=== PATIENT | male | born 1955 | race Caucasian/White ===

== ENCOUNTER 2020-09-08 09:17 | Emergency (ER) | payer OTHER, MEDICARE, SELFPAY ==
[2020-09-08] VITALS (7 sets, daily range): BP systolic 130–139; BP diastolic 79–97; PULSE 80–102; RESP 17–25; TEMP 36.7–37.1; O2SAT 84–100; BMI 18.3
--- NOTE | 2020-09-08 09:21 | XR_ITS ---
WS: [id number] Portable AP upright chest, 09/08/2020 Clinical Data: dyspnea/cough Comparison: PA and lateral chest, 08/04/2013. Findings: There is scarring and retraction along with volume loss in the right upper lobe unchanged. There is bullous emphysema in the left upper lobe. The pulmonary vascularity is not increased. No pne umonia or pneumothorax is seen. The heart is normal. The diaphragms are flattened. No nodules, masses or effusions are seen. There is no pneumonia or pneumothorax. XR/XR chest 1V portable [id number] Impression: 1. Upper lobe scarring and bullous emphysema unchanged. 2. Hyperinflation.
[2020-09-08 09:34] LABS: ABG PCO2 39.7 mmHg (35-45); ABG PH Result 7.42 (7.35-7.45); Alveolar-Arterial Oxygen Gradi 4.1 mmHg (5-10); Arterial Blood Gas Hematocrit 50.3 % (42-52); Base Excess ABG 1.4 mmol/L (-2.0-2.0); Blood Gas Allen Test Pos; Blood Gas Sample Site Radial, right; Blood Gas Sample Type Arterial; Carboxyhemoglobin 1.7 %THgb (0.4-20.1); HCO3 ABG 25.9 mmol/L (22-26); HGB O2 Sat 92.8 % (95-100); Ionized Calcium Level - ABG 1.1 mmol/L (1.1-1.4); Methemoglobin 0.6 % (0.4-1.5); Oxygen Device NC; PO2 ABG 69.9 mmHg (80.0-100.0); Total Hemoglobin 16.4 g/dL (14-18)
[2020-09-08 09:34] LABS: Basophils % 0.4 %; Eosinophils % 0.4 %; Hematocrit 50.5 % (42.0-52.0); Hemoglobin 16.9 g/dL (11.7-16.6); Lymphocytes # 1.1 10^3/uL (0.8-4.8); Lymphocytes % 11.6 %; Mean Corpuscular HGB Conc 33.5 g/dL (30.0-36.0); Mean Corpuscular Hemoglobin 31.5 pg (28.0-34.0); Mean Corpuscular Volume 94.2 fL (80-94); Mean Platelet Volume 9.2 fL (7.4-10.4); Monocytes # 1.2 10^3/uL (0.2-0.9); Monocytes % 12.5 %; Neutrophils # 6.96 10^3/uL (1.8-7.7); Neutrophils % 74.5 %; Nucleated Red Blood Cells % 0 %; Platelet Count 193 10^3/cmm (130-400); Red Blood Count 5.36 10^6/uL (4.1-5.3); Red Cell Distribution Width 13.2 % (12.1-15.1); White Blood Count 9.4 10^3/uL (4.0-10.0)
--- NOTE | 2020-09-08 09:35 | W.ED.SOB ---
HPI - SOB/Dyspnea General: Chief Complaint: Shortness of Breath/Dyspnea Stated Complaint: low O2 SATS Time Seen by Provider: 09/08/20 09:17 History of Present Illness: HPI Narrative: 65-year-old male presents to the emergency room with complaints of shortness of breath and productive cough for the last few days. He states it began about 3 days ago after he had been mowing his lawn. He states he has a lot of nasal drainage. He has a productive cough with purulent sputum. He has not had any vomiting or diarrhea no anosmia. He is not previously had Covid or been vaccinated. He denies any chest pain. He is not usually on oxygen EMS did not report specific saturation number other than he required oxygen once they arrived there. He is on 2 L nasal cannula when I seen the patient he satting 97 to 98%. Patient was given subcu terbutaline and Solu-Medrol IV in route. MD elicited complaint: shortness of breath and cough Pertinent past history: COPD Onset (ago): day(s) Context: occurred during exertion and allergen exposure Timing: constant Severity: moderate Exacerbating factors: exertion and coughing Relieving factors: oxygen and rest Known history of: COPD Associated symptoms: Reports chest congestion and cough; Deny abdominal pain, chest pain, diaphoresis, dizziness, extremity pain, fever(s), hemoptysis, lightheadedness, myalgias, nausea, orthopnea, palpitations, paresthesias, polydipsia, polyuria, rash, sense of impending doom, syncope or vomiting Treatment prior to arrival: oxygen, bronchodilator and other (EMS Solu-Medrol 125 mg) Review of Systems Const: Denies: fever(s) or diaphoresis Card: Denies: chest pain, palpitations, lightheadedness, syncope or orthopnea Resp: Reports: chest congestion; Denies: hemoptysis GI: Denies: abdominal pain, nausea or vomiting Musc: Denies: extremity pain Neuro: Denies: dizziness Endo: Denies: polyuria or polydipsia PFS ED PFSH: Medical History (Updated 09/08/20 @ 11:44 by Jonas Michaels DO) COPD (chronic obstructive pulmonary disease) Physical Exam Const: COMMON NORMALS: no acute distress GENERAL APPEARANCE: cooperative and comfortable ORIENTATION/CONSCIOUSNESS: Yes awake, Yes oriented to person, Yes oriented to place and Yes oriented to time HENMT: COMMON NORMALS: normocephalic, atraumatic and hearing grossly normal bilaterally HEAD & SCALP: normocephalic and atraumatic Neck/C-Spine: COMMON NORMALS: no JVD Resp: EFFORT & INSPECTION: Yes prolonged expiratory phase AUSCULTATION: rhonchi, wheezes and diminished lung sounds Cardio: COMMON NORMALS: no JVD, regular rate, regular rhythm and No murmurs present (Cardio) RATE: regular rate RHYTHM: regular rhythm GI: COMMON NORMALS: Soft to palpation and No hepatosplenomegaly present AUSCULTATION: Yes normoactive bowel sounds PALPATION: Yes Soft to palpation, No Tenderness to palpation present (GI), No Guarding due to palpation present (GI) and Yes No hepatosplenomegaly present Extremity: COMMON NORMALS: normal to inspection, capillary refill normal, no clubbing, cyanosis or edema, no calf tenderness and no pedal edema Neuro: SENSORIUM/ORIENTATION: Yes oriented to person, Yes oriented to place and Yes oriented to time Skin: COMMON NORMALS: no rashes or lesions noted GENERAL SKIN EXAM: no rashes or lesions noted Course Vital Signs: Vital signs: Vital Signs Temperature 98.7 F 09/08/20 09:50 Pulse Rate 81 09/08/20 13:00 Respiratory Rate 21 H 09/08/20 13:00 Blood Pressure 135/97 09/08/20 13:00 Pulse Oximetry 98 09/08/20 13:00 MDM - SOB/Dyspnea MDM Narrative: Medical decision making narrative: Patient tested for Covid rapid is negative PCR sent out. He was also tested for ambulatory O2 for which she does qualify for 3 L. Patient is feeling better need like to go home. He has mild bladder infection as well as given Rocephin here we will start him on Augmentin 875 twice daily for 10 days additionally given albuterol inhalers thyroid medicine taper and home oxygen follow-up with his primary care doctor within the next 4 to 5 days return if has further problems Lab Data: Labs: Lab Results 09/08/20 09/08/20 09/08/20 Range/Units 09:01 09:01 09:01 WBC 9.4 (4.0-10.0) 10^3/ uL RBC 5.36 H (4.1-5.3) 10^6/u L Hgb 16.9 H (11.7-16.6) g/dL Hct 50.5 (42.0-52.0) % MCV 94.2 H (80-94) fL MCH 31.5 (28.0-34.0) pg MCHC 33.5 (30.0-36.0) g/dL RDW 13.2 (12.1-15.1) % Plt Count 193 (130-400) 10^3/c mm MPV 9.2 (7.4-10.4) fL Neut % (Auto) 74.5 % Lymph % (Auto) 11.6 % [place] % (Auto) 12.5 % Eos % (Auto) 0.4 % Baso % (Auto) 0.4 % Neut # (Auto) 6.96 (1.8-7.7) 10^3/u L Lymph # (Auto) 1.1 (0.8-4.8) 10^3/u L [place] # (Auto) 1.2 H (0.2-0.9) 10^3/u L Eos # (Auto) 0.0 (0.0-0.8) 10^3/u L Baso # (Auto) 0.0 (0.0-0.1) 10^3/u L Nucleated RBC % (a uto) 0 % Nucleated RBCs # 0.0 /100WBC Specimen Type Sample Site ABG pH (7.35-7.45) ABG pCO2 (35-45) mmHg ABG pO2 (80.0-100.0) mmH g ABG HCO3 (22-26) mmol/L ABG O2 Saturation ABG Base Excess (-2.0-2.0) mmol/ L Tono Test A-a O2 Gradient (5-10) mmHg Hematocrit (42-52) % Hgb O2 Saturation (95-100) % Carboxyhemoglobin (0.4-20.1) %THgb Methemoglobin (0.4-1.5) % Total Hemoglobin (14-18) g/dL Ionized Calcium (1.1-1.4) mmol/L O2 Delivery Device O2 Liters/Min % Custom Car [employer] ID Sodium 125 L (136-145) mmol/L Potassium 4.8 (3.5-5.1) mmol/L Chloride 85 L (98-107) mmol/L Carbon Dioxide 29 (22-29) mmol/L Anion Gap 15.8 (5-19) BUN 17 (8-23) mg/dL Creatinine 0.7 (0.7-1.2) mg/dL GFR Calculation 112.5 (90-130) mL/min Glucose 106 (65-115) mg/dL Calculated Osmolal ity 262 L (285-295) mOsm/k g Calcium 8.5 (8.5-10.5) mg/dL Total Bilirubin 1.8 H (0.15-1.2) mg/dL AST 34 (0-40) U/L ALT 19 (0-41) U/L Alkaline Phosphata se 94 (40-130) IU/L Troponin T Baselin e 17 H (0-15) ng/L Troponin T 120 Min [place] (0-15) ng/L Delta Troponin T (0-10) ABS# Total Protein 7.2 (6.6-8.7) g/dL Albumin 3.8 (3.5-5.2) g/dL Globulin 3.4 (1.3-4.6) g/dL Urine Color (Yellow) Urine Appearance (CLEAR) Urine pH (5-7) Ur Specific Gravit y (1.005-1.030) Urine Protein (Negative) Urine Glucose (UA) (Normal) Urine Ketones (Negative) Urine Blood (Negative) Urine Nitrate (Negative) Urine Bilirubin (Negative) Urine Urobilinogen (Negative) mg/dL Ur Leukocyte Cecilia ase (Negative) Urine RBC (0-2) /hpf Urine WBC (0-5) /hpf Ur Squamous Epith Cells (0-5) /hpf Amorphous Sediment Urine Bacteria (NONE) /hpf SARS-CoV-2 Ag (Rap id) (Negative) 09/08/20 09/08/20 09/08/20 Range/Units 09:22 10:03 10:45 WBC (4.0-10.0) 10^3/ uL RBC (4.1-5.3) 10^6/u L Hgb (11.7-16.6) g/dL Hct (42.0-52.0) % MCV (80-94) fL MCH (28.0-34.0) pg MCHC (30.0-36.0) g/dL RDW (12.1-15.1) % Plt Count (130-400) 10^3/c mm MPV (7.4-10.4) fL Neut % (Auto) % Lymph % (Auto) % [place] % (Auto) % Eos % (Auto) % Baso % (Auto) % Neut # (Auto) (1.8-7.7) 10^3/u L Lymph # (Auto) (0.8-4.8) 10^3/u L [place] # (Auto) (0.2-0.9) 10^3/u L Eos # (Auto) (0.0-0.8) 10^3/u L Baso # (Auto) (0.0-0.1) 10^3/u L Nucleated RBC % (a uto) % Nucleated RBCs # /100WBC Specimen Type Arterial Sample Site Radial, right ABG pH 7.42 (7.35-7.45) ABG pCO2 39.7 (35-45) mmHg ABG pO2 69.9 L (80.0-100.0) mmH g ABG HCO3 25.9 (22-26) mmol/L ABG O2 Saturation 95.0 ABG Base Excess 1.4 (-2.0-2.0) mmol/ L Tono Test Pos A-a O2 Gradient 4.1 L (5-10) mmHg Hematocrit 50.3 (42-52) % Hgb O2 Saturation 92.8 L (95-100) % Carboxyhemoglobin 1.7 (0.4-20.1) %THgb Methemoglobin 0.6 (0.4-1.5) % Total Hemoglobin 16.4 (14-18) g/dL Ionized Calcium 1.1 (1.1-1.4) mmol/L O2 Delivery Device Nc O2 Liters/Min 2.0 % Custom Car Builder ID [email or web address] Sodium 123.0 L (136-145) mmol/L Potassium 4.0 (3.5-5.1) mmol/L Chloride (98-107) mmol/L Carbon Dioxide (22-29) mmol/L Anion Gap (5-19) BUN (8-23) mg/dL Creatinine (0.7-1.2) mg/dL GFR Calculation (90-130) mL/min Glucose 112.0 (65-115) mg/dL Calculated Osmolal ity (285-295) mOsm/k g Calcium (8.5-10.5) mg/dL Total Bilirubin (0.15-1.2) mg/dL AST (0-40) U/L ALT (0-41) U/L Alkaline Phosphata se (40-130) IU/L Troponin T Baselin e (0-15) ng/L Troponin T 120 Min [place] (0-15) ng/L Delta Troponin T (0-10) ABS# Total Protein (6.6-8.7) g/dL Albumin (3.5-5.2) g/dL Globulin (1.3-4.6) g/dL Urine Color Yellow (Yellow) Urine Appearance Cloudy (CLEAR) Urine pH 5 (5-7) Ur Specific Gravit y 1.015 (1.005-1.030) Urine Protein Trace (Negative) Urine Glucose (UA) Norm (Normal) Urine Ketones 1+ H (Negative) Urine Blood 2+ H (Negative) Urine Nitrate Positive H (Negative) Urine Bilirubin 1+ H (Negative) Urine Urobilinogen 4 H (Negative) mg/dL Ur Leukocyte Cecilia ase 2+ H (Negative) Urine RBC 15-25 H (0-2) /hpf Urine WBC >100 H (0-5) /hpf Ur Squamous Epith Cells 0-4 H (0-5) /hpf Amorphous Sediment Not Reportable Urine Bacteria 3+ H (NONE) /hpf SARS-CoV-2 Ag (Rap id) Negative (Negative) 09/08/20 Range/Units 11:50 WBC (4.0-10.0) 10^3/ uL RBC (4.1-5.3) 10^6/u L Hgb (11.7-16.6) g/dL Hct (42.0-52.0) % MCV (80-94) fL MCH (28.0-34.0) pg MCHC (30.0-36.0) g/dL RDW (12.1-15.1) % Plt Count (130-400) 10^3/c mm MPV (7.4-10.4) fL Neut % (Auto) % Lymph % (Auto) % [place] % (Auto) % Eos % (Auto) % Baso % (Auto) % Neut # (Auto) (1.8-7.7) 10^3/u L Lymph # (Auto) (0.8-4.8) 10^3/u L [place] # (Auto) (0.2-0.9) 10^3/u L Eos # (Auto) (0.0-0.8) 10^3/u L Baso # (Auto) (0.0-0.1) 10^3/u L Nucleated RBC % (a uto) % Nucleated RBCs # /100WBC Specimen Type Sample Site ABG pH (7.35-7.45) ABG pCO2 (35-45) mmHg ABG pO2 (80.0-100.0) mmH g ABG HCO3 (22-26) mmol/L ABG O2 Saturation ABG Base Excess (-2.0-2.0) mmol/ L Tono Test A-a O2 Gradient (5-10) mmHg Hematocrit (42-52) % Hgb O2 Saturation (95-100) % Carboxyhemoglobin (0.4-20.1) %THgb Methemoglobin (0.4-1.5) % Total Hemoglobin (14-18) g/dL Ionized Calcium (1.1-1.4) mmol/L O2 Delivery Device O2 Liters/Min % Custom Car Builder ID Sodium (136-145) mmol/L Potassium (3.5-5.1) mmol/L Chloride (98-107) mmol/L Carbon Dioxide (22-29) mmol/L Anion Gap (5-19) BUN (8-23) mg/dL Creatinine (0.7-1.2) mg/dL GFR Calculation (90-130) mL/min Glucose (65-115) mg/dL Calculated Osmolal ity (285-295) mOsm/k g Calcium (8.5-10.5) mg/dL Total Bilirubin (0.15-1.2) mg/dL AST (0-40) U/L ALT (0-41) U/L Alkaline Phosphata se (40-130) IU/L Troponin T Baselin e (0-15) ng/L Troponin T 120 Min [place] 12.98 (0-15) ng/L Delta Troponin T -4.02 L (0-10) ABS# Total Protein (6.6-8.7) g/dL Albumin (3.5-5.2) g/dL Globulin (1.3-4.6) g/dL Urine Color (Yellow) Urine Appearance (CLEAR) Urine pH (5-7) Ur Specific Gravit y (1.005-1.030) Urine Protein (Negative) Urine Glucose (UA) (Normal) Urine Ketones (Negative) Urine Blood (Negative) Urine Nitrate (Negative) Urine Bilirubin (Negative) Urine Urobilinogen (Negative) mg/dL Ur Leukocyte Cecilia ase (Negative) Urine RBC (0-2) /hpf Urine WBC (0-5) /hpf Ur Squamous Epith Cells (0-5) /hpf Amorphous Sediment Urine Bacteria (NONE) /hpf SARS-CoV-2 Ag (Rap id) (Negative) Discharge Plan Discharge Patient Disposition: Home Clinical Impression: Acute exacerbation of chronic obstructive airways disease Condition: Stable Prescriptions: New Medrol (Ruben) 4 mg tablets,dose pack See Rx Instructions .ROUTE .COMPLEX Qty: 21 RF: 0 Augmentin 875-125 mg tablet 1 tab PO BID Qty: 20 RF: 0 No Action ipratropium-albuterol 20-100 mcg/actuation mist 1 puff inhalation QID RF: 0 budesonide-formoterol 160-4.5 mcg/actuation HFA aerosol inhaler 2 puff inhalation BID RF: 0 cholecalciferol (vitamin D3) 50 mcg (2,000 unit) capsule 50 mcg PO DAILY RF: 0 cyclobenzaprine 10 mg tablet 10 mg PO TID RF: 0 ibuprofen 800 mg tablet 800 mg PO Q6H RF: 0 lisinopril 20 mg tablet 10 mg PO DAILY RF: 0 Discharge Orders: Discharge ED (Routine); Ordered 09/08/20 Ordered By: Jonas Michaels Other Ambulatory Orders: DME: Oxygen (Order) Location: None Selected Ordered By: Jonas Michaels Referrals: Les St, FRUIT HARVEST WORKER-C [Primary Care Provider] - Discharge Diet: Usual diet Discharge Activity: Limit activity as instructed Patient Instructions: Opioid Safety Coding Level of Care Code ED Senior Engineering Tech for James Fwd Exam Comprehensive
[2020-09-08 09:45] LABS: Alanine Aminotransferase 19 U/L (0-41); Albumin Level 3.8 g/dL (3.5-5.2); Alkaline Phosphatase 94 IU/L (40-130); Anion Gap 15.8 (5-19); Aspartate Amino Transferase 34 U/L (0-40); Blood Urea Nitrogen 17 mg/dL (8-23); Calcium 8.5 mg/dL (8.5-10.5); Carbon Dioxide 29 mmol/L (22-29); Chloride 85 mmol/L (98-107); Globulin 3.4 g/dL (1.3-4.6); Glomerular Filtration Rate 112.5 mL/min (90-130); Glucose 106 mg/dL (65-115); Osmolality Calculated 262 mOsm/kg (285-295); Potassium 4.8 mmol/L (3.5-5.1); Sodium 125 mmol/L (136-145); Total Bilirubin 1.8 mg/dL (0.15-1.2); Total Protein 7.2 g/dL (6.6-8.7)
[2020-09-08 09:46] LABS: Troponin(5th) Baseline 17 ng/L (0-15)
[2020-09-08 10:31] LABS: SARS Covid-2 Antigen Negative (Negative)
[2020-09-08] MEDS: sodium chloride 0.9% 1,000 ML 999 ML IV (10:40)
[2020-09-08 11:01] LABS: Add Urine Culture? Yes; Add Urine Microscopic? YES; Bacteria Urine 3+ /hpf; Bilirubin Urine 1+ (Negative); Blood Urine 2+ (Negative); Glucose Urine UA Norm (Normal); Ketones Urine 1+ (Negative); Leukocyte Esterase Urine 2+ (Negative); Nitrate Urine Positive (Negative); Protein Urine Trace (Negative); RBC Urine 15-25 /hpf (0-2); Specific Gravity, Urine 1.015 (1.005-1.030); Squamous Epithelial Cell Urine 0-4 /hpf (0-5); Urine Appearance Cloudy (CLEAR); Urine Color Yellow (Yellow); Urobilinogen Urine 4 mg/dL (Negative); WBC Urine >100 /hpf (0-5); pH Urine 5 (5-7)
--- NOTE | 2020-09-08 11:22 | ECG_ITS ---
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 Measurements Intervals [place] Rate: 80 P: 77 NE: 161 QRS: 79 QRSD: 74 T: 68 QT: 409 QTc: 474 Interpretive Statements SINUS RHYTHM WITH OCCASIONAL SUPRAVENTRICULAR PREMATURE COMPLEXES LOW QRS VOLTAGE IN PRECORDIAL LEADS [QRS DEFLECTION < 1.0 mV IN CHEST LEADS] SEPTAL MYOCARDIAL INFARCTION , OF INDETERMINATE AGE [40+ ms Q WAVE IN V1/V2] Compared to ECG 09/08/2020 09:40:57 Low QRS voltage now present Myocardial infarct finding now present Atrial abnormality no longer present Electronically Signed On 09-08-2020 21:54:05 CDT by Mayte Hanks M.D. [id number]
[2020-09-08] MEDS: cefTRIAXone 1,000 MG in lidocaine 1% 2.1 ML 2.1 MG IM (11:29)
[2020-09-08 12:50] LABS: Troponin 5 2HR 12.98 ng/L (0-15)
[2020-09-08 12:51] LABS: Troponin 5 2HR Delta -4.02 ABS# (0-10)
--- NOTE | 2020-09-08 14:14 | PC.NURSE ---
Offered sandwich and fresh coffee
--- NOTE | 2020-09-08 15:03 | DCPLANNER ---
manufacturing area manager was asked to arrange for home oxygen for patient. Patient has [facility] insurance, shoe parts caser faxed patients information to [facility] with [facility].
--- NOTE | 2020-09-08 15:22 | ECG_ITS ---
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 Measurements Intervals [place] Rate: 95 P: 75 CT: 153 QRS: 81 QRSD: 85 T: 70 QT: 359 QTc: 453 Interpretive Statements SINUS RHYTHM POSSIBLE RIGHT ATRIAL ENLARGEMENT [0.25mV P WAVE] LEFT ATRIAL ENLARGEMENT [-0.15mV P WAVE IN V1/V2] Possible old septal WI WARNING: DATA QUALITY MAY AFFECT INTERPRETATION No previous ECG available for comparison Electronically Signed On 09-08-2020 21:53:53 CDT by Mayte Hanks M.D. [id number]
--- NOTE | 2020-09-08 16:17 | PC.NURSE ---
D'cd IV , waiting for Home O2.
[2020-09-09 14:42] LABS: Coronavirus Test Green County Not Detected
--- NOTE | 2020-09-09 17:23 | PC.NURSE ---
Pt called and notified of negative COVID result.
== END 2020-09-08 16:56 | disposition home or self-care (01) ==
PROVIDERS: Emergency Provider Family Medicine; PCP Nurse Practitioner
DX: J44.1 Chronic obstructive pulmonary disease with (acute) exacerbation (principal); Z79.899 Other long term (current) drug therapy
CPT/HCPCS: 36415; 36600; 71045; 80051; 80053; 81001; 82330; 82805; 84484; 85025; 87040; 87070; 87077; 87086; 87186; 87205; 87426; 87635; 93005; 96360; 96372; 99284; J0696; J7030

== ENCOUNTER 2022-03-17 08:56 | Emergency (ER) | payer OTHER, SELFPAY ==
[2022-03-17] VITALS (8 sets, daily range): BP systolic 133–152; BP diastolic 76–93; PULSE 83–120; RESP 16–24; TEMP 37.2; O2SAT 97–100; BMI 18.8
--- NOTE | 2022-03-17 09:04 | XRR_ITS ---
PROCEDURE INFORMATION: Exam: XR Chest Exam date and time: 03/17/2022 9:17 AM Age: 66 years old Clinical indication: Shortness of breath; Additional info: Hemoptysis TECHNIQUE: Imaging protocol: Radiologic exam of the chest. Views: 2 views. PA and Lateral COMPARISON: CR XR chest 1V portable [id number] 09/08/2020 9:26 AM FINDINGS: Lungs: Decreased right lung volumes with increased right apical airspace opacities and increased right apical pleural thickening. Increased right superior hilar retraction is seen. Unchanged hyperinflation of the left lung. Age-related interstitial prominence is seen in the lungs. No left lung interstitial or airspace opacities. Pleural spaces: No pleural effusions or pneumothorax. Heart/Mediastinum: Normal heart size. Unchanged mild rightward deviation of the mid trachea and mediastinum. Bones/joints: No acute osseous abnormalities seen. XR/XR chest 2V* [id number] IMPRESSION: Decreased right lung volumes with increased right apical airspace opacities and increased right apical pleural thickening. Increased right superior hilar retraction.
--- NOTE | 2022-03-17 09:17 | ED_ITS ---
HPI - SOB/Dyspnea General: Chief Complaint: Shortness of Breath/Dyspnea Stated Complaint: SOB; BLOODY SPUTUM Time Seen by Provider: 03/17/22 08:57 History of Present Illness: HPI Narrative: 66-year-old male presents with chronic shortness of breath but reports that today he has been coughing up blood. That about every 15 minutes he coughs up bloody sputum. Reports that started this morning. He reports that he has some feeling of increased shortness of breath. That normally when he gets up he is short of breath about 15 minutes and then resolves. But the days shortness of breath is not resolved and he has been coughing up blood. Patient denies any recent fevers, chills, nausea or vomiting. Does report that he is on blood thinner however is not on his medication list. Patient has a history of COPD. He denies any abdominal pain, nausea or vomiting. He denies any chest pain. Patient is normally on 3 L oxygen at home. Associated symptoms: Reports hemoptysis; Deny abdominal pain, chest pain, dizziness, extremity pain, fever(s), nausea, palpitations or vomiting Review of Systems Const: Denies: fever(s) or chills Eyes: Reports: change in vision and blurry vision Card: Denies: chest pain or palpitations Resp: Reports: dyspnea and hemoptysis GI: Denies: abdominal pain, nausea or vomiting : Denies: difficulty urinating Musc: Reports: neck pain; Denies: extremity pain or extremity swelling Skin/Breast: Denies: rash or erythema Neuro: Denies: headache(s) or dizziness Psych: Denies: anxiety or depression [facility] ED PFSH: Medical History (Updated 03/17/22 @ 11:54 by Conrad Puga DO) COPD (chronic obstructive pulmonary disease) Physical Exam Const: COMMON NORMALS: no acute distress and patient oriented x3 GENERAL APPEARANCE: cooperative and frail appearing NUTRITIONAL APPEARANCE: thin HENMT: COMMON NORMALS: hearing grossly normal bilaterally and Normal external nose present NOSE: Normal external nose present Chest: COMMONS NORMALS: normal inspection of the chest and normal palpation of entire chest wall Resp: EFFORT & INSPECTION: Yes able to speak in complete sentences and Yes symmetric chest movement AUSCULTATION: diminished lung sounds Cardio: COMMON NORMALS: regular rhythm RATE: tachycardic RHYTHM: regular rhythm GI: COMMON NORMALS: Soft to palpation PALPATION: Yes Soft to palpation and No Tenderness to palpation present (GI) Extremity: COMMON NORMALS: normal to inspection, full ROM, capillary refill normal and no clubbing, cyanosis or edema Neuro: COMMON NORMALS: patient oriented x3, CN's II-XII intact bilaterally and moves all extremities Psych: COMMON NORMALS: mental status grossly normal, Normal thought process present, cooperative and normal affect THOUGHT PROCESS: Normal thought process present Skin: COMMON NORMALS: no rashes or lesions noted GENERAL SKIN EXAM: no rashes or lesions noted Course Vital Signs: Vital signs: Vital Signs Temperature 98.9 F 03/17/22 08:56 Pulse Rate 120 H 03/17/22 08:56 Respiratory Rate 22 H 03/17/22 08:56 Blood Pressure 138/93 03/17/22 08:56 Pulse Oximetry 97 03/17/22 08:56 Oxygen Delivery Me thod 03/17/22 08:56 Oxygen Flow Rate 3 03/17/22 08:56 MDM - SOB/Dyspnea Medical Decision Making Patient with active gross hemoptysis. We will transfer him to [facility] ER to ER for further evaluation. We do not have data entry processor or other capabilities to care for him at this time. Patient was stable and transferred via EMS. Lab Data : 03/17/22 09:41 03/17/22 09:20 Labs/Radiology: Radiology Impressions Chest X-Ray 03/17/22 09:04 IMPRESSION: Decreased right lung volumes with increased right apical airspace opacities and increased right apical pleural thickening. Increased right superior hilar retraction. Chest CTA 03/17/22 10:10 IMPRESSION: 1. No CTA evidence of pulmonary embolism, thoracic aortic aneurysm or thoracic aortic dissection. 2. Volume loss in the right hemithorax. Right upper lobe apical and anterior segment wedge-shaped region of consolidation. Cavitary 2.7 x 3.7 x 3 cm region. Anterior subpleural cavitary 3.1 x 1 x 2.7 cm region. Associated right superior hilar retraction. This may represent sequela of prior mycobacterial infection with or without superimposed pneumonia. Underlying malignancy also cannot be excluded. Recommend follow-up with CT in 3 months to assess change. 3. Severe bullous emphysematous changes in the lungs, left greater than right. Hyperinflation of the left lung. Laboratory Results WBC 6.3 10^3/uL (4.0-10.0) 03/17/22 09:41 Corrected WBC Cancelled 03/17/22 09:20 RBC 4.54 10^6/uL (4.1-5.3) 03/17/22 09:41 Hgb 13.6 g/dL (11.7-16.6) 03/17/22 09:41 Hct 40.7 % (42.0-52.0) L 03/17/22 09:41 MCV 89.6 fl (80-94) 03/17/22 09:41 MCH 30.0 pg (28.0-34.0) 03/17/22 09:41 MCHC 33.4 g/dL (30.0-36.0) 03/17/22 09:41 RDW 13.1 % (12.1-15.1) 03/17/22 09:41 Plt Count 150 10^3/cmm (130-400) 03/17/22 09:41 MPV 9.5 fL (7.4-10.4) 03/17/22 09:41 Gran % Cancelled 03/17/22 09:20 Neut % (Auto) 83.5 % 03/17/22 09:41 Lymph % (Auto) 8.9 % 03/17/22 09:41 [place] % (Auto) 5.4 % 03/17/22 09:41 Eos % (Auto) 1.0 % 03/17/22 09:41 Baso % (Auto) 0.6 % 03/17/22 09:41 Neut # (Auto) 5.26 10^3/uL (1.8-7.7) 03/17/22 09:41 Lymph # (Auto) 0.6 10^3/uL (0.8-4.8) L 03/17/22 09:41 [place] # (Auto) 0.3 10^3/uL (0.2-0.9) 03/17/22 09:41 Eos # (Auto) 0.1 10^3/uL (0.0-0.8) 03/17/22 09:41 Baso # (Auto) 0.0 10^3/uL (0.0-0.1) 03/17/22 09:41 Absolute Gran (auto) Cancelled 03/17/22 09:20 Nucleated RBC % (auto) 0 % 03/17/22 09:41 Nucleated RBCs # 0.0 /100WBC 03/17/22 09:41 PT 13.40 SECONDS (12.1-14.9) 03/17/22 09:20 INR 0.99 (0.8-1.2) 03/17/22 09:20 APTT 27.1 SECONDS (23.9-36.7) 03/17/22 09:20 Sodium 133 mmol/L (136-145) L 03/17/22 09:20 Potassium 4.2 mmol/L (3.5-5.1) 03/17/22 09:20 Chloride 94 mmol/L (98-107) L 03/17/22 09:20 Carbon Dioxide 29 mmol/L (22-29) 03/17/22 09:20 Anion Gap 14.2 (5-19) 03/17/22 09:20 BUN 7 mg/dL (8-23) L 03/17/22 09:20 Creatinine 0.5 mg/dL (0.7-1.2) L 03/17/22 09:20 GFR Calculation 165.4 mL/min (90-130) H 03/17/22 09:20 Glucose 89 mg/dL (65-115) 03/17/22 09:20 Calculated Osmolality 273 mOsm/kg (285-295) L 03/17/22 09:20 Lactate 1.5 mmol/L (0.5-2.2) 03/17/22 09:20 Calcium 8.8 mg/dL (8.5-10.5) 03/17/22 09:20 Magnesium 2.0 mg/dL (1.7-2.3) 03/17/22 09:20 Total Bilirubin 0.6 mg/dL (0.15-1.2) 03/17/22 09:20 AST 22 U/L (0-40) 03/17/22 09:20 ALT 11 U/L (0-41) 03/17/22 09:20 Alkaline Phosphatase 131 U/L (40-130) H 03/17/22 09:20 Total Protein 8.0 g/dL (6.6-8.7) 03/17/22 09:20 Albumin 3.1 g/dL (3.5-5.2) L 03/17/22 09:20 Globulin 4.9 g/dL (1.3-4.6) H 03/17/22 09:20 Lipase 47 U/L (13-60) 03/17/22 09:20 Urine Color Straw (Yellow) 03/17/22 09:50 Urine Appearance Sl hazy (CLEAR) A 03/17/22 09:50 Urine pH 6 (5-7) 03/17/22 09:50 Ur Specific [place] 1.015 (1.005-1.030) 03/17/22 09:50 Urine Protein Trace (Negative) 03/17/22 09:50 Urine Glucose (UA) Norm (Normal) 03/17/22 09:50 Urine Ketones Negative (Negative) 03/17/22 09:50 Urine Blood 2+ (Negative) H 03/17/22 09:50 Urine Nitrate Positive (Negative) H 03/17/22 09:50 Urine Bilirubin Neg (Negative) 03/17/22 09:50 Urine Urobilinogen Norm mg/dL (Negative) 03/17/22 09:50 Ur Leukocyte Esterase 2+ (Negative) H 03/17/22 09:50 Urine RBC 15-25 /hpf (0-2) H 03/17/22 09:50 Urine WBC 40-55 /hpf (0-5) H 03/17/22 09:50 Ur Squamous Epith Cells 0-4 /hpf (0-5) H 03/17/22 09:50 Amorphous Sediment Not Reportable 03/17/22 09:50 Urine Bacteria 2+ /hpf (NONE) H 03/17/22 09:50 Urine Mucus Trace /hpf 03/17/22 09:50 Discharge Plan Discharge Patient Disposition: Xfer Short-Term Hosp Clinical Impression: Hemoptysis Condition: Stable Referrals: Les [facility], LOGISTIC MANAGER-[facility] [Primary Care Provider] - Coding Level of Care Code ED Cardiothoracic Icu Rn for Chg Fwd Exam Comprehensive
[2022-03-17] MEDS: pantoprazole 40 mg SDV IVP (09:26)
--- NOTE | 2022-03-17 09:29 | ECG_ITS ---
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 Measurements Intervals [place] Rate: 114 P: 75 MO: 148 QRS: 89 QRSD: 67 T: 69 QT: 310 QTc: 427 Interpretive Statements SINUS TACHYCARDIA SEPTAL MYOCARDIAL INFARCTION , PROBABLY OLD [40+ ms Q WAVE IN V1/V2] INTERPRETATION BASED ON A DEFAULT AGE OF 40 YEARS Compared to ECG 09/08/2020 11:56:04 Sinus rhythm no longer present Myocardial infarct finding still present Electronically Signed On 03-18-2022 10:13:02 CDT by Edgardo Hernandez M.D. [email or web address].Instabank/store/[id number] f
[2022-03-17 09:49] LABS: Alanine Aminotransferase 11 U/L (0-41); Albumin Level 3.1 g/dL (3.5-5.2); Alkaline Phosphatase 131 U/L (40-130); Anion Gap 14.2 (5-19); Aspartate Amino Transferase 22 U/L (0-40); Blood Urea Nitrogen 7 mg/dL (8-23); Calcium 8.8 mg/dL (8.5-10.5); Carbon Dioxide 29 mmol/L (22-29); Chloride 94 mmol/L (98-107); Globulin 4.9 g/dL (1.3-4.6); Glomerular Filtration Rate 165.4 mL/min (90-130); Glucose 89 mg/dL (65-115); Lipase 47 U/L (13-60); Osmolality Calculated 273 mOsm/kg (285-295); Potassium 4.2 mmol/L (3.5-5.1); Sodium 133 mmol/L (136-145); Total Bilirubin 0.6 mg/dL (0.15-1.2)
[2022-03-17 09:50] LABS: Lactate (Lactic Acid level) 1.5 mmol/L (0.5-2.2)
[2022-03-17 09:54] LABS: INR 0.99 (0.8-1.2); Partial Thromboplastin Time 27.1 SECONDS (23.9-36.7)
[2022-03-17 09:58] LABS: Basophils % 0.6 %; Eosinophils # 0.1 10^3/uL (0.0-0.8); Hematocrit 40.7 % (42.0-52.0); Hemoglobin 13.6 g/dL (11.7-16.6); Lymphocytes # 0.6 10^3/uL (0.8-4.8); Lymphocytes % 8.9 %; Mean Corpuscular HGB Conc 33.4 g/dL (30.0-36.0); Mean Corpuscular Volume 89.6 fl (80-94); Mean Platelet Volume 9.5 fL (7.4-10.4); Monocytes # 0.3 10^3/uL (0.2-0.9); Monocytes % 5.4 %; Neutrophils # 5.26 10^3/uL (1.8-7.7); Neutrophils % 83.5 %; Nucleated Red Blood Cells % 0 %; Platelet Count 150 10^3/cmm (130-400); Red Blood Count 4.54 10^6/uL (4.1-5.3); Red Cell Distribution Width 13.1 % (12.1-15.1); White Blood Count 6.3 10^3/uL (4.0-10.0)
--- NOTE | 2022-03-17 10:10 | CTR_ITS ---
PROCEDURE INFORMATION: Exam: CTA Chest With Contrast Exam date and time: 03/17/2022 10:34 AM Age: 66 years old Clinical indication: Other: Coughing up blood; Additional info: Hemoptysis TECHNIQUE: Imaging protocol: Computed tomographic angiography of the chest with contrast. 3D rendering (Not supervised by radiologist): MIP and/or 3D reconstructed images were created by the technologist. Radiation optimization: All CT scans at this facility use at least one of these dose optimization techniques: automated exposure control; mA and/or kV adjustment per patient size (includes targeted exams where dose is matched to clinical indication); or iterative reconstruction. Contrast material: OMNI 350; Contrast volume: 75 ml; Contrast route: INTRAVENOUS (IV); COMPARISON: CR (CHEST, ) 03/17/2022 9:17 AM RADIATION DOSE METRICS: Total DLP (mGy-cm): 216.18 FINDINGS: Pulmonary arteries: No CT evidence for segmental pulmonary emboli. The main pulmonary arteries and outflow trunk are unremarkable. Aorta: No thoracic aortic aneurysm. No thoracic aortic dissection. Mild atherosclerotic vascular calcifications. Trachea: The central airway is normal. Lungs: There is volume loss in the right hemithorax. Right upper lobe apical and anterior segment wedge-shaped region of consolidation is seen. Cavitary 2.7 x 3.7 x 3 cm region is seen (series 6 images 91-130). Anterior subpleural cavitary 3.1 x 1 x 2.7 cm region is seen (series 6 images 189-223). There is associated right superior hilar retraction. This may represent sequela of prior mycobacterial infection with or without superimposed pneumonia. Underlying malignancy also cannot be excluded. Recommend follow-up with CT in 3 months to assess change. Severe centrilobular bullous emphysematous changes are seen in both lungs, left more than right. There is hyperinflation of the left lung. There are no left lung regions of consolidation. There is no honeycombing. Pleural spaces: No pneumothorax. No pleural effusion. Heart: The heart size is within normal limits. The RV/LV ratio is normal (no CT evidence of RV strain). There is no pericardial effusion. No coronary arterial atherosclerotic vascular calcifications. Lymph nodes: No enlarged lymph nodes. Calcified right hilar and subcarinal lymph nodes are seen, representing old granulomatous disease. Bones/joints: No acute osseous abnormalities. There is generalized osteopenia. Mild kyphotic curvature of the upper thoracic spine is seen. Severe degenerative disc disease changes with disc space narrowing are seen in the visualized lower cervical region. Soft tissues: Unremarkable. Other findings: Some motion artifact is seen, which limits assessment. CT/CT angio chest PE protcl [id number] IMPRESSION: 1. No CTA evidence of pulmonary embolism, thoracic aortic aneurysm or thoracic aortic dissection. 2. Volume loss in the right hemithorax. Right upper lobe apical and anterior segment wedge-shaped region of consolidation. Cavitary 2.7 x 3.7 x 3 cm region. Anterior subpleural cavitary 3.1 x 1 x 2.7 cm region. Associated right superior hilar retraction. This may represent sequela of prior mycobacterial infection with or without superimposed pneumonia. Underlying malignancy also cannot be excluded. Recommend follow-up with CT in 3 months to assess change. 3. Severe bullous emphysematous changes in the lungs, left greater than right. Hyperinflation of the left lung.
[2022-03-17 10:14] LABS: Add Urine Microscopic? YES; Bilirubin Urine Neg (Negative); Blood Urine 2+ (Negative); Glucose Urine UA Norm (Normal); Ketones Urine Negative (Negative); Leukocyte Esterase Urine 2+ (Negative); Nitrate Urine Positive (Negative); Protein Urine Trace (Negative); Specific Gravity, Urine 1.015 (1.005-1.030); Urine Appearance SL Hazy (CLEAR); Urine Color Straw (Yellow); Urobilinogen Urine Norm (Negative); pH Urine 6 (5-7)
[2022-03-17 10:16] LABS: Add Urine Culture? Yes; Bacteria Urine 2+ /hpf; Mucus Urine TRACE /hpf; RBC Urine 15-25 /hpf (0-2); Squamous Epithelial Cell Urine 0-4 /hpf (0-5); WBC Urine 40-55 /hpf (0-5)
[2022-03-17] MEDS: iohexol 350 mg/mL 100 mL Btl IV (10:39)
--- NOTE | 2022-03-17 13:42 | PC.NURSE ---
report given to [facility] specialists assumed care.
== END 2022-03-17 13:56 | disposition short-term general hospital (02) ==
PROVIDERS: Emergency Provider Student in an Organized Health Care Education/Training Program; PCP Nurse Practitioner
DX: R04.2 Hemoptysis (principal); J44.9 Chronic obstructive pulmonary disease, unspecified; Z99.81 Dependence on supplemental oxygen
CPT/HCPCS: 71046; 71275; 80053; 81001; 83605; 83690; 83735; 85025; 85610; 85730; 87077; 87086; 87186; 93005; 96374; 99285; C9113; Q9967

== ENCOUNTER 2022-05-14 08:49 | Inpatient (IN) | payer OTHER, SELFPAY ==
[2022-05-14] VITALS (56 sets, daily range): BP systolic 108–147; BP diastolic 69–110; PULSE 89–122; RESP 16–26; TEMP 31.6; O2SAT 80–100
--- NOTE | 2022-05-14 09:03 | XR_ITS ---
WS: [id number] PORTABLE CHEST HISTORY: dyspnea/cough COMPARISON: 03/17/2022 Moderate size LEFT pneumothorax is new. Pneumothorax extends subpulmonic. Hyperexpansion of the LEFT lung with subsegmental atelectasis at the LEFT lung base. Volume loss with scarring towards the RIGHT apex. There is hilar retraction to the RIGHT. Very simila r to the prior study. No pleural effusion or pneumothorax. Cardiac size: Normal. Mediastinum/Aorta: Mediastinal shift to the RIGHT is similar to prior studies. Increased area of cons olidation along the RIGHT hilum. No osseous abnormality seen. XR/XR chest 1V portable [id number] IMPRESSION: 1. Moderate-sized LEFT pneumothorax with subpulmonic extension. 2. There is mediastinal shift to the RIGHT similar to prior studies and relate d to chronic traction and scarring. Notified Jonas Michaels DO at 05/14/2022 9:[address] Michaels not availabl e for report but is aware of the pneumothorax.
--- NOTE | 2022-05-14 09:05 | W.ED.SOB ---
HPI - SOB/Dyspnea General: Chief Complaint: Shortness of Breath/Dyspnea Stated Complaint: Resp Distress Time Seen by Provider: 05/14/22 08:52 Source: patient Mode of arrival: EMS History of Present Illness: HPI Narrative: 66-year-old male with severe COPD brought in from home via EMS. He normally is on 4 L at home and 6 L on arrival he was at 86% on 15 L by nonrebreather he still satting in the mid 60s he has significant work of breathing with tripoding and use of accessory respiratory muscles he has mild chest pain that started yesterday all of his symptoms began yesterday. MD elicited complaint: shortness of breath and cough Pertinent past history: COPD Onset (ago): day(s) (1) Timing: constant Severity: severe Exacerbating factors: exertion, coughing and stress Relieving factors: nothing Known history of: COPD Associated symptoms: Reports chest congestion, chest pain, cough and orthopnea; Deny abdominal pain, diaphoresis, dizziness, extremity pain, fever(s), hemoptysis, lightheadedness, myalgias, nausea, palpitations, paresthesias, polydipsia, polyuria, rash, sense of impending doom, syncope or vomiting Treatment prior to arrival: oxygen and bronchodilator Related Data: Home oxygen amount: 4 liters Review of Systems Const: Reports: fatigue; Denies: fever(s), chills or diaphoresis ENMT: Denies: throat pain, ear or mastoid pain, nasal discharge or nasal congestion Card: Reports: chest pain and orthopnea; Denies: palpitations, irregular heart rhythm, edema, lightheadedness or syncope Resp: Reports: dyspnea, productive cough, wheezing and chest congestion; Denies: hemoptysis GI: Denies: abdominal pain, nausea or vomiting : Denies: flank pain, dysuria, urinary frequency or urinary urgency Musc: Denies: extremity pain Skin/Breast: Denies: rash or pruritus Neuro: Denies: dizziness Endo: Denies: polyuria or polydipsia PFSH ED PFSH: Medical History COPD (chronic obstructive pulmonary disease) Social History (Updated 05/14/22 @ 09:08 by Jonas Michaels DO) Smoking and tobacco status: former smoker Physical Exam Const: GENERAL APPEARANCE: in distress ORIENTATION/CONSCIOUSNESS: Yes awake, Yes oriented to person, Yes oriented to place and Yes oriented to time HENMT: COMMON NORMALS: normocephalic, atraumatic and hearing grossly normal bilaterally HEAD & SCALP: normocephalic and atraumatic Resp: EFFORT & INSPECTION: No able to speak in complete sentences, Yes tachypneic, Yes respiratory distress, Yes retractions and Yes uses accessory muscles AUSCULTATION: rhonchi, wheezes and diminished lung sounds Cardio: RATE: tachycardic GI: COMMON NORMALS: Soft to palpation and No hepatosplenomegaly present AUSCULTATION: Yes normoactive bowel sounds PALPATION: Yes Soft to palpation, No Tenderness to palpation present (GI), No Guarding due to palpation present (GI) and Yes No hepatosplenomegaly present Extremity: COMMON NORMALS: normal to inspection, capillary refill normal, no clubbing, cyanosis or edema, no calf tenderness and no pedal edema Neuro: SENSORIUM/ORIENTATION: Yes oriented to person, Yes oriented to place and Yes oriented to time Skin: COMMON NORMALS: no rashes or lesions noted GENERAL SKIN EXAM: no rashes or lesions noted Procedures Chest Tube Chest Tube 1: Chest Tube Location: left, mid axillary line and fourth interspace Chest Tube Prep: Yes betadine prep and sterile drapes applied Local Anesthetic: lidocaine 1% Amount of anesthesia used (mL): 10 Incision Made With: #10 blade Post Procedure: sutured to skin Tube Drainage: none Post Procedure CXR?: Yes Patient Tolerated Procedure: Yes Progress: 36 [place] chest tube placed on first attempt with good release of air and good reexpansion of lung on chest x-ray oxygen sats improving O2 deficit significantly rapidly decreased. Procedural Sedation Indication: other (Chest tube placement) Preparation: monitoring engineer applied, pulse oximeter, supplemental O2 applied, suction/airway equipment at bedside and IV secured Fentanyl: IV Fentanyl dose (mcg): 25 Midazolam dose (mg): 3 Patient Tolerated Procedure: well Complications: none Additional Comments: Patient on nonrebreather mask prior to procedural sedation. He has a large tension pneumothorax and has respiratory compromise was given 3 of Versed 25 of fentanyl adequate sedation was achieved local anesthesia was used as well patient tolerated placement of chest tube without significant discomfort. Course Vital Signs: Vital signs: Vital Signs Temperature 89 F L 05/14/22 14:44 Pulse Rate 90 05/14/22 14:44 Respiratory Rate 16 05/14/22 14:44 Blood Pressure 138/91 05/14/22 14:15 Pulse Oximetry 92 05/14/22 14:44 Oxygen Delivery Me thod 05/14/22 10:12 Oxygen Flow Rate 2 05/14/22 10:25 MDM - SOB/Dyspnea Medical Decision Making Chest x-ray showed a large pneumothorax on the right. Patient emergently brought to the trauma room and a chest tube placed under procedural sedation augmented by local anesthesia had good relief relief and reexpansion of the lung on chest x-ray chest tube is in good position sutured into place and placed on pleura seal. Patient is much improved oxygen deficit significantly decreased still has hypercapnia. Dr. Oneal was consulted he concurs to be best not to start any positive pressure for now and agrees with deferring BiPAP. Oxygen decreased to 2 L by nasal cannula patient is doing well awake and alert mentation is good. Will admit to ICU. Dr. Hamilton to admit Dr. Oneal to consult. Medical Records I reviewed the patient's medical records. Lab Data I reviewed the patient's lab results. 05/14/22 09:54 05/14/22 09:54 Labs/Radiology: Radiology Impressions Chest X-Ray 05/14/22 09:48 IMPRESSION: Interval placement of LEFT chest tube with tip in the LEFT lung apex. Persistent small lateral and apical pneumothorax which has improved after chest tube placement. Laboratory Results WBC 6.2 10^3/uL (4.0-10.0) 05/14/22 09:54 RBC 4.91 10^6/uL (4.1-5.3) 05/14/22 09:54 Hgb 14.5 g/dL (11.7-16.6) 05/14/22 09:54 Hct 50.2 % (42.0-52.0) 05/14/22 09:54 MCV 102.2 fl (80-94) H 05/14/22 09:54 MCH 29.5 pg (28.0-34.0) 05/14/22 09:54 MCHC 28.9 g/dL (30.0-36.0) L 05/14/22 09:54 RDW 14.6 % (12.1-15.1) 05/14/22 09:54 Plt Count 85 10^3/cmm (130-400) L 05/14/22 09:54 MPV 9.6 fL (7.4-10.4) 05/14/22 09:54 Neut % (Auto) 84.4 % 05/14/22 09:54 Lymph % (Auto) 7.4 % 05/14/22 09:54 [place] % (Auto) 7.7 % 05/14/22 09:54 Eos % (Auto) 0.0 % 05/14/22 09:54 Baso % (Auto) 0.2 % 05/14/22 09:54 Neut # (Auto) 5.24 10^3/uL (1.8-7.7) 05/14/22 09:54 Lymph # (Auto) 0.5 10^3/uL (0.8-4.8) L 05/14/22 09:54 [place] # (Auto) 0.5 10^3/uL (0.2-0.9) 05/14/22 09:54 Eos # (Auto) 0.0 10^3/uL (0.0-0.8) 05/14/22 09:54 Baso # (Auto) 0.0 10^3/uL (0.0-0.1) 05/14/22 09:54 Nucleated RBC % (auto) 0 % 05/14/22 09:54 Nucleated RBCs # 0.0 /100WBC 05/14/22 09:54 Specimen Type Arterial 05/14/22 11:01 Sample Site Brachial, right 05/14/22 11:01 ABG pH 7.29 (7.35-7.45) L 05/14/22 11:01 ABG pCO2 65.0 mmHg (35-45) H* 05/14/22 11:01 ABG pO2 50.7 mmHg (80.0-100.0) L 05/14/22 11:01 ABG HCO3 31.5 mmol/L (22-26) H 05/14/22 11:01 ABG O2 Saturation 83.6 05/14/22 11:01 ABG Base Excess 2.9 mmol/L (-2.0-2.0) H 05/14/22 11:01 Tono Test N/a 05/14/22 11:01 A-a O2 Gradient 5.5 mmHg (5-10) 05/14/22 11:01 Hematocrit 44.9 % (42-52) 05/14/22 11:01 Hgb O2 Saturation 80.9 % (95-100) L 05/14/22 11:01 Carboxyhemoglobin 2.5 %THgb (0.4-20.1) 05/14/22 11:01 Methemoglobin 0.7 % (0.4-1.5) 05/14/22 11:01 Total Hemoglobin 14.6 g/dL (14-18) 05/14/22 11:01 Sodium 142.0 mmol/L (131-143) 05/14/22 11:01 Potassium 4.3 mmol/L (3.5-5.0) 05/14/22 11:01 Glucose 150.0 mg/dL (70-115) H 05/14/22 11:01 Ionized Calcium 1.2 mmol/L (1.1-1.4) 05/14/22 11:01 O2 Delivery Device Nc 05/14/22 11:01 O2 Liters/Min 1.0 % 05/14/22 11:01 FiO2 24.0 % 05/14/22 11:01 Loss Prevention And Safety Manager ID Amh 05/14/22 11:01 Sodium 135 mmol/L (136-145) L 05/14/22 09:54 Potassium 4.5 mmol/L (3.5-5.1) 05/14/22 09:54 Chloride 98 mmol/L (98-107) 05/14/22 09:54 Carbon Dioxide 22 mmol/L (22-29) 05/14/22 09:54 Anion Gap 19.5 (5-19) H 05/14/22 09:54 BUN 19 mg/dL (8-23) 05/14/22 09:54 Creatinine 0.7 mg/dL (0.7-1.2) 05/14/22 09:54 GFR Calculation 112.1 mL/min (90-130) 05/14/22 09:54 Glucose 141 mg/dL (65-115) H 05/14/22 09:54 Calculated Osmolality 285 mOsm/kg (285-295) 05/14/22 09:54 Lactic Acid 5.2 mmol/L (0.5-2.2) H* 05/14/22 09:54 Calcium 9.1 mg/dL (8.5-10.5) 05/14/22 09:54 Magnesium 2.2 mg/dL (1.7-2.3) 05/14/22 09:54 Total Bilirubin 1.2 mg/dL (0.15-1.2) 05/14/22 09:54 AST 41 U/L (0-40) H 05/14/22 09:54 ALT 17 U/L (0-41) 05/14/22 09:54 Alkaline Phosphatase 97 U/L (40-130) 05/14/22 09:54 Troponin T Baseline 49 ng/L (0-15) H 05/14/22 09:54 Troponin T 120 Minute 49.88 ng/L (0-15) H 05/14/22 11:41 Delta Troponin T 0.88 ABS# (0-10) 05/14/22 11:41 Total Protein 7.9 g/dL (6.6-8.7) 05/14/22 09:54 Albumin 3.4 g/dL (3.5-5.2) L 05/14/22 09:54 Globulin 4.5 g/dL (1.3-4.6) 05/14/22 09:54 Nasal Influ A H1 2009 PCR Not detected (NOT DETECT) 05/14/22 10:00 Coronavirus 229E (PCR) Not detected (NOT DETECT) 05/14/22 10:00 Influenza A (H1) PCR Not detected (NOT DETECT) 05/14/22 10:00 Influenza A (H3) PCR Not detected (NOT DETECT) 05/14/22 10:00 Influenza Type A (PCR) Not detected (NOT DETECT) 05/14/22 10:00 Influenza Type B (PCR) Not detected (NOT DETECT) 05/14/22 10:00 SARS-CoV-2 (PCR) Not detected (NOT DETECT) 05/14/22 10:00 Discharge Plan Discharge Patient Disposition: Admitted As Inpatient Admit Provider: Crys Hamilton Clinical Impression: Tension pneumothorax, spontaneous, Acute exacerbation of chronic obstructive airways disease Condition: Stable Coding Level of Care Code ED Tire Mold Tester for Chg Fwd Exam Detailed
--- NOTE | 2022-05-14 09:48 | XR_ITS ---
WS: [id number] CHEST XRAY TECHNIQUE: Portable chest. CLINICAL INFORMATION: Pneumothorax, chest tube placement COMPARISON: May 14, 2022 FINDINGS: Chronic LEFT RIGHT mediastinal shift is similar in appearance. Heart: Chronic LEFT RIGHT mediastinal shift is similar in appearance. Otherwise normal cardiac silhou ette. Lungs: Interval placement of LEFT chest tube with tip in the LEFT lung apex. Persistent small lateral and apical pneumothorax which has improved after chest tube placement. Pleural thickening with fibro sis and scarring RIGHT upper lobe is unchanged. Bones: Osteopenia. XR/XR chest 1V portable [id number] IMPRESSION: Interval placement of LEFT chest tube with tip in the LEFT lung apex. Persisten t small lateral and apical pneumothorax which has improved after chest tube maliha cement.
[2022-05-14 10:05] LABS: Basophils % 0.2 %; Hematocrit 50.2 % (42.0-52.0); Hemoglobin 14.5 g/dL (11.7-16.6); Lymphocytes # 0.5 10^3/uL (0.8-4.8); Lymphocytes % 7.4 %; Mean Corpuscular HGB Conc 28.9 g/dL (30.0-36.0); Mean Corpuscular Hemoglobin 29.5 pg (28.0-34.0); Mean Corpuscular Volume 102.2 fl (80-94); Mean Platelet Volume 9.6 fL (7.4-10.4); Monocytes # 0.5 10^3/uL (0.2-0.9); Monocytes % 7.7 %; Neutrophils # 5.24 10^3/uL (1.8-7.7); Neutrophils % 84.4 %; Nucleated Red Blood Cells % 0 %; Platelet Count 85 10^3/cmm (130-400); Red Blood Count 4.91 10^6/uL (4.1-5.3); Red Cell Distribution Width 14.6 % (12.1-15.1); White Blood Count 6.2 10^3/uL (4.0-10.0)
[2022-05-14 10:11] LABS: ABG PH Result 7.26 (7.35-7.45); Alveolar-Arterial Oxygen Gradi 1.9 mmHg (5-10); Base Excess ABG 2.2 mmol/L (-2.0-2.0); Blood Gas Operator Identificat AMH; Blood Gas Sample Site Brachial, left; Blood Gas Sample Type Arterial; Carboxyhemoglobin 2.4 %THgb (0.4-20.1); HCO3 ABG 31.7 mmol/L (22-26); HGB O2 Sat 97.6 % (95-100); Ionized Calcium Level - ABG 1.2 mmol/L (1.1-1.4); Methemoglobin < 0.0 % (0.4-1.5); Oxygen Device NC; Oxygen Saturation ABG 99.8; Potassium Level - ABG 4.2 mmol/L (3.5-5.0); Total Hemoglobin 14.4 g/dL (14-18)
--- NOTE | 2022-05-14 10:11 | PC.PHAR ---
pt unable to verify medications - [phone]
[2022-05-14 10:12] LABS: ABG PCO2 71.6 mmHg (35-45)
[2022-05-14] MEDS: dexamethasone 10 mg/mL INJ IVP (10:24)
[2022-05-14 10:29] LABS: Troponin(5th) Baseline 49 ng/L (0-15)
[2022-05-14 10:32] LABS: Alanine Aminotransferase 17 U/L (0-41); Albumin Level 3.4 g/dL (3.5-5.2); Alkaline Phosphatase 97 U/L (40-130); Aspartate Amino Transferase 41 U/L (0-40); Blood Urea Nitrogen 19 mg/dL (8-23); Calcium 9.1 mg/dL (8.5-10.5); Carbon Dioxide 22 mmol/L (22-29); Chloride 98 mmol/L (98-107); Globulin 4.5 g/dL (1.3-4.6); Glomerular Filtration Rate 112.1 mL/min (90-130); Glucose 141 mg/dL (65-115); Magnesium 2.2 mg/dL (1.7-2.3); Osmolality Calculated 285 mOsm/kg (285-295); Sodium 135 mmol/L (136-145); Total Bilirubin 1.2 mg/dL (0.15-1.2); Total Protein 7.9 g/dL (6.6-8.7)
[2022-05-14 10:33] LABS: Anion Gap 19.5 (5-19); Lactic Sepsis W/Reflex 5.2 mmol/L (0.5-2.2); Potassium 4.5 mmol/L (3.5-5.1)
[2022-05-14] MEDS: fentaNYL 50 mcg/mL INJ 2mL IVP (10:39)
[2022-05-14] MEDS: midazolam 1 mg/mL INJ 2 mL 3 MG IVP (10:39)
[2022-05-14 11:12] LABS: ABG PH Result 7.29 (7.35-7.45); Alveolar-Arterial Oxygen Gradi 5.5 mmHg (5-10); Arterial Blood Gas Hematocrit 44.9 % (42-52); Base Excess ABG 2.9 mmol/L (-2.0-2.0); Blood Gas Operator Identificat AMH; Blood Gas Sample Site Brachial, right; Blood Gas Sample Type Arterial; Carboxyhemoglobin 2.5 %THgb (0.4-20.1); HCO3 ABG 31.5 mmol/L (22-26); HGB O2 Sat 80.9 % (95-100); Ionized Calcium Level - ABG 1.2 mmol/L (1.1-1.4); Methemoglobin 0.7 % (0.4-1.5); Oxygen Device NC; Oxygen Saturation ABG 83.6; PO2 ABG 50.7 mmHg (80.0-100.0); Potassium Level - ABG 4.3 mmol/L (3.5-5.0); Total Hemoglobin 14.6 g/dL (14-18)
[2022-05-14 11:50] LABS: Reflex Lactate Order REFLEX LACTIC ORDERD
--- NOTE | 2022-05-14 11:53 | ECG_ITS ---
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 Measurements Intervals [place] Rate: 94 P: 77 [place]: 146 QRS: 87 QRSD: 94 T: 72 QT: 370 QTc: 463 Interpretive Statements SINUS RHYTHM WITH FREQUENT SUPRAVENTRICULAR PREMATURE COMPLEXES ANTERIOR MYOCARDIAL INFARCTION , OF INDETERMINATE AGE [40+ ms Q WAVE AND/OR ST/T ABNORMALITY IN V3/V4] Compared to ECG 03/17/2022 09:29:39 Sinus tachycardia no longer present Myocardial infarct finding still present Electronically Signed On 05-14-2022 15:33:07 PRESIDENT & FOUNDER by Marisel Whyte M.D. [id number]
[2022-05-14 12:03] LABS: Adenovirus Not Detected (NOT DETECT); Chlamydia Pneumoniae Not Detected (NOT DETECT); Coronavirus 229E,HKU1,NL63,OC4 Not Detected (NOT DETECT); Human Metapneumovirus Not Detected (NOT DETECT); Human Rhinovirus/Enterovirus Not Detected (NOT DETECT); Influenza A Not Detected (NOT DETECT); Influenza A H1 Not Detected (NOT DETECT); Influenza A H1-2009 Not Detected (NOT DETECT); Influenza A H3 Not Detected (NOT DETECT); Influenza B Not Detected (NOT DETECT); Mycoplasma Pneumoniae Not Detected (NOT DETECT); Parainfluenza Virus Type 1 Not Detected (NOT DETECT); Parainfluenza Virus Type 2 Not Detected (NOT DETECT); Parainfluenza Virus Type 3 Not Detected (NOT DETECT); Parainfluenza Virus Type 4 Not Detected (NOT DETECT); Respiratory Syncytial Virus A Not Detected (NOT DETECT); Respiratory Syncytial Virus B Not Detected (NOT DETECT); SARS-COV-2 Not Detected (NOT DETECT)
[2022-05-14 12:15] LABS: Troponin 5 2HR 49.88 ng/L (0-15)
[2022-05-14 12:17] LABS: Troponin 5 2HR Delta 0.88 ABS# (0-10)
[2022-05-14 12:18] LABS: Influenza A Not Detected (NOT DETECT); Influenza A H1 Not Detected (NOT DETECT); Influenza A H1-2009 Not Detected (NOT DETECT); Influenza A H3 Not Detected (NOT DETECT); Influenza B Not Detected (NOT DETECT); Results from GEN
[2022-05-14 13:21] LABS: Lactic Acid level (Lactate) 5.9 mmol/L (0.5-2.2)
--- NOTE | 2022-05-14 14:58 | ECG_ITS ---
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 Measurements Intervals [place] Rate: 97 P: 76 MD: 164 QRS: 82 QRSD: 77 T: 70 QT: 356 QTc: 453 Interpretive Statements SINUS RHYTHM WITH OCCASIONAL SUPRAVENTRICULAR PREMATURE COMPLEXES ANTEROSEPTAL MYOCARDIAL INFARCTION , OF INDETERMINATE AGE [40+ ms Q WAVE IN V1-V4] Compared to ECG 05/14/2022 11:53:32 No significant changes Electronically Signed On 05-14-2022 15:31:41 CREATIVE COORDINATOR by Marisel Whyte M.D. [email or web address]/store/[id number]
--- NOTE | 2022-05-14 15:21 | PC.NURSE ---
Arrived from ED, AO x4, Left chest tube fluctuating with inspiration, site intact. Dr. Oneal gave t.o. to leave chest tube off suction, HCP to reevaluate next CXR
[2022-05-14] MEDS: piperacillin-tazobactam 3.375 GM in sodium chloride 0.9% (plus) 50 ML IV (16:11)
[2022-05-14 16:19] LABS: Troponin 5 6HR 39.62 ng/L (0-15)
--- NOTE | 2022-05-14 18:00 | XRR_ITS ---
PROCEDURE INFORMATION: Exam: XR Chest Exam date and time: 05/14/2022 6:06 PM Age: 66 years old Clinical indication: Dyspnea and fever and shortness of breath; Additional info: Pneumonia TECHNIQUE: Imaging protocol: Radiologic exam of the chest. Views: 1 view. COMPARISON: CR XR chest 1V portable [id number] 05/14/2022 9:36 AM FINDINGS: Tubes, catheters and devices: Left chest tube stable in positioning at the left lung apex. Lungs: Redemonstrated right apical scarring. No new or worsening consolidation. Pleural spaces: No pleural effusion. No perceptible residual left pneumothorax. Heart/Mediastinum: No cardiomegaly. Bones/joints: Visualized osseous structures are intact. Soft tissues: Trace subcutaneous emphysema along the left chest wall. XR/XR chest 1V portable [id number] IMPRESSION: 1. Left chest tube in place with no perceptible residual left pneumothorax. 2. No new or worsening consolidations.
--- NOTE | 2022-05-14 18:15 | P.HP_ITS ---
Providers/Chief Complaint Admitting Physician: Crys Hamilton MD Primary Care Provider: Les [facility], [facility] [place] [facility] Chief Complaint: Resp Distress History of Present Illness Narciso Olsen is a 66 year old male who presented to the emergency room via EMS with chief complaint of acute respiratory distress. This was somewhat sudden in onset during an episode of coughing. He was unable to catch his breath. Described pain throughout his chest, difficulty taking a breath and having to sit forward to breathe. He was notably hypoxic in the 60s-70s in the field. He was put on nonrebreather and on arrival here oxygen saturation was initially 81%. He was in significant distress tripoding noted. Chest x-ray revealed left-sided pneumothorax. Chest tube was placed with significant relief in distress and oxygenation. Case was discussed with Dr. Oneal. Patient has an ap pointment scheduled with him on May 25 as a new patient due to history of intermittent hemoptysis, abnormalities on CT of the chest in February along with weight loss. Patient has been transferred to [place] in February after that CT was done but left after a couple of days. I do not have results from AFB or other cultures but he was being worked up for hemoptysis along with cavitary lesion in the right upper lobe. He was treated empirically with antibiotics which he says he completed after discharge. Hemoptysis has lessened but still occurs from time to time. He describes approximately 20 pound weight loss over the last year. He has been requiring increasing oxygen anywhere from 4 to 6 L at home. No recent change in sputum otherwise. He quit smoking within the last year not has a long history. ABG after arrival showed 7.2 /156/31 on 36% FiO2. Subsequent ABG showed 7.2 /50/31. Consideration had been given to BiPAP but given pneumothorax this was not initiated. Patient is being admitted to the hospitalist service. Review of Systems Const: Reports: change in weight (Weight loss) and fatigue; Denies: fever(s) Eyes: Denies: change in vision ENMT: Denies: throat pain or nasal discharge Card: Reports: chest pain (Especially where her chest tube is and from coughing), dyspnea on exertion and orthopnea; Denies: edema Resp: Reports: dyspnea, productive cough, non-productive cough, wheezing, pain on inspiration and hemoptysis GI: Denies: abdominal pain, nausea, vomiting or diarrhea : Denies: difficulty urinating Musc: Reports: muscle weakness and other (Variable joint pain at times) Skin/Breast: Reports: dry skin and other (Chronic scaly skin to feet with nails that need to be cut) Neuro: Reports: weakness in extremities (General rather than focal); Denies: frequent falls Romaine/Lymph: Reports: easy bleeding (Hemoptysis but not other places) Medications/Allergies Home Medications Medication Instructions Recorded Confirmed Last Taken Type budesonide-formoterol HFA 160 2 puff inhalation BID 04/19/20 05/14/22 Unknown History mcg-4.5 mcg/actuation aerosol inhaler cholecalciferol (vitamin D3) 50 50 mcg PO DAILY 04/19/20 05/14/22 Unknown History mcg (2,000 unit) capsule cyclobenzaprine 10 mg tablet 10 mg PO TID 04/19/20 05/14/22 Unknown History ibuprofen 800 mg tablet 800 mg PO Q6H 04/19/20 05/14/22 Unknown History ipratropium 20 mcg-albuterol 100 1 puff inhalation QID 04/19/20 05/14/22 Unknown History mcg/actuation mist for inhalation lisinopril 20 mg tablet 10 mg PO DAILY 04/19/20 05/14/22 Unknown History Allergies Allergy/AdvReac Type Severity Reaction Status Date / Time No Known Allergies Allergy Verified 04/19/20 10:54 PFSH Acute PFSH: Medical History (Updated 05/14/22 @ 20:13 by Crys Hamilton MD) 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 Essential (primary) hypertension Hepatitis C Has not completed treatment Surgical History (Updated 05/14/22 @ 19:06 by Crys Hamilton MD) No pertinent past surgical history no surgical history Family History (Updated 05/14/22 @ 19:06 by Crys Hamilton MD) Other Adopted Social History (Updated 05/14/22 @ 19:07 by Crys Hamilton MD) Smoking and tobacco status: former smoker Quit status (tobacco): has quit using tobacco Year quit tobacco: 2021 Alcohol intake: current Alcohol intake frequency: 3 or more drinks per day Alcohol type: beer Vitals/I&O/Wt Last Vital Signs Temp 89 F L 05/14/22 14:44 Pulse 97 05/14/22 14:52 Resp 16 05/14/22 14:44 BP 138/91 05/14/22 14:15 Pulse Ox 92 05/14/22 14:44 O2 Del Method 05/14/22 14:54 O2 Flow Rate 2 05/14/22 10:25 05/14/22 05/14/22 05/14/22 06:59 14:59 22:59 Intake Total 300 / 300 Balance 300 / 300 Physical Exam Narrative: Constitutional: Awake and alert, able to provide history, thin build, looks uncomfortable HEENT: Normocephalic, extraocular movements are intact, pupils reactive, conjunctive are mildly injected, oropharynx is clear, edentulous, no petechiae noted Neck: Supple Respiratory: Wheezes and rhonchi more prominent on the right upper than anywhere else but noted throughout. Chest tube intact in the left chest with breath sounds noted on the left throughout, trachea deviated to the right, mild intercostal retractions with inspiration Cardiovascular: Regular rate and rhythm, no murmur Abdomen: Soft, nontender, positive bowel sounds Extremities: No pitting edema Skin: Skin of the distal lower extremities is very dry and scaly. Distal extremities with purplish discoloration. Nails of toes are very hyperkeratotic. A couple of nails on each foot are nearing point of growing into the skin under the toe but not there yet. Capillary refill at the toes is around 3 seconds. Neuro: Speech clear, face symmetric though cheeks are sunken, muscle wasting noted throughout, handgrip equal, strength equal both feet, no abnormal movements Psych: Normal affect during conversation Data 05/14/22 09:54 05/14/22 09:54 Other Labs: Laboratory Results WBC 6.2 10^3/uL (4.0-10.0) 05/14/22 09:54 RBC 4.91 10^6/uL (4.1-5.3) 05/14/22 09:54 Hgb 14.5 g/dL (11.7-16.6) 05/14/22 09:54 Hct 50.2 % (42.0-52.0) 05/14/22 09:54 MCV 102.2 fl (80-94) H 05/14/22 09:54 MCH 29.5 pg (28.0-34.0) 05/14/22 09:54 MCHC 28.9 g/dL (30.0-36.0) L 05/14/22 09:54 RDW 14.6 % (12.1-15.1) 05/14/22 09:54 Plt Count 85 10^3/cmm (130-400) L 05/14/22 09:54 MPV 9.6 fL (7.4-10.4) 05/14/22 09:54 Neut % (Auto) 84.4 % 05/14/22 09:54 Lymph % (Auto) 7.4 % 05/14/22 09:54 [place] % (Auto) 7.7 % 05/14/22 09:54 Eos % (Auto) 0.0 % 05/14/22 09:54 Baso % (Auto) 0.2 % 05/14/22 09:54 Neut # (Auto) 5.24 10^3/uL (1.8-7.7) 05/14/22 09:54 Lymph # (Auto) 0.5 10^3/uL (0.8-4.8) L 05/14/22 09:54 [place] # (Auto) 0.5 10^3/uL (0.2-0.9) 05/14/22 09:54 Eos # (Auto) 0.0 10^3/uL (0.0-0.8) 05/14/22 09:54 Baso # (Auto) 0.0 10^3/uL (0.0-0.1) 05/14/22 09:54 Nucleated RBC % (auto) 0 % 05/14/22 09:54 Nucleated RBCs # 0.0 /100WBC 05/14/22 09:54 Specimen Type Arterial 05/14/22 11:01 Sample Site Brachial, right 05/14/22 11:01 ABG pH 7.29 (7.35-7.45) L 05/14/22 11:01 ABG pCO2 65.0 mmHg (35-45) H* 05/14/22 11:01 ABG pO2 50.7 mmHg (80.0-100.0) L 05/14/22 11:01 ABG HCO3 31.5 mmol/L (22-26) H 05/14/22 11:01 ABG O2 Saturation 83.6 05/14/22 11:01 ABG Base Excess 2.9 mmol/L (-2.0-2.0) H 05/14/22 11:01 Tono Test N/a 05/14/22 11:01 A-a O2 Gradient 5.5 mmHg (5-10) 05/14/22 11:01 Hematocrit 44.9 % (42-52) 05/14/22 11:01 Hgb O2 Saturation 80.9 % (95-100) L 05/14/22 11:01 Carboxyhemoglobin 2.5 %THgb (0.4-20.1) 05/14/22 11:01 Methemoglobin 0.7 % (0.4-1.5) 05/14/22 11:01 Total Hemoglobin 14.6 g/dL (14-18) 05/14/22 11:01 Sodium 142.0 mmol/L (131-143) 05/14/22 11:01 Potassium 4.3 mmol/L (3.5-5.0) 05/14/22 11:01 Glucose 150.0 mg/dL (70-115) H 05/14/22 11:01 Ionized Calcium 1.2 mmol/L (1.1-1.4) 05/14/22 11:01 O2 Delivery Device Nc 05/14/22 11:01 O2 Liters/Min 1.0 % 05/14/22 11:01 FiO2 24.0 % 05/14/22 11:01 Station Engineer ID Amh 05/14/22 11:01 Sodium 135 mmol/L (136-145) L 05/14/22 09:54 Potassium 4.5 mmol/L (3.5-5.1) 05/14/22 09:54 Chloride 98 mmol/L (98-107) 05/14/22 09:54 Carbon Dioxide 22 mmol/L (22-29) 05/14/22 09:54 Anion Gap 19.5 (5-19) H 05/14/22 09:54 BUN 19 mg/dL (8-23) 05/14/22 09:54 Creatinine 0.7 mg/dL (0.7-1.2) 05/14/22 09:54 GFR Calculation 112.1 mL/min (90-130) 05/14/22 09:54 Glucose 141 mg/dL (65-115) H 05/14/22 09:54 Calculated Osmolality 285 mOsm/kg (285-295) 05/14/22 09:54 Lactic Acid 5.2 mmol/L (0.5-2.2) H* 05/14/22 09:54 Lactic Acid (Sepsis) 5.9 mmol/L (0.5-2.2) H* 05/14/22 12:50 Calcium 9.1 mg/dL (8.5-10.5) 05/14/22 09:54 Magnesium 2.2 mg/dL (1.7-2.3) 05/14/22 09:54 Total Bilirubin 1.2 mg/dL (0.15-1.2) 05/14/22 09:54 AST 41 U/L (0-40) H 05/14/22 09:54 ALT 17 U/L (0-41) 05/14/22 09:54 Alkaline Phosphatase 97 U/L (40-130) 05/14/22 09:54 Troponin T Baseline 49 ng/L (0-15) H 05/14/22 09:54 Troponin T 120 Minute 49.88 ng/L (0-15) H 05/14/22 11:41 Delta Troponin T 0.88 ABS# (0-10) 05/14/22 11:41 Troponin T Hi Sens 6Hr 39.62 ng/L (0-15) H 05/14/22 15:53 Troponin T Hi Sens 6Hr Delta -9.38 ng/L (0-12) L 05/14/22 15:53 Total Protein 7.9 g/dL (6.6-8.7) 05/14/22 09:54 Albumin 3.4 g/dL (3.5-5.2) L 05/14/22 09:54 Globulin 4.5 g/dL (1.3-4.6) 05/14/22 09:54 Nasal Influ A H1 2009 PCR Not detected (NOT DETECT) 05/14/22 10:00 Coronavirus 229E (PCR) Not detected (NOT DETECT) 05/14/22 10:00 Influenza A (H1) PCR Not detected (NOT DETECT) 05/14/22 10:00 Influenza A (H3) PCR Not detected (NOT DETECT) 05/14/22 10:00 Influenza Type A (PCR) Not detected (NOT DETECT) 05/14/22 10:00 Influenza Type B (PCR) Not detected (NOT DETECT) 05/14/22 10:00 SARS-CoV-2 (PCR) Not detected (NOT DETECT) 05/14/22 10:00 Radiologist Impressions: Last 24 hours Chest X-Ray 05/14/22 09:03 IMPRESSION: 1. Moderate-sized LEFT pneumothorax with subpulmonic extension. 2. There is mediastinal shift to the RIGHT similar to prior studies and related to chronic traction and scarring. Notified Jonas Michaels DO at 05/14/2022 9:[address] Michaels not available for report but is aware of the pneumothorax. Chest X-Ray 05/14/22 09:48 IMPRESSION: Interval placement of LEFT chest tube with tip in the LEFT lung apex. Persistent small lateral and apical pneumothorax which has improved after chest tube placement. Micro: Microbiology 05/14/22 09:54 Blood Culture - Preliminary Blood SPECIMEN COLLECTED 05/14/22 09:50 Blood Culture - Preliminary Blood SPECIMEN COLLECTED A&P Assessment and plan (1) Tension pneumothorax, spontaneous: In a patient with known bullous COPD. First episode of pneumothorax. Onset with coughing. Associated with significant hypoxemia, subsequent hypercapnia and respiratory distress. Improved status post chest tube placement. (2) Acute exacerbation of chronic obstructive airways disease: As evidenced by increase cough and difficulty breathing prior to today. Former smoker but quit within the past year. Chronically on budesonide/formoterol and ipratropium. (3) Cavitary lesion of lung: Right upper lobe, initially identified in February of this year. Had AFB and other studies done though results are unknown at this time. In addition to this has volume loss in the right hemithorax. Was treated empirically with antibiotics to cover for bacterial pneumonia and completed the course in March. Recommendations from imaging at the time were for 3-month follow-up. Patient has had associated hemoptysis, weight loss and slowly declining condition over the past year. (4) Thrombocytopenia: Not previously noted. Significance unclear at this point in time. Could be related to cause of hemoptysis or potentially related to alcohol use. Is on chronic NSAID therapy as well. (5) Hemoptysis: Began a few months ago, has decreased in severity but still present in varying degree of severity (6) Lactic acidosis: [place] secondary to degree of hypoxemia and respiratory distress earlier. Could also be secondary to pulmonary disease and general. Blood pressures are stable. Renal function is normal. Mentation is normal. Denies drinking any alcohol other than beer. (7) Essential (primary) hypertension: Chronically on lisinopril (8) Alcohol abuse, daily use: Drinks 2-3 beers a day by his report. No reported history of alcohol withdrawal. Plan Macrocytosis in a patient with regular alcohol use Lymphopenia with negative viral screening as noted above Elevated blood sugar without a history of diabetes; has had steroids has possible contributor Elevated troponin without a significant delta and nonspecific EKG changes Inpatient admission ICU care initially Chest tube management Pulmonology consultation, I have spoken with Dr. Oneal Will ask general surgery to assist with chest tube management when Dr. Oneal is not available Augmentin as per discussion with pulmonology Oral prednisone Received 1 dose of dexamethasone in the emergency room Pulmonary toilet/breathing treatments Blood and sputum cultures Check procalcitonin Subcu heparin has been initiated at every 12 hours dosing for DVT prophylaxis Will need to monitor both platelet count and for hemoptysis, drop in hemoglobin Hold ibuprofen for now With normal LFTs we will treat with Tylenol for pain with a max of 2 g a day Repeat lactic acid and ABG in the morning Continue home lisinopril Monitor for signs of alcohol withdrawal Careful use of benzodiazepines given degree of hypercapnia at presentation Thiamine, folate and multivitamin Continue home vitamin D Check a1c and tsh Supportive care otherwise SCDs GI prophylaxis Anticipate discharge home with follow-up as planned with Dr. Oneal on May 25 as scheduled along with follow-up with PCP. He has home oxygen. Depending on clinical course and care needed may benefit from home health. Cannot rule out the possibility of transfer for invasive management for pneumothorax if becomes necessary. We do not have cardiothoracic surgery available until the first week of May. Full code as per discussion with patient Attestations Medical Necessity Statement*: Anticipated stay greater than 2 midnights in this gentleman presenting with significant respiratory distress found to have left-sided pneumothorax necessitating chest tube placement. In addition he has thrombocytopenia, history of hemoptysis and cavitary lesion. Care and plans are as noted above. High risk of rapid clinical decline without inpatient management at this time. 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
--- NOTE | 2022-05-14 18:46 | PM.CONSULT ---
Providers/Reason For Consult Consulting Physician/Specialty*: Armando Oneal MD/pulmonary critical care Reason for Consult*: Left-sided pneumothorax s/p chest tube insertion-to manage chest tube Requesting Physician: Dr. Michaels Attending Physician: Crys Hamilton MD Primary Care Provider: HAZEL Abdalla-C History of Present Illness History of Present Illness Narciso Olsen is a 66 year old male with past medical history of severe COPD with bullous emphysema brought from home by EMS, at baseline uses 4 L nasal cannula, Upon arrival in the ED was requiring 15 L nonrebreather with saturations in mid 60s, significant increase in work of breathing, tripoding and using accessory muscles with mild chest pain which started 1 day ago. Reported that the yesterday after having his drinks and eating-he started coughing. 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 In the ED chest x-ray showed moderate left pneumothorax with subpulmonic extension, mediastinal shift to the right (mediastinal shift was present in previous chest x-rays possibly secondary to chronic traction and scarring in the right upper lobe). A 36 Venezuelan chest tube was placed by ER physician and there was good release of air, reexpansion of lung on follow-up chest [id number] saturations improved. Pulmonary consult requested to follow-up for chest tube management Patient seen at bedside, patient's friend as well as nephew are present. Patient's nephew reported that he drinks at least 4 beers a day and has been a chronic alcoholic and smoker. He has been trying to cut down smoking but continues to drink. Records from [place] as well as [facility] hospitalization in 03/17/2022 to 03/20/2022 [place]CP [place] and records from [place] suggest that he has history of COPD on 4 L home oxygen, chronic respiratory failure with hypoxia, essential hypertension, tobacco use disorder. He uses Wixela and Spiriva. He was transferred to [facility] on 03/17/2022 for 4-day length of stay for hemoptysis and cavitary lesion of the right upper lung. He left AMA and was to follow-up with me in pulmonary office in 10 days on 05/25/2022 for hemoptysis and cavitary right upper lobe lesion. Records from [facility] show that he was admitted on 03/17/2022-for hemoptysis. He has been coughing up bright red blood and progressively worsened with no previous episodes. He had been treated with 20 pound weight loss in 6 months. Endorses [id number] smoking history quit February 2021. Reports previous incarceration about a year ago. No travel outside [place]. CTA 03/17/2022 showed no evidence of PE, right upper lobe apical and anterior segment wedge-shaped region of consolidation, cavitary 2.7 x 3.7 x 3 cm region with suspicion for prior mycobacterial infection with or without superimposed pneumonia. Cannot rule out underlying malignancy. Shanika Mckeon-kept him in airborne isolation and sent to sputum samples for AFB culture with stain, QuantiFERON testing, but patient signed out AMA on 03/20/2022 without following up with the results. Bronchoscopy was not performed due to small-volume hemoptysis. He had thrombocytopenia secondary to cirrhosis which might be a cause of hemoptysis. Based on his blood work from [place]-he is a chronic retainer with baseline bicarb 31 on CMP. Review of Systems General: Reports: 10 or more systems reviewed and unremarkable except in HPI and below Medications/Allergies Home Medications Medication Instructions Recorded Confirmed Last Taken Type budesonide-formoterol HFA 160 2 puff inhalation BID 04/19/20 05/14/22 Unknown History mcg-4.5 mcg/actuation aerosol inhaler cholecalciferol (vitamin D3) 50 50 mcg PO DAILY 04/19/20 05/14/22 Unknown History mcg (2,000 unit) capsule cyclobenzaprine 10 mg tablet 10 mg PO TID 04/19/20 05/14/22 Unknown History ibuprofen 800 mg tablet 800 mg PO Q6H 04/19/20 05/14/22 Unknown History ipratropium 20 mcg-albuterol 100 1 puff inhalation QID 04/19/20 05/14/22 Unknown History mcg/actuation mist for inhalation lisinopril 20 mg tablet 10 mg PO DAILY 04/19/20 05/14/22 Unknown History Allergies Allergy/AdvReac Type Severity Reaction Status Date / Time No Known Allergies Allergy Verified 04/19/20 10:54 Current Medications Generic Name Dose Route Start Last Admin Trade Name Freq PRN Reason Stop Dose Admin Piperacillin Sod/Tazobactam 50 mls @ 12.5 mls/hr 05/14/22 15:30 05/14/22 16:11 Sod 3.375 gm/ Sodium Chloride IV 12.5 mls/hr Q8H SHELLY Administration Protocol As Directed PFSH Acute PFSH: Medical History COPD (chronic obstructive pulmonary disease) Essential (primary) hypertension Hepatitis C Surgical History No pertinent past surgical history no surgical history Family History Other Adopted Social History Smoking and tobacco status: former smoker Quit status (tobacco): has quit using tobacco Year quit tobacco: 2021 Alcohol intake: current Alcohol intake frequency: 3 or more drinks per day Alcohol type: beer Vitals/I&O/Wt Last Vital Signs Temp 89 F L 05/14/22 14:44 Pulse 97 05/14/22 14:52 Resp 16 05/14/22 14:44 BP 138/91 05/14/22 14:15 Pulse Ox 92 05/14/22 14:44 O2 Del Method 05/14/22 14:54 O2 Flow Rate 2 05/14/22 10:25 05/14/22 05/14/22 05/14/22 06:59 14:59 22:59 Intake Total 300 / 300 Balance 300 / 300 Physical Exam Narrative: General: alert, NAD, thin cachectic gentleman HEENT: conj clear, EOMI, PERRL, mmm, Neck: supple, no meningismus Heme: no cervical LAP Respiratory: Inspection: No visible deformity of the chest wall Palpation: Trachea is mildly deviated to the right, bilateral symmetric expansion Percussion: Bilateral tympanic percussion note both anterior and posteriorly Auscultation: Expiratory wheeze predominantly in right lung upper and lower lung zone Cardiovascular: rrr, nl s1s2, no mrg Abdomen: soft, nt, nd, no r/g, bs+ Extremities: pulses +, no edema, no c/c : no CVA tenderness Skin: intact, no rash MSK: no back or neck pain Neurologic: grossly intact Data 05/14/22 09:54 05/14/22 09:54 Other Labs: Radiology Impressions Chest X-Ray 05/14/22 18:00 IMPRESSION: 1. Left chest tube in place with no perceptible residual left pneumothorax. 2. No new or worsening consolidations. Laboratory Results WBC 6.2 10^3/uL (4.0-10.0) 05/14/22 09:54 RBC 4.91 10^6/uL (4.1-5.3) 05/14/22 09:54 Hgb 14.5 g/dL (11.7-16.6) 05/14/22 09:54 Hct 50.2 % (42.0-52.0) 05/14/22 09:54 MCV 102.2 fl (80-94) H 05/14/22 09:54 MCH 29.5 pg (28.0-34.0) 05/14/22 09:54 MCHC 28.9 g/dL (30.0-36.0) L 05/14/22 09:54 RDW 14.6 % (12.1-15.1) 05/14/22 09:54 Plt Count 85 10^3/cmm (130-400) L 05/14/22 09:54 MPV 9.6 fL (7.4-10.4) 05/14/22 09:54 Neut % (Auto) 84.4 % 05/14/22 09:54 Lymph % (Auto) 7.4 % 05/14/22 09:54 [place] % (Auto) 7.7 % 05/14/22 09:54 Eos % (Auto) 0.0 % 05/14/22 09:54 Baso % (Auto) 0.2 % 05/14/22 09:54 Neut # (Auto) 5.24 10^3/uL (1.8-7.7) 05/14/22 09:54 Lymph # (Auto) 0.5 10^3/uL (0.8-4.8) L 05/14/22 09:54 [place] # (Auto) 0.5 10^3/uL (0.2-0.9) 05/14/22 09:54 Eos # (Auto) 0.0 10^3/uL (0.0-0.8) 05/14/22 09:54 Baso # (Auto) 0.0 10^3/uL (0.0-0.1) 05/14/22 09:54 Nucleated RBC % (auto) 0 % 05/14/22 09:54 Nucleated RBCs # 0.0 /100WBC 05/14/22 09:54 Specimen Type Arterial 05/14/22 11:01 Sample Site Brachial, right 05/14/22 11:01 ABG pH 7.29 (7.35-7.45) L 05/14/22 11:01 ABG pCO2 65.0 mmHg (35-45) H* 05/14/22 11:01 ABG pO2 50.7 mmHg (80.0-100.0) L 05/14/22 11:01 ABG HCO3 31.5 mmol/L (22-26) H 05/14/22 11:01 ABG O2 Saturation 83.6 05/14/22 11:01 ABG Base Excess 2.9 mmol/L (-2.0-2.0) H 05/14/22 11:01 Tono Test N/a 05/14/22 11:01 A-a O2 Gradient 5.5 mmHg (5-10) 05/14/22 11:01 Hematocrit 44.9 % (42-52) 05/14/22 11:01 Hgb O2 Saturation 80.9 % (95-100) L 05/14/22 11:01 Carboxyhemoglobin 2.5 %THgb (0.4-20.1) 05/14/22 11:01 Methemoglobin 0.7 % (0.4-1.5) 05/14/22 11:01 Total Hemoglobin 14.6 g/dL (14-18) 05/14/22 11:01 Sodium 142.0 mmol/L (131-143) 05/14/22 11:01 Potassium 4.3 mmol/L (3.5-5.0) 05/14/22 11:01 Glucose 150.0 mg/dL (70-115) H 05/14/22 11:01 Ionized Calcium 1.2 mmol/L (1.1-1.4) 05/14/22 11:01 O2 Delivery Device Nc 05/14/22 11:01 O2 Liters/Min 1.0 % 05/14/22 11:01 FiO2 24.0 % 05/14/22 11:01 Pecan Grower ID Amh 05/14/22 11:01 Sodium 135 mmol/L (136-145) L 05/14/22 09:54 Potassium 4.5 mmol/L (3.5-5.1) 05/14/22 09:54 Chloride 98 mmol/L (98-107) 05/14/22 09:54 Carbon Dioxide 22 mmol/L (22-29) 05/14/22 09:54 Anion Gap 19.5 (5-19) H 05/14/22 09:54 BUN 19 mg/dL (8-23) 05/14/22 09:54 Creatinine 0.7 mg/dL (0.7-1.2) 05/14/22 09:54 GFR Calculation 112.1 mL/min (90-130) 05/14/22 09:54 Glucose 141 mg/dL (65-115) H 05/14/22 09:54 Calculated Osmolality 285 mOsm/kg (285-295) 05/14/22 09:54 Lactic Acid 5.2 mmol/L (0.5-2.2) H* 05/14/22 09:54 Lactic Acid (Sepsis) 5.9 mmol/L (0.5-2.2) H* 05/14/22 12:50 Calcium 9.1 mg/dL (8.5-10.5) 05/14/22 09:54 Magnesium 2.2 mg/dL (1.7-2.3) 05/14/22 09:54 Total Bilirubin 1.2 mg/dL (0.15-1.2) 05/14/22 09:54 AST 41 U/L (0-40) H 05/14/22 09:54 ALT 17 U/L (0-41) 05/14/22 09:54 Alkaline Phosphatase 97 U/L (40-130) 05/14/22 09:54 Troponin T Baseline 49 ng/L (0-15) H 05/14/22 09:54 Troponin T 120 Minute 49.88 ng/L (0-15) H 05/14/22 11:41 Delta Troponin T 0.88 ABS# (0-10) 05/14/22 11:41 Troponin T Hi Sens 6Hr 39.62 ng/L (0-15) H 05/14/22 15:53 Troponin T Hi Sens 6Hr Delta -9.38 ng/L (0-12) L 05/14/22 15:53 Total Protein 7.9 g/dL (6.6-8.7) 05/14/22 09:54 Albumin 3.4 g/dL (3.5-5.2) L 05/14/22 09:54 Globulin 4.5 g/dL (1.3-4.6) 05/14/22 09:54 Nasal Influ A H1 2009 PCR Not detected (NOT DETECT) 05/14/22 10:00 Coronavirus 229E (PCR) Not detected (NOT DETECT) 05/14/22 10:00 Influenza A (H1) PCR Not detected (NOT DETECT) 05/14/22 10:00 Influenza A (H3) PCR Not detected (NOT DETECT) 05/14/22 10:00 Influenza Type A (PCR) Not detected (NOT DETECT) 05/14/22 10:00 Influenza Type B (PCR) Not detected (NOT DETECT) 05/14/22 10:00 SARS-CoV-2 (PCR) Not detected (NOT DETECT) 05/14/22 10:00 Micro: Microbiology 05/14/22 09:54 Blood Culture - Preliminary Blood SPECIMEN COLLECTED 05/14/22 09:50 Blood Culture - Preliminary Blood SPECIMEN COLLECTED A&P Assessment and plan (1) Tension pneumothorax, spontaneous: (2) COPD (chronic obstructive pulmonary disease): (3) Hemoptysis: (4) Acute exacerbation of chronic obstructive airways disease: (5) Alcohol dependence: (6) On home oxygen therapy: (7) Cavitary lesion of lung: Plan #Left tension pneumothorax-secondary to ruptured bulla triggered by coughing possibly secondary to aspiration in patient with underlying COPD #Severe bullous emphysema in lungs left greater than right on CT chest 03/17/2022 -As per nephew, patient was eating and had a cough and over next few hours he developed respiratory distress -Suspect aspiration leading to cough-causing ruptured bullae and pneumothorax -Currently 36 Venezuelan chest tube-postprocedure chest x-ray and evening chest x-ray-good reexpansion of lung -I will leave it under waterseal for tonight and will clamp chest tube tomorrow morning to see if there is any recurrence --Continue to titrate nasal cannula to target saturations 90 to 92% (baseline he requires 4 L nasal cannula at home) -Augmentin for suspected aspiration -Morphine 4 Mg IV push every 4 as needed-we will switch to 2 Mg IVP every 6 hours as needed #Volume loss with right upper lobe cavitary lesion seen on CT chest 03/17/2022 #Hemoptysis during that CT on 03/17/2022 -He had incarceration 1 year ago-otherwise no other risk factors for TB -With a 32-[id number]-[id number] smoking history-cannot rule out underlying malignancy -He was seen at [facility]-bacterial cultures, 2 AFB smears and QuantiFERON were negative -However today denied hemoptysis and his H&H is stable -I will repeat CT chest tomorrow and if the cavitary lesion persists on CT chest-I will schedule for bronchoscopic biopsies to rule out malignancy #COPD exacerbation #Acute on chronic hypoxic respiratory failure -Patient is on Wixela and Spiriva as outpatient -I will obtain PFTs as outpatient -Currently will continue DuoNeb nebulizations every 6 ever scheduled and Pulmicort twice daily -We will give p.o. prednisone 20 Mg for 5 days #Alcohol dependence -Patient drinks 4 beers a day -I will put him on CIWA protocol -Ativan as every 6 hours needed, multivitamin/thiamine/folic acid -Monitor for seizures and withdrawal symptoms ICU CHECKLIST: Problem list updated Verbal orders reviewed and signed Analgesia: Morphine Glycemic Control: N/A Nutrition: Low-salt diet Restraint Renewal (within 24 hrs): Yes Ulcer Prophylaxis: N/A Chemical Thromboprophylaxis: Prophylaxis: Heparin subcu Mechanical Thromboprophylaxis: SCD Need for Central line: N/A Need for Helm catheter: N/A Critical Care Time (No Overlap): 65 min Consult Attestations Medical Necessity Statement: Tension pneumothorax s/p left chest tube in place-closely monitor in ICU overnight Time Spent in Patient Care: Greater than 35 minutes (>than 50% of time spent in counselling and/or direct pt care on unit). Critical Care Time: This patient has a high probability of sudden, clinically significant deterioration, which requires the highest level of physician preparedness to intervene urgently. I managed/supervised life or organ supporting interventions that required frequent physician assessment. I devoted my full attention in the ICU to the direct care of this patient for the period of time indicated above. Time I spent with family or surrogate(s) is included only if the patient was incapable of providing necessary information or participating in decision making. Time devoted to teaching and to any procedures I billed separately is not included. Services Provided: Telemetry review Mechanical Ventilation Hemodynamic interpretation, assessment and management Review and interpretation of CXR Review and interpretation of lab values Review and interpretation of microbiologic data and culture results Review of medications and administration Review and interpretation of Nutrition requirements and management Discussion of management with other consultants and services Clinical update to family members [x] Patient assessment, examination and intervention [x] Documentation [x] Medication orders and management Critical Care Time (min): 65 Coding Level of Care Code New Pt Acute 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
[2022-05-14] MEDS: morphine 4 mg/mL SDV 1 mL IVP (19:31)
[2022-05-14] MEDS: budesonide 0.5 mg/2 mL Neb INHALATION (19:41)
[2022-05-14] MEDS: ipratropium-albuterol 3 mL Neb INHALATION (19:42)
[2022-05-14 19:50] LABS: Lipase 13 U/L (13-60)
[2022-05-14 19:51] LABS: Alcohol Level < 10 mg/dL (0-10)
[2022-05-14] MEDS: amoxicillin-clav 500-125 mg Tablet 1 TAB PO (21:15)
[2022-05-14] MEDS: heparin 5,000 unit/mL INJ 1 mL 5000 UNIT SUBCUT (21:16)
[2022-05-14 22:18] LABS: Glucose Point of Care 134 mg/dL (70-110)
[2022-05-15] VITALS (43 sets, daily range): BP systolic 102–164; BP diastolic 61–109; PULSE 83–132; RESP 13–45; TEMP 37.1; O2SAT 68–100
[2022-05-15 02:13] LABS: Basophils % 0.1 %; Hematocrit 44.9 % (42.0-52.0); Hemoglobin 14.1 g/dL (11.7-16.6); Lymphocytes # 0.6 10^3/uL (0.8-4.8); Lymphocytes % 8.2 %; Mean Corpuscular HGB Conc 31.4 g/dL (30.0-36.0); Mean Corpuscular Volume 95.5 fl (80-94); Mean Platelet Volume 10.2 fL (7.4-10.4); Monocytes # 0.8 10^3/uL (0.2-0.9); Monocytes % 10.3 %; Neutrophils # 6.28 10^3/uL (1.8-7.7); Nucleated Red Blood Cells % 0 %; Platelet Count 85 10^3/cmm (130-400); Red Cell Distribution Width 14.7 % (12.1-15.1); White Blood Count 7.8 10^3/uL (4.0-10.0)
[2022-05-15 02:30] LABS: Lactate (Lactic Acid level) 2.5 mmol/L (0.5-2.2)
[2022-05-15 02:32] LABS: Estmated Average Glucose 80; Hemoglobin A1C 4.4 % (4.0-6.0)
[2022-05-15 02:45] LABS: Thyroid Stimulating Hormone 1.05 uIU/mL (0.27-4.20)
[2022-05-15 02:56] LABS: Alanine Aminotransferase 16 U/L (0-41); Albumin Level 3.1 g/dL (3.5-5.2); Alkaline Phosphatase 73 U/L (40-130); Anion Gap 14.5 (5-19); Aspartate Amino Transferase 44 U/L (0-40); Blood Urea Nitrogen 21 mg/dL (8-23); Calcium 8.9 mg/dL (8.5-10.5); Carbon Dioxide 26 mmol/L (22-29); Chloride 98 mmol/L (98-107); Globulin 3.8 g/dL (1.3-4.6); Glomerular Filtration Rate 112.1 mL/min (90-130); Glucose 122 mg/dL (65-115); Osmolality Calculated 282 mOsm/kg (285-295); Potassium 4.5 mmol/L (3.5-5.1); Sodium 134 mmol/L (136-145); Total Bilirubin 0.8 mg/dL (0.15-1.2); Total Protein 6.9 g/dL (6.6-8.7)
[2022-05-15 03:00] LABS: Add Urine Microscopic? YES; Bilirubin Urine Neg (Negative); Blood Urine Neg (Negative); Glucose Urine UA Norm (Normal); Ketones Urine 1+ (Negative); Leukocyte Esterase Urine Negative (Negative); Nitrate Urine Negative (Negative); Protein Urine Trace (Negative); RBC Urine 0-4 /hpf (0-2); Specific Gravity, Urine 1.025 (1.005-1.030); Squamous Epithelial Cell Urine 0-4 /hpf (0-5); Urine Appearance Clear (CLEAR); Urine Color Yellow (Yellow); Urobilinogen Urine Norm (Negative); WBC Urine 0-4 /hpf (0-5); pH Urine 5 (5-7)
[2022-05-15 03:01] LABS: Add Urine Culture? No; Amorphous Sediment Urine 1+ /hpf; Bacteria Urine TRACE /hpf; Renal Epithelial Cells Urine 0-2 /hpf
[2022-05-15] MEDS: ipratropium-albuterol 3 mL Neb INHALATION ×4 (03:04→20:30)
[2022-05-15 03:19] LABS: ABG PCO2 55.3 mmHg (35-45); ABG PH Result 7.38 (7.35-7.45); Arterial Blood Gas Hematocrit 39.7 % (42-52); Base Excess ABG 6.2 mmol/L (-2.0-2.0); Blood Gas Allen Test Pos; Blood Gas Sample Site Radial, right; Blood Gas Sample Type Arterial; HCO3 ABG 32.8 mmol/L (22-26); Oxygen Device NC
[2022-05-15] MEDS: HYDROcodone-acetaminophen 5-325 mg Tablet 1 TAB PO (03:21)
--- NOTE | 2022-05-15 04:00 | XR_ITS ---
WS: [id number] Portable AP upright chest, 05/15/2022 Clinical Data: PNEUMOTHORAX Comparison: Portable chest, 05/14/2022 Findings: The left chest tube still ends in the apex of the left thorax. The left pneumothorax has re expanded. The right apical scarring with shift of the heart and mediastinum from left to right remain s the same. The diaphragms are flattened. Monitor leads are on the chest wall. XR/XR chest 1V portable [id number] Impression: No change in placement of left chest tube with no evidence of left pneumothorax .
[2022-05-15] MEDS: cyclobenzaprine 10 mg Tablet 5 MG PO (04:57)
[2022-05-15] MEDS: budesonide 0.5 mg/2 mL Neb INHALATION ×2 (08:25→20:29)
[2022-05-15] MEDS: heparin 5,000 unit/mL INJ 1 mL 5000 UNIT SUBCUT (08:45)
[2022-05-15] MEDS: multivitamin therapeutic Tablet 1 TAB PO (09:06)
[2022-05-15] MEDS: lisinopril 10 mg Tablet PO (09:06)
[2022-05-15] MEDS: amoxicillin-clav 500-125 mg Tablet 1 TAB PO ×3 (09:06→21:00)
[2022-05-15] MEDS: folic acid 1 mg Tablet PO (09:06)
[2022-05-15] MEDS: cholecalciferol (vitamin D3) 1,000 unit Tablet 1000 UNIT PO (09:06)
[2022-05-15] MEDS: pantoprazole DR 40 mg Tablet PO (09:06)
[2022-05-15] MEDS: predniSONE 20 mg Tablet PO (09:07)
[2022-05-15] MEDS: thiamine 100 mg Tablet PO (09:07)
--- NOTE | 2022-05-15 10:00 | XR_ITS ---
WS: [id number] Portable AP upright chest, 05/15/2022, 0927 hours Clinical Data: left pneumo Comparison: Portable chest, 05/15/2022, 0526 hours Findings: The position of the left chest tube has not changed. There is moderate left subcutaneous em physema. The diaphragms are flattened. The left pneumothorax has not recurred. There is a small left effusion. The right apical scarring remains the same. There is slhl-vy-rqomi shift of heart and media stinum unchanged. There are monitor leads on the chest wall. XR/XR chest 1V portable [id number] Impression: 1. Development of subcutaneous emphysema along left lateral chest wall. 2. No change in left chest tube and no recurrence of left pneumothorax.
--- NOTE | 2022-05-15 10:49 | PC.CHAP ---
Pastoral Care Encounter/Spiritual Assessment Type of Contact [] Declined ledger poster visit [] Patient/Family/Request visit [] Outpatient visit [] Follow-up visit [] Physician referral [] Code/Alert [x] Routine visit [] Staff referral [] Actively dying [] Patient sleeping [] Family support [] [] Out of room [] Palliative care [] [] Receiving care in room [] Pre-surgical visit [] Trauma [] Long length of stay [x] ICU visit [x] Other:delivered meal to patient Relational/Emotional Strength [] Patient feels connected with others/family/visitors/staff [] Distress [] Loneliness/isolation [] Abandonment Spirituality of Patient [] Person of Kalli [] Attends Alevism of their Kalli [] Believes in Prayer [] Reads Bible or Hoahaoism materials [] There are Spiritual issues to be addressed Enlisted Advisor Interventions [x] Prayer [] Active listening [] Non-anxious presence [] Spiritual/emotional support [] Crisis/trauma care [] Spiritual counseling [] Bereavement support [] Provided bereavement packet [] Provided Bible/devotional materials [] Provided toy/stuffed animal, coloring book to patient or family member [] Provided Communion [] Anointing/[place] [] Salvation [x] Completed spiritual assessment [] Other: Impact on Illness or Injury [] Angry [] Fearful [] Anxious [] Often cries [] Exhaustion [] Unable to work [] Unable to attend anglican [] Unable to walk/stand [] Unable to read [] Unable to drive [] Unable to eat/drink [] Unable to sleep [] Unable to be with family [] Patient intubated [] Other: Summary Time spent with patient
--- NOTE | 2022-05-15 12:15 | P.PN_ITS ---
Subjective Subjective: Chest has been clamped, no recurrence of pneumothorax, Patient up to 3 L of oxygen at baseline Hypercapnia improved Patient does not complain of any active distress Lactic acidemia improving Patient is stating that he drinks 2 to 3 cans of beer every night, no active severe withdrawal signs Tachycardia, tachypnea likely related to autonomic dysfunction Spoke with Dr. Oneal, plan is to take her chest tube provided chest x-ray shows improvement of pneumothorax and no recurrence He is planning to do biopsy of his right upper lobe cavitary lesion electively Vitals/I&O/Wt Last Vital Signs Temp 89 F L 05/14/22 14:44 Pulse 108 H 05/15/22 10:00 Resp 23 H 05/15/22 10:00 BP 136/95 05/15/22 10:00 Pulse Ox 97 05/15/22 10:00 O2 Del Method 05/15/22 08:00 O2 Flow Rate 3 05/15/22 08:00 05/14/22 05/15/22 05/15/22 22:59 06:59 14:59 Intake Total 540 / 540 120 / 660 300 / 300 Output Total 100 / 100 100 / 200 Balance 440 / 440 20 / 460 300 / 300 Weight last 48 hrs Weight 907.185 g Weight 45.926 kg Physical Exam Narrative: Patient sitting comfortably in his bed Currently saturating well 95% on 3 L nasal cannula Bilateral breath sounds Chest tube has been clamped S1, S2 sinus tachycardia Patient clinically looks dehydrated Malnourished, cachectic Unkept appearance Nonfocal neuro exam Abdomen soft Data 05/15/22 01:46 05/15/22 01:46 Micro: Microbiology 05/14/22 09:50 Blood Culture - Preliminary Blood NEGATIVE TO DATE 05/14/22 09:54 Blood Culture - Preliminary Blood NEGATIVE TO DATE A&P Assessment and plan (1) COPD (chronic obstructive pulmonary disease): (2) Hemoptysis: (3) Tension pneumothorax, spontaneous: (4) Acute exacerbation of chronic obstructive airways disease: (5) On home oxygen therapy: (6) Essential (primary) hypertension: (7) Cavitary lesion of lung: (8) Lactic acidosis: (9) Alcohol abuse, daily use: (10) Thrombocytopenia: (11) Weight loss: Plan Spontaneous pneumothorax status post chest tube has been Chest tube has been clamped no recurrence of pneumothorax noted Plan is to take a chest tube as per Dr. Oneal Patient is an alcoholic Bullous COPD Cavitary lesion right upper lobe, patient has history of weight loss, hemoptysis, AFB, fungal, viral cultures negative as per my discussion with Dr. Oneal he was at [facility] There is plan to biopsy his cavitary lesion electively Sore throat, laryngitis Patient has been started on prednisone and Augmentin COPD without acute exacerbation currently patient is doing well on 3 L of oxygen which is his baseline requirement Avoid BiPAP because of recent pneumothorax Hypercapnia has improved Lactic acidemia was most likely due to increased work of breathing which has improved to some extent No acute signs of sepsis or infection Active alcohol abuse Thrombocytopenia likely related to alcohol related bone marrow suppression DVT prophylaxis: SCDs Regular diet Continue thiamine and folic acid No acute signs of alcohol withdrawal if he starts showing any signs of withdrawal I would use phenobarbital 120 mg every hour as needed Attestations Medical Necessity Statement*: Continue ICU management Critical Care Time: 30mins Coding Level of Care Code Acute [employer] Food Services Manager for [facility] Fwd Diagnoses COPD (chronic obstructive pulmonary disease) J44.9 Hemoptysis R04.2 Tension pneumothorax, spontaneous J93.0 Acute exacerbation of chronic obstructive airways disease J44.1 On home oxygen therapy Z99.81 Essential (primary) hypertension I10 Cavitary lesion of lung J98.4 Lactic acidosis E87.20 Alcohol abuse, daily use F10.10 Thrombocytopenia D69.6 Weight loss R63.4
--- NOTE | 2022-05-15 17:45 | PM.PN ---
Subjective Subjective: -Seen multiple times at bedside today -After leaving chest tube under waterseal-today morning chest x-ray did not show any recurrence of pneumothorax -Chest x-ray 4 hours after clamping chest tube-showed no recurrence but showed small subcutaneous emphysema and left chest wall -Patient appeared comfortable and saturating 94% on 4 L nasal cannula; denied chest pain -No evidence of alcohol withdrawal -Other labs and imaging reviewed Medications: Reviewed: Yes Vitals/I&O/Wt Last Vital Signs Temp 98.7 F 05/15/22 17:00 Pulse 96 05/15/22 17:00 Resp 24 H 05/15/22 17:00 BP 106/74 05/15/22 17:00 Pulse Ox 96 05/15/22 17:00 O2 Del Method 05/15/22 17:00 O2 Flow Rate 3 05/15/22 17:00 05/15/22 05/15/22 05/15/22 06:59 14:59 22:59 Intake Total 120 / 660 600 / 600 Output Total 100 / 200 Balance 20 / 460 600 / 600 Weight last 48 hrs Weight 2 lb Weight 101 lb 4 oz Physical Exam Narrative: General: alert, NAD, thin cachectic gentleman HEENT: conj clear, EOMI, PERRL, mmm, Neck: supple, no meningismus Heme: no cervical LAP Respiratory: Inspection: No visible deformity of the chest wall Palpation: Trachea is mildly deviated to the right, bilateral symmetric expansion Percussion: Bilateral tympanic percussion note both anterior and posteriorly Auscultation: Expiratory wheeze predominantly in right lung upper and lower lung zone Cardiovascular: rrr, nl s1s2, no mrg Abdomen: soft, nt, nd, no r/g, bs+ Extremities: pulses +, no edema, no c/c : no CVA tenderness Skin: intact, no rash MSK: no back or neck pain Neurologic: grossly intact Data 05/15/22 01:46 05/15/22 01:46 Other Labs: Radiology Impressions Chest X-Ray 05/15/22 10:00 Impression: 1. Development of subcutaneous emphysema along left lateral chest wall. 2. No change in left chest tube and no recurrence of left pneumothorax. Laboratory Results WBC 7.8 10^3/uL (4.0-10.0) 05/15/22 01:46 RBC 4.70 10^6/uL (4.1-5.3) 05/15/22 01:46 Hgb 14.1 g/dL (11.7-16.6) 05/15/22 01:46 Hct 44.9 % (42.0-52.0) 05/15/22 01:46 MCV 95.5 fl (80-94) H D 05/15/22 01:46 MCH 30.0 pg (28.0-34.0) 05/15/22 01:46 MCHC 31.4 g/dL (30.0-36.0) D 05/15/22 01:46 RDW 14.7 % (12.1-15.1) 05/15/22 01:46 Plt Count 85 10^3/cmm (130-400) L 05/15/22 01:46 MPV 10.2 fL (7.4-10.4) 05/15/22 01:46 Neut % (Auto) 81.0 % 05/15/22 01:46 Lymph % (Auto) 8.2 % 05/15/22 01:46 [place] % (Auto) 10.3 % 05/15/22 01:46 Eos % (Auto) 0.0 % 05/15/22 01:46 Baso % (Auto) 0.1 % 05/15/22 01:46 Neut # (Auto) 6.28 10^3/uL (1.8-7.7) 05/15/22 01:46 Lymph # (Auto) 0.6 10^3/uL (0.8-4.8) L 05/15/22 01:46 [place] # (Auto) 0.8 10^3/uL (0.2-0.9) 05/15/22 01:46 Eos # (Auto) 0.0 10^3/uL (0.0-0.8) 05/15/22 01:46 Baso # (Auto) 0.0 10^3/uL (0.0-0.1) 05/15/22 01:46 Nucleated RBC % (auto) 0 % 05/15/22 01:46 Nucleated RBCs # 0.0 /100WBC 05/15/22 01:46 Specimen Type Arterial 05/15/22 04:00 Sample Site Radial, right 05/15/22 04:00 ABG pH 7.38 (7.35-7.45) 05/15/22 04:00 ABG pCO2 55.3 mmHg (35-45) H 05/15/22 04:00 ABG pO2 102.0 mmHg (80.0-100.0) H 05/15/22 04:00 ABG HCO3 32.8 mmol/L (22-26) H 05/15/22 04:00 ABG O2 Saturation 83.6 05/14/22 11:01 ABG Base Excess 6.2 mmol/L (-2.0-2.0) H 05/15/22 04:00 Tono Test Pos 05/15/22 04:00 A-a O2 Gradient 5.5 mmHg (5-10) 05/14/22 11:01 Hematocrit 39.7 % (42-52) L 05/15/22 04:00 Hgb O2 Saturation 80.9 % (95-100) L 05/14/22 11:01 Carboxyhemoglobin 2.5 %THgb (0.4-20.1) 05/14/22 11:01 Methemoglobin 0.7 % (0.4-1.5) 05/14/22 11:01 Total Hemoglobin 14.6 g/dL (14-18) 05/14/22 11:01 Sodium 142.0 mmol/L (131-143) 05/14/22 11:01 Potassium 4.3 mmol/L (3.5-5.0) 05/14/22 11:01 Glucose 150.0 mg/dL (70-115) H 05/14/22 11:01 Ionized Calcium 1.2 mmol/L (1.1-1.4) 05/14/22 11:01 O2 Delivery Device Nc 05/15/22 04:00 O2 Liters/Min 3.0 % 05/15/22 04:00 FiO2 24.0 % 05/14/22 11:01 Echo Vascular Tech ID garcia 05/15/22 04:00 Sodium 134 mmol/L (136-145) L 05/15/22 01:46 Potassium 4.5 mmol/L (3.5-5.1) 05/15/22 01:46 Chloride 98 mmol/L (98-107) 05/15/22 01:46 Carbon Dioxide 26 mmol/L (22-29) 05/15/22 01:46 Anion Gap 14.5 (5-19) 05/15/22 01:46 BUN 21 mg/dL (8-23) 05/15/22 01:46 Creatinine 0.7 mg/dL (0.7-1.2) 05/15/22 01:46 GFR Calculation 112.1 mL/min (90-130) 05/15/22 01:46 Glucose 122 mg/dL (65-115) H 05/15/22 01:46 POC Glucose 98 mg/dL (70-110) 05/15/22 17:40 Estimat Average Glucose 80 05/15/22 01:46 Hemoglobin A1c 4.4 % (4.0-6.0) 05/15/22 01:46 Calculated Osmolality 282 mOsm/kg (285-295) L 05/15/22 01:46 Lactic Acid 5.2 mmol/L (0.5-2.2) H* 05/14/22 09:54 Lactic Acid (Sepsis) 5.9 mmol/L (0.5-2.2) H* 05/14/22 12:50 Lactate 2.5 mmol/L (0.5-2.2) H 05/15/22 01:46 Calcium 8.9 mg/dL (8.5-10.5) 05/15/22 01:46 Magnesium 2.0 mg/dL (1.7-2.3) 05/15/22 01:46 Total Bilirubin 0.8 mg/dL (0.15-1.2) 05/15/22 01:46 AST 44 U/L (0-40) H 05/15/22 01:46 ALT 16 U/L (0-41) 05/15/22 01:46 Alkaline Phosphatase 73 U/L (40-130) 05/15/22 01:46 Troponin T Baseline 49 ng/L (0-15) H 05/14/22 09:54 Troponin T 120 Minute 49.88 ng/L (0-15) H 05/14/22 11:41 Delta Troponin T 0.88 ABS# (0-10) 05/14/22 11:41 Troponin T Hi Sens 6Hr 39.62 ng/L (0-15) H 05/14/22 15:53 Troponin T Hi Sens 6Hr Delta -9.38 ng/L (0-12) L 05/14/22 15:53 Total Protein 6.9 g/dL (6.6-8.7) 05/15/22 01:46 Albumin 3.1 g/dL (3.5-5.2) L 05/15/22 01:46 Globulin 3.8 g/dL (1.3-4.6) 05/15/22 01:46 Lipase 13 U/L (13-60) 05/14/22 15:53 Procalcitonin 0.20 ng/mL (0-0.5) 05/15/22 01:46 TSH 1.05 uIU/mL (0.27-4.20) 05/15/22 01:46 Urine Color Yellow (Yellow) 05/15/22 01:20 Urine Appearance Clear (CLEAR) 05/15/22 01:20 Urine pH 5 (5-7) 05/15/22 01:20 Ur Specific [place] 1.025 (1.005-1.030) 05/15/22 01:20 Urine Protein Trace (Negative) 05/15/22 01:20 Urine Glucose (UA) Norm (Normal) 05/15/22 01:20 Urine Ketones 1+ (Negative) H 05/15/22 01:20 Urine Blood Neg (Negative) 05/15/22 01:20 Urine Nitrate Negative (Negative) 05/15/22 01:20 Urine Bilirubin Neg (Negative) 05/15/22 01:20 Urine Urobilinogen Norm mg/dL (Negative) 05/15/22 01:20 Ur Leukocyte Esterase Negative (Negative) 05/15/22 01:20 Urine RBC 0-4 /hpf (0-2) H 05/15/22 01:20 Urine WBC 0-4 /hpf (0-5) H 05/15/22 01:20 Ur Squamous Epith Cells 0-4 /hpf (0-5) H 05/15/22 01:20 Ur Renal Epithelial Cell 0-2 /hpf 05/15/22 01:20 Amorphous Sediment 1+ /hpf 05/15/22 01:20 Urine Bacteria Trace /hpf (NONE) 05/15/22 01:20 Hyaline Casts 5-10 /lpf H 05/15/22 01:20 Nasal Influ A H1 2008 PCR Not detected (NOT DETECT) 05/14/22 10:00 Ethyl Alcohol < 10 mg/dL (0-10) 05/14/22 15:53 Coronavirus 229E (PCR) Not detected (NOT DETECT) 05/14/22 10:00 Influenza A (H1) PCR Not detected (NOT DETECT) 05/14/22 10:00 Influenza A (H3) PCR Not detected (NOT DETECT) 05/14/22 10:00 Influenza Type A (PCR) Not detected (NOT DETECT) 05/14/22 10:00 Influenza Type B (PCR) Not detected (NOT DETECT) 05/14/22 10:00 SARS-CoV-2 (PCR) Not detected (NOT DETECT) 05/14/22 10:00 Micro: Microbiology 05/14/22 09:50 Blood Culture - Preliminary Blood NEGATIVE TO DATE 05/14/22 09:54 Blood Culture - Preliminary Blood NEGATIVE TO DATE A&P Assessment and plan (1) Tension pneumothorax, spontaneous: (2) COPD (chronic obstructive pulmonary disease): (3) Hemoptysis: (4) Acute exacerbation of chronic obstructive airways disease: (5) Alcohol dependence: (6) On home oxygen therapy: (7) Cavitary lesion of lung: Plan #Left tension pneumothorax-secondary to ruptured bulla triggered by coughing possibly secondary to aspiration in patient with underlying COPD #Severe bullous emphysema in lungs left greater than right on CT chest 03/17/2022 -As per nephew, patient was eating and had a cough and over next few hours he developed respiratory distress -Suspect aspiration leading to cough-causing ruptured bullae and pneumothorax -Currently 36 [place] chest tube on admission 05/14/2022-postprocedure chest x-ray and evening chest x-ray-good reexpansion of lung -After leaving chest tube under waterseal-today morning chest x-ray did not show any recurrence of pneumothorax -Chest x-ray 4 hours after clamping chest tube-showed no recurrence but showed small subcutaneous emphysema and left chest wall -Will monitor with serial chest x-rays and if there is no recurrence in the next 24 hours-I will plan to take the chest tube out -Patient appeared comfortable and saturating 94% on 4 L nasal cannula; denied chest pain -Augmentin for suspected aspiration -Sparkman every 6 hours as needed for pain #Volume loss with right upper lobe cavitary lesion seen on CT chest 03/17/2022 #Hemoptysis during that CT on 03/17/2022 -He had incarceration 1 year ago-otherwise no other risk factors for TB -With a [id number] smoking history-cannot rule out underlying malignancy -He was seen at [facility]-bacterial cultures, 2 AFB smears and QuantiFERON were negative -However today denied hemoptysis and his H&H is stable -He will need repeat CT chest and if the cavitary lesion persists on CT chest-I will schedule for bronchoscopic biopsies to rule out malignancy-can be done as outpatient after taking care of current pneumothorax #COPD exacerbation #Acute on chronic hypoxic respiratory failure -Patient is on Wixela and Spiriva as outpatient -I will obtain PFTs as outpatient -Currently will continue DuoNeb nebulizations every 6 ever scheduled and Pulmicort twice daily -We will give p.o. prednisone 20 Mg for 5 days #Alcohol dependence -Patient drinks 4 beers a day - on CIWA protocol -Ativan as every 6 hours needed, multivitamin/thiamine/folic acid -Monitor for seizures and withdrawal symptoms ICU CHECKLIST: Problem list updated Verbal orders reviewed and signed Analgesia: Morphine Glycemic Control: N/A Nutrition: Low-salt diet Restraint Renewal (within 24 hrs): Yes Ulcer Prophylaxis: N/A Chemical Thromboprophylaxis: Prophylaxis: Heparin subcu Mechanical Thromboprophylaxis: SCD Need for Central line: N/A Need for Helm catheter: N/A Critical Care Time (No Overlap): 65 min Attestations Medical Necessity Statement*: Tension pneumothorax s/p left chest tube in place-closely monitor in ICU overnight Time Spent in Patient Care: Greater than 35 minutes (>than 50% of time spent in counselling and/or direct pt care on unit). Critical Care Time: This patient has a high probability of sudden, clinica lly significant de terioration, which requires the high est level of physi wander preparedness to intervene urgen tly.? I managed/ennis pervised life or o rgan supporting in terventions that r equired frequent p hysician assessmen t.? I devoted my f ull attention in t he ICU to the dire ct care of this pa tient for the peggy od of time indicat ed above.? Time I spent with family or surrogate(s) is included only if the patient was in capable of providi ng necessary infor mation or particip ating in decision making.? Time hamilton nikki to teaching an d to any procedure s I billed ulises galdamez is not include d. ? Services Prov ided: Telemetry re view Mechanical Ve ntilation Hemodyna neal interpretation , assessment and m anagement Review a nd interpretation of CXR Review and interpretation of lab values Review and interpretation of microbiologic data and culture r esults Review of m edications and adm inistration Review and interpretatio n of Nutrition req uirements and atif gement Discussion of management with other consultants and services Clin ical update to [facility] nur[facility] members [x] Rajesh victor assessment, examination and in tervention [x] Doc umentation [x] Med ication orders and management ? Crit ical Care Time (mi n): 65 Critical Care Time (min): 65 Coding Level of Care Code Established Pt Acute Ice Cream Scooper for Chg Fwd Patient Type Established History Comprehensive Exam Comprehensive Medical Decision Making Moderate Complexity Diagnoses Tension pneumothorax, spontaneous J93.0 COPD (chronic obstructive pulmonary disease) J44.9 Hemoptysis R04.2 Acute exacerbation of chronic obstructive airways disease J44.1 Alcohol dependence F10.20 On home oxygen therapy Z99.81 Cavitary lesion of lung J98.4 Time Spent (min) 65
[2022-05-15 17:46] LABS: Glucose Point of Care 98 mg/dL (70-110)
--- NOTE | 2022-05-15 18:00 | XRR_ITS ---
PROCEDURE INFORMATION: Exam: XR Chest Exam date and time: 05/15/2022 5:59 PM Age: 66 years old Clinical indication: Shortness of breath; Additional info: Pneumonia TECHNIQUE: Imaging protocol: Radiologic exam of the chest. Views: 1 view. COMPARISON: CR XR chest 1V portable [id number] 05/15/2022 9:25 AM FINDINGS: Tubes, catheters and devices: Left chest tube is stable in position with the tip at the level of the posterior left 3rd rib. Lungs: Extensive scarring in the right upper lobe with superior retraction of the right hilum/right deviation of the mediastinum and volume loss is stable. No focal consolidation. No pulmonary edema. Stable scattered granulomas in both lungs. Stable moderate hyperinflation of the left lung. Pleural spaces: No pleural effusion. No pneumothorax. Heart/Mediastinum: The heart is normal in size. Vasculature: Stable vascular calcifications in the aorta. Bones/joints: Unremarkable for age. Soft tissues: Extensive left-sided soft tissue emphysema is stable. XR/XR chest 1V portable [id number] IMPRESSION: 1. Left chest tube is stable in position with the tip at the level of the posterior left 3rd rib. No pneumothorax. 2. Extensive left-sided soft tissue emphysema is stable. 3. Incidental/nonacute findings are listed in the report.
[2022-05-16] VITALS (21 sets, daily range): BP systolic 98–152; BP diastolic 65–113; PULSE 83–119; RESP 18–27; TEMP 36.5–36.6; O2SAT 83–97; BMI 34.1
[2022-05-16 00:24] LABS: Glucose Point of Care 83 mg/dL (70-110)
[2022-05-16 03:25] LABS: Alanine Aminotransferase 15 U/L (0-41); Albumin Level 3.1 g/dL (3.5-5.2); Alkaline Phosphatase 69 U/L (40-130); Anion Gap 10.2 (5-19); Aspartate Amino Transferase 34 U/L (0-40); Blood Urea Nitrogen 22 mg/dL (8-23); Calcium 8.8 mg/dL (8.5-10.5); Carbon Dioxide 32 mmol/L (22-29); Chloride 95 mmol/L (98-107); Globulin 3.5 g/dL (1.3-4.6); Glucose 78 mg/dL (65-115); Osmolality Calculated 278 mOsm/kg (285-295); Potassium 4.2 mmol/L (3.5-5.1); Sodium 133 mmol/L (136-145); Total Bilirubin 0.6 mg/dL (0.15-1.2); Total Protein 6.6 g/dL (6.6-8.7)
--- NOTE | 2022-05-16 04:00 | XRR_ITS ---
PROCEDURE INFORMATION: Exam: XR Chest Exam date and time: 05/16/2022 5:07 AM Age: 66 years old Clinical indication: Pneumothorax. Chest tube. TECHNIQUE: Imaging protocol: Radiologic exam of the chest. Views: 1 view. COMPARISON: CR (CHEST, ) 05/15/2022 5:59 PM FINDINGS: Tubes, catheters and devices: A left-sided chest tube is seen. Lungs: There is volume loss in the right hemithorax with extensive scarring in the right upper lobe with pleural thickening. Patchy opacity at the left base may reflect pneumonia. Trace residual left pneumothorax (less than 1% of the total lung volume). There are calcified granulomata bilaterally. Severe emphysema. Pleural spaces: No pleural effusion. Heart/Mediastinum: Calcified mediastinal and bilateral hilar lymph nodes. No gross evidence of pneumomediastinum. Bones/joints: No gross fracture. Soft tissues: There is soft tissue gas in the left chest wall. XR/XR chest 1V portable [id number] IMPRESSION: 1. A left-sided chest tube is seen. Trace residual left pneumothorax (less than 1% of the total lung volume). 2. Patchy opacity at the left base may reflect pneumonia. 3. Volume loss in the right hemithorax with extensive scarring in the right upper lobe with pleural thickening. 4. Soft tissue gas in the left chest wall.
--- NOTE | 2022-05-16 06:43 | CT_ITS ---
WS: [id number] CT CHEST TECHNIQUE: Noncontrast CT of the chest with coronal and sagittal reformatted images. CLINICAL INFORMATION: chest tube COMPARISON: Radiograph May 16, 2022 DLP: 268.[address] scans at [facility] use at least one of these dose optimization techniques: automated e xposure control; mA and/or kV adjustment per patient size (includes targeted exams where dose is matc hed to clinical indication); or iterative reconstruction. FINDINGS: Advanced chronic emphysematous changes. LEFT chest tube with tip in the dorsal lung apex. Extensive s ubcutaneous emphysema involving the LEFT chest wall extending into the supraclavicular and axillary s oft tissues. Tiny residual LEFT apical pneumothorax. Extensive scarring RIGHT lung apex with cavitary changes. Pleural thickening RIGHT lung apex. Chronic volume loss RIGHT hemithorax unchanged. Normal caliber thoracic aorta. Aortic calcification. Normal caliber descending thoracic aorta. Calcif ied anterior mediastinal and subcarinal lymph nodes. Normal GE junction. Adrenal glands are normal. C holelithiasis. Tiny esophageal hiatal hernia. Low-attenuation lesion RIGHT hepatic lobe measuring 11 mm nonspecific. This can be followed up with ultrasound or contrast-enhanced CT abdomen pelvis. CT/CT chest wo con [id number] IMPRESSION: 1. LEFT chest tube with tip in the LEFT dorsal lung apex. Tiny residual LEFT a pical pneumothorax. 2. Extensive subcutaneous emphysema LEFT chest wall extending to the supraclav icular region and axillary soft tissues. 3. Chronic volume loss RIGHT lung with chronic LEFT RIGHT mediastinal shift. C hronic pleural thickening with fibrosis and cavitation the RIGHT lung apex. 4. Advanced chronic emphysematous changes. 5. Subsegmental atelectasis LEFT lower lobe posteriorly. 6. Cholelithiasis. 7. The Low-attenuation lesion in the RIGHT hepatic lobe measuring 11 mm is ind eterminant on this study. This can be followed up with ultrasound or contrast-e nhanced CT abdomen pelvis with liver protocol. Notified Dr Lucas SPAULDING at 05/16/2022 10:21 AM.
--- NOTE | 2022-05-16 07:05 | PC.NURSE ---
Bedside report completed with EFRAIN Epps.
--- NOTE | 2022-05-16 07:30 | PC.NURSE ---
Chest tube clamped this am.
[2022-05-16 07:59] LABS: Glucose Point of Care 74 mg/dL (70-110)
--- NOTE | 2022-05-16 08:00 | PC.NURSE ---
Asswssment: SubQ emphysema noted on left upper chest, marked around edges. Barrell chest noted.
[2022-05-16] MEDS: ipratropium-albuterol 3 mL Neb INHALATION (08:52)
[2022-05-16] MEDS: budesonide 0.5 mg/2 mL Neb INHALATION (08:56)
[2022-05-16] MEDS: amoxicillin-clav 500-125 mg Tablet 1 TAB PO ×2 (09:50→14:24)
[2022-05-16] MEDS: predniSONE 20 mg Tablet PO (09:51)
[2022-05-16] MEDS: lisinopril 10 mg Tablet PO (09:51)
[2022-05-16] MEDS: cholecalciferol (vitamin D3) 1,000 unit Tablet 1000 UNIT PO (09:51)
[2022-05-16] MEDS: folic acid 1 mg Tablet PO (09:51)
[2022-05-16] MEDS: multivitamin therapeutic Tablet 1 TAB PO (09:51)
[2022-05-16] MEDS: thiamine 100 mg Tablet PO (09:51)
--- NOTE | 2022-05-16 10:07 | PC.CHAP ---
Pastoral Care Encounter/Spiritual Assessment Type of Contact [] Declined guard lieutenant visit [] Patient/Family/Request visit [] Outpatient visit [] Follow-up visit [] Physician referral [] Code/Alert [x] Routine visit [] Staff referral [] Actively dying [] Patient sleeping [] Family support [] [] Out of room [] Palliative care [] [x] Receiving care in room [] Pre-surgical visit [] Trauma [] Long length of stay [x] ICU visit [] Other: Relational/Emotional Strength [] Patient feels connected with others/family/visitors/staff [] Distress [] Loneliness/isolation [] Abandonment Spirituality of Patient [] Person of [place]alli [] Attends Jewish of their [place] [] Believes in Prayer [] Reads Bible or Mu-Ism materials [] There are Spiritual issues to be addressed [employer] Interventions [x] Prayer [] Active listening [] Non-anxious presence [] Spiritual/emotional support [] Crisis/trauma care [] Spiritual counseling [] Bereavement support [] Provided bereavement packet [] Provided Bible/devotional materials [] Provided toy/stuffed animal, coloring book to patient or family member [] Provided Communion [] Anointing/[place] [] Salvation [x] Completed spiritual assessment [] Other: Impact on Illness or Injury [] Angry [] Fearful [] Anxious [] Often cries [] Exhaustion [] Unable to work [] Unable to attend pentecostal [] Unable to walk/stand [] Unable to read [] Unable to drive [] Unable to eat/drink [] Unable to sleep [] Unable to be with family [] Patient intubated [] Other: Summary Time spent with patient
--- NOTE | 2022-05-16 10:35 | PM.PN ---
Subjective Subjective: -Seen bedside today -Appeared comfortable and he reported feeling better but there is obvious subcutaneous emphysema on left side chest wall -Chest tube was clamped for last 24 hours-chest x-ray today morning revealed no left pneumothorax but worsening left-sided chest wall subcutaneous emphysema -CT chest-also revealed extensive subcutaneous emphysema extending to the subclavicular region and axillary soft tissues. There is extensive left lung bullous disease and left chest tube tip in the left dorsal lung apex. -I have connected chest tube back to suction for worsening subcutaneous emphysema -No evidence of alcohol withdrawal -Other labs and imaging reviewed Medications: Reviewed: Yes Vitals/I&O/Wt Last Vital Signs Temp 98.7 F 05/15/22 17:00 Pulse 97 05/16/22 09:00 Resp 22 H 05/16/22 08:55 BP 134/88 05/16/22 06:00 Pulse Ox 89 L 05/16/22 08:55 O2 Del Method 05/16/22 08:55 O2 Flow Rate 4 05/16/22 08:55 05/15/22 05/16/22 05/16/22 22:59 06:59 14:59 Output Total 310 / 310 Balance -310 / 290 Weight last 48 hrs Weight 198 lb 12.8 oz Weight 2 lb Weight 101 lb 4 oz Physical Exam Narrative: General: alert, NAD, thin cachectic gentleman HEENT: conj clear, EOMI, PERRL, mmm, Neck: supple, no meningismus Heme: no cervical LAP Respiratory: Inspection: Left chest wall appeared swollen-likely secondary to subcutaneous emphysema Palpation: Trachea is mildly deviated to the right, subcutaneous crepitus on left chest wall and axilla, tenderness to palpation Percussion: Bilateral tympanic percussion note both anterior and posteriorly Auscultation: Expiratory wheeze predominantly in right lung upper and lower lung zone Cardiovascular: rrr, nl s1s2, no mrg Abdomen: soft, nt, nd, no r/g, bs+ Extremities: pulses +, no edema, no c/c : no CVA tenderness Skin: intact, no rash MSK: no back or neck pain Neurologic: grossly intact Data 05/15/22 01:46 05/16/22 02:00 Other Labs: Radiology Impressions Chest X-Ray 05/16/22 04:00 IMPRESSION: 1. A left-sided chest tube is seen. Trace residual left pneumothorax (less than 1% of the total lung volume). 2. Patchy opacity at the left base may reflect pneumonia. 3. Volume loss in the right hemithorax with extensive scarring in the right upper lobe with pleural thickening. 4. Soft tissue gas in the left chest wall. Chest CT 05/16/22 06:43 IMPRESSION: 1. LEFT chest tube with tip in the LEFT dorsal lung apex. Tiny residual LEFT apical pneumothorax. 2. Extensive subcutaneous emphysema LEFT chest wall extending to the supraclavicular region and axillary soft tissues. 3. Chronic volume loss RIGHT lung with chronic LEFT RIGHT mediastinal shift. Chronic pleural thickening with fibrosis and cavitation the RIGHT lung apex. 4. Advanced chronic emphysematous changes. 5. Subsegmental atelectasis LEFT lower lobe posteriorly. 6. Cholelithiasis. 7. The Low-attenuation lesion in the RIGHT hepatic lobe measuring 11 mm is indeterminant on this study. This can be followed up with ultrasound or contrast-enhanced CT abdomen pelvis with liver protocol. Notified Dr Lucas SPAULDING at 05/16/2022 10:21 AM. Laboratory Results WBC 7.8 10^3/uL (4.0-10.0) 05/15/22 01:46 RBC 4.70 10^6/uL (4.1-5.3) 05/15/22 01:46 Hgb 14.1 g/dL (11.7-16.6) 05/15/22 01:46 Hct 44.9 % (42.0-52.0) 05/15/22 01:46 MCV 95.5 fl (80-94) H D 05/15/22 01:46 MCH 30.0 pg (28.0-34.0) 05/15/22 01:46 MCHC 31.4 g/dL (30.0-36.0) D 05/15/22 01:46 RDW 14.7 % (12.1-15.1) 05/15/22 01:46 Plt Count 85 10^3/cmm (130-400) L 05/15/22 01:46 MPV 10.2 fL (7.4-10.4) 05/15/22 01:46 Neut % (Auto) 81.0 % 05/15/22 01:46 Lymph % (Auto) 8.2 % 05/15/22 01:46 [place] % (Auto) 10.3 % 05/15/22 01:46 Eos % (Auto) 0.0 % 05/15/22 01:46 Baso % (Auto) 0.1 % 05/15/22 01:46 Neut # (Auto) 6.28 10^3/uL (1.8-7.7) 05/15/22 01:46 Lymph # (Auto) 0.6 10^3/uL (0.8-4.8) L 05/15/22 01:46 [place] # (Auto) 0.8 10^3/uL (0.2-0.9) 05/15/22 01:46 Eos # (Auto) 0.0 10^3/uL (0.0-0.8) 05/15/22 01:46 Baso # (Auto) 0.0 10^3/uL (0.0-0.1) 05/15/22 01:46 Nucleated RBC % (auto) 0 % 05/15/22 01:46 Nucleated RBCs # 0.0 /100WBC 05/15/22 01:46 Specimen Type Arterial 05/15/22 04:00 Sample Site Radial, right 05/15/22 04:00 ABG pH 7.38 (7.35-7.45) 05/15/22 04:00 ABG pCO2 55.3 mmHg (35-45) H 05/15/22 04:00 ABG pO2 102.0 mmHg (80.0-100.0) H 05/15/22 04:00 ABG HCO3 32.8 mmol/L (22-26) H 05/15/22 04:00 ABG O2 Saturation 83.6 05/14/22 11:01 ABG Base Excess 6.2 mmol/L (-2.0-2.0) H 05/15/22 04:00 Tono Test Pos 05/15/22 04:00 A-a O2 Gradient 5.5 mmHg (5-10) 05/14/22 11:01 Hematocrit 39.7 % (42-52) L 05/15/22 04:00 Hgb O2 Saturation 80.9 % (95-100) L 05/14/22 11:01 Carboxyhemoglobin 2.5 %THgb (0.4-20.1) 05/14/22 11:01 Methemoglobin 0.7 % (0.4-1.5) 05/14/22 11:01 Total Hemoglobin 14.6 g/dL (14-18) 05/14/22 11:01 Sodium 142.0 mmol/L (131-143) 05/14/22 11:01 Potassium 4.3 mmol/L (3.5-5.0) 05/14/22 11:01 Glucose 150.0 mg/dL (70-115) H 05/14/22 11:01 Ionized Calcium 1.2 mmol/L (1.1-1.4) 05/14/22 11:01 O2 Delivery Device Nc 05/15/22 04:00 O2 Liters/Min 3.0 % 05/15/22 04:00 FiO2 24.0 % 05/14/22 11:01 Internal Audit Director ID garcia 05/15/22 04:00 Sodium 133 mmol/L (136-145) L 05/16/22 02:00 Potassium 4.2 mmol/L (3.5-5.1) 05/16/22 02:00 Chloride 95 mmol/L (98-107) L 05/16/22 02:00 Carbon Dioxide 32 mmol/L (22-29) H 05/16/22 02:00 Anion Gap 10.2 (5-19) 05/16/22 02:00 BUN 22 mg/dL (8-23) 05/16/22 02:00 Creatinine 0.6 mg/dL (0.7-1.2) L 05/16/22 02:00 GFR Calculation 134.0 mL/min (90-130) H 05/16/22 02:00 Glucose 78 mg/dL (65-115) 05/16/22 02:00 POC Glucose 74 mg/dL (70-110) 05/16/22 07:53 Estimat Average Glucose 80 05/15/22 01:46 Hemoglobin A1c 4.4 % (4.0-6.0) 05/15/22 01:46 Calculated Osmolality 278 mOsm/kg (285-295) L 05/16/22 02:00 Lactic Acid 5.2 mmol/L (0.5-2.2) H* 05/14/22 09:54 Lactic Acid (Sepsis) 5.9 mmol/L (0.5-2.2) H* 05/14/22 12:50 Lactate 2.5 mmol/L (0.5-2.2) H 05/15/22 01:46 Calcium 8.8 mg/dL (8.5-10.5) 05/16/22 02:00 Magnesium 2.0 mg/dL (1.7-2.3) 05/16/22 02:00 Total Bilirubin 0.6 mg/dL (0.15-1.2) 05/16/22 02:00 AST 34 U/L (0-40) 05/16/22 02:00 ALT 15 U/L (0-41) 05/16/22 02:00 Alkaline Phosphatase 69 U/L (40-130) 05/16/22 02:00 Troponin T Baseline 49 ng/L (0-15) H 05/14/22 09:54 Troponin T 120 Minute 49.88 ng/L (0-15) H 05/14/22 11:41 Delta Troponin T 0.88 ABS# (0-10) 05/14/22 11:41 Troponin T Hi Sens 6Hr 39.62 ng/L (0-15) H 05/14/22 15:53 Troponin T Hi Sens 6Hr Delta -9.38 ng/L (0-12) L 05/14/22 15:53 Total Protein 6.6 g/dL (6.6-8.7) 05/16/22 02:00 Albumin 3.1 g/dL (3.5-5.2) L 05/16/22 02:00 Globulin 3.5 g/dL (1.3-4.6) 05/16/22 02:00 Lipase 13 U/L (13-60) 05/14/22 15:53 Procalcitonin 0.20 ng/mL (0-0.5) 05/15/22 01:46 TSH 1.05 uIU/mL (0.27-4.20) 05/15/22 01:46 Urine Color Yellow (Yellow) 05/15/22 01:20 Urine Appearance Clear (CLEAR) 05/15/22 01:20 Urine pH 5 (5-7) 05/15/22 01:20 Ur Specific [place] 1.025 (1.005-1.030) 05/15/22 01:20 Urine Protein Trace (Negative) 05/15/22 01:20 Urine Glucose (UA) Norm (Normal) 05/15/22 01:20 Urine Ketones 1+ (Negative) H 05/15/22 01:20 Urine Blood Neg (Negative) 05/15/22 01:20 Urine Nitrate Negative (Negative) 05/15/22 01:20 Urine Bilirubin Neg (Negative) 05/15/22 01:20 Urine Urobilinogen Norm mg/dL (Negative) 05/15/22 01:20 Ur Leukocyte Esterase Negative (Negative) 05/15/22 01:20 Urine RBC 0-4 /hpf (0-2) H 05/15/22 01:20 Urine WBC 0-4 /hpf (0-5) H 05/15/22 01:20 Ur Squamous Epith Cells 0-4 /hpf (0-5) H 05/15/22 01:20 Ur Renal Epithelial Cell 0-2 /hpf 05/15/22 01:20 Amorphous Sediment 1+ /hpf 05/15/22 01:20 Urine Bacteria Trace /hpf (NONE) 05/15/22 01:20 Hyaline Casts 5-10 /lpf H 05/15/22 01:20 Nasal Influ A H1 2009 PCR Not detected (NOT DETECT) 05/14/22 10:00 Ethyl Alcohol < 10 mg/dL (0-10) 05/14/22 15:53 Coronavirus 229E (PCR) Not detected (NOT DETECT) 05/14/22 10:00 Influenza A (H1) PCR Not detected (NOT DETECT) 05/14/22 10:00 Influenza A (H3) PCR Not detected (NOT DETECT) 05/14/22 10:00 Influenza Type A (PCR) Not detected (NOT DETECT) 05/14/22 10:00 Influenza Type B (PCR) Not detected (NOT DETECT) 05/14/22 10:00 SARS-CoV-2 (PCR) Not detected (NOT DETECT) 05/14/22 10:00 Micro: Microbiology 05/14/22 09:50 Blood Culture - Preliminary Blood NEGATIVE TO DATE 05/14/22 09:54 Blood Culture - Preliminary Blood NEGATIVE TO DATE A&P Assessment and plan (1) Tension pneumothorax, spontaneous: (2) COPD (chronic obstructive pulmonary disease): (3) Hemoptysis: (4) Acute exacerbation of chronic obstructive airways disease: (5) Alcohol dependence: (6) On home oxygen therapy: (7) Cavitary lesion of lung: (8) Subcutaneous emphysema: Plan #Left tension pneumothorax-secondary to ruptured bulla triggered by coughing possibly secondary to aspiration in patient with underlying COPD #After clamping chest tube for 24 hours now with worsening left subcutaneous emphysema #Severe bullous emphysema in lungs left greater than right on CT chest 03/17/2022 -As per nephew, patient was eating and had a cough and over next few hours he developed respiratory distress -Suspect aspiration leading to cough-causing ruptured bullae and pneumothorax -Currently 36 [place] chest tube on admission 05/14/2022-postprocedure chest x-ray and evening chest x-ray-good reexpansion of lung -Chest tube was clamped for last 24 hours; Appeared comfortable and he reported feeling better but there is obvious subcutaneous emphysema on left side chest wall -chest x-ray today morning revealed no left pneumothorax but worsening left-sided chest wall subcutaneous emphysema -CT chest-also revealed extensive subcutaneous emphysema extending to the subclavicular region and axillary soft tissues. There is extensive left lung bullous disease and left chest tube tip in the left dorsal lung apex. -I have connected chest tube back to suction for worsening subcutaneous emphysema -I recommended to CT surgery evaluation for VATS for secondary pneumothorax-secondary to extensive bullous disease; unfortunately we do not have CT surgery coverage for next 1 week and there will be no pulmonary coverage after today. Recommended to transfer patient to [facility] for pulmonary as well as CT surgery management -Augmentin for suspected aspiration -Chestnut every 6 hours as needed for pain #Volume loss with right upper lobe cavitary lesion seen on CT chest 03/17/2022 #Hemoptysis during that CT on 03/17/2022 -He had incarceration 1 year ago-otherwise no other risk factors for TB -With a [id number]-powj smoking history-cannot rule out underlying malignancy -He was seen at [facility]-bacterial cultures, 2 AFB smears and QuantiFERON were negative -However today denied hemoptysis and his H&H is stable -Once his current pneumothorax is addressed-we may have to plan for right upper lobe biopsies #COPD exacerbation #Acute on chronic hypoxic respiratory failure -Patient is on Wixela and Spiriva as outpatient -I will obtain PFTs as outpatient -Currently will continue DuoNeb nebulizations every 6 ever scheduled and Pulmicort twice daily -Currently on p.o. prednisone 20 Mg for 5 days #Alcohol dependence -No signs of withdrawal -Patient drinks 4 beers a day-last drink 05/13/2022 - on [facility] protocol -Ativan as every 6 hours needed, multivitamin/thiamine/folic acid -Monitor for seizures and withdrawal symptoms ICU CHECKLIST: Problem list updated Verbal orders reviewed and signed Analgesia: Chestnut Glycemic Control: N/A Nutrition: Low-salt diet Restraint Renewal (within 24 hrs): Yes Ulcer Prophylaxis: N/A Chemical Thromboprophylaxis: Prophylaxis: Heparin SC Mechanical Thromboprophylaxis: SCD Need for Central line: N/A Need for Hlem catheter: N/A Attestations Medical Necessity Statement*: Tension pneumothorax s/p left chest tube in place-closely monitor in ICU Time Spent in Patient Care: Greater than 35 minutes (>than 50% of time spent in counselling and/or direct pt care on unit). Critical Care Time: This patient has a high probability of sudden, clinica lly significant de terioration, which requires the high est level of physi wander preparedness to intervene urgen tly.? I managed/ennis pervised life or o rgan supporting in terventions that r equired frequent p hysician assessmen t.? I devoted my f ull attention in t he ICU to the dire ct care of this rajesh victor for the peggy od of time indicat ed above.? Time I spent with family or surrogate(s) is included only if the patient was in capable of providi ng necessary infor mation or particip ating in decision making.? Time hamilton nikki to teaching an d to any procedure s I billed separat rudolph is not include d. ? Services Prov ided: Telemetry re view Mechanical Ve ntilation Hemodyna neal interpretation , assessment and m anagement Review a nd interpretation of CXR Review and interpretation of lab values Review and interpretation of microbiologic data and culture r esults Review of m edications and adm inistration Review and interpretatio n of Nutrition req uirements and atif gement Discussion of management with other consultants and services Clin ical update to [facility] members [x] Rajesh victor assessment, examination and in tervention [x] Doc umentation [x] Med ication orders and management ? Crit ical Care Time (mi n): 50 Critical Care Time (min): 50 Coding Level of Care Code Established Pt Acute Internet Marketing Manager for Chg Fwd Patient Type Established History Comprehensive Exam Comprehensive Medical Decision Making High Complexity Diagnoses Tension pneumothorax, spontaneous J93.0 COPD (chronic obstructive pulmonary disease) J44.9 Hemoptysis R04.2 Acute exacerbation of chronic obstructive airways disease J44.1 Alcohol dependence F10.20 On home oxygen therapy Z99.81 Cavitary lesion of lung J98.4 Subcutaneous emphysema T79.7XXA Time Spent (min) 50
[2022-05-16 12:07] LABS: Glucose Point of Care 105 mg/dL (70-110)
--- NOTE | 2022-05-16 12:29 | P.TS_ITS ---
Transfer Summary Providers Date of Admission: 05/14/22 12:19 Date of Discharge/Transfer: 05/16/22 Attending Provider at Admission: Crys Hamilton MD Attending Provider at Transfer: Scooter Zavala MD Primary Care Provider: NAOMI Abdalla Transfer Plans: Anticipated date of transfer: 05/16/22 . Diagnoses at Discharge Discharge Diagnosis (1) Tension pneumothorax, spontaneous: Status: Acute (2) COPD (chronic obstructive pulmonary disease): Status: Chronic Permanent problem details: with bullous disease (3) Hemoptysis: Status: Acute (4) Acute exacerbation of chronic obstructive airways disease: Status: Acute (5) Alcohol dependence: Status: Deleted (6) On home oxygen therapy: Status: Chronic (7) Cavitary lesion of lung: Status: Acute Permanent problem details: 03/17/22: RUL cavitary lesion 2.7 x 3.7 x 3 cm. 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 As per the family patient was eating and had a cough and over the next few hours he developed respiratory distress there was concern for aspiration. In the ER he was diagnosed with pneumothorax, 36 Czech chest tube was inserted on admission 05/14/2022 postprocedure chest x-ray showed reexpansion of leg with resolution of pneumothorax, patient was comfortable for next 24 hours, repeat chest x-ray did not show worsening of pneumothorax hence chest tube was clamped on subsequent day, repeat CT chest revealed extensive subcutaneous emphysema extending to subclavicular region and axillary tissue extensive left lung bullous disease left chest tube tip is in left dorsal lung apex. His chest tube has been connected back to suction to prevent worsening of subcutaneous emphysema, development analyst Dr. Oneal recommended transfer for higher level of care for VATS versus posterior flap intervention. Patient has been evaluated [facility] before. [facility] ICU, development analyst Dr. Thomason has accepted the patient cardiothoracic surgery is on board Patient will go to ICU Currently patient is on 4 L of oxygen with normal hemodynamics No active signs of withdrawal he has not required Ativan on phenobarbital For his COPD patient is on Wixela and Spiriva outpatient, currently on prednisone and Augmentin for sore throat For his right upper lobe cavitary lesion he will need biopsy to rule out malignancy, [facility] bacterial cultures to AFB smears and QuantiFERON were negative Radiology Impressions Chest X-Ray? 05/16/22 04:00 IMPRESSION: 1. A left-sided chest tube is seen. Trace residual left pneumothorax (less than 1% of the total lung volume). 2. Patchy opacity at the left base may reflect pneumonia. 3. Volume loss in the right hemithorax with extensive scarring in the right upper lobe with pleural thickening. 4. Soft tissue gas in the left chest wall. ? Chest CT? 05/16/22 06:43 IMPRESSION: ? 1.? LEFT chest tube with tip in the LEFT dorsal lung apex. Tiny residual LEFT apical pneumothorax. 2.? Extensive subcutaneous emphysema LEFT chest wall extending to the supraclavicular region and axillary soft tissues. 3.? Chronic volume loss RIGHT lung with chronic LEFT RIGHT mediastinal shift. Chronic pleural thickening with fibrosis and cavitation the RIGHT lung apex. 4.? Advanced chronic emphysematous changes. 5.? Subsegmental atelectasis LEFT lower lobe posteriorly. 6.? Cholelithiasis. 7.? The Low-attenuation lesion in the RIGHT hepatic lobe measuring 11 mm is indeterminant on this study. This can be followed up with ultrasound or contrast-enhanced CT abdomen pelvis with liver protocol. ? Physical Exam Narrative: General: alert, NAD, thin cachectic gentleman HEENT: conj clear, EOMI, PERRL, mmm, Neck: supple, no meningismus Heme: no cervical LAP Respiratory: Inspection: Left chest wall appeared swollen-likely secondary to subcutaneous emphysema Palpation: Trachea is mildly deviated to the right, subcutaneous crepitus on left chest wall and axilla, tenderness to palpation Percussion: Bilateral tympanic percussion note both anterior and posteriorly Auscultation: Expiratory wheeze predominantly in right lung upper and lower lung zone Cardiovascular: rrr, nl s1s2, no mrg Abdomen: soft, nt, nd, no r/g, bs+ Extremities: pulses +, no edema, no c/c : no CVA tenderness Skin: intact, no rash MSK: no back or neck pain Neurologic: grossly intact TS Data Studies Completed and Pending Pending at discharge Category Date Time Status XR chest 1V portable [id number] AM LABS Exams 05/17/22 04:00 Ordered Blood Culture Stat Lab 05/14/22 09:54 Results Comprehensive Metabolic Panel AM LABS Lab 05/17/22 04:00 Ordered Magnesium AM LABS Lab 05/17/22 04:00 Ordered Sputum Culture Routine Lab 05/14/22 19:39 Uncollected Sputum Culture and Gram Stain Stat Lab 05/14/22 09:03 Uncollected Labs from last 24 hours 05/16/22 05/16/22 05/16/22 12:03 07:53 02:00 Sodium 133 L Potassium 4.2 Chloride 95 L Carbon Dioxide 32 H Anion Gap 10.2 BUN 22 Creatinine 0.6 L GFR Calculation 134.0 H Glucose 78 POC Glucose 105 74 Calculated Osmolality 278 L Calcium 8.8 Magnesium 2.0 Total Bilirubin 0.6 AST 34 ALT 15 Alkaline Phosphatase 69 Total Protein 6.6 Albumin 3.1 L Globulin 3.5 05/16/22 05/15/22 00:21 17:40 Sodium Potassium Chloride Carbon Dioxide Anion Gap BUN Creatinine GFR Calculation Glucose POC Glucose 83 98 Calculated Osmolality Calcium Magnesium Total Bilirubin AST ALT Alkaline Phosphatase Total Protein Albumin Globulin Completed Studies During Hospitalization Category Date Time Status CT chest wo con [id number] Routine Cat Scan 05/16/22 06:43 Completed CXRP [XR chest 1V portable [id number]] Routine Exams 05/15/22 10:00 Completed XR chest 1V portable [id number] AM LABS Exams 05/15/22 04:00 Completed XR chest 1V portable [id number] Routine Exams 05/14/22 18:00 Completed XR chest 1V portable [id number] Routine Exams 05/15/22 18:00 Completed XR chest 1V portable [id number] Routine Exams 05/16/22 04:00 Completed XR chest 1V portable [id number] Stat Exams 05/14/22 09:03 Completed XR chest 1V portable [id number] Stat Exams 05/14/22 09:48 Completed Laboratory Last Values WBC 7.8 10^3/uL (4.0-10.0) 05/15/22 01:46 RBC 4.70 10^6/uL (4.1-5.3) 05/15/22 01:46 Hgb 14.1 g/dL (11.7-16.6) 05/15/22 01:46 Hct 44.9 % (42.0-52.0) 05/15/22 01:46 MCV 95.5 fl (80-94) H D 05/15/22 01:46 MCH 30.0 pg (28.0-34.0) 05/15/22 01:46 MCHC 31.4 g/dL (30.0-36.0) D 05/15/22 01:46 RDW 14.7 % (12.1-15.1) 05/15/22 01:46 Plt Count 85 10^3/cmm (130-400) L 05/15/22 01:46 MPV 10.2 fL (7.4-10.4) 05/15/22 01:46 Neut % (Auto) 81.0 % 05/15/22 01:46 Lymph % (Auto) 8.2 % 05/15/22 01:46 Ellsworth % (Auto) 10.3 % 05/15/22 01:46 Eos % (Auto) 0.0 % 05/15/22 01:46 Baso % (Auto) 0.1 % 05/15/22 01:46 Neut # (Auto) 6.28 10^3/uL (1.8-7.7) 05/15/22 01:46 Lymph # (Auto) 0.6 10^3/uL (0.8-4.8) L 05/15/22 01:46 Ellsworth # (Auto) 0.8 10^3/uL (0.2-0.9) 05/15/22 01:46 Eos # (Auto) 0.0 10^3/uL (0.0-0.8) 05/15/22 01:46 Baso # (Auto) 0.0 10^3/uL (0.0-0.1) 05/15/22 01:46 Nucleated RBC % (auto) 0 % 05/15/22 01:46 Nucleated RBCs # 0.0 /100WBC 05/15/22 01:46 Specimen Type Arterial 05/15/22 04:00 Sample Site Radial, right 05/15/22 04:00 ABG pH 7.38 (7.35-7.45) 05/15/22 04:00 ABG pCO2 55.3 mmHg (35-45) H 05/15/22 04:00 ABG pO2 102.0 mmHg (80.0-100.0) H 05/15/22 04:00 ABG HCO3 32.8 mmol/L (22-26) H 05/15/22 04:00 ABG O2 Saturation 83.6 05/14/22 11:01 ABG Base Excess 6.2 mmol/L (-2.0-2.0) H 05/15/22 04:00 Tono Test Pos 05/15/22 04:00 A-a O2 Gradient 5.5 mmHg (5-10) 05/14/22 11:01 Hematocrit 39.7 % (42-52) L 05/15/22 04:00 Hgb O2 Saturation 80.9 % (95-100) L 05/14/22 11:01 Carboxyhemoglobin 2.5 %THgb (0.4-20.1) 05/14/22 11:01 Methemoglobin 0.7 % (0.4-1.5) 05/14/22 11:01 Total Hemoglobin 14.6 g/dL (14-18) 05/14/22 11:01 Sodium 142.0 mmol/L (131-143) 05/14/22 11:01 Potassium 4.3 mmol/L (3.5-5.0) 05/14/22 11:01 Glucose 150.0 mg/dL (70-115) H 05/14/22 11:01 Ionized Calcium 1.2 mmol/L (1.1-1.4) 05/14/22 11:01 O2 Delivery Device Nc 05/15/22 04:00 O2 Liters/Min 3.0 % 05/15/22 04:00 FiO2 24.0 % 05/14/22 11:01 Salesperson Shoes ID garcia 05/15/22 04:00 Sodium 133 mmol/L (136-145) L 05/16/22 02:00 Potassium 4.2 mmol/L (3.5-5.1) 05/16/22 02:00 Chloride 95 mmol/L (98-107) L 05/16/22 02:00 Carbon Dioxide 32 mmol/L (22-29) H 05/16/22 02:00 Anion Gap 10.2 (5-19) 05/16/22 02:00 BUN 22 mg/dL (8-23) 05/16/22 02:00 Creatinine 0.6 mg/dL (0.7-1.2) L 05/16/22 02:00 GFR Calculation 134.0 mL/min (90-130) H 05/16/22 02:00 Glucose 78 mg/dL (65-115) 05/16/22 02:00 POC Glucose 105 mg/dL (70-110) 05/16/22 12:03 Estimat Average Glucose 80 05/15/22 01:46 Hemoglobin A1c 4.4 % (4.0-6.0) 05/15/22 01:46 Calculated Osmolality 278 mOsm/kg (285-295) L 05/16/22 02:00 Lactic Acid 5.2 mmol/L (0.5-2.2) H* 05/14/22 09:54 Lactic Acid (Sepsis) 5.9 mmol/L (0.5-2.2) H* 05/14/22 12:50 Lactate 2.5 mmol/L (0.5-2.2) H 05/15/22 01:46 Calcium 8.8 mg/dL (8.5-10.5) 05/16/22 02:00 Magnesium 2.0 mg/dL (1.7-2.3) 05/16/22 02:00 Total Bilirubin 0.6 mg/dL (0.15-1.2) 05/16/22 02:00 AST 34 U/L (0-40) 05/16/22 02:00 ALT 15 U/L (0-41) 05/16/22 02:00 Alkaline Phosphatase 69 U/L (40-130) 05/16/22 02:00 Troponin T Baseline 49 ng/L (0-15) H 05/14/22 09:54 Troponin T 120 Minute 49.88 ng/L (0-15) H 05/14/22 11:41 Delta Troponin T 0.88 ABS# (0-10) 05/14/22 11:41 Troponin T Hi Sens 6Hr 39.62 ng/L (0-15) H 05/14/22 15:53 Troponin T Hi Sens 6Hr Delta -9.38 ng/L (0-12) L 05/14/22 15:53 Total Protein 6.6 g/dL (6.6-8.7) 05/16/22 02:00 Albumin 3.1 g/dL (3.5-5.2) L 05/16/22 02:00 Globulin 3.5 g/dL (1.3-4.6) 05/16/22 02:00 Lipase 13 U/L (13-60) 05/14/22 15:53 Procalcitonin 0.20 ng/mL (0-0.5) 05/15/22 01:46 TSH 1.05 uIU/mL (0.27-4.20) 05/15/22 01:46 Urine Color Yellow (Yellow) 05/15/22 01:20 Urine Appearance Clear (CLEAR) 05/15/22 01:20 Urine pH 5 (5-7) 05/15/22 01:20 Ur Specific Griffin 1.025 (1.005-1.030) 05/15/22 01:20 Urine Protein Trace (Negative) 05/15/22 01:20 Urine Glucose (UA) Norm (Normal) 05/15/22 01:20 Urine Ketones 1+ (Negative) H 05/15/22 01:20 Urine Blood Neg (Negative) 05/15/22 01:20 Urine Nitrate Negative (Negative) 05/15/22 01:20 Urine Bilirubin Neg (Negative) 05/15/22 01:20 Urine Urobilinogen Norm mg/dL (Negative) 05/15/22 01:20 Ur Leukocyte Esterase Negative (Negative) 05/15/22 01:20 Urine RBC 0-4 /hpf (0-2) H 05/15/22 01:20 Urine WBC 0-4 /hpf (0-5) H 05/15/22 01:20 Ur Squamous Epith Cells 0-4 /hpf (0-5) H 05/15/22 01:20 Ur Renal Epithelial Cell 0-2 /hpf 05/15/22 01:20 Amorphous Sediment 1+ /hpf 05/15/22 01:20 Urine Bacteria Trace /hpf (NONE) 05/15/22 01:20 Hyaline Casts 5-10 /lpf H 05/15/22 01:20 Nasal Influ A H1 2009 PCR Not detected (NOT DETECT) 05/14/22 10:00 Ethyl Alcohol < 10 mg/dL (0-10) 05/14/22 15:53 Coronavirus 229E (PCR) Not detected (NOT DETECT) 05/14/22 10:00 Influenza A (H1) PCR Not detected (NOT DETECT) 05/14/22 10:00 Influenza A (H3) PCR Not detected (NOT DETECT) 05/14/22 10:00 Influenza Type A (PCR) Not detected (NOT DETECT) 05/14/22 10:00 Influenza Type B (PCR) Not detected (NOT DETECT) 05/14/22 10:00 SARS-CoV-2 (PCR) Not detected (NOT DETECT) 05/14/22 10:00 Radiology Impressions Chest X-Ray 05/16/22 04:00 IMPRESSION: 1. A left-sided chest tube is seen. Trace residual left pneumothorax (less than 1% of the total lung volume). 2. Patchy opacity at the left base may reflect pneumonia. 3. Volume loss in the right hemithorax with extensive scarring in the right upper lobe with pleural thickening. 4. Soft tissue gas in the left chest wall. Chest CT 05/16/22 06:43 IMPRESSION: 1. LEFT chest tube with tip in the LEFT dorsal lung apex. Tiny residual LEFT apical pneumothorax. 2. Extensive subcutaneous emphysema LEFT chest wall extending to the supraclavicular region and axillary soft tissues. 3. Chronic volume loss RIGHT lung with chronic LEFT RIGHT mediastinal shift. Chronic pleural thickening with fibrosis and cavitation the RIGHT lung apex. 4. Advanced chronic emphysematous changes. 5. Subsegmental atelectasis LEFT lower lobe posteriorly. 6. Cholelithiasis. 7. The Low-attenuation lesion in the RIGHT hepatic lobe measuring 11 mm is indeterminant on this study. This can be followed up with ultrasound or contrast-enhanced CT abdomen pelvis with liver protocol. Notified Dr Lucas SPAULDING at 05/16/2022 10:21 AM. Recent Clincial Data Last Vital Signs Temp 98.7 F 05/15/22 17:00 Pulse 115 H 05/16/22 10:00 Resp 21 H 05/16/22 10:00 BP 124/93 05/16/22 10:00 Pulse Ox 89 L 05/16/22 10:00 O2 Del Method 05/16/22 10:00 O2 Flow Rate 4 05/16/22 10:00 Vital Signs Pulse Resp BP Pulse Ox O2 Del Method O2 Flow Rate 05/16/22 10:00 115 H 21 H 124/93 89 L Nasal Cannula 4 05/16/22 09:00 100 24 H 133/86 83 L Nasal Cannula 3 05/16/22 08:00 107 H 20 H 108/74 89 L Nasal Cannula 3 05/16/22 07:00 87 25 H 117/77 95 Nasal Cannula 3 05/16/22 09:00 97 05/16/22 08:55 103 H 22 H 89 L Nasal Cannula 4 05/16/22 06:00 83 05/16/22 06:00 87 21 H 134/88 97 05/16/22 05:00 95 25 H 98/65 91 05/16/22 04:00 86 20 H 113/73 97 05/16/22 03:00 89 23 H 105/73 97 05/16/22 02:00 95 22 H 119/70 95 05/16/22 01:00 100 21 H 103/69 95 Intake & Output/Weight 05/14/22 05/15/22 05/16/22 05/17/22 06:59 06:59 06:59 06:59 Intake Total 660 / 660 600 / 600 250 / 250 Output Total 200 / 200 310 / 310 200 / 200 Balance 460 / 460 290 / 290 50 / 50 Weight 907.185 g 90.174 kg Vitals Last Vital Signs Temp 98.7 F 05/15/22 17:00 Pulse 115 H 05/16/22 10:00 Resp 21 H 05/16/22 10:00 BP 124/93 05/16/22 10:00 Pulse Ox 89 L 05/16/22 10:00 O2 Del Method 05/16/22 10:00 O2 Flow Rate 4 05/16/22 10:00 TS Medications Medications Acetaminophen (Acetaminophen 325 Mg Tablet) 650 mg PO Q8H PRN PRN Reason: MILD PAIN Hydrocodone Bitart/Acetaminophen (Hydrocodone-Acetaminophen 5-325 Mg Tablet) 1 tab PO Q4H PRN PRN Reason: MODERATE PAIN Last Admin: 05/15/22 03:21 Dose: 1 tab Albuterol/Ipratropium (Ipratropium-Albuterol 3 Ml Neb) 3 ml INHALATION Q6H.RESP SHELLY Last Admin: 05/16/22 08:52 Dose: 3 ml Amoxicillin/Clavulanate Potassium (Amoxicillin-Clav 500-125 Mg Tablet) 1 tab PO TID SHELLY; Protocol Stop: 05/19/22 20:59 Last Admin: 05/16/22 09:50 Dose: 1 tab Budesonide (Budesonide 0.5 Mg/2 Ml Neb) 0.5 mg INHALATION BID.RESPIRATORY [facility] Last Admin: 05/16/22 08:56 Dose: 0.5 mg Cyclobenzaprine HCl (Cyclobenzaprine 10 Mg Tablet) 5 mg PO TID PRN PRN Reason: muscle pain Last Admin: 05/15/22 04:57 Dose: 5 mg Folic Acid (Folic Acid 1 Mg Tablet) 1 mg PO DAILY [facility] Last Admin: 05/16/22 09:51 Dose: 1 mg Lisinopril (Lisinopril 10 Mg Tablet) 10 mg PO DAILY [facility] Last Admin: 05/16/22 09:51 Dose: 10 mg Lorazepam (Lorazepam 2 Mg/Ml Inj 1 Ml) 1 mg IVP Q6H PRN PRN Reason: ALCOHOL WITHDRAWAL Multivitamins Therapeutic (Multivitamin Therapeutic Tablet) 1 tab PO DAILY [facility] Last Admin: 05/16/22 09:51 Dose: 1 tab Ondansetron HCl (Ondansetron 2 Mg/Ml Sdv 2 Ml) 4 mg IVP Q6H PRN PRN Reason: NAUSEA AND VOMITING Pantoprazole Sodium (Pantoprazole Dr 40 Mg Tablet) 40 mg PO DAILY [facility] Last Admin: 05/16/22 09:54 Dose: Not Given Phenobarbital (Phenobarbital 32.4 Mg Tablet) 97.2 mg PO BID PRN PRN Reason: ALCOHOL WITHDRAWAL Prednisone (Prednisone 20 Mg Tablet) 20 mg PO DAILY [facility] Stop: 05/19/22 09:01 Last Admin: 05/16/22 09:51 Dose: 20 mg Thiamine Mononitrate (Thiamine 100 Mg Tablet) 100 mg PO DAILY [facility] Last Admin: 05/16/22 09:51 Dose: 100 mg Vitamin D (Cholecalciferol (Vitamin D3) 1,000 Unit Tablet) 1,000 unit PO DAILY [facility] Last Admin: 05/16/22 09:51 Dose: 1,000 unit Discontinued Medications Acetaminophen (Acetaminophen 325 Mg Tablet) 650 mg PO Q6H PRN PRN Reason: MILD PAIN Albuterol/Ipratropium (Ipratropium-Albuterol 3 Ml Neb) 6 ml INHALATION ONCE ONE Stop: 05/14/22 09:04 Last Admin: 05/14/22 15:34 Dose: Not Given Dexamethasone (Dexamethasone 10 Mg/Ml Inj) 10 mg IVP ONCE ONE Stop: 05/14/22 09:03 Last Admin: 05/14/22 10:24 Dose: 10 mg Fentanyl (Fentanyl 50 Mcg/Ml Inj 2ml) 100 mcg IVP ONCE ONE Stop: 05/14/22 09:25 Last Admin: 05/14/22 10:38 Dose: Not Given Fentanyl (Fentanyl 50 Mcg/Ml Inj 2ml) 50 mcg IVP ONCE ONE Stop: 05/14/22 10:38 Last Admin: 05/14/22 10:39 Dose: 50 mcg Heparin Sodium (Porcine) (Heparin 5,000 Unit/Ml Inj 1 Ml) 5,000 unit SUBCUT Q12H SHELLY Last Admin: 05/15/22 08:45 Dose: 5,000 unit Piperacillin Sod/Tazobactam (Sod 3.375 gm/ Sodium Chloride) 50 mls @ 12.5 mls/hr IV Q8H SHELLY; Protocol Last Admin: 05/14/22 16:11 Dose: 12.5 mls/hr Lorazepam (Lorazepam 2 Mg/Ml Inj 1 Ml) 2 mg IVP Q6H PRN PRN Reason: ALCOHOL WITHDRAWAL Midazolam HCl (Midazolam 1 Mg/Ml Inj 2 Ml) Confirm Administered Dose 6 mg .ROUTE .STK-MED ONE Stop: 05/14/22 09:23 Last Admin: 05/14/22 10:31 Dose: Not Given Midazolam HCl (Midazolam 1 Mg/Ml Inj 2 Ml) 6 mg IVP ONCE ONE Stop: 05/14/22 10:02 Last Admin: 05/14/22 10:38 Dose: Not Given Midazolam HCl (Midazolam 1 Mg/Ml Inj 2 Ml) 3 mg IVP ONCE ONE Stop: 05/14/22 10:37 Last Admin: 05/14/22 10:39 Dose: 3 mg Morphine Sulfate (Morphine 4 Mg/Ml Sdv 1 Ml) 4 mg IVP Q4H PRN PRN Reason: SEVERE PAIN Last Admin: 05/14/22 19:31 Dose: 4 mg Allergies No Known Allergies Allergy (Verified 04/19/20 10:54) Home Medications budesonide-formoterol HFA 160 mcg-4.5 mcg/actuation aerosol inhaler 2 puff inhalation BID 04/19/20 [History Confirmed 05/14/22] cholecalciferol (vitamin D3) 50 mcg (2,000 unit) capsule 50 mcg PO DAILY 04/19/20 [History Confirmed 05/14/22] cyclobenzaprine 10 mg tablet 10 mg PO TID 04/19/20 [History Confirmed 05/14/22] ibuprofen 800 mg tablet 800 mg PO Q6H 04/19/20 [History Confirmed 05/14/22] ipratropium 20 mcg-albuterol 100 mcg/actuation mist for inhalation 1 puff inhalation QID 04/19/20 [History Confirmed 05/14/22] lisinopril 20 mg tablet 10 mg PO DAILY 04/19/20 [History Confirmed 05/14/22] Discharge Plan Discharge Patient Disposition: Home Condition: Stable Prescriptions: No Action ipratropium-albuterol 20-100 mcg/actuation mist 1 puff inhalation QID Rx Instructions: space evenly during waking hours budesonide-formoterol 160-4.5 mcg/actuation HFA aerosol inhaler 2 puff inhalation BID cholecalciferol (vitamin D3) 50 mcg (2,000 unit) capsule 50 mcg PO DAILY cyclobenzaprine 10 mg tablet 10 mg PO TID ibuprofen 800 mg tablet 800 mg PO Q6H lisinopril 20 mg tablet 10 mg PO DAILY Discharge Orders: Transfer Out of Facility (Order); Ordered 05/16/22 Ordered By: Scooter Zavala Referrals: Les St, NAOMI [Primary Care Provider] - Patient Instructions: Opioid Safety Transfer Attestations Time Spent in Transfer Care: critical care time (Evaluated the patient, spoke with development analyst, coordinated care for the transfer) Critical Care Time (min): 45 Quality Metrics Clinical Quality Measures [ No reported AMI, CVA or VTE this stay] Coding Level of Care Code Acute [employer] [facility] Fwd Diagnoses Tension pneumothorax, spontaneous J93.0 COPD (chronic obstructive pulmonary disease) J44.9 Hemoptysis R04.2 Acute exacerbation of chronic obstructive airways disease J44.1 Alcohol dependence F10.20 On home oxygen therapy Z99.81 Cavitary lesion of lung J98.4 Subcutaneous emphysema T79.7XXA
[2022-05-16] MEDS: HYDROcodone-acetaminophen 5-325 mg Tablet 1 TAB PO (14:24)
--- NOTE | 2022-05-16 15:15 | NUR.SHIFT ---
Report called Linda Voss [place]. Report given to Cora Dia RN. All questions answered. Slight air leak noted in chest tubed. Pt has refused bath at multiple offers today.
[2022-05-16 17:23] LABS: Glucose Point of Care 111 mg/dL (70-110)
--- NOTE | 2022-05-16 18:31 | PC.NURSE ---
Pt off unit with ambulance crew. Shanika Mckeon, N=EFRAIN Shepherd notified of EMS crew just leaving and subq emphysema
--- NOTE | 2022-05-16 18:34 | PC.NURSE ---
Shift noted: Pt Rested in bed throughout the shift except for trip to CT. Chest tube on suction after CT. AIr leak noted. Chest tube dressing hanged today. Pt stated he was breathing better after Chest tube to suction. He still gets short of breath o exertion. Pt has declined bating several times today, even though his underwear was the same dark yellow as his urine. He has had at least 850ml of urine output today NO BM noted. He only requested pain med one time this shift. . He was transferred o ut to [facility] at end of shift.
== END 2022-05-16 18:20 | disposition short-term general hospital (02) | DRG 199 ==
LOC: ER 09:42 → ICU 12:19
PROVIDERS: Internal Medicine Pulmonary Disease; Admitting Provider Hospitalist; Emergency Provider Family Medicine; PCP Nurse Practitioner; Visit Provider Internal Medicine
DX: J93.0 Spontaneous tension pneumothorax (principal); J96.21 Acute and chronic respiratory failure with hypoxia; E87.20 Acidosis, unspecified; F10.288 Alcohol dependence with other alcohol-induced disorder; R04.2 Hemoptysis; G62.1 Alcoholic polyneuropathy; D64.89 Other specified anemias; Z99.81 Dependence on supplemental oxygen; R91.8 Other nonspecific abnormal finding of lung field; T81.82XA Emphysema (subcutaneous) resulting from a procedure, initial encounter; Z87.891 Personal history of nicotine dependence; R29.6 Repeated falls; B19.20 Unspecified viral hepatitis C without hepatic coma; D69.6 Thrombocytopenia, unspecified; I10 Essential (primary) hypertension; J04.0 Acute laryngitis; Y83.9 Surgical procedure, unspecified as the cause of abnormal reaction of the patient, or of later complication, without mention of misadventure at the time of the procedure
CPT/HCPCS: 32551; 36415; 36416; 36600; 71045; 71250; 80051; 80053; 80307; 81001; 82330; 82803; 82805; 82962; 83036; 83605; 83690; 83735; 84145; 84443; 84484; 85025; 87040; 87631; 87635; 93005; 94640; 96372; 96374; 96375; 99285; J1100; J1644; J2250; J2270; J2543; J3010; J7512; J7626

== ENCOUNTER 2023-04-26 00:48 | Inpatient (IN) | payer OTHER, SELFPAY ==
[2023-04-26] VITALS (13 sets, daily range): BP systolic 91–156; BP diastolic 63–91; PULSE 80–118; RESP 15–22; TEMP 36.6–37; O2SAT 89–100; BMI 20.5; BMI 16.5
--- NOTE | 2023-04-26 00:55 | XRR_ITS ---
PROCEDURE INFORMATION: Exam: XR Chest Exam date and time: 04/26/2023 1:11 AM Age: 67 years old Clinical indication: Dyspnea; Additional info: Shortness of breath TECHNIQUE: Imaging protocol: Radiologic exam of the chest. Views: 1 view. COMPARISON: CT chest con [id number] 05/16/2022 8:29 AM FINDINGS: Lungs: Severe chronic emphysematous changes. Chronic right apical scarring, not appreciably changed in comparison to 05/16/2022. A few scattered calcified pulmonary granulomas. No acute infiltrate or pulmonary edema. Pleural spaces: No pneumothorax or pleural effusion. Heart/Mediastinum: Cardiomediastinal silhouette is stable. Multiple calcified hilar and mediastinal lymph nodes again seen. Bones/joints: No acute osseous abnormality. XR/XR chest 1V portable [id number] IMPRESSION: 1. No acute findings. 2. Severe chronic emphysematous changes. 3. Chronic right apical scarring, not appreciably changed in comparison to 05/16/2022. 4. Stable sequelae of old granulomatous disease.
--- NOTE | 2023-04-26 00:55 | ECG_ITS ---
[facility] Test Date: 2023-04-26 Pat Name: Narciso Olsen Department: Room: Gender: Male Garnett Feeder: : 1955 Requested By: Saw Lynch Order Number: [id number] Linda MD: Mayte Hanks M.D. Measurements Intervals [place] Rate: 95 P: 74 WY: 177 QRS: 97 QRSD: 76 T: 39 QT: 358 QTc: 451 Interpretive Statements Possible SINUS RHYTHM WITH OCCASIONAL VENTRICULAR PREMATURE COMPLEXES POSSIBLE LEFT ATRIAL ENLARGEMENT [-0.1mV P-WAVE IN V1/V2] BORDERLINE RIGHT AXIS DEVIATION [QRS AXIS > 90] ANTERIOR MYOCARDIAL INFARCTION , OF INDETERMINATE AGE [40+ ms Q WAVE AND/OR ST/T ABNORMALITY IN V3/V4] Compared to ECG 05/14/2022 14:58:31 Ventricular premature complex(es) now present Myocardial infarct finding still present . Heavy baseline artifact. Defective EKG. Need to repeat Electronically Signed On 04-26-2023 16:05:52 ROUGE [employer]IXER by Mayte Hanks M.D. [id number]
--- NOTE | 2023-04-26 01:04 | W.ED.SOB ---
HPI - SOB/Dyspnea General: Chief Complaint: Shortness of Breath/Dyspnea Stated Complaint: COPD Time Seen by Provider: 04/26/23 00:52 History of Present Illness: HPI Narrative: Patient presents to the ER with complaints of shortness of breath and coughing up blood today. Patient states he is normally on 3 L of oxygen at all times and upon arrival he was on 3 L satting 94%. EMS noted that his home O2 may not be functioning properly. Patient does have a history of COPD is on multiple breathing medicines. Patient is currently not on any type of anticoagulation. Patient does have a history of acute exacerbation of COPD with a left tension pneumothorax that required him to be transferred to [place]. MD elicited complaint: shortness of breath (Hemoptysis) Pertinent past history: COPD Onset (ago): day(s) (Started today) Timing: constant Severity: mild Exacerbating factors: nothing Relieving factors: nothing Known history of: COPD Associated symptoms: Reports cough and hemoptysis Treatment prior to arrival: oxygen Review of Systems General: Reports: 10 or more systems reviewed and unremarkable except in HPI and below Resp: Reports: hemoptysis [facility] ED PFSH: Medical History Lactic acidosis Alcohol abuse, daily use Thrombocytopenia Weight loss Cavitary lesion of lung 03/17/22: RUL cavitary lesion 2.7 x 3.7 x 3 cm. Anterior subpleural cavitation 3.1 x 1 x2.7 cm Essential (primary) hypertension On home oxygen therapy Hepatitis C Has not completed treatment Hemoptysis 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 Surgical History No pertinent past surgical history no surgical history Family History Other Adopted Social History Smoking and tobacco/nicotine status: former use of tobacco/nicotine Quit status (tobacco/nicotine): has quit using Year quit tobacco: 2021 Alcohol intake: current Alcohol intake frequency: 3 or more drinks per day Alcohol type: beer Physical Exam Const: COMMON NORMALS: no acute distress, average body habitus, patient oriented x3, no limitations, healthy appearing, alert and well nourished HENMT: COMMON NORMALS: normocephalic, atraumatic, hearing grossly normal bilaterally, external ears normal, Normal external nose present, moist oral mucous membranes and oropharynx normal HEAD & SCALP: normocephalic and atraumatic NOSE: Normal external nose present EXTERNAL EAR: Yes external ears normal Neck/C-Spine: COMMON NORMALS: no JVD Chest: COMMONS NORMALS: normal inspection of the chest and normal palpation of entire chest wall Resp: COMMON NORMALS: normal respiratory effort, No retractions, No use of accessory muscles and clear to auscultation bilaterally AUSCULTATION: clear to auscultation bilaterally Cardio: COMMON NORMALS: no JVD, regular rate, regular rhythm, S1 normal heart sound present, S2 normal heart sound present, No gallops present (Cardio), No clicks present (Cardio), No murmurs present (Cardio) and No rub (Cardio) RATE: regular rate RHYTHM: regular rhythm HEART SOUNDS: S1 normal heart sound present and S2 normal heart sound present GI: COMMON NORMALS: Normal to inspection, nondistended, normoactive bowel sounds present, Soft to palpation, non-tender, No hepatosplenomegaly present and no masses PALPATION: Yes Soft to palpation and Yes No hepatosplenomegaly present : COMMON NORMALS: Yes no CVA tenderness BLADDER/KIDNEY EXAM: Yes no CVA tenderness Back/Pelvis: COMMON NORMALS: no CVA tenderness Neuro: COMMON NORMALS: patient oriented x3 SENSORIUM/ORIENTATION: Yes alert Course Vital Signs: Vital signs: Vital Signs Temperature 98 F 04/26/23 00:49 Pulse Rate 95 04/26/23 01:21 Respiratory Rate 22 H 04/26/23 00:49 Blood Pressure 130/72 04/26/23 00:49 Pulse Oximetry 92 04/26/23 01:21 Oxygen Delivery Me thod Nasal Cannula 04/26/23 01:21 Oxygen Flow Rate 2 04/26/23 01:21 MDM - SOB/Dyspnea Medical Decision Making Presents to the ER with complaints of coughing up blood. Patient's lab work showed his sodium was low at 127 patient is a daily alcoholic. Chest x-ray showed no acute findings. Patient did have some pink-tinged sputum and coughing fits while he was in the ER we tried to get him down for a contrasted CT scan of his chest which he could not lay down for due to his shortness of breath. Patient has been admitted here before and seen Dr. Lowery in the past. Dr. Zavala was consulted who agreed to place him in [facility] for further evaluation and treatment. Differential Diagnosis Likely acute exacerbation of chronic obstructive airways disease; Unlikely congestive heart failure, community acquired pneumonia, asthma with exacerbation or pulmonary embolism Medical Records I reviewed the patient's medical records. Lab Data I reviewed the patient's lab results. 04/26/23 00:52 12 00:52 Labs/Radiology: Radiology Impressions Chest X-Ray 04/26/23 00:55 IMPRESSION: 1. No acute findings. 2. Severe chronic emphysematous changes. 3. Chronic right apical scarring, not appreciably changed in comparison to 05/16/2022. 4. Stable sequelae of old granulomatous disease. Laboratory Results WBC 8.54 10^3/uL (3.29-11.43) 04/26/23 00:52 RBC 4.13 10^6/uL (3.85-5.65) 04/26/23 00:52 Hgb 11.80 g/dL (11.27-16.99) 04/26/23 00:52 Hct 36.2 % (37-53) L 04/26/23 00:52 MCV 87.7 fl (82-101) 04/26/23 00:52 MCH 28.6 pg (27-33) 04/26/23 00:52 MCHC 32.6 g/dL (30-55) 04/26/23 00:52 RDW 13.5 % (12.1-15.1) 04/26/23 00:52 Plt Count 189 10^3/cmm (157-399) 04/26/23 00:52 MPV 9.5 fL (7.4-10.4) 04/26/23 00:52 Neut % (Auto) 56.2 % 04/26/23 00:52 Lymph % (Auto) 31.5 % 04/26/23 00:52 Pacific % (Auto) 9.5 % 04/26/23 00:52 Eos % (Auto) 1.8 % 04/26/23 00:52 Baso % (Auto) 0.6 % 04/26/23 00:52 Neut # (Auto) 4.81 10^3/uL (1.8-7.7) 04/26/23 00:52 Lymph # (Auto) 2.7 10^3/uL (0.8-4.8) 04/26/23 00:52 Pacific # (Auto) 0.8 10^3/uL (0.2-0.9) 04/26/23 00:52 Eos # (Auto) 0.2 10^3/uL (0.0-0.8) 04/26/23 00:52 Baso # (Auto) 0.1 10^3/uL (0.0-0.1) 04/26/23 00:52 Nucleated RBC % (auto) 0 % 04/26/23 00:52 Nucleated RBCs # 0.0 /100WBC 04/26/23 00:52 PT 13.10 SECONDS (12.1-14.9) 04/26/23 00:52 INR 0.96 (0.8-1.2) 04/26/23 00:52 Sodium 127 mmol/L (136-145) L 04/26/23 00:52 Potassium 4.3 mmol/L (3.5-5.1) 04/26/23 00:52 Chloride 86 mmol/L (98-107) L 04/26/23 00:52 Carbon Dioxide 34 mmol/L (22-29) H 04/26/23 00:52 Anion Gap 11.3 (5-19) 04/26/23 00:52 BUN 13 mg/dL (8-23) 04/26/23 00:52 Creatinine 0.8 mg/dL (0.7-1.2) 04/26/23 00:52 GFR Calculation 95.8 mL/min (90-130) 04/26/23 00:52 Glucose 103 mg/dL (65-115) 04/26/23 00:52 Calculated Osmolality 264 mOsm/kg (285-295) L 04/26/23 00:52 Calcium 9.4 mg/dL (8.5-10.5) 04/26/23 00:52 Total Bilirubin 0.6 mg/dL (0.15-1.2) 04/26/23 00:52 AST 19 U/L (0-40) 04/26/23 00:52 ALT 8 U/L (0-41) 04/26/23 00:52 Alkaline Phosphatase 128 U/L (40-130) 04/26/23 00:52 Total Protein 7.8 g/dL (6.6-8.7) 04/26/23 00:52 Albumin 3.3 g/dL (3.5-5.2) L 04/26/23 00:52 Globulin 4.5 g/dL (1.3-4.6) 04/26/23 00:52 XR interpretation done by ED provider, pending radiology final review EKG Data EKG 1: I personally reviewed and interpreted this EKG as follows: EKG Interpretation Date: 04/26/23 EKG interpretation time: 01:16 Prior EKG tracings: not available for review Interpretation: EKG showed ventricular rate 95 beats minute, MA interval 177, QRS duration 76, QTc 411, sinus rhythm with occasional PVC, borderline right axis deviation, possible left atrial enlargement, Discharge Plan Discharge Patient Disposition: Admitted As Inpatient Clinical Impression: Cough with hemoptysis COPD (chronic obstructive pulmonary disease) Qualifiers: COPD type: unspecified COPD Qualified Code(s): J44.9 - Chronic obstructive pulmonary disease, unspecified Condition: Stable Coding Level of Care 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
[2023-04-26 01:06] LABS: Basophils # 0.1 10^3/uL (0.0-0.1); Basophils % 0.6 %; Eosinophils # 0.2 10^3/uL (0.0-0.8); Eosinophils % 1.8 %; Hematocrit 36.2 % (37-53); Lymphocytes # 2.7 10^3/uL (0.8-4.8); Lymphocytes % 31.5 %; Mean Corpuscular HGB Conc 32.6 g/dL (30-55); Mean Corpuscular Hemoglobin 28.6 pg (27-33); Mean Corpuscular Volume 87.7 fl (82-101); Mean Platelet Volume 9.5 fL (7.4-10.4); Monocytes # 0.8 10^3/uL (0.2-0.9); Monocytes % 9.5 %; Neutrophils # 4.81 10^3/uL (1.8-7.7); Neutrophils % 56.2 %; Nucleated Red Blood Cells % 0 %; Platelet Count 189 10^3/cmm (157-399); Red Blood Count 4.13 10^6/uL (3.85-5.65); Red Cell Distribution Width 13.5 % (12.1-15.1); White Blood Count 8.54 10^3/uL (3.29-11.43)
[2023-04-26 01:15] LABS: INR 0.96 (0.8-1.2)
[2023-04-26 01:24] LABS: Alanine Aminotransferase 8 U/L (0-41); Albumin Level 3.3 g/dL (3.5-5.2); Alkaline Phosphatase 128 U/L (40-130); Anion Gap 11.3 (5-19); Aspartate Amino Transferase 19 U/L (0-40); Blood Urea Nitrogen 13 mg/dL (8-23); Calcium 9.4 mg/dL (8.5-10.5); Carbon Dioxide 34 mmol/L (22-29); Chloride 86 mmol/L (98-107); Globulin 4.5 g/dL (1.3-4.6); Glomerular Filtration Rate 95.8 mL/min (90-130); Glucose 103 mg/dL (65-115); Osmolality Calculated 264 mOsm/kg (285-295); Potassium 4.3 mmol/L (3.5-5.1); Sodium 127 mmol/L (136-145); Total Bilirubin 0.6 mg/dL (0.15-1.2); Total Protein 7.8 g/dL (6.6-8.7)
[2023-04-26] MEDS: sodium chloride 0.9% 1,000 ML 999 ML IV (03:24)
--- NOTE | 2023-04-26 05:55 | P.HP_ITS ---
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-C Chief Complaint: COPD History of Present Illness Narciso Olsen is a 67 year old male with history of right upper lobe cavitary lesion, no biopsy done in the past to rule out malignancy, AFB smears and QuantiFERON were negative, pneumothorax, patient was transferred to [place] 2021 for VATS however patient is stating that VATS and posterior flap reconstruction was not done patient was managed with chest tube which was removed before discharge, at home he has been using 2 to 3 L, not smoking anymore, presenting with chief complaint of hemoptysis Patient is stating that he started noticing 1 teaspoon blood in his sputum for the last 48 hours, patient has had no previous diagnosis of cancer, he is endorsing poor sleep breathing, no recent fever, worsening or productive cough, night sweats, diarrhea, chest pain. In the ER he was hemodynamically stable H&H 11.8 I have requested D-dimer and CTA chest Patient stating that he drinks 2 beers a day Sodium 127 I will request ABG, patient is showing signs of pursed lip breathing Patient is stating that he has no previous diagnosis of hemoptysis I do not see any pulmonary follow-up since last year Review of Systems 2 Const: Reports: chills, body aches, change in weight and fatigue ENMT: Denies: throat pain Card: Denies: chest pain Resp: Denies: dyspnea GI: Denies: abdominal pain : Denies: flank pain Musc: Denies: neck pain Skin/Breast: Denies: rash Neuro: Denies: headache(s) Psych: Reports: anxiety Endo: Denies: polyuria Romaine/Lymph: Denies: easy bruising Medications/Allergies Home Medications Medication Instructions Recorded Confirmed Last Taken Type budesonide-formoterol HFA 160 2 puff inhalation BID 04/19/20 05/14/22 Unknown History mcg-4.5 mcg/actuation aerosol inhaler cholecalciferol (vitamin D3) 50 50 mcg PO DAILY 04/19/20 05/14/22 Unknown History mcg (2,000 unit) capsule cyclobenzaprine 10 mg tablet 10 mg PO TID 04/19/20 05/14/22 Unknown History ibuprofen 800 mg tablet 800 mg PO Q6H 04/19/20 05/14/22 Unknown History ipratropium 20 mcg-albuterol 100 1 puff inhalation QID 04/19/20 05/14/22 Unknown History mcg/actuation mist for inhalation lisinopril 20 mg tablet 10 mg PO DAILY 04/19/20 05/14/22 Unknown History Allergies Allergy/AdvReac Type Severity Reaction Status Date / Time No Known Allergies Allergy Verified 04/19/20 10:54 PFSH Acute 2 PFSH: Medical History (Updated 04/26/23 @ 07:20 by Scooter Zavala MD) Cavitary lesion of lung 03/17/22: RUL cavitary lesion 2.7 x 3.7 x 3 cm. 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 Surgical History No pertinent past surgical history no surgical history Family History Other Adopted Social History Smoking and tobacco/nicotine status: former use of tobacco/nicotine Quit status (tobacco/nicotine): has quit using Year quit tobacco: 2021 Alcohol intake: current Alcohol intake frequency: 3 or more drinks per day Alcohol type: beer Vitals/I&O/Wt Last Vital Signs Temp 98 F 04/26/23 00:49 Pulse 95 04/26/23 05:33 Resp 21 H 04/26/23 04:06 BP 119/80 04/26/23 05:33 Pulse Ox 100 04/26/23 05:33 O2 Del Method Nasal Cannula 04/26/23 05:41 O2 Flow Rate 2 04/26/23 01:21 04/25/23 04/25/23 04/26/23 14:59 22:59 06:59 Intake Total 1000 / 1000 Balance 1000 / 1000 Weight last 48 hrs Weight 43.743 kg Weight 43.743 kg Weight 54.431 kg Physical Exam 2 Narrative: Cachectic, malnourished Pursed lip breathing Currently on 4 L Hemodynamically stable GC 50 Tachycardia Abdomen soft Pleasant cooperative GCS 15 Awake and alert Nonfocal neuroexam Data 04/26/23 00:52 04/26/23 00:52 A&P Assessment and plan (1) Cough with hemoptysis: (2) COPD (chronic obstructive pulmonary disease): Qualifiers: COPD type: unspecified COPD Qualified Code(s): J44.9 - Chronic obstructive pulmonary disease, unspecified (3) End stage COPD: (4) Cavitary lesion of lung: Plan Active hemoptysis H&H stable I will repeat another H&H within 4 hours Hemodynamically stable, I will add ceftriaxone Tachycardia noted Pursed lip breathing Will request ABG and CTA chest Patient has history of right upper lobe cavitary lesion never had any biopsy done to rule out malignancy AFB and QuantiFERON were negative in the past Patient has not followed up with pulmonology since last year Drinks 2 beers every day Hold DVT prophylaxis I will keep him on clear liquid diet for now I do not see any signs of massive hemoptysis Patient will need pulmonary consultation in the morning, I did convey my concerns to the patient that considering his end-stage COPD pursed lip breathing he will be considered high risk for any kind of surgeries or bronchoscopy, Patient is full code Protein calorie malnourishment, cachectic appearing Will need dietary consultation Attestations 2 Medical Necessity Statement*: More than 2 midnights anticipated Diagnoses Cough with hemoptysis R04.2 COPD (chronic obstructive pulmonary disease) J44.9 COPD type: unspecified COPD End stage COPD J44.9 Cavitary lesion of lung J98.4
[2023-04-26 07:18] LABS: Vitamin B12 579 pg/mL (232-1245)
[2023-04-26 07:27] LABS: D Dimer 1.64 ug/mLFEU (0-0.59)
[2023-04-26 07:33] LABS: ABG PH Result 7.37 (7.35-7.45); Arterial Blood Gas Hematocrit 36.2 % (42-52); Base Excess ABG 8.1 mmol/L (-2.0-2.0); Blood Gas Allen Test Pos; Blood Gas Operator Identificat WALCI; Blood Gas Sample Site Radial, right; Blood Gas Sample Type Arterial; HCO3 ABG 35.3 mmol/L (22-26); Oxygen Device NC
[2023-04-26 07:35] LABS: ABG PCO2 61.9 mmHg (35-45)
[2023-04-26] MEDS: sodium chloride 0.9% 1,000 ML 75 ML IV ×2 (07:44→20:13)
[2023-04-26] MEDS: pantoprazole 40 mg SDV IVP ×2 (07:45→17:18)
[2023-04-26] MEDS: cefTRIAXone 1,000 MG in sodium chloride 0.9% (plus) 50 ML 100 MG IV (07:45)
[2023-04-26] MEDS: lisinopril 10 mg Tablet PO (07:46)
[2023-04-26] MEDS: sennosides-docusate Tablet 1 TAB PO (07:46)
--- NOTE | 2023-04-26 08:39 | PC.PHAR ---
Addendum entered by Silvia Johnson 04/26/23 08:40: PT HAD RX BOTTLES IN ROOM TO VERIFY WITHOUT [facility] L[facility]. Original Note: PT IS [facility] 04/26/23
--- NOTE | 2023-04-26 09:31 | CT_ITS ---
WS: [id number] CT CHEST ANGIOGRAPHY WITH REFORMATS HISTORY: sob TECHNIQUE: Contiguous axial images are obtained through the chest during arterial injection of intrav enous contrast. Images are reconstructed to evaluate the pulmonary arteries. MIP imaging also reviewe d. All CT scans at [facility] use at least one of these dose optimization techniques: automat ed exposure control; mA and/or kV adjustment per patient size (includes targeted exams where dose is matched to clinical indication); or iterative reconstruction. CONTRAST: Omnipaque 350; 100 mL IV. DLP: 279.60 mGy.cm COMPARISON: 05/16/2022 Adequate opacification of the pulmonary arteries. No filling defects or pulmonary emboli identified. Pulmonary arterial system is smaller on the RIGHT. This is probably due to volume loss and the chroni c atelectasis. Shift of the mediastinal structures to the RIGHT due to a focal area of soft tissue at electasis in the RIGHT upper lobe. There is shift of the mediastinal and central structures to the RI GHT. Extensive bilateral bullous disease. There is cystic changes in the RIGHT upper lobe which I bel ieve are probably bulla outlined by chronic conglomerate atelectasis and not cavitation. No mass or pneumonia is identified. There could potentially be an mass or adjacent pneumonia in the R IGHT upper lobe by the conglomerate soft tissue which is chronic. Moderate atherosclerosis aorta. No mediastinal or hilar adenopathy. No pericardial or pleural effusions. Small hiatal hernia. Cholelithiasis. Previously described nodule in the liver is not identified. Cirr hotic appearance of the liver. Overall this study is compromised by breathing motion artifact. Increa se in thoracic kyphosis. IMPRESSION: 1. No pulmonary embolism. 2. Severe chronic emphysema. 3. Chronic volume loss with conglomerate atelectasis in the RIGHT upper lobe. Similar in appearance t o the prior study. Superimposed pneumonia or neoplasm would be difficult to exclude due to the chroni c soft tissue. Cavitation versus bulla in the RIGHT upper lobe. Similar to 05/16/2022. 4. Cholelithiasis without acute cholecystitis. 5. No liver lesion identified by CT as previously described on 05/16/2022. Liver does appear cirrhoti c.
--- NOTE | 2023-04-26 09:32 | USCV_ITS ---
Narciso Olsen Age: 67 Gender: M : 1955 Exam Date: 04/26/2023 10:27 Ordering Phys: Eriberto Ashton MD Technologist: Nelson Gamboa [place] [facility] [place]: sob BP: / HR: Rhythm: Sinus Technical Quality: Very technically difficult study MEASUREMENTS (Male / Female) Normal Values FINDINGS Left Ventricle Right Ventricle Right Atrium Left Atrium Mitral Valve Aortic Valve Tricuspid Valve Pulmonic Valve Pericardium Aorta IVC CONCLUSIONS The study is uninterpretable. Multiple attempts revealed no available windows for examination. Dr. Edgardo Hernandez MD (Electronically Signed) Final Date: 26 April 2023 18:40 S
--- NOTE | 2023-04-26 09:47 | US_ITS ---
WS: [id number] RIGHT UPPER QUADRANT ULTRASOUND HISTORY: liver mass COMPARISON: 06/24/2018, 05/16/2020 Liver: 12.6 cm in length. Normal size liver and echogenicity. No bile duct dilatation or mass. Portal Vein: Normal hepatopetal flow with monophasic waveform. Gallbladder: Patient has known cholelithiasis which is not identified by ultrasound. Technically very difficult RIGHT upper quadrant ultrasound. CBD: 0.4 cm Pancreas: Completely obscured. Right kidney: 9.7 cm in length. Normal size and echogenicity. No hydronephrosis or mass. Aorta and IVC: Not visualized. No ascites. IMPRESSION: 1. Technically very difficult RIGHT upper quadrant ultrasound. 2. No liver mass identified. 3. Patient has known cholelithiasis. The stones are not well visualized by ultrasound.
--- NOTE | 2023-04-26 09:52 | ECG_ITS ---
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 Measurements Intervals [place] Rate: 86 P: 74 MT: 194 QRS: 78 QRSD: 71 T: 66 QT: 359 QTc: 431 Interpretive Statements SINUS RHYTHM ANTEROSEPTAL MYOCARDIAL INFARCTION , OF INDETERMINATE AGE [40+ ms Q WAVE IN V1-V4] Compared to ECG 04/26/2023 01:16:15 Ventricular premature complex(es) no longer present Myocardial infarct finding still present Electronically Signed On 04-26-2023 16:06:44 FLOW TRADER by Mayte Hanks M.D. [id number]
[2023-04-26] MEDS: iohexol 350 mg/mL 500 mL Btl (per mL) IV (10:27)
[2023-04-26] MEDS: dexamethasone 10 mg/mL INJ 6 MG IVP (10:41)
[2023-04-26 10:54] LABS: Erythrocyte Sedimentation Rate 11 mm/hr (0-10); Hematocrit 39.9 % (37-53)
[2023-04-26 11:13] LABS: Troponin(5th) Baseline 14 ng/L (0-15)
[2023-04-26 11:15] LABS: C Reactive Protein 36.5 mg/L (0.0-4.9)
[2023-04-26 11:21] LABS: Procalcitonin 0.06 ng/mL (0-0.5)
[2023-04-26 11:27] LABS: Alcohol Level < 10 mg/dL (0-10)
--- NOTE | 2023-04-26 11:32 | ECG_ITS ---
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 Measurements Intervals [place] Rate: 91 P: 77 MD: 183 QRS: 76 QRSD: 74 T: 65 QT: 355 QTc: 437 Interpretive Statements SINUS RHYTHM INDETERMINATE AXIS SEPTAL MYOCARDIAL INFARCTION , PROBABLY OLD [40+ ms Q WAVE IN V1/V2] Compared to ECG 04/26/2023 09:52:24 Indeterminate axis now present Myocardial infarct finding still present Electronically Signed On 04-26-2023 16:19:27 REGIONAL DIRECTOR OF ADMISSIONS by Mayte Hanks M.D. [id number]
--- NOTE | 2023-04-26 11:57 | PC.PHAR ---
CONFIRMED [facility] BOTTLES IN THE ROOM FOR CHOLECALCIFEROL 2,000 MG DAILY, LISINOPRIL 40 MG 1 TABLET DAILY (PT STATES TAKING 0.25 (1/4) TABLET DAILY, AND MAGNESIUM OXIDE 400MG DAILY. [facility] LIST FAXED SHOWS ONLY SPIRIVA 160-4.5 2 PUFFS TWICE DAILY AND ADVAIR 250/50 1 PUFF TWICE DAILY AND CHOLECALCIFEROL 50MCG (2,OOO UNITS) DAILY. 04/26/23
[2023-04-26 12:11] LABS: ABG PH Result 7.35 (7.35-7.45); Arterial Blood Gas Hematocrit 37.2 % (42-52); Base Excess ABG 6.9 mmol/L (-2.0-2.0); Blood Gas Operator Identificat AMH; Blood Gas Sample Site Brachial, right; Blood Gas Sample Type Arterial; HCO3 ABG 34.2 mmol/L (22-26); Oxygen Device NC; PO2 ABG 90.6 mmHg (80.0-100.0); PO2 FiO2 Ratio Arterial Blood 0
[2023-04-26 12:12] LABS: ABG PCO2 61.5 mmHg (35-45)
--- NOTE | 2023-04-26 12:16 | PC.SOCIAL ---
IMM Update Pg. 2 of IMM updated and reviewed with patient who verbalized understanding. Copy provided.
--- NOTE | 2023-04-26 14:07 | PM.PN ---
Subjective Subjective: ? Patient was examined early this morning, he tells me that he has had episodes of hemoptysis throughout the morning, ? She shows me on the bedside table, in the baseline at, he has about 20 cc of bright red blood no clots, he tells me that he has had a cough throughout the morning, and he just spit up a bunch of blood send ?he has a history of hemoptysis, denies any lightheadedness, no dizziness, no nausea, no vomiting, currently not on any blood thinners, no NSAID use,, ? We discussed his prior hospitalization, has a history of hemoptysis, history of pneumothorax requiring chest tube placement, consideration of VATS, he was supposed to follow with pulmonary as outpatient but he tells me he never followed up, he also has a right upper lung cavitary mass, he has never had a biopsy he tells me, but they are worried about TB, but all the test came back negative he tells me, ? Denies any fevers, no chills, no night sweats, no known exposure to TB, ? I spoke with him in detail as we have no pulmonary here at [facility], I would recommend for him to be transferred to tertiary level center which has pulmonary, bronchoscopy capabilities, for possible evaluation for his recurrent hemoptysis, next ?have to monitor his coughing here in the hospital and aggressively treated with Tessalon Perles, Tylenol with codeine, is agreeable ? I did have a discussion about his hypercarbic respiratory failure, will have to monitor closely, he declines BiPAP therapy ? We discussed risks and benefits of transfer to tertiary level center, for evaluation, he wants to go to [facility] -Spoke to [facility], accepted transfer, awaiting bed, ? Ordered CT of the chest, ? Reviewed his prior medical records, reviewed his records at [facility], he was transferred to [facility] in [place] in February 2022, he was coughing bright red blood, no pulmonary embolism, cavitary right upper lung mass, concerns for prior mycobacterial infection with or without superimposed pneumonia, cannot rule out underlying malignancy, managed with empiric antibiotics, AFB cultures and stains were obtained, patient recommended by hospital to continue IV antibiotics as inpatient await sputum results however he was adamant about leaving the hospital, was supposed to follow-up with pulmonary as outpatient, March of last year for concerns for right upper lobe cavitary lung mass, he had TB evaluation, but left before the test results could be resulted, As she presented here to [facility] a few weeks after, came in with a pneumothorax, chest tube placed, in that documentation, it seems to see a or suggest that his TB test were negative, he was transferred to [facility] for VATS procedure but it was never done etiology is unclear, and patient failed to follow-up with pulmonary and [facility] as outpatient Vitals/I&O/Wt Last Vital Signs Temp 98.1 F 04/26/23 12:00 Pulse 80 04/26/23 12:00 Resp 16 04/26/23 12:00 BP 140/82 04/26/23 12:00 Pulse Ox 99 04/26/23 07:38 O2 Del Method Nasal Cannula 04/26/23 07:38 O2 Flow Rate 4 04/26/23 07:38 FiO2 35 04/26/23 07:58 04/25/23 04/26/23 04/26/23 22:59 06:59 14:59 Intake Total 1000 / 1000 290 / 290 Output Total 750 / 750 Balance 1000 / 1000 -460 / -460 Weight last 48 hrs Weight 43.743 kg Weight 43.743 kg Weight 54.431 kg Physical Exam Const: COMMON NORMALS: no acute distress and patient oriented x3 Resp: COMMON NORMALS: normal respiratory effort, No retractions, No use of accessory muscles and clear to auscultation bilaterally AUSCULTATION: clear to auscultation bilaterally Cardio: COMMON NORMALS: regular rate, regular rhythm, S1 normal heart sound present and S2 normal heart sound present RATE: regular rate RHYTHM: regular rhythm HEART SOUNDS: S1 normal heart sound present and S2 normal heart sound present GI: COMMON NORMALS: Normal to inspection, nondistended, normoactive bowel sounds present and non-tender Extremity: COMMON NORMALS: no pedal edema Neuro: COMMON NORMALS: patient oriented x3 Psych: COMMON NORMALS: mental status grossly normal Data 04/26/23 10:42 04/26/23 00:52 A&P Assessment and plan (1) Cavitary lesion of lung: (2) End stage COPD: (3) Cough with hemoptysis: (4) COPD (chronic obstructive pulmonary disease): Qualifiers: COPD type: unspecified COPD Qualified Code(s): J44.9 - Chronic obstructive pulmonary disease, unspecified (5) Acute exacerbation of chronic obstructive airways disease: (6) Hemoptysis: (7) Severe protein-calorie malnutrition: (8) Physical deconditioning: (9) Muscle wasting: Plan Hemoptysis, acute on chronic ? Will transfer to tertiary level center -Hold off on blood thinners, antiplatelet agents, ? No DVT prophylaxis given persistent hemoptysis, CT angiogram of the chest History of left tension pneumothorax, history of ruptured bullae ? Status post chest tube placement ? Status post removal, consideration of VATS transferred to [facility], Acute on chronic respiratory failure, history of severe bullous emphysema ? COPD 3 L at baseline, ? Hypercarbic respiratory failure, refuses BiPAP Right upper lobe cavitary lesion ? Concerns for malignancy, ? Had a TB evaluation at [facility] in [place], QuantiFERON, sputum cultures, noted on last hospitalization in 2021 notes that those test results were negative, next?have requested copies of those records, ? For now keep on TB precautions, sputum cultures, QuantiFERON gold history of hepatitis C -s/p treatment History of alcohol dependence Severe protein calorie malnutrition, BMI is 16, consult dietary Severe muscle wasting, next Physical deconditioning Attestations Medical Necessity Statement*: Patient requires hospitalization for severe muscle wasting, protein calorie malnutrition, physical deconditioning, hemoptysis, acute on chronic respiratory failure right upper lobe cavitary lesion Diagnoses Cavitary lesion of lung J98.4 End stage COPD J44.9 Cough with hemoptysis R04.2 COPD (chronic obstructive pulmonary disease) J44.9 COPD type: unspecified COPD Acute exacerbation of chronic obstructive airways disease J44.1 Hemoptysis R04.2 Severe protein-calorie malnutrition E43 Physical deconditioning R53.81 Muscle wasting M62.50
[2023-04-26 14:17] LABS: Troponin 5 2HR 14.27 ng/L (0-15); Troponin 5 2HR Delta 0.27 ABS# (0-10)
[2023-04-26 18:05] LABS: Hematocrit 40.3 % (37-53)
[2023-04-26 18:27] LABS: Troponin 5 6HR 11.27 ng/L (0-15)
[2023-04-26 18:29] LABS: Troponin 5 6HR Delta -2.73 ng/L (0-12)
[2023-04-26 23:15] LABS: Hematocrit 37.5 % (37-53)
[2023-04-27] VITALS (9 sets, daily range): BP systolic 118–155; BP diastolic 76–93; PULSE 75–96; RESP 17–19; TEMP 36.6–36.8; O2SAT 93–100; BMI 16.5
[2023-04-27 05:13] LABS: Basophils % 0.4 %; Hematocrit 38.4 % (37-53); Lymphocytes # 0.9 10^3/uL (0.8-4.8); Lymphocytes % 19.9 %; Mean Corpuscular HGB Conc 31.5 g/dL (30-55); Mean Corpuscular Hemoglobin 28.1 pg (27-33); Mean Corpuscular Volume 89.3 fl (82-101); Mean Platelet Volume 8.9 fL (7.4-10.4); Monocytes # 0.4 10^3/uL (0.2-0.9); Monocytes % 8.5 %; Neutrophils # 3.23 10^3/uL (1.8-7.7); Neutrophils % 70.5 %; Nucleated Red Blood Cells % 0 %; Platelet Count 176 10^3/cmm (157-399); Red Cell Distribution Width 13.6 % (12.1-15.1); White Blood Count 4.58 10^3/uL (3.29-11.43)
[2023-04-27 05:37] LABS: Anion Gap 11.8 (5-19); Blood Urea Nitrogen 9 mg/dL (8-23); C Reactive Protein 27.4 mg/L (0.0-4.9); Calcium 9.3 mg/dL (8.5-10.5); Carbon Dioxide 31 mmol/L (22-29); Chloride 94 mmol/L (98-107); Glomerular Filtration Rate 133.6 mL/min (90-130); Glucose 106 mg/dL (65-115); Magnesium 1.9 mg/dL (1.7-2.3); Osmolality Calculated 273 mOsm/kg (285-295); Potassium 4.8 mmol/L (3.5-5.1); Sodium 132 mmol/L (136-145)
[2023-04-27] MEDS: pantoprazole 40 mg SDV IVP ×2 (08:26→17:43)
[2023-04-27] MEDS: sennosides-docusate Tablet 1 TAB PO (08:26)
[2023-04-27] MEDS: lisinopril 10 mg Tablet PO (08:26)
[2023-04-27] MEDS: cefTRIAXone 1,000 MG in sodium chloride 0.9% (plus) 50 ML 100 MG IV (08:27)
[2023-04-27] MEDS: benzonatate 100 mg Capsule 200 MG PO (09:27)
[2023-04-27] MEDS: dexamethasone 10 mg/mL INJ 6 MG IVP (09:27)
[2023-04-27] MEDS: acetaminophen 500 mg Tablet PO (09:28)
[2023-04-27] MEDS: sodium chloride 0.9% 1,000 ML 75 ML IV (09:34)
[2023-04-27 09:51] LABS: Hematocrit 37.9 % (37-53)
[2023-04-27 11:03] LABS: NT Pro B Type Natriuretic Pept 791 pg/mL (0-125)
--- NOTE | 2023-04-27 13:28 | P.PN_ITS ---
Subjective 2 Subjective: Patient was seen this morning, he refused to use BiPAP throughout the night, discussed morbidity and mortality associate with acute hypercarbic respiratory failure, he voiced understanding, call all questions answered, wants to remain a full code, he tells me that his hemoptysis is improving, but he shows me that in the Persisting to some degree a small amount every few hours, denies any fevers, no chills, Vitals/I&O/Wt Last Vital Signs Temp 98.0 F 04/27/23 11:27 Pulse 91 04/27/23 11:27 Resp 19 H 04/27/23 11:27 BP 155/93 04/27/23 11:27 Pulse Ox 98 04/27/23 11:27 O2 Del Method Nasal Cannula 04/27/23 11:27 O2 Flow Rate 4 04/27/23 08:00 FiO2 35 04/26/23 07:58 04/26/23 04/27/23 04/27/23 22:59 06:59 14:59 Intake Total 1176.25 / 1706.25 1959 Output Total 600 / 1550 200 / 1750 Balance 576.25 / 156.25 -200 / -43.75 1959 Weight last 48 hrs Weight 43.743 kg Weight 43.743 kg Weight 43.743 kg Weight 54.431 kg Physical Exam 2 Const: COMMON NORMALS: no acute distress and patient oriented x3 Resp: COMMON NORMALS: normal respiratory effort, No retractions and No use of accessory muscles AUSCULTATION: crackles and wheezes Cardio: COMMON NORMALS: regular rate, regular rhythm, S1 normal heart sound present and S2 normal heart sound present RATE: regular rate RHYTHM: r egular rhythm HEART SOUNDS: S1 normal heart sound present and S2 normal heart sound present GI: COMMON NORMALS: Normal to inspection, nondistended, normoactive bowel sounds present and non-tender Extremity: COMMON NORMALS: no pedal edema Neuro: COMMON NORMALS: patient oriented x3 Psych: COMMON NORMALS: mental status grossly normal Data 04/27/23 09:45 04/27/23 04:43 Micro: Microbiology 04/26/23 11:10 Gram Stain - Final Sputum - Expectorated Sputum A&P Assessment and plan (1) Cavitary lesion of lung: (2) End stage COPD: (3) Cough with hemoptysis: (4) COPD (chronic obstructive pulmonary disease): Qualifiers: COPD type: unspecified COPD Qualified Code(s): J44.9 - Chronic obstructive pulmonary disease, unspecified (5) Acute exacerbation of chronic obstructive airways disease: (6) Hemoptysis: (7) Severe protein-calorie malnutrition: (8) Physical deconditioning: (9) Muscle wasting: (10) Pneumonia: Plan Hemoptysis, acute on chronic ? Accepted at [facility], awaiting bed -Hold off on blood thinners, antiplatelet agents, ? No DVT prophylaxis given persistent hemoptysis, CT angiogram of the chest negative for PE History of left tension pneumothorax, history of ruptured bullae ? Status post chest tube placement ? Status post removal, consideration of VATS transferred to [facility], IMPRESSION: 1. No pulmonary embolism. 2. Severe chronic emphysema. 3. Chronic volume loss with conglomerate atelectasis in the RIGHT upper lobe. Similar in appearance to the prior study. Superimposed pneumonia or neoplasm would be difficult to exclude due to the chronic soft tissue. Cavitation versus bulla in the RIGHT upper lobe. Similar to 05/16/2022. 4. Cholelithiasis without acute cholecystitis. 5. No liver lesion identified by CT as previously described on 05/16/2022. Liver does appear cirrhotic. Acute on chronic respiratory failure, history of severe bullous emphysema ? COPD 3 L at baseline, ? Hypercarbic respiratory failure, refuses BiPAP ? Continue Rocephin and azithromycin for possible pneumonia, ? Continue DuoNeb, budesonide, ? Continue Decadron Right upper lobe cavitary lesion ? Concerns for malignancy, ? Had a TB evaluation at [facility] in [place], QuantiFERON, sputum cultures, noted on last hospitalization in 2021 notes that those test results were negative, next?have requested copies of those records, ? For now keep on TB precautions, sputum cultures, QuantiFERON gold history of hepatitis C -s/p treatment History of alcohol dependence Severe protein calorie malnutrition, BMI is 16, consult dietary Severe muscle wasting, next Physical deconditioning Fluid overload, elevated BNP persistent shortness of breath, will give 1 dose of Lasix continue antibiotics add on azithromycin and on steroids, monitor respiratory status closely, cough suppressants, awaiting transfer to [facility] Attestations 2 Medical Necessity Statement*: Patient requires hospitalization for hemoptysis, acute on chronic, awaiting bed at [facility], treating for acute respiratory failure, getting steroids antibiotics Diagnoses Cavitary lesion of lung J98.4 End stage COPD J44.9 Cough with hemoptysis R04.2 COPD (chronic obstructive pulmonary disease) J44.9 COPD type: unspecified COPD Acute exacerbation of chronic obstructive airways disease J44.1 Hemoptysis R04.2 Severe protein-calorie malnutrition E43 Physical deconditioning R53.81 Muscle wasting M62.50 Pneumonia J18.9
[2023-04-27] MEDS: FUROsemide 10 mg/mL SDV 2mL 20 MG IVP (14:12)
[2023-04-27] MEDS: azithromycin 500 MG in sodium chloride 0.9% 250 ML 250 MG IV (14:45)
[2023-04-27] MEDS: budesonide 0.5 mg/2 mL Neb INHALATION (20:06)
[2023-04-27] MEDS: ipratropium-albuterol 3 mL Neb INHALATION (20:06)
[2023-04-28] VITALS (8 sets, daily range): BP systolic 103–144; BP diastolic 66–81; PULSE 81–100; RESP 16–20; TEMP 36.4–37.2; O2SAT 94–98
[2023-04-28 05:47] LABS: Basophils % 0.4 %; Eosinophils % 0.2 %; Hematocrit 37.4 % (37-53); Lymphocytes % 20.1 %; Mean Corpuscular HGB Conc 32.1 g/dL (30-55); Mean Corpuscular Hemoglobin 28.5 pg (27-33); Mean Corpuscular Volume 88.8 fl (82-101); Mean Platelet Volume 8.4 fL (7.4-10.4); Monocytes # 0.5 10^3/uL (0.2-0.9); Monocytes % 9.2 %; Neutrophils # 3.59 10^3/uL (1.8-7.7); Neutrophils % 69.9 %; Nucleated Red Blood Cells % 0 %; Platelet Count 172 10^3/cmm (157-399); Red Blood Count 4.21 10^6/uL (3.85-5.65); Red Cell Distribution Width 13.5 % (12.1-15.1); White Blood Count 5.13 10^3/uL (3.29-11.43)
[2023-04-28 06:12] LABS: Alanine Aminotransferase 7 U/L (0-41); Alkaline Phosphatase 92 U/L (40-130); Anion Gap 12.5 (5-19); Aspartate Amino Transferase 14 U/L (0-40); Blood Urea Nitrogen 12 mg/dL (8-23); Calcium 9.7 mg/dL (8.5-10.5); Carbon Dioxide 33 mmol/L (22-29); Chloride 89 mmol/L (98-107); Globulin 3.6 g/dL (1.3-4.6); Glomerular Filtration Rate 111.8 mL/min (90-130); Glucose 86 mg/dL (65-115); Magnesium 1.6 mg/dL (1.7-2.3); Osmolality Calculated 269 mOsm/kg (285-295); Phosphorus 3.2 mg/dL (2.5-4.5); Potassium 4.5 mmol/L (3.5-5.1); Sodium 130 mmol/L (136-145); Total Bilirubin 0.5 mg/dL (0.15-1.2); Total Protein 6.6 g/dL (6.6-8.7)
[2023-04-28] MEDS: ipratropium-albuterol 3 mL Neb INHALATION (07:53)
[2023-04-28] MEDS: budesonide 0.5 mg/2 mL Neb INHALATION ×2 (07:53→19:56)
[2023-04-28] MEDS: cefTRIAXone 1,000 MG in sodium chloride 0.9% (plus) 50 ML 100 MG IV (08:34)
[2023-04-28] MEDS: dexamethasone 10 mg/mL INJ 6 MG IVP (08:35)
[2023-04-28] MEDS: pantoprazole 40 mg SDV IVP ×2 (08:36→17:25)
[2023-04-28] MEDS: lisinopril 10 mg Tablet PO (08:36)
[2023-04-28] MEDS: sennosides-docusate Tablet 1 TAB PO (08:36)
--- NOTE | 2023-04-28 09:17 | PC.NURSE ---
Shanika Mckeon called and update given. Still no bed available at this time.
--- NOTE | 2023-04-28 10:18 | PC.NURSE ---
Notified Kennedy last night and this am to fix the barcode on Acetaminophen-Codein 120 - 12mg/5mL solutions. 5ML syringe. Kennedy stated the medication has to be overridden. Verified with Ana Rosa Méndez RN as second double needle stitcher.
--- NOTE | 2023-04-28 14:37 | PM.PN ---
Subjective Subjective: Patient was seen this morning, he continues to have episodes of shortness of breath throughout the night he tells me, refuses BiPAP, has scant hemoptysis which is persistent, but his cough is under control, awaiting a bed at [facility], initially he is reluctant about going to [facility] he tells me as he is worried about transportation back home from [facility] and he tells a cost him over $100, but I discussed with him that he continues to have scant hemoptysis I think he is going to need to have a bronchoscopic evaluation, number still evaluating him for tuberculosis he denies any recent exposure to TB no known TB risk factors and he tells me he is tested negative, I advised them still waiting on those records from [facility], I had personally called [facility] on Saturday to request the records, however have not received the records as of yet, once his TB status is confirmed to be negative I can take him off TB precautions, we will continue to monitor him closely here at [facility], and I advised him that if he is accepted to [facility] he should transfer, as we do not have the specialist over the weekend to take care of him, however if he is here till Saturday we can consider speaking to the education analyst to see if he is willing to do bronchoscopic evaluation on him versus conservative intervention with their consultation, he agreed Vitals/I&O/Wt Last Vital Signs Temp 97.6 F 04/28/23 12:00 Pulse 81 04/28/23 12:00 Resp 16 04/28/23 12:00 BP 117/76 04/28/23 12:00 Pulse Ox 97 04/28/23 12:00 O2 Del Method Nasal Cannula 04/28/23 12:00 O2 Flow Rate 3 04/28/23 07:55 FiO2 35 04/26/23 07:58 04/27/23 04/28/23 04/28/23 22:59 06:59 14:59 Intake Total 540 / 2500 240 / 2740 650 / 650 Output Total 400 / 1400 300 / 300 Balance 540 / 1500 -160 / 1340 350 / 350 Weight last 48 hrs Weight 43.743 kg Weight 43.743 kg Physical Exam Const: COMMON NORMALS: no acute distress and patient oriented x3 Resp: COMMON NORMALS: normal respiratory effort, No retractions, No use of accessory muscles and clear to auscultation bilaterally AUSCULTATION: clear to auscultation bilaterally Cardio: COMMON NORMALS: regular rate, regular rhythm, S1 normal heart sound present and S2 normal heart sound present RATE: regular rate RHYTHM: regular rhythm HEART SOUNDS: S1 normal heart sound present and S2 normal heart sound present GI: COMMON NORMALS: Normal to inspection, nondistended, normoactive bowel sounds present and non-tender Extremity: COMMON NORMALS: no pedal edema Neuro: COMMON NORMALS: patient oriented x3 Psych: COMMON NORMALS: mental status grossly normal Data 04/28/23 05:38 04/28/23 05:38 Micro: Microbiology 04/26/23 11:10 Gram Stain - Final Sputum - Expectorated Sputum Sputum Culture - Preliminary Gram Negative Rods A&P Assessment and plan (1) Cavitary lesion of lung: (2) End stage COPD: (3) Cough with hemoptysis: (4) COPD (chronic obstructive pulmonary disease): Qualifiers: COPD type: unspecified COPD Qualified Code(s): J44.9 - Chronic obstructive pulmonary disease, unspecified (5) Acute exacerbation of chronic obstructive airways disease: (6) Hemoptysis: (7) Severe protein-calorie malnutrition: (8) Physical deconditioning: (9) Muscle wasting: (10) Pneumonia: Plan Hemoptysis, acute on chronic ? Accepted at [facility], awaiting bed -Hold off on blood thinners, antiplatelet agents, ? No DVT prophylaxis given persistent hemoptysis, CT angiogram of the chest negative for PE History of left tension pneumothorax, history of ruptured bullae ? Status post chest tube placement ? Status post removal, consideration of VATS transferred to [facility], IMPRESSION: 1. No pulmonary embolism. 2. Severe chronic emphysema. 3. Chronic volume loss with conglomerate atelectasis in the RIGHT upper lobe. Similar in appearance to the prior study. Superimposed pneumonia or neoplasm would be difficult to exclude due to the chronic soft tissue. Cavitation versus bulla in the RIGHT upper lobe. Similar to 05/16/2022. 4. Cholelithiasis without acute cholecystitis. 5. No liver lesion identified by CT as previously described on 05/16/2022. Liver does appear cirrhotic. Pneumonia, as below Acute on chronic respiratory failure, history of severe bullous emphysema, pneumonia ? COPD 3 L at baseline, ? Hypercarbic respiratory failure, refuses BiPAP -Sputum cultures growing gram-negative rods ? Continue Rocephin and azithromycin ? Continue DuoNeb, budesonide, ? Continue Decadron Right upper lobe cavitary lesion ? Concerns for malignancy, ? Had a TB evaluation at [facility] in [place], QuantiFERON, sputum cultures, noted on last hospitalization in 2021 notes that those test results were negative, next?have requested copies of those records, ? For now keep on TB precautions, sputum cultures, QuantiFERON gold history of hepatitis C -s/p treatment History of alcohol dependence Severe protein calorie malnutrition, BMI is 16, consult dietary Severe muscle wasting, next Physical deconditioning Plan for today awaiting bed at [facility] continue IV antibiotics, continue clinical monitoring, cough suppression Attestations Medical Necessity Statement*: Patient requires hospitalization for right upper lobe cavitary lesion, respiratory failure pneumonia, scant hemoptysis Diagnoses Cavitary lesion of lung J98.4 End stage COPD J44.9 Cough with hemoptysis R04.2 COPD (chronic obstructive pulmonary disease) J44.9 COPD type: unspecified COPD Acute exacerbation of chronic obstructive airways disease J44.1 Hemoptysis R04.2 Severe protein-calorie malnutrition E43 Physical deconditioning R53.81 Muscle wasting M62.50 Pneumonia J18.9
[2023-04-28] MEDS: azithromycin 500 MG in sodium chloride 0.9% 250 ML 250 MG IV (15:35)
[2023-04-29] VITALS (10 sets, daily range): BP systolic 92–121; BP diastolic 61–76; PULSE 55–106; RESP 15–26; TEMP 36.3–36.9; O2SAT 81–100; BMI 16.2
[2023-04-29 06:18] LABS: Basophils % 0.2 %; Eosinophils % 0.5 %; Hematocrit 39.3 % (37-53); Lymphocytes # 1.4 10^3/uL (0.8-4.8); Lymphocytes % 25.5 %; Mean Corpuscular HGB Conc 31.6 g/dL (30-55); Mean Corpuscular Hemoglobin 28.4 pg (27-33); Mean Corpuscular Volume 89.9 fl (82-101); Mean Platelet Volume 8.9 fL (7.4-10.4); Monocytes # 0.6 10^3/uL (0.2-0.9); Monocytes % 9.9 %; Neutrophils # 3.53 10^3/uL (1.8-7.7); Neutrophils % 63.5 %; Nucleated Red Blood Cells % 0 %; Platelet Count 172 10^3/cmm (157-399); Red Blood Count 4.37 10^6/uL (3.85-5.65); Red Cell Distribution Width 13.3 % (12.1-15.1); White Blood Count 5.56 10^3/uL (3.29-11.43)
[2023-04-29 06:36] LABS: Alanine Aminotransferase 8 U/L (0-41); Albumin Level 3.1 g/dL (3.5-5.2); Alkaline Phosphatase 97 U/L (40-130); Anion Gap 8.4 (5-19); Aspartate Amino Transferase 17 U/L (0-40); Blood Urea Nitrogen 9 mg/dL (8-23); Carbon Dioxide 39 mmol/L (22-29); Chloride 90 mmol/L (98-107); Globulin 3.9 g/dL (1.3-4.6); Glomerular Filtration Rate 111.8 mL/min (90-130); Glucose 107 mg/dL (65-115); Magnesium 1.8 mg/dL (1.7-2.3); Osmolality Calculated 275 mOsm/kg (285-295); Phosphorus 2.6 mg/dL (2.5-4.5); Potassium 4.4 mmol/L (3.5-5.1); Sodium 133 mmol/L (136-145); Total Bilirubin 0.4 mg/dL (0.15-1.2)
[2023-04-29] MEDS: budesonide 0.5 mg/2 mL Neb INHALATION ×2 (09:36→20:01)
[2023-04-29] MEDS: pantoprazole 40 mg SDV IVP ×2 (10:12→18:22)
[2023-04-29] MEDS: sennosides-docusate Tablet 1 TAB PO (10:12)
[2023-04-29] MEDS: lisinopril 10 mg Tablet PO (10:12)
[2023-04-29] MEDS: dexamethasone 10 mg/mL INJ 6 MG IVP (10:12)
[2023-04-29] MEDS: cefTRIAXone 1,000 MG in sodium chloride 0.9% (plus) 50 ML 100 MG IV (10:12)
[2023-04-29] MEDS: benzonatate 100 mg Capsule 200 MG PO ×2 (10:12→15:27)
[2023-04-29] MEDS: guaiFENesin 600 mg Tablet PO (12:38)
[2023-04-29] MEDS: azithromycin 500 MG in sodium chloride 0.9% 250 ML 250 MG IV (15:27)
--- NOTE | 2023-04-29 15:56 | PC.SOCIAL ---
IMM updated, signed and copy given to patient and placed in chart.
--- NOTE | 2023-04-29 16:32 | P.PN_ITS ---
Subjective 2 Subjective: At the time that the patient was seen, he was on 5L oxymask. He stated that he no longer was having hemoptysis, but he had a 160z cup next to him feels a third of the way with brown and rust colored sputum. He denied any fever, chills, dizziness, lightheadedness, CP, palpitations, SOB. He told me that we, the hospital staff, need to go ahead and do what we need to do by , 05/01/2023, because on 05/01, he will go home, because he needs to go to the bank, and get money that he will need to not only pay bills but to feed his dogs. I consulted ID, who mentioned a possible bronchoscopy. Vitals/I&O/Wt Last Vital Signs Temp 97.4 F L 04/29/23 12:00 Pulse 100 04/29/23 12:00 Resp 18 04/29/23 12:00 BP 108/64 04/29/23 12:00 Pulse Ox 96 04/29/23 12:00 O2 Del Method Oxymask 04/29/23 12:00 O2 Flow Rate 1 04/29/23 09:36 FiO2 35 04/26/23 07:58 04/29/23 04/29/23 04/29/23 06:59 14:59 22:59 Intake Total 650 / 650 Output Total 450 / 1375 550 / 550 Balance -450 / -115 100 / 100 Weight last 48 hrs Weight 43.001 kg Weight 43.743 kg Physical Exam 2 Const: GENERAL APPEARANCE: cooperative and comfortable NUTRITIONAL APPEARANCE: thin ORIENTATION/CONSCIOUSNESS: Yes awake, Yes oriented to person, Yes oriented to place and Yes oriented to time HENMT: COMMON NORMALS: normocephalic, atraumatic, external ears normal and Normal external nose present HEAD & SCALP: normocephalic and atraumatic N OSE: Normal external nose present EXTERNAL EAR: Yes external ears normal M OUTH: Normal oral and palatal mucosa present THROAT: posterior oropharynx normal Eye: COMMON NORMALS: Equal, round and reactive pupils present and conjunctivae normal CONJUNCTIVA: Yes conjunctivae normal PUPIL: Yes Equal, round and reactive pupils present EOM: No EOM abnormal Neck/C-Spine: COMMON NORMALS: Thyroid normal GENERAL: Yes normal visual inspection and Yes trachea midline THYROID: Thyroid normal CAROTIDS: Yes other (difficult ) Lymph: LYMPHATIC: No lymphadenopathy Resp: OTHER: Severely diminished breath sounds bilaterally in all lung argueta, no expiratory wheezes. Cardio: COMMON NORMALS: regular rate, regular rhythm, S1 normal heart sound present and S2 normal heart sound present RATE: regular rate RHYTHM: r egular rhythm HEART SOUNDS: S1 normal heart sound present, S2 normal heart sound present, no click, no gallops, no murmurs and no rubs PERIPHERAL PULSES: radial pulses present and dorsalis pedis present GI: OTHER: Bowel sounds positive, nontender, nondistended, no rigidity, no guarding, no hepatosplenomegaly. Extremity: GENERAL: No clubbing, No cyanosis and No edema Neuro: SENSORIUM/ORIENTATION: Yes oriented to person, Yes oriented to place and Yes oriented to time CRANIAL NERVES: Yes CN normal except as noted S PEECH: speech normal SENSORY EXAM: No sensory level loss detected MOTOR EXAM: 5/5 motor strength present throughout and Normal motor muscle tone present throughout Psych: COMMON NORMALS: speech normal; negative for Normal thought process present APPEARANCE: Yes unkempt and Yes disheveled ATTITUDE: Yes Other attitude/behavior findings present (Psych) (Mildly hostile) ACTIVITY/MOTOR BEHAVIOR: Yes appropriate eye contact S PEECH: Yes normal speech MOOD & AFFECT: Yes irritable THOUGHT PROCESS: a bnormal THOUGHT CONTENT: No Normal thought content present A TTENTION/CONCENTRATION: Yes attention grossly intact Skin: COMMON NORMALS: no rashes or lesions noted GENERAL SKIN EXAM: no rashes or lesions noted Data 04/30/23 05:48 04/30/23 05:48 Micro: Microbiology 04/26/23 11:10 Gram Stain - Final Sputum - Expectorated Sputum Sputum Culture - Preliminary Gram Negative Rods A&P Assessment and plan (1) Acute exacerbation of chronic obstructive airways disease: (2) Cavitary lesion of lung: (3) End stage COPD: (4) Cough with hemoptysis: (5) Pneumonia: Qualifiers: Pneumonia type: due to other aerobic Gram-negative bacteria Laterality: right Lung location: upper lobe of lung Qualified Code(s): J15.69 - Pneumonia due to other Gram-negative bacteria (6) Severe protein-calorie malnutrition: (7) Muscle wasting: Qualifiers: Muscle atrophy area: multiple sites Qualified Code(s): M62.59 - Muscle wasting and atrophy, not elsewhere classified, multiple sites Plan Mr. Olsen is a 67yo man w/ severe COPD (bullous emphysema), chronic hypoxic respiratory failure on 3L NC, hx of L. tension Pneumothorax in 04/2022, HTN, tobacco use d/o a hx of a pneumothorax who presented to the ED on 04/26/2023 with complaints of gross hemoptysis. Per chart review, the patient was seen here in [facility]'s ED on 03/17/2022 for complaints of hemoptysis and increased dyspnea. He was transferred to [facility] for gross hemoptysis and was found to have a 2.7x3.7x3cm RUL cavitary lesion. AFB smears and Quantiferon gold were collected, but the patient left 4 days later, AMA before results were available. He presented on 05/14/2022 w/ a L. sided PTX and was transferred to [facility] for VATS surgery, but the surgery was not done, and the reasons are unclear. When he presented on 04/26/2023, per Radiologist's report, his CT chest showed that the patient's RUL was concerning for Cavitation vs Bullae. Furthermore, the RUL was similar in appearance to the previous CT done in 04/2022; however, a superimposed pneumonia or neoplasm would be difficult to exclude due to the chronic soft t.issue #Acute on chronic hypoxic hypercapneic respiratory failure: On 3L at baseline. #RUL Cavitary Lesion #Hemoptysis #RUL Gram negative pneumonia - I Consulted & spoke w/ ID. She will see him later, but first the health department was contacted and per them, the patient does not have MTB. - I spoke w/ Pulm/Crit care, Dr. Oneal who saw this patient when he had the left-sided PTX and 04/2022. Per the Pulm/Crit director of healthcare systems, the RUL cavitary lesion did not appear to have increased in size since it was noted a year ago. Given his bullous emphysema, a bronchoscopy may have more risks than benefit. - Sputum cx growing GNR. F/u Sensitivity and Speciation. On Ceftriaxone & Azithromycin. - Quantiferon gold is negative. MTB PCR ordered. #Acute exacerbation of Severe Bullous emphysema (COPD) - D/c'ed Decadron and started Solumedrol. Continue Duonebs, Rocephin and Azithromycin. #Hx of L. tension Pneumothorax in 04/2022 #Severe Protein-calorie malnutrition: Consult oncology transplant network manager for recommendations for a supplement. #Muscle wasting #Physical deconditioning DVT ppx: SCD Attestations 2 Medical Necessity Statement*: The patient needs to remain hospitalized due to the ongoing workup for his RUL cavitary lesion. Coding Level of Care Code 42883 Diagnoses Acute exacerbation of chronic obstructive airways disease J44.1 Cavitary lesion of lung J98.4 End stage COPD J44.9 Cough with hemoptysis R04.2 Pneumonia of right upper lobe due to other aerobic Gram-negative bacteria J15.69 Pneumonia type: due to other aerobic Gram-negative bacteria Laterality: right Lung location: upper lobe of lung Severe protein-calorie malnutrition E43 Atrophy of muscle of multiple sites M62.59 Muscle atrophy area: multiple sites Time Spent (min) 61 Comment time spent on chart review/patient interview/exam, lab review and plan formulation.
[2023-04-29] MEDS: cefepime 1,000 MG in sodium chloride 0.9% (plus) 50 ML 100 MG IV (18:22)
[2023-04-30] VITALS (8 sets, daily range): BP systolic 96–124; BP diastolic 55–79; PULSE 74–112; RESP 16–20; TEMP 36.3–36.7; O2SAT 96–100
[2023-04-30] MEDS: cefepime 1,000 MG in sodium chloride 0.9% (plus) 50 ML 100 MG IV ×3 (01:54→17:06)
[2023-04-30 06:18] LABS: Eosinophils % 0.3 %; Hematocrit 37.1 % (37-53); Lymphocytes # 0.8 10^3/uL (0.8-4.8); Lymphocytes % 20.5 %; Mean Corpuscular HGB Conc 31.3 g/dL (30-55); Mean Corpuscular Hemoglobin 28.7 pg (27-33); Mean Corpuscular Volume 91.8 fl (82-101); Mean Platelet Volume 8.9 fL (7.4-10.4); Monocytes # 0.3 10^3/uL (0.2-0.9); Monocytes % 7.8 %; Neutrophils # 2.64 10^3/uL (1.8-7.7); Neutrophils % 71.1 %; Nucleated Red Blood Cells % 0 %; Platelet Count 125 10^3/cmm (157-399); Red Blood Count 4.04 10^6/uL (3.85-5.65); Red Cell Distribution Width 13.2 % (12.1-15.1); White Blood Count 3.71 10^3/uL (3.29-11.43)
[2023-04-30 06:34] LABS: Alanine Aminotransferase 8 U/L (0-41); Albumin Level 3.1 g/dL (3.5-5.2); Alkaline Phosphatase 90 U/L (40-130); Anion Gap 7.4 (5-19); Aspartate Amino Transferase 19 U/L (0-40); Blood Urea Nitrogen 10 mg/dL (8-23); Calcium 9.4 mg/dL (8.5-10.5); Chloride 89 mmol/L (98-107); Globulin 3.6 g/dL (1.3-4.6); Glomerular Filtration Rate 133.6 mL/min (90-130); Glucose 106 mg/dL (65-115); Magnesium 1.8 mg/dL (1.7-2.3); Osmolality Calculated 277 mOsm/kg (285-295); Phosphorus 2.7 mg/dL (2.5-4.5); Potassium 4.4 mmol/L (3.5-5.1); Sodium 134 mmol/L (136-145); Total Bilirubin 0.3 mg/dL (0.15-1.2); Total Protein 6.7 g/dL (6.6-8.7)
[2023-04-30 06:52] LABS: Carbon Dioxide 42 mmol/L (22-29)
[2023-04-30] MEDS: sennosides-docusate Tablet 1 TAB PO (08:18)
[2023-04-30] MEDS: guaiFENesin 600 mg Tablet PO ×2 (08:18→21:09)
[2023-04-30] MEDS: benzonatate 100 mg Capsule 200 MG PO ×3 (08:18→21:09)
[2023-04-30] MEDS: methylPREDNISolone sod succ 40 mg/mL INJ IVP (08:18)
[2023-04-30] MEDS: pantoprazole 40 mg SDV IVP ×2 (08:18→17:06)
[2023-04-30] MEDS: budesonide 0.5 mg/2 mL Neb INHALATION ×2 (08:43→19:36)
[2023-04-30] MEDS: albuterol 2.5 mg/3 mL Neb INHALATION ×2 (08:43→19:36)
[2023-04-30] MEDS: azithromycin 500 MG in sodium chloride 0.9% 250 ML 250 MG IV (15:21)
[2023-04-30 16:25] LABS: Quantiferon Mitogen 8.79 IU/mL; Quantiferon Nil 0.02 IU/mL; Quantiferon TB Gold NEGATIVE (NEGATIVE)
--- NOTE | 2023-04-30 18:00 | P.CONIM_ITS ---
Providers/Reason For Consult 2 Consulting Physician/Specialty*: Catherine Fleming MD/ Infectious disease Reason for Consult*: Right upper lobe cavitary lesion Requesting Physician: Debbie Vargas MD Attending Physician: Debbie Vargas MD Primary Care Provider: HAZEL Abdalla-C History of Present Illness History of Present Illness Narciso Olsen is a 67 year old male with a past medical history of COPD on 4 L/min supplemental O2 Carlos, chronic respiratory failure with hypoxia, tobacco use disorder who has had hemoptysis on and off for the course of the past year. Infectious disease is consulted today for right upper lobe cavitary lesion. Per review of past records and patient history he has had an upper lobe cavitary lesion at least for the past 2 to 3 years. He was admitted here in April 2022 for pneumothorax and at that time was incidentally also noted to have a cavitary lesion 2.7 x 3.7 x 3 cm. It appears he was transferred to [facility] due to ongoing hemoptysis and subcutaneous emphysema and while there he was evaluated for pulmonary tuberculosis. Per review of records his past AFB smears and QuantiFERON testing were both negative. He has not had a bronchoscopic evaluation or biopsy from the site cavitary lesion. He is currently admitted to the hospital since April 26, 2023 after presenting with small-volume hemoptysis. CTA of the lung was performed which showed chronic volume loss with conglomerate atelectasis in the right upper lobe similar to previous study in April 2022. There was also noted to be a cavitation versus bulla in the right upper lobe which was overall unchanged in appearance. It appears he has been referred to see CT surgery in the past for diagnostic bronchoscopy biopsy and possible VATS however he has not been able to follow-up. He has left AMA from [facility] on previous occasions. Patient is chronically ill-appearing. He is cachectic and malnourished. His BMI is at 16. He is a mouth breather. Review of past sputum cultures, most recently obtained urine February 2022 had Pseudomonas and Klebsiella oxytoca. Sputum cultures from 04/26/2023 are showing gram-negative rods pending further identification. Review of Systems 2 General: Reports: 10 or more systems reviewed and unremarkable except in HPI and below Const: Denies: fever(s), chills or body aches Eyes: Denies: change in vision, blurry vision or photophobia ENMT: Reports: hoarseness; Denies: throat pain, enlarged tonsils, odynophagia or nasal congestion Card: Denies: chest pain, palpitations, irregular heart rhythm, edema, swelling of feet/ankles, lightheadedness, pre-syncope, dyspnea on exertion or orthopnea Resp: Denies: dyspnea, productive cough, non-productive cough, wheezing, stridor, pain on inspiration, change in phlegm color, hemoptysis or chest congestion GI: Denies: abdominal pain, nausea, vomiting, hematemesis, coffee ground emesis, dysphagia, heartburn, diarrhea, constipation, GI cramping, change in stool character, hematochezia or melena : Denies: flank pain, dysuria, urinary frequency, urinary urgency, urinary hesitancy or hematuria Musc: Denies: neck pain, back pain, extremity pain, joint swelling, joint warmth or deformity Neuro: Denies: headache(s), numbness in extremities, weakness in extremities, sensory changes, difficulty walking, frequent falls, dizziness, vertigo, behavioral changes, Slurred speech present or seizure-like activity Psych: Denies: anxiety, depression, suicidal ideation or homicidal ideation Endo: Denies: polyuria, polydipsia, tired all the time, cold intolerance or hot flashes Romaine/Lymph: Denies: easy bruising or easy bleeding Medications/Allergies Home Medications Medication Instructions Recorded Confirmed Last Taken Type cholecalciferol (vitamin D3) 50 50 mcg PO DAILY 04/19/20 04/26/23 04/24/23 History mcg (2,000 unit) capsule fluticasone 250 mcg-salmeterol 50 1 inh inhalation Q12H 04/26/23 04/26/23 04/24/23 History mcg/dose blistr powdr for inhalation (Advair Diskus) lisinopril 40 mg tablet 10 mg PO DAILY 04/26/23 04/26/23 04/24/23 History magnesium oxide 400 mg PO DAILY 04/26/23 04/26/23 04/24/23 History tiotropium bromide 2.5 2 puff inhalation QAM 04/26/23 04/26/23 04/24/23 History mcg/actuation mist for inhalation (Spiriva Respimat) Allergies Allergy/AdvReac Type Severity Reaction Status Date / Time No Known Allergies Allergy Verified 04/19/20 10:54 Current Medications Generic Name Dose Route Start Last Admin Trade Name Shelton PRN Reason Stop Dose Admin Acetaminophen 500 mg 04/26/23 06:35 04/27/23 09:28 Acetaminophen 500 Mg Tablet PO 500 mg Q4H PRN Administration fever Acetaminophen/Codeine Phosphate 5 ml 04/27/23 17:46 04/30/23 15:33 Acetamin-Codeine 120-12 Mg/5ml 473 Ml (5 Ml Syringe) PO 5 ml Q4H PRN Administration MODERATE PAIN Albuterol Sulfate 2.5 mg 04/28/23 07:50 04/30/23 08:43 Albuterol 2.5 Mg/3 Ml Neb INHALATION 2.5 mg Q4H.RESPIRATORY PRN Administration SHORTNESS OF BREATH Benzonatate 200 mg 04/26/23 09:39 04/30/23 15:33 Benzonatate 100 Mg Capsule PO 200 mg TID PRN Administration COUGH Budesonide 0.5 mg 04/27/23 20:00 04/30/23 08:43 Budesonide 0.5 Mg/2 Ml Neb INHALATION 0.5 mg BID.RESPIRATORY SHELLY Administration Guaifenesin 600 mg 04/29/23 12:23 04/30/23 08:18 Guaifenesin 600 Mg Tablet PO 600 mg BID PRN Administration CONGESTION Azithromycin 500 mg/ Sodium 250 mls @ 250 mls/hr 04/27/23 10:30 04/30/23 17:13 Chloride IV Infused Q24H SHELLY Infusion Protocol Cefepime HCl 1,000 mg/ Sodium 50 mls @ 100 mls/hr 04/29/23 18:00 04/30/23 17:06 Chloride IV 100 mls/hr Q8H SHELLY Administration Protocol Lisinopril 10 mg 04/26/23 09:00 04/29/23 10:12 Lisinopril 10 Mg Tablet PO 10 mg DAILY SHELLY Administration Methylprednisolone Sodium Succinate 40 mg 04/30/23 09:00 04/30/23 08:18 Methylprednisolone Sod Succ 40 Mg/Ml Inj IVP 40 mg DAILY SHELLY Administration Pantoprazole Sodium 40 mg 04/26/23 09:00 04/30/23 17:06 Pantoprazole 40 Mg Sdv IVP 40 mg BID SHELLY Administration Senna/Docusate Sodium 1 tab 04/26/23 09:00 04/30/23 08:18 Sennosides-Docusate Tablet PO 1 tab DAILY SHELLY Administration Additional Medication Information cefepime 1g iv q8h (04/27-current) Azithromycin 04/27-current PFSH Acute 2 PFSH: Medical History Hemoptysis Cavitary lesion of lung 03/17/22: RUL cavitary lesion 2.7 x 3.7 x 3 cm. 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 Surgical History No pertinent past surgical history no surgical history Family History Other Adopted Social History Smoking and tobacco/nicotine status: former use of tobacco/nicotine Quit status (tobacco/nicotine): has quit using Year quit tobacco: 2021 Alcohol intake: current Alcohol intake frequency: 3 or more drinks per day Alcohol type: beer Vitals/I&O/Wt Last Vital Signs Temp 98.0 F 04/30/23 12:00 Pulse 112 H 04/30/23 12:00 Resp 20 H 04/30/23 12:00 BP 114/72 04/30/23 12:00 Pulse Ox 100 04/30/23 12:00 O2 Del Method Oxymask 04/30/23 12:00 O2 Flow Rate 3 04/30/23 08:43 FiO2 35 04/26/23 07:58 04/30/23 04/30/23 04/30/23 06:59 14:59 22:59 Intake Total 50 / 1720 770 / 770 250 / 1020 Output Total 200 / 1600 400 / 400 Balance -150 / 120 370 / 370 250 / 620 Weight last 48 hrs Weight 43.63 kg Weight 43.001 kg Physical Exam 2 Narrative: General: No acute distress, AO x3, chronically ill appearing male HEENT: PERRLA, pupils bilaterally equal and reactive, pallors not present Chest: Normal vesicular breath sounds, no added sounds, equal good air entry bilaterally CVS: S1-S2 regular, no murmurs, no tachycardia, no gallops, no rubs Abdomen: Soft, nontender, no organomegaly, bowel sounds present Neuro: No focal deficits, no facial deformity, AO x3, power 5/5 in all limbs Data 04/30/23 05:48 04/30/23 05:48 Micro: Microbiology 04/26/23 11:10 Gram Stain - Final Sputum - Expectorated Sputum Sputum Culture - Preliminary Gram Negative Rods Other data: Launch?Image [facility] [address] [place] [address] CT Scan Report Signed Patient: Narciso Olsen Unit #: [id number] : 1955 Age/Sex: 67 / M ADM Date: 04/26/23 Loc: [facility] Room/[place]: [facility] [place] [facility] [place] Attending Dr: Eriberto Ashton MD Ordering Provider/Ordering MD: Eriberto Ashton MD Date of Service: 04/26/23 Procedure(s): CT angio chest PE protcl 00228 Accession Number(s): [id number] Report Number: [id number] WS: [id number] CT CHEST ANGIOGRAPHY WITH REFORMATS HISTORY: sob TECHNIQUE: Contiguous axial images are obtained through the chest during arterial injection of intravenous contrast. Images are reconstructed to evaluate the pulmonary arteries. MIP imaging also reviewed. All CT scans at [facility] use at least one of these dose optimization techniques: automated exposure control; mA and/or kV adjustment per patient size (includes targeted exams where dose is matched to clinical indication); or iterative reconstruction. CONTRAST: Omnipaque 350; 100 mL IV. DLP: 279.60 mGy.cm COMPARISON: 05/16/2022 Adequate opacification of the pulmonary arteries. No filling defects or pulmonary emboli identified. Pulmonary arterial system is smaller on the RIGHT. This is probably due to volume loss and the chronic atelectasis. Shift of the mediastinal structures to the RIGHT due to a focal area of soft tissue atelectasis in the RIGHT upper lobe. There is shift of the mediastinal and central structures to the RIGHT. Extensive bilateral bullous disease. There is cystic changes in the RIGHT upper lobe which I believe are probably bulla outlined by chronic conglomerate atelectasis and not cavitation. No mass or pneumonia is identified. There could potentially be an mass or adjacent pneumonia in the RIGHT upper lobe by the conglomerate soft tissue which is chronic. Moderate atherosclerosis aorta. No mediastinal or hilar adenopathy. No pericardial or pleural effusions. Small hiatal hernia. Cholelithiasis. Previously described nodule in the liver is not identified. Cirrhotic appearance of the liver. Overall this study is compromised by breathing motion artifact. Increase in thoracic kyphosis. IMPRESSION: 1. No pulmonary embolism. 2. Severe chronic emphysema. 3. Chronic volume loss with conglomerate atelectasis in the RIGHT upper lobe. Similar in appearance to the prior study. Superimposed pneumonia or neoplasm would be difficult to exclude due to the chronic soft tissue. Cavitation versus bulla in the RIGHT upper lobe. Similar to 05/16/2022. 4. Cholelithiasis without acute cholecystitis. 5. No liver lesion identified by CT as previously described on 05/16/2022. Liver does appear cirrhotic. A&P Assessment and plan (1) Cavitary lesion of [age]-year-old male with advanced COPD and chronic hypoxic respiratory failure presenting with hemoptysis which is low-volume currently. He has a longstanding right upper lobe cavitary lesion measuring approximately 2.7 x 3.7 x 3 cm. Per review of past records he has been evaluated for tuberculosis approximately 1 year ago and reportedly smears were negative at that time. He currently has MTB PCR ordered on this current admission x 3, however it appears only 1 specimen has been sent out from expectorated sputum. QuantiFERON is negative We contacted the health department to establish if patient had ever been treated for pulmonary tuberculosis in the past. [facility] does not have any record of patient having been treated for tuberculosis. Results of this are currently awaited. Differentials for this persistent right upper cavitary lesion are broad, possibilities include pulmonary tuberculosis versus pulmonary MAC versus chronic fungal infection such as histoplasmosis or sequelae of past granulomatous disease. Alternate possibility is that of a large bulla or malignancy. It is not possible to start him on any specific intervention at this time without having a diagnosis. Since his cavitary lesion is overall stable, recommend that patient obtain outpatient pulmonary/CT surgery consultations to obtain tissue diagnosis. He would likely need biopsy , fungal and mycobacterial cultures and PCR to establish a diagnosis. Patient states that he has [facility] and would follow-up with the same. continue cefepime while pending respiratory cx D/c azithromycin Coding Level of Care Code Acute Code for Chg Fwd Moderate MDM includes number and complexity of problems actively addressed during encounter, amount and/or complexity of data reviewed/ordered and described risk of complication, morbidity or mortality of management as documented Diagnoses Cavitary lesion of lung J98.4
--- NOTE | 2023-04-30 21:33 | PM.PN ---
Subjective Subjective: He is on 4L [place] when seen. He has no complaints, but he still has brown looking sputum in a cup. He denies dyspnea, CP, palpitations, fever, chills, dizziness, lightheadedness, abdominal pain, nausea, vomiting. Vitals/I&O/Wt Last Vital Signs Temp 97.7 F 04/30/23 20:00 Pulse 97 04/30/23 20:00 Resp 16 04/30/23 20:00 BP 124/74 04/30/23 20:00 Pulse Ox 100 04/30/23 20:00 O2 Del Method Oxymask 04/30/23 20:00 O2 Flow Rate 4 04/30/23 20:00 FiO2 35 04/26/23 07:58 04/30/23 04/30/23 04/30/23 06:59 14:59 22:59 Intake Total 50 / 1720 770 / 770 420 / 1190 Output Total 200 / 1600 400 / 400 400 / 800 Balance -150 / 120 370 / 370 20 / 390 Weight last 48 hrs Weight 43.63 kg Weight 43.001 kg Physical Exam Const: GENERAL APPEARANCE: cooperative (partially) and comfortable; not in distress NUTRITIONAL APPEARANCE: cachectic ORIENTATION/CONSCIOUSNESS: Yes awake, Yes oriented to person, Yes oriented to place and Yes oriented to time HENMT: COMMON NORMALS: normocephalic, atraumatic and external ears normal HEAD & SCALP: normocephalic and atraumatic EXTERNAL EAR: Yes external ears normal MOUTH: Normal oral and palatal mucosa present THROAT: posterior oropharynx normal Eye: COMMON NORMALS: Equal, round and reactive pupils present and conjunctivae normal CONJUNCTIVA: Yes conjunctivae normal PUPIL: Yes Equal, round and reactive pupils present EOM: No EOM abnormal Neck/C-Spine: COMMON NORMALS: Thyroid normal GENERAL: Yes normal visual inspection and Yes trachea midline THYROID: Thyroid normal Lymph: LYMPHATIC: No lymphadenopathy Resp: OTHER: Severely diminished to absent breath sounds bilaterally in all lung argueta and diffuse expiratory wheezes bilaterally Cardio: COMMON NORMALS: regular rate, regular rhythm, S1 normal heart sound present and S2 normal heart sound present RATE: regular rate RHYTHM: regular rhythm HEART SOUNDS: S1 normal heart sound present, S2 normal heart sound present, no click, no gallops, no murmurs and no rubs PERIPHERAL PULSES: radial pulses present and popliteal pulses present GI: OTHER: Bowel sounds positive, nontender, nondistended, no rigidity, no guarding, no hepatosplenomegaly. Extremity: NARRATIVE EXTREMITY EXAM: No clubbing, No cyanosis and No edema Neuro: SENSORIUM/ORIENTATION: Yes oriented to person, Yes oriented to place and Yes oriented to time CRANIAL NERVES: Yes CN normal except as noted SPEECH: speech normal SENSORY EXAM: No sensory level loss detected MOTOR EXAM: 5/5 motor strength present throughout and Normal motor muscle tone present throughout Psych: COMMON NORMALS: speech normal; negative for Normal thought process present (he plans to leave [place] on 05/02/2023) APPEARANCE: Yes unkempt and Yes disheveled ATTITUDE: Yes calm and Yes engaged ACTIVITY/MOTOR BEHAVIOR: Yes appropriate eye contact SPEECH: Yes normal speech MOOD & AFFECT: Yes euthymic mood THOUGHT PROCESS: abnormal (he plans to leave [place] on 05/02/2023) THOUGHT CONTENT: No Normal thought content present ATTENTION/CONCENTRATION: Yes attention grossly intact Skin: COMMON NORMALS: no rashes or lesions noted GENERAL SKIN EXAM: no rashes or lesions noted Data 04/30/23 05:48 04/30/23 05:48 Micro: Microbiology 04/26/23 11:10 Gram Stain - Final Sputum - Expectorated Sputum Sputum Culture - Preliminary Gram Negative Rods A&P Assessment and plan (1) Severe protein-calorie malnutrition: (2) Muscle wasting: Qualifiers: Muscle atrophy area: multiple sites Qualified Code(s): M62.59 - Muscle wasting and atrophy, not elsewhere classified, multiple sites (3) Hemoptysis: (4) Acute exacerbation of chronic obstructive airways disease: (5) Cavitary lesion of lung: (6) End stage COPD: (7) Pneumonia: Qualifiers: Pneumonia type: due to other aerobic Gram-negative bacteria Laterality: right Lung location: upper lobe of lung Qualified Code(s): J15.69 - Pneumonia due to other Gram-negative bacteria (8) Physical deconditioning: Plan Mr. Olsen is a 67yo man w/ severe COPD (bullous emphysema), chronic hypoxic respiratory failure on 3L NC, hx of L. tension Pneumothorax in 04/2022, HTN, tobacco use d/o a hx of a pneumothorax who presented to the ED on 04/26/2023 with complaints of gross hemoptysis. Per chart review, the patient was seen here in [facility]'s ED on 03/17/2022 for complaints of hemoptysis and increased dyspnea. He was transferred to [facility] for gross hemoptysis and was found to have a 2.7x3.7x3cm RUL cavitary lesion. AFB smears and Quantiferon gold were collected, but the patient left 4 days later, AMA before results were available. He presented on 05/14/2022 w/ a L. sided PTX and was transferred to [facility] for VATS surgery, but the surgery was not done, and the reasons are unclear. When he presented on 04/26/2023, per Radiologist's report, his CT chest showed that the patient's RUL was concerning for Cavitation vs Bullae. Furthermore, the RUL was similar in appearance to the previous CT done in 04/2022; however, a superimposed pneumonia or neoplasm would be difficult to exclude due to the chronic soft tissue. #Acute on chronic hypoxic /hypercapneic respiratory failure: Noted on ABG. On 3L at baseline. #RUL Cavitary Lesion #Hemoptysis #RUL Gram negative pneumonia - I Consulted & spoke w/ ID. She will see him later, but first the health department was contacted and per them, the patient does not have MTB. - I spoke w/ Pulm/Crit care, Dr. Oneal who saw this patient when he had the left-sided PTX and 04/2022. Per the Pulm/Crit animal caregiver, the RUL cavitary lesion did not appear to have increased in size since it was noted a year ago. Given his bullous emphysema, a bronchoscopy may have more risks than benefit. I spoke with ID again on 04/30, where she mentioned the broad differential for the patient's RUL lesion including MTB, pulmonary MAC, chronic fungal infection, or malignancy. She suggested that the patient would need a biopsy or a resection of the RUL; thus, the patient would require pulmonology versus CT surgery consultation, both of which could be done as outpatient given that the patient is stable at this time. - Sputum cx growing GNR. F/u Sensitivity and Speciation. Given concern for Pseudomonas, his ceftriaxone was discontinued, and he was started on cefepime on 04/30/2023. Azithromycin was also discontinued given that his sputum culture was growing GNR. - Quantiferon gold is negative. MTB PCR ordered - only one sample ordered. #Acute exacerbation of Severe Bullous emphysema (COPD) - D/c'ed Decadron and started Solumedrol. Continue Duonebs, Rocephin and Azithromycin. #Hx of L. tension Pneumothorax in 04/2022 #Severe Protein-calorie malnutrition: Consult business analytics analyst for recommendations for a supplement. #Muscle wastinge #Physical deconditioning DVT ppx: SCD Attestations Medical Necessity Statement*: The patient needs to remain hospitalized due to the ongoing workup for his RUL cavitary lesion. Coding Level of Care Code 36359 Diagnoses Severe protein-calorie malnutrition E43 Atrophy of muscle of multiple sites M62.59 Muscle atrophy area: multiple sites Hemoptysis R04.2 Acute exacerbation of chronic obstructive airways disease J44.1 Cavitary lesion of lung J98.4 End stage COPD J44.9 Pneumonia of right upper lobe due to other aerobic Gram-negative bacteria J15.69 Pneumonia type: due to other aerobic Gram-negative bacteria Laterality: right Lung location: upper lobe of lung Physical deconditioning R53.81
[2023-05-01] VITALS (8 sets, daily range): BP systolic 92–116; BP diastolic 60–76; PULSE 78–107; RESP 15–22; TEMP 36.4–37.1; O2SAT 94–100; BMI 16.2
[2023-05-01] MEDS: temazepam 15 mg Capsule PO ×2 (00:19→21:30)
[2023-05-01] MEDS: methylPREDNISolone sod succ 40 mg/mL INJ IVP ×2 (00:19→10:06)
[2023-05-01] MEDS: cefepime 1,000 MG in sodium chloride 0.9% (plus) 50 ML 100 MG IV ×3 (01:08→17:34)
[2023-05-01] MEDS: FUROsemide 10 mg/mL SDV 4mL 40 MG IVP (06:11)
[2023-05-01] MEDS: albuterol 2.5 mg/3 mL Neb INHALATION ×2 (08:55→21:54)
[2023-05-01] MEDS: budesonide 0.5 mg/2 mL Neb INHALATION ×2 (08:55→21:54)
[2023-05-01] MEDS: pantoprazole 40 mg SDV IVP ×2 (10:06→18:14)
[2023-05-01] MEDS: azithromycin 500 MG in sodium chloride 0.9% 250 ML 250 MG IV (14:45)
--- NOTE | 2023-05-01 16:01 | PC.SOCIAL ---
IMM updated, signed and dated and copy given to patient
--- NOTE | 2023-05-01 18:38 | P.PN_ITS ---
Subjective 2 Subjective: He has been weaned down to 3L. He complains of nasal congestion and his sinuses. He endorses dyspnea, but states that it is the typical for him. He denies headache. He had a BM today. He denies f/c, visual disturbances, abd pain, n/v, dysuria, hematuria. He states that he urinated quite a bit today, and that it was clear. Medications: Medication Review Details: cefepime 1g iv q8h (04/27-current) Azithromycin 04/27-current Vitals/I&O/Wt Last Vital Signs Temp 98.8 F 05/01/23 16:02 Pulse 100 05/01/23 16:02 Resp 18 05/01/23 16:02 BP 108/69 05/01/23 16:02 Pulse Ox 100 05/01/23 16:02 O2 Del Method Simple Mask 05/01/23 16:02 O2 Flow Rate 4 05/01/23 08:55 FiO2 35 04/26/23 07:58 05/01/23 05/01/23 05/01/23 06:59 14:59 22:59 Intake Total 50 / 1240 1010 / 1010 300 / 1310 Output Total 950 / 1750 900 / 900 Balance -900 / -510 110 / 110 300 / 410 Weight last 48 hrs Weight 43.001 kg Weight 43.63 kg Physical Exam 2 Const: GENERAL APPEARANCE: cooperative (partially) and comfortable; not in distress NUTRITIONAL APPEARANCE: cachectic and thin O RIENTATION/CONSCIOUSNESS: Yes awake, Yes oriented to person, Yes oriented to place and Yes oriented to time HENMT: COMMON NORMALS: normocephalic, atraumatic, external ears normal and Normal external nose present HEAD & SCALP: normocephalic and atraumatic N OSE: Normal external nose present EXTERNAL EAR: Yes external ears normal M OUTH: Normal oral and palatal mucosa present THROAT: posterior oropharynx normal Eye: COMMON NORMALS: Equal, round and reactive pupils present and conjunctivae normal CONJUNCTIVA: Yes conjunctivae normal PUPIL: Yes Equal, round and reactive pupils present EOM: No EOM abnormal Neck/C-Spine: COMMON NORMALS: Thyroid normal GENERAL: Yes normal visual inspection and Yes trachea midline THYROID: Thyroid normal CAROTIDS: Yes other (difficult ) Lymph: LYMPHATIC: No lymphadenopathy Resp: OTHER: Severely diminished to absent breath sounds bilaterally in all lung argueta and diffuse expiratory wheezes bilaterally Cardio: COMMON NORMALS: regular rate, regular rhythm, S1 normal heart sound present and S2 normal heart sound present RATE: regular rate RHYTHM: r egular rhythm HEART SOUNDS: S1 normal heart sound present, S2 normal heart sound present, no click, no gallops, no murmurs and no rubs PERIPHERAL PULSES: radial pulses present, popliteal pulses present and dorsalis pedis present GI: OTHER: Bowel sounds positive, nontender, nondistended, no rigidity, no guarding, no hepatosplenomegaly. Extremity: NARRATIVE EXTREMITY EXAM: No clubbing, No cyanosis and No edema GENERAL: No clubbing, No cyanosis and No edema Neuro: SENSORIUM/ORIENTATION: Yes oriented to person, Yes oriented to place and Yes oriented to time CRANIAL NERVES: Yes CN normal except as noted S PEECH: speech normal SENSORY EXAM: No sensory level loss detected MOTOR EXAM: 5/5 motor strength present throughout and Normal motor muscle tone present throughout Psych: COMMON NORMALS: speech normal; negative for Normal thought process present (he plans to leave [place] on 05/02/2023) APPEARANCE: Yes unkempt and Yes disheveled ATTITUDE: Yes calm, Yes engaged and Yes Other attitude/behavior findings present (Psych) (Mildly hostile) ACTIVITY/MOTOR BEHAVIOR: Yes appropriate eye contact SPEECH: Yes normal speech MOOD & AFFECT: Yes euthymic mood and Yes irritable THOUGHT PROCESS: abnormal (he plans to leave [place] on 05/02/2023) THOUGHT CONTENT: No Normal thought content present ATTENTION/CONCENTRATION: Yes attention grossly intact Skin: COMMON NORMALS: no rashes or lesions noted GENERAL SKIN EXAM: no rashes or lesions noted Data 04/30/23 05:48 04/30/23 05:48 Micro: Microbiology 04/26/23 11:10 Gram Stain - Final Sputum - Expectorated Sputum Sputum Culture - Preliminary Gram Negative Rods A&P Assessment and plan (1) Severe protein-calorie malnutrition: (2) Muscle wasting: Qualifiers: Muscle atrophy area: multiple sites Qualified Code(s): M62.59 - Muscle wasting and atrophy, not elsewhere classified, multiple sites (3) Hemoptysis: (4) Acute exacerbation of chronic obstructive airways disease: (5) Cavitary lesion of lung: (6) End stage COPD: (7) Pneumonia: Qualifiers: Laterality: right Lung location: upper lobe of lung Pneumonia type: d ue to other aerobic Gram-negative bacteria Qualified Code(s): J15.69 - Pneumonia due to other Gram-negative bacteria (8) Physical deconditioning: Plan Mr. Olsen is a 67yo man w/ severe COPD (bullous emphysema), chronic hypoxic respiratory failure on 3L NC, hx of L. tension Pneumothorax in 04/2022, HTN, tobacco use d/o a hx of a pneumothorax who presented to the ED on 04/26/2023 with complaints of gross hemoptysis. Per chart review, the patient was seen here in [facility]'s ED on 03/17/2022 for complaints of hemoptysis and increased dyspnea. He was transferred to [facility] for gross hemoptysis and was found to have a 2.7x3.7x3cm RUL cavitary lesion. AFB smears and Quantiferon gold were collected, but the patient left 4 days later, AMA before results were available. He presented on 05/14/2022 w/ a L. sided PTX and was transferred to [facility] for VATS surgery, but the surgery was not done, and the reasons are unclear. When he presented on 04/26/2023, per Radiologist's report, his CT chest showed that the patient's RUL was concerning for Cavitation vs Bullae. Furthermore, the RUL was similar in appearance to the previous CT done in 04/2022; however, a superimposed pneumonia or neoplasm would be difficult to exclude due to the chronic soft tissue. #Acute on chronic hypoxic /hypercapneic respiratory failure: Noted on ABG. On 3L at baseline. #RUL Cavitary Lesion #Hemoptysis #RUL Gram negative pneumonia - I Consulted & spoke w/ ID. She will see him later, but first the health department was contacted and per them, the patient does not have MTB. - I spoke w/ Pulm/Crit care, Dr. Oneal who saw this patient when he had the left-sided PTX and 04/2022. Per the Pulm/Crit resident care supervisor, the RUL cavitary lesion did not appear to have increased in size since it was noted a year ago. Given his bullous emphysema, a bronchoscopy may have more risks than benefit. I spoke with ID again on 04/30, where she mentioned the broad differential for the patient's RUL lesion including MTB, pulmonary MAC, chronic fungal infection, or malignancy. She suggested that the patient would need a biopsy or a resection of the RUL; thus, the patient would require pulmonology versus CT surgery consultation, both of which could be done as outpatient given that the patient is stable at this time. - Sputum cx growing GNR. F/u Sensitivity and Speciation. Given concern for Pseudomonas, his ceftriaxone was discontinued, and he was started on cefepime on 04/30/2023. Azithromycin was also discontinued given that his sputum culture was growing GNR. - Quantiferon gold is negative. MTB PCR ordered - only one sample ordered. #Acute exacerbation of Severe Bullous emphysema (COPD) - D/c'ed Decadron and started Solumedrol. Continue Duonebs, Rocephin and Azithromycin. #Hx of L. tension Pneumothorax in 04/2022 #Severe Protein-calorie malnutrition: Consult hearing aid repairer for recommendations for a supplement. #Muscle wastinge #Physical deconditioning DVT ppx: SCD Attestations 2 Medical Necessity Statement*: Pending sputum culture results. He is also being diuresed. Coding Level of Care Code Acute Code for Chg Fwd Diagnoses Severe protein-calorie malnutrition E43 Atrophy of muscle of multiple sites M62.59 Muscle atrophy area: multiple sites Hemoptysis R04.2 Acute exacerbation of chronic obstructive airways disease J44.1 Cavitary lesion of lung J98.4 End stage COPD J44.9 Pneumonia of right upper lobe due to other aerobic Gram-negative bacteria J15.69 Laterality: right Lung location: upper lobe of lung Pneumonia type: due to other aerobic Gram-negative bacteria Physical deconditioning R53.81
[2023-05-01] MEDS: guaiFENesin 600 mg Tablet PO (21:35)
[2023-05-01] MEDS: magnesium sulfate premix 2 GM/50 ML PIGGYBACK IV (23:45)
[2023-05-01] MEDS: loratadine 10 mg Tablet PO (23:45)
[2023-05-02] VITALS: BP 120/62; PULSE 84; RESP 17; TEMP 36.4; O2SAT 98
[2023-05-02] MEDS: cefepime 1,000 MG in sodium chloride 0.9% (plus) 50 ML 100 MG IV ×2 (01:54→09:24)
[2023-05-02 05:17] VITALS: BP 130/60; PULSE 88; RESP 18; TEMP 37.2; O2SAT 100
[2023-05-02] MEDS: FUROsemide 10 mg/mL SDV 2mL 20 MG IVP (05:42)
[2023-05-02 07:31] VITALS: BP 101/66; PULSE 82; RESP 17; O2SAT 95
[2023-05-02] MEDS: albuterol 2.5 mg/3 mL Neb INHALATION (07:53)
[2023-05-02] MEDS: budesonide 0.5 mg/2 mL Neb INHALATION (07:54)
[2023-05-02 07:56] VITALS: PULSE 85; RESP 18; O2SAT 94
[2023-05-02] MEDS: loratadine 10 mg Tablet PO (09:24)
[2023-05-02] MEDS: acetaZOLAMIDE 250 mg Tablet 500 MG PO (09:24)
[2023-05-02] MEDS: methylPREDNISolone sod succ 40 mg/mL INJ IVP (10:27)
[2023-05-02] MEDS: pantoprazole 40 mg SDV IVP (10:27)
[2023-05-02 12:30] VITALS: BP 116/76
--- NOTE | 2023-05-02 13:15 | PM.MISC ---
Miscellaneous Note Purpose of Documentation: Reviewed patient sputum cultures. Gram-negative rods which per preliminary micro scan identification appeared to be Yersinia Ruckeri. this organism is not commonly known to be a human pathogen. Suspect that this patient is an environmental contaminant. Recommend the patient complete his outpatient evaluations with pulmonology and cardiothoracic surgery for a longstanding cavity. May need resection. Certainly would be difficult to start him on any kind of empiric therapy without having diagnostics first. His clinical condition appears to be relatively unchanged over the past year.
--- NOTE | 2023-05-02 14:55 | PM.DCS ---
Discharge Providers Date of Admission: 04/26/23 04:43 Date of Discharge: May 02, 2023 Attending Provider at Admission: Scooter Zavala MD Attending Provider at Discharge: Debbie Vargas MD Primary Care Provider: NAOMI Abdalla Diagnoses at Discharge Discharge Diagnosis (1) Severe protein-calorie malnutrition: Status: Inactive (2) Muscle wasting: Status: Inactive Qualifiers: Muscle atrophy area: multiple sites Qualified Code(s): M62.59 - Muscle wasting and atrophy, not elsewhere classified, multiple sites (3) Hemoptysis: Status: Resolved (4) Acute exacerbation of chronic obstructive airways disease: Status: Resolved (5) Cavitary lesion of lung: Status: Inactive Permanent problem details: 03/17/22: RUL cavitary lesion 2.7 x 3.7 x 3 cm. Anterior subpleural cavitation 3.1 x 1 x2.7 cm (6) End stage COPD: Status: Inactive (7) Pneumonia: Status: Resolved Qualifiers: Laterality: right Lung location: upper lobe of lung Pneumonia type: due to other aerobic Gram-negative bacteria Qualified Code(s): J15.69 - Pneumonia due to other Gram-negative bacteria (8) Physical deconditioning: Status: Inactive Reason for Visit Reason for Visit: COPD Hospital Course Hospital Course Mr. Olsen is a 67yo man w/ severe COPD (bullous emphysema), chronic hypoxic respiratory failure on 3L NC, hx of L. tension Pneumothorax in 04/2022, HTN, tobacco use d/o a hx of a pneumothorax who presented to the ED on 04/26/2023 with complaints of gross hemoptysis. Per chart review, the patient was seen here in [facility]'s ED on 03/17/2022 for complaints of hemoptysis and increased dyspnea. He was transferred to [facility] for gross hemoptysis and was found to have a 2.7x3.7x3cm RUL cavitary lesion. AFB smears and Quantiferon gold were collected, but the patient left 4 days later, AMA before results were available. He presented on 05/14/2022 w/ a L. sided PTX and was transferred to [facility] for VATS surgery, but the surgery was not done, and the reasons are unclear. When he presented on 04/26/2023, per Radiologist's report, his CT chest showed that the patient's RUL was concerning for Cavitation vs Bullae. Furthermore, the RUL was similar in appearance to the previous CT done in 04/2022; however, a superimposed pneumonia or neoplasm would be difficult to exclude due to the chronic soft tissue. On admission, Pulm/Crit Care on-call and ID were consulted. Pulm/Crit care happened to have seen this patient when he had the left-sided PTX and 04/2022. Per the Pulm/Crit care management specialist, the RUL cavitary lesion did not appear to have increased in size since it was noted a year ago. Given his bullous emphysema, a bronchoscopy may have more risks than benefit. The health department contacted, and according to the health department, the patient did not have a diagnosis of MTB. Per ID, given the broad differential for the patient's RUL lesion including MTB, pulmonary MAC, chronic fungal infection, or malignancy, the patient would need a biopsy or a resection of the RUL; thus, requiring Pulmonology versus CT surgery consultation, both of which could be done as outpatient given that the patient was clinically stable and his imaging was stable at this time. The patient's sputum culture grew GNR. He was started on Ceftriaxone and Azithromycin x 3 days, but was then switched to Cefepime to broaden the antibiotic spectrum. Unfortunately due to technical issues at the lab, the speciation and sensitivity could not be completed, so it had to be sent out to [facility] for further analysis. The patient insisted on being discharged on , so that he could go to the bank and obtain money to feed his dogs. He completed another 3 days of Cefepime for a total of 6 days of antibiotics, so he was discharged home to follow up with Pulm Crit/Care and CT Surgery's Dr. Neff. While hospitalized, he was also treated for Acute COPD exacerbation. He was weaned to his home 3L O2 via face mask, prior to discharge. Of note, while hospitalized, 2 days of AFB sputum were collected prior to discharge. Diagnoses while hospitalized #Acute on chronic hypoxic /hypercapneic respiratory failure: On 3L at baseline. #RUL Cavitary Lesion #Hemoptysis #RUL Gram negative pneumonia. - His Quantiferon gold was negative. MTB PCR was ordered #Acute exacerbation of Severe Bullous emphysema (COPD) #Hx of L. tension Pneumothorax in 04/2022 #Severe Protein-calorie malnutrition: Consult general warehouse worker for recommendations for a supplement. #Muscle wastinge #Physical deconditioning Physical Exam Const: GENERAL APPEARANCE: cooperative (partially) and comfortable; not in distress NUTRITIONAL APPEARANCE: cachectic and thin ORIENTATION/CONSCIOUSNESS: Yes awake, Yes oriented to person, Yes oriented to place and Yes oriented to time HENMT: COMMON NORMALS: normocephalic, atraumatic, external ears normal and Normal external nose present HEAD & SCALP: normocephalic and atraumatic NOSE: Normal external nose present EXTERNAL EAR: Yes external ears normal MOUTH: Normal oral and palatal mucosa present THROAT: posterior oropharynx normal Eye: COMMON NORMALS: Equal, round and reactive pupils present and conjunctivae normal CONJUNCTIVA: Yes conjunctivae normal PUPIL: Yes Equal, round and reactive pupils present EOM: No EOM abnormal Neck/C-Spine: COMMON NORMALS: Thyroid normal GENERAL: Yes normal visual inspection and Yes trachea midline THYROID: Thyroid normal CAROTIDS: Yes other (difficult ) Lymph: LYMPHATIC: No lymphadenopathy Resp: OTHER: Severely diminished to absent breath sounds bilaterally in all lung argueta and diffuse expiratory wheezes bilaterally Cardio: COMMON NORMALS: regular rate, regular rhythm, S1 normal heart sound present and S2 normal heart sound present RATE: regular rate RHYTHM: regular rhythm HEART SOUNDS: S1 normal heart sound present, S2 normal heart sound present, no click, no gallops, no murmurs and no rubs PERIPHERAL PULSES: radial pulses present, popliteal pulses present and dorsalis pedis present GI: OTHER: Bowel sounds positive, nontender, nondistended, no rigidity, no guarding, no hepatosplenomegaly. Extremity: NARRATIVE EXTREMITY EXAM: No clubbing, No cyanosis and No edema GENERAL: No clubbing, No cyanosis and No edema Neuro: SENSORIUM/ORIENTATION: Yes oriented to person, Yes oriented to place and Yes oriented to time CRANIAL NERVES: Yes CN normal except as noted SPEECH: speech normal SENSORY EXAM: No sensory level loss detected MOTOR EXAM: 5/5 motor strength present throughout and Normal motor muscle tone present throughout Psych: COMMON NORMALS: speech normal; negative for Normal thought process present (he plans to leave AMA on 05/02/2023) APPEARANCE: Yes unkempt and Yes disheveled ATTITUDE: Yes calm, Yes engaged and Yes Other attitude/behavior findings present (Psych) (Mildly hostile) ACTIVITY/MOTOR BEHAVIOR: Yes appropriate eye contact SPEECH: Yes normal speech MOOD & AFFECT: Yes euthymic mood and Yes irritable THOUGHT PROCESS: abnormal (he plans to leave AMA on 05/02/2023) THOUGHT CONTENT: No Normal thought content present ATTENTION/CONCENTRATION: Yes attention grossly intact Skin: COMMON NORMALS: no rashes or lesions noted GENERAL SKIN EXAM: no rashes or lesions noted Discharge Data Studies Completed and Pending Completed Studies During Hospitalization Category Date Time Status CT angio chest PE protcl [id number] Stat Cat Scan 04/26/23 09:31 Completed XR chest 1V portable [id number] Stat Exams 04/26/23 00:55 Completed CV. echo complete* [id number] Routine Ultrasound 04/26/23 09:32 [place] liver [id number] Routine Ultrasound 04/26/23 09:47 Completed Pending at discharge Category Date Time Status Hepatitis C RNA Viral Load Qnt Routine Lab 05/01/23 18:16 Received Miscellaneous Test Routine Lab 04/26/23 10:30 Ordered Miscellaneous Test Routine Lab 04/26/23 10:30 Ordered Miscellaneous Test Routine Lab 04/26/23 11:10 Received Miscellaneous Test Stat Lab 05/02/23 11:45 Received Sputum Culture and Gram Stain Stat Lab 04/26/23 11:10 Results Radiology Impressions Chest X-Ray 04/26/23 00:55 IMPRESSION: 1. No acute findings. 2. Severe chronic emphysematous changes. 3. Chronic right apical scarring, not appreciably changed in comparison to 05/16/2022. 4. Stable sequelae of old granulomatous disease. Laboratory Results WBC 3.71 10^3/uL (3.29-11.43) 04/30/23 05:48 RBC 4.04 10^6/uL (3.85-5.65) 04/30/23 05:48 Hgb 11.60 g/dL (11.27-16.99) 04/30/23 05:48 Hct 37.1 % (37-53) 04/30/23 05:48 MCV 91.8 fl (82-101) 04/30/23 05:48 MCH 28.7 pg (27-33) 04/30/23 05:48 MCHC 31.3 g/dL (30-55) 04/30/23 05:48 RDW 13.2 % (12.1-15.1) 04/30/23 05:48 Plt Count 125 10^3/cmm (157-399) L 04/30/23 05:48 MPV 8.9 fL (7.4-10.4) 04/30/23 05:48 Neut % (Auto) 71.1 % 04/30/23 05:48 Lymph % (Auto) 20.5 % 04/30/23 05:48 [place] % (Auto) 7.8 % 04/30/23 05:48 Eos % (Auto) 0.3 % 04/30/23 05:48 Baso % (Auto) 0.0 % 04/30/23 05:48 Neut # (Auto) 2.64 10^3/uL (1.8-7.7) 04/30/23 05:48 Lymph # (Auto) 0.8 10^3/uL (0.8-4.8) 04/30/23 05:48 [place] # (Auto) 0.3 10^3/uL (0.2-0.9) 04/30/23 05:48 Eos # (Auto) 0.0 10^3/uL (0.0-0.8) 04/30/23 05:48 Baso # (Auto) 0.0 10^3/uL (0.0-0.1) 04/30/23 05:48 Nucleated RBC % (auto) 0 % 04/30/23 05:48 Nucleated RBCs # 0.0 /100WBC 04/30/23 05:48 ESR 11 mm/hr (0-10) H 04/26/23 10:42 PT 13.10 SECONDS (12.1-14.9) 04/26/23 00:52 INR 0.96 (0.8-1.2) 04/26/23 00:52 D-Dimer 1.64 ug/mLFEU (0-0.59) H 04/26/23 00:52 Specimen Type Arterial 04/26/23 12:00 Sample Site Brachial, right 04/26/23 12:00 ABG pH 7.35 (7.35-7.45) 04/26/23 12:00 ABG pCO2 61.5 mmHg (35-45) H* 04/26/23 12:00 ABG pO2 90.6 mmHg (80.0-100.0) 04/26/23 12:00 ABG PO2/FiO2 Ratio 0 04/26/23 12:00 ABG HCO3 34.2 mmol/L (22-26) H 04/26/23 12:00 ABG Base Excess 6.9 mmol/L (-2.0-2.0) H 04/26/23 12:00 Tono Test N/a 04/26/23 12:00 Hematocrit 37.2 % (42-52) L 04/26/23 12:00 O2 Delivery Device Nc 04/26/23 12:00 O2 Liters/Min 3.0 % 04/26/23 12:00 FiO2 32.0 % 04/26/23 12:00 Stone Breaker ID Amh 04/26/23 12:00 Sodium 134 mmol/L (136-145) L 04/30/23 05:48 Potassium 4.4 mmol/L (3.5-5.1) 04/30/23 05:48 Chloride 89 mmol/L (98-107) L 04/30/23 05:48 Carbon Dioxide 42 mmol/L (22-29) H* 04/30/23 05:48 Anion Gap 7.4 (5-19) 04/30/23 05:48 BUN 10 mg/dL (8-23) 04/30/23 05:48 Creatinine 0.6 mg/dL (0.7-1.2) L 04/30/23 05:48 GFR Calculation 133.6 mL/min (90-130) H 04/30/23 05:48 Glucose 106 mg/dL (65-115) 04/30/23 05:48 Calculated Osmolality 277 mOsm/kg (285-295) L 04/30/23 05:48 Calcium 9.4 mg/dL (8.5-10.5) 04/30/23 05:48 Phosphorus 2.7 mg/dL (2.5-4.5) 04/30/23 05:48 Magnesium 1.8 mg/dL (1.7-2.3) 04/30/23 05:48 Total Bilirubin 0.3 mg/dL (0.15-1.2) 04/30/23 05:48 AST 19 U/L (0-40) 04/30/23 05:48 ALT 8 U/L (0-41) 04/30/23 05:48 Alkaline Phosphatase 90 U/L (40-130) 04/30/23 05:48 Troponin T Baseline 14 ng/L (0-15) 04/26/23 10:42 Troponin T 120 Minute 14.27 ng/L (0-15) 04/26/23 13:07 Delta Troponin T 0.27 ABS# (0-10) 04/26/23 13:07 Troponin T Hi Sens 6Hr 11.27 ng/L (0-15) 04/26/23 17:20 Troponin T Hi Sens 6Hr Delta -2.73 ng/L (0-12) L 04/26/23 17:20 C-Reactive Protein 27.4 mg/L (0.0-4.9) H 04/27/23 04:43 NT-Pro-B Natriuret Pep 791 pg/mL (0-125) H 04/27/23 04:43 Total Protein 6.7 g/dL (6.6-8.7) 04/30/23 05:48 Albumin 3.1 g/dL (3.5-5.2) L 04/30/23 05:48 Globulin 3.6 g/dL (1.3-4.6) 04/30/23 05:48 Vitamin B12 579 pg/mL (232-1245) 04/26/23 00:52 Procalcitonin 0.06 ng/mL (0-0.5) 04/26/23 10:42 Ethyl Alcohol < 10 mg/dL (0-10) 04/26/23 10:42 TB (QFT) Gold In Tube Negative (NEGATIVE) 04/26/23 10:42 TB Test (QFT) Nil 0.02 IU/mL 04/26/23 10:42 TB Test (QFT) Mitogen 8.79 IU/mL 04/26/23 10:42 TB Test Mitogen - Nil 0.00 IU/mL 04/26/23 10:42 TB Test TB -Nil 0.00 IU/mL 04/26/23 10:42 Vitals Last Vital Signs Temp 98.9 F 05/02/23 05:17 Pulse 85 05/02/23 07:56 Resp 18 05/02/23 07:56 BP 101/66 05/02/23 07:31 Pulse Ox 94 05/02/23 07:56 O2 Del Method Oxymask 05/02/23 07:56 O2 Flow Rate 3 05/02/23 08:00 FiO2 35 04/26/23 07:58 Discharge Plan Discharge Patient Disposition: Home Condition: Stable Prescriptions: Continued cholecalciferol (vitamin D3) 50 mcg (2,000 unit) capsule 50 mcg PO DAILY lisinopril 40 mg Tablet 10 mg PO DAILY magnesium oxide 400 mg magnesium Tablet 400 mg PO DAILY Advair Diskus 250-50 mcg/dose Blister With Device 1 inh INHALATION Q12H Spiriva Respimat 2.5 mcg/actuation Mist 2 puff INHALATION QAM Discharge Orders: Discharge Order (Routine); Ordered 05/02/23 Ordered By: Debbie Vargas Referrals: DatarArmando MD [Physician] - (We have notified your physician's clinic of the need for a follow-up appointment to be scheduled. If you have not heard from them within the next 2 business days, please call them directly. ) Les St, RECTIFYING ATTENDANT-C [Primary Care Provider] - (We have notified your physician's clinic of the need for a follow-up appointment to be scheduled. If you have not heard from them within the next 2 business days, please call them directly. ) Chauncey Neff MD [Physician] - (Right upper lobe cavitary lesion. We have notified your physician's clinic of the need for a follow-up appointment to be scheduled. If you have not heard from them within the next 2 business days, please call them directly. ) Discharge Diet: Low Salt Discharge Activity: Resume usual activity Patient Instructions: COPD, Pneumonia (DC), COPD Stoplight, Opioid Safety Activity Restrictions/Additional Instructions: You have been referred to follow up with the Javascript Web Developer and the Cardiothoracic Surgeon associated with [facility]. However, you may also choose to follow up with he Pulmonology and Cardiothoracic teams at [place], [place], who are well acquainted with your case. Discharge Attestations Time Spent in Discharge Care*: greater than 30 min Quality Metrics Clinical Quality Measures [ No reported AMI, CVA or VTE this stay] Coding Level of Care Code 97431 Diagnoses Severe protein-calorie malnutrition E43 Atrophy of muscle of multiple sites M62.59 Muscle atrophy area: multiple sites Hemoptysis R04.2 Acute exacerbation of chronic obstructive airways disease J44.1 Cavitary lesion of lung J98.4 End stage COPD J44.9 Pneumonia of right upper lobe due to other aerobic Gram-negative bacteria J15.69 Laterality: right Lung location: upper lobe of lung Pneumonia type: due to other aerobic Gram-negative bacteria Physical deconditioning R53.81
[2023-05-04 13:55] LABS: HEP C RNA Viral Load Quant <1.18 NOT DETECTED Log IU/mL (NOT DETECTED); HEP C RNA Viral Load Quant <15 NOT DETECTED IU/mL (NOT DETECTED)
== END 2023-05-02 16:38 | disposition home or self-care (01) | DRG 177 ==
LOC: ER 04:11 → MEDSURG 04:43
PROVIDERS: Family Medicine; Admitting Provider Internal Medicine; Emergency Provider Emergency Medicine; PCP Nurse Practitioner; Visit Provider Internal Medicine
DX: J15.69 Pneumonia due to other Gram-negative bacteria (principal); E43 Unspecified severe protein-calorie malnutrition; J96.22 Acute and chronic respiratory failure with hypercapnia; J96.21 Acute and chronic respiratory failure with hypoxia; Z68.1 Body mass index [BMI] 19.9 or less, adult; R04.2 Hemoptysis; J43.9 Emphysema, unspecified; I10 Essential (primary) hypertension; R91.1 Solitary pulmonary nodule; F10.20 Alcohol dependence, uncomplicated; B19.20 Unspecified viral hepatitis C without hepatic coma; Z99.81 Dependence on supplemental oxygen; Z87.891 Personal history of nicotine dependence
CPT/HCPCS: 36415; 36600; 71045; 71275; 76705; 80048; 80053; 80307; 82607; 82803; 83735; 83880; 84100; 84145; 84484; 85014; 85018; 85025; 85378; 85610; 85651; 86140; 86480; 87070; 87077; 87205; 87522; 87556; 93005; 93306; 94640; 94660; 97110; 97161; 99285; C9113; J0456; J0692; J0696; J1100; J1940; J2920; J3475; J7030; J7050; J7613; J7626; Q9967

== ENCOUNTER 2023-07-23 14:46 | Emergency (ER) | payer OTHER, SELFPAY ==
[2023-07-23] VITALS (7 sets, daily range): BP systolic 136–172; BP diastolic 76–92; PULSE 88–99; RESP 16–20; TEMP 36.4; O2SAT 88–99; BMI 16.6
--- NOTE | 2023-07-23 14:51 | XRR_ITS ---
PROCEDURE INFORMATION: Exam: XR Chest Exam date and time: 07/23/2023 3:33 PM Age: 67 years old Clinical indication: Shortness of breath; Additional info: SOB TECHNIQUE: Imaging protocol: Radiologic exam of the chest. Views: 1 view. COMPARISON: CT angio chest PE protcl [id number] 04/26/2023 10:17 AM FINDINGS: Lungs: Right upper lobe consolidation as on prior CT. No new focal consolidation elsewhere in the lungs. Emphysematous changes. Pleural spaces: No large pleural effusion. No pneumothorax. Heart/Mediastinum: No cardiomegaly. Bones/joints: No acute findings. XR/XR chest 1V portable [id number] IMPRESSION: Right upper lobe consolidation for which underlying new infiltrate cannot be excluded. Remainder of lungs grossly clear.
--- NOTE | 2023-07-23 14:52 | ECG_ITS ---
[facility] Test Date: 2023-07-23 Pat Name: Narciso Olsen Department: Room: Gender: Male Drum Attendant: : 1955 Requested By: Shad Aguirre Order Number: [id number] Linda MD: Mayte Hanks M.D. Measurements Intervals [place] Rate: 94 P: 250 TX: 209 QRS: 81 QRSD: 68 T: 66 QT: 338 QTc: 423 Interpretive Statements Regular supraventricular rhythm, possibly sinus. Because of the heavy baseline artifact, need to repeat the study LOW QRS VOLTAGE IN PRECORDIAL LEADS [QRS DEFLECTION < 1.0 mV IN CHEST LEADS] SEPTAL MYOCARDIAL INFARCTION , OF INDETERMINATE AGE [40+ ms Q WAVE IN V1/V2] INTERPRETATION BASED ON A DEFAULT AGE OF 40 YEARS Compared to ECG 04/26/2023 11:58:03 Low QRS voltage now present Sinus rhythm no longer present Indeterminate axis no longer present Myocardial infarct finding still present Electronically Signed On 07-23-2023 18:30:30 MOBILE HOME TECHNICIAN by Mayte Hanks M.D. [email or web address]
--- NOTE | 2023-07-23 14:58 | W.ED.SOB ---
HPI - SOB/Dyspnea General: Chief Complaint: Shortness of Breath/Dyspnea Stated Complaint: sob Time Seen by Provider: 07/23/23 14:47 Source: patient and EMS Mode of arrival: EMS Limitations: no limitations History of Present Illness: HPI Narrative: 67-year-old male with a history of COPD has had increasing shortness of breath over the last 2 weeks he typically is on 3 L oxygen dependent increasing before he is 91% here on 4 L he is extremely disheveled 30 does have tachypnea states had a slight cough states that he has had some sharp pains felt like cannot get breaths then. Associated symptoms: Deny abdominal pain, chest pain, fever(s), nausea or vomiting Review of Systems Const: Denies: fever(s), chills, body aches or change in appetite ENMT: Denies: throat pain or dental pain Card: Denies: chest pain Resp: Reports: dyspnea GI: Denies: abdominal pain, nausea, vomiting or diarrhea Musc: Denies: neck pain or back pain Skin/Breast: Denies: rash Neuro: Denies: headache(s) PFSH ED PFSH: Medical History Muscle wasting Physical deconditioning Severe protein-calorie malnutrition End stage COPD Hemoptysis Cavitary lesion of lung 03/17/22: RUL cavitary lesion 2.7 x 3.7 x 3 cm. 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 Surgical History No pertinent past surgical history no surgical history Family History Other Adopted Social History Smoking and tobacco/nicotine status: former use of tobacco/nicotine Quit status (tobacco/nicotine): has quit using Year quit tobacco: 2021 Alcohol intake: current Alcohol intake frequency: 3 or more drinks per day Alcohol type: beer Physical Exam Const: COMMON NORMALS: patient oriented x3 GENERAL APPEARANCE: in distress, disheveled and ill appearing HENMT: COMMON NORMALS: normocephalic and atraumatic HEAD & SCALP: normocephalic and atraumatic Neck/C-Spine: COMMON NORMALS: full ROM and supple Chest: COMMONS NORMALS: normal inspection of the chest and normal palpation of entire chest wall Resp: EFFORT & INSPECTION: Yes tachypneic and Yes respiratory distress AUSCULTATION: diminished lung sounds Cardio: COMMON NORMALS: regular rate, regular rhythm and No murmurs present (Cardio) RATE: regular rate RHYTHM: regular rhythm GI: COMMON NORMALS: Normal to inspection, nondistended, normoactive bowel sounds present, Soft to palpation, non-tender and no masses PALPATION: Yes Soft to palpation Extremity: COMMON NORMALS: normal to inspection and full ROM Neuro: COMMON NORMALS: patient oriented x3, moves all extremities and no focal motor deficits Psych: COMMON NORMALS: mental status grossly normal, Normal thought process present and cooperative THOUGHT PROCESS: Normal thought process present Skin: COMMON NORMALS: no rashes or lesions noted and no wounds GENERAL SKIN EXAM: no rashes or lesions noted Course Vital Signs: Vital signs: Vital Signs Temperature 97.5 F L 07/23/23 14:49 Pulse Rate 88 07/23/23 16:00 Respiratory Rate 16 07/23/23 15:20 Blood Pressure 136/76 07/23/23 16:00 Pulse Oximetry 99 07/23/23 16:00 Oxygen Delivery Me thod Nasal Cannula 07/23/23 15:20 Oxygen Flow Rate 4 07/23/23 15:05 MDM - SOB/Dyspnea Medical Decision Making Patient presents here with likely COPD exacerbation with chronic COPD is much improved after breathing treatment steroids I turned his oxygen here down to his baseline 3 L and he has been satting 99%. White counts normal no fever x-ray shows chronic findings in right upper lobe he is to follow-up with his radiographer angiogram we will place him on steroids for 5 days along with a short course of antibiotics he is continue his breathing treatments at home return if worsening he understands agrees to plan. Medical Records I reviewed the patient's medical records. Lab Data I reviewed the patient's lab results. 07/23/23 15:21 07/23/23 15:21 Labs/Radiology: Radiology Impressions Chest X-Ray 07/23/23 14:51 IMPRESSION: Right upper lobe consolidation for which underlying new infiltrate cannot be excluded. Remainder of lungs grossly clear. Laboratory Results WBC 7.39 10^3/uL (3.29-11.43) 07/23/23 15: RBC 3.85 10^6/uL (3.85-5.65) 07/23/23 15:21 Hgb 11.00 g/dL (11.27-16.99) L 07/23/23 15:21 Hct 35.5 % (37-53) L 07/23/23 15:21 MCV 92.2 fl (82-101) 07/23/23 15:21 MCH 28.6 pg (27-33) 07/23/23 15: MCHC 31.0 g/dL (30-55) 07/23/23 15: RDW 13.4 % (12.1-15.1) 07/23/23 15:21 Plt Count 137 10^3/cmm (157-399) L 07/23/23 15: MPV 9.6 fL (7.4-10.4) 07/23/23 15:21 Neut % (Auto) 80.0 % 07/23/23 15:21 Lymph % (Auto) 11.9 % 07/23/23 15:21 [place] % (Auto) 6.9 % 07/23/23 15:21 Eos % (Auto) 0.5 % 07/23/23 15:21 Baso % (Auto) 0.3 % 07/23/23 15:21 Neut # (Auto) 5.91 10^3/uL (1.8-7.7) 07/23/23 15:21 Lymph # (Auto) 0.9 10^3/uL (0.8-4.8) 07/23/23 15:21 [place] # (Auto) 0.5 10^3/uL (0.2-0.9) 07/23/23 15:21 Eos # (Auto) 0.0 10^3/uL (0.0-0.8) 07/23/23 15:21 Baso # (Auto) 0.0 10^3/uL (0.0-0.1) 07/23/23 15:21 Nucleated RBC % (auto) 0 % 07/23/23 15:21 Nucleated RBCs # 0.0 /100WBC 07/23/23 15:21 Specimen Type Arterial 07/23/23 15:05 Sample Site Brachial, right 07/23/23 15:05 ABG pH 7.39 (7.35-7.45) 07/23/23 15:05 ABG pCO2 67.4 mmHg (35-45) H* 07/23/23 15:05 ABG pO2 70.5 mmHg (80.0-100.0) L 07/23/23 15:05 ABG PO2/FiO2 Ratio 0 07/23/23 15:05 ABG HCO3 41.1 mmol/L (22-26) H 07/23/23 15:05 ABG Base Excess 13.6 mmol/L (-2.0-2.0) H 07/23/23 15:05 Tono Test N/a 07/23/23 15:05 Hematocrit 34.2 % (42-52) L 07/23/23 15:05 Hgb O2 Saturation 92.9 % (95-100) L 07/23/23 15:05 Carboxyhemoglobin 1.6 %THgb (0.4-20.1) 07/23/23 15:05 Methemoglobin 0.7 % (0.4-1.5) 07/23/23 15:05 Total Hemoglobin 11.2 g/dL (14-18) L 07/23/23 15:05 O2 Delivery Device Nc 07/23/23 15:05 O2 Liters/Min 4.0 % 07/23/23 15:05 FiO2 36.0 % 07/23/23 15:05 Digital Forensics Examiner ID [email or web address] 07/23/23 15:05 Sodium 133 mmol/L (136-145) L 07/23/23 15:21 Potassium 4.1 mmol/L (3.5-5.1) 07/23/23 15:21 Chloride 88 mmol/L (98-107) L 07/23/23 15:21 Carbon Dioxide 37 mmol/L (22-29) H 07/23/23 15:21 Anion Gap 12.1 (5-19) 07/23/23 15:21 BUN 8 mg/dL (8-23) 07/23/23 15:21 Creatinine 0.6 mg/dL (0.7-1.2) L 07/23/23 15:21 GFR Calculation 133.6 mL/min (90-130) H 07/23/23 15:21 Glucose 113 mg/dL (65-115) 07/23/23 15:21 Calculated Osmolality 275 mOsm/kg (285-295) L 07/23/23 15:21 Calcium 9.7 mg/dL (8.5-10.5) 07/23/23 15:21 Total Bilirubin 0.7 mg/dL (0.15-1.2) 07/23/23 15:21 AST 14 U/L (0-40) 07/23/23 15:21 ALT 6 U/L (0-41) 07/23/23 15:21 Alkaline Phosphatase 111 U/L (40-130) 07/23/23 15:21 Troponin T Baseline 14 ng/L (0-15) 07/23/23 15:21 NT-Pro-B Natriuret Pep 247 pg/mL (0-125) H 07/23/23 15:21 Total Protein 7.2 g/dL (6.6-8.7) 07/23/23 15:21 Albumin 3.2 g/dL (3.5-5.2) L 07/23/23 15:21 Globulin 4.0 g/dL (1.3-4.6) 07/23/23 15:21 Influenza Type A Ag negative (Negative) 07/23/23 15:18 Influenza Type B Ag negative (Negative) 07/23/23 15:18 SARS-CoV-2 Ag (Rapid) negative (Negative) 07/23/23 15:18 All radiology interpretation(s) finalized by discharge EKG Data EKG 1: I personally reviewed and interpreted this EKG as follows: EKG Interpretation Date: 07/23/23 EKG interpretation time: 14:52 Interpretation: paced hr [address] or t wave abnormalities qrs 68 qtc 389 Discharge Plan Discharge Patient Disposition: Home Clinical Impression: Acute exacerbation of chronic obstructive airways disease Condition: Stable Prescriptions: New cephalexin 500 mg capsule 500 mg PO TID 7 Days Qty: 21 0RF prednisone 50 mg tablet 50 mg PO DAILY Qty: 5 0RF No Action cholecalciferol (vitamin D3) 50 mcg (2,000 unit) capsule 50 mcg PO DAILY magnesium oxide 400 mg magnesium Tablet 400 mg PO DAILY fluticasone propion-salmeterol [Advair Diskus] 250-50 mcg/dose Blister With Device 1 inh INHALATION Q12H Spiriva Respimat 2.5 mcg/actuation Mist 2 puff INHALATION QAM lisinopril 10 mg Tablet 10 mg PO DAILY Discharge Orders: Discharge ED (Routine); Ordered 07/23/23 Ordered By: Shad Aguirre Referrals: Datar,Armando Bright MD [Physician] - 1-[address], SHIRT FINISHER-C [Primary Care Provider] - Discharge Diet: Advance as tolerated Discharge Activity: Resume usual activity Patient Instructions: COPD (Chronic Obstructive Pulmonary Disease) (ED) Coding Level of Care Code ED Development Technician for James Dia
[2023-07-23] MEDS: ipratropium-albuterol 3 mL Neb INHALATION (15:11)
[2023-07-23] MEDS: methylPREDNISolone sod succ 125 mg/2 mL INJ IV (15:15)
[2023-07-23 15:23] LABS: ABG PCO2 67.4 mmHg (35-45); ABG PH Result 7.39 (7.35-7.45); Arterial Blood Gas Hematocrit 34.2 % (42-52); Base Excess ABG 13.6 mmol/L (-2.0-2.0); Blood Gas Operator Identificat GD; Blood Gas Sample Site Brachial, right; Blood Gas Sample Type Arterial; Carboxyhemoglobin 1.6 %THgb (0.4-20.1); HCO3 ABG 41.1 mmol/L (22-26); HGB O2 Sat 92.9 % (95-100); Methemoglobin 0.7 % (0.4-1.5); Oxygen Device NC; PO2 ABG 70.5 mmHg (80.0-100.0); PO2 FiO2 Ratio Arterial Blood 0; Total Hemoglobin 11.2 g/dL (14-18)
--- NOTE | 2023-07-23 15:31 | PC.PHAR ---
[facility] IS [facility] L[facility] 3:15PM 07/23/23
[2023-07-23 15:43] LABS: Basophils % 0.3 %; Eosinophils % 0.5 %; Hematocrit 35.5 % (37-53); Lymphocytes # 0.9 10^3/uL (0.8-4.8); Lymphocytes % 11.9 %; Mean Corpuscular Hemoglobin 28.6 pg (27-33); Mean Corpuscular Volume 92.2 fl (82-101); Mean Platelet Volume 9.6 fL (7.4-10.4); Monocytes # 0.5 10^3/uL (0.2-0.9); Monocytes % 6.9 %; Neutrophils # 5.91 10^3/uL (1.8-7.7); Nucleated Red Blood Cells % 0 %; Platelet Count 137 10^3/cmm (157-399); Red Blood Count 3.85 10^6/uL (3.85-5.65); Red Cell Distribution Width 13.4 % (12.1-15.1); White Blood Count 7.39 10^3/uL (3.29-11.43)
[2023-07-23 15:48] LABS: Influenza A by IFA negative (Negative); Influenza B by IFA negative (Negative)
[2023-07-23 15:49] LABS: SARS Covid-2 Antigen negative (Negative)
[2023-07-23 16:05] LABS: Troponin(5th) Baseline 14 ng/L (0-15)
[2023-07-23 16:12] LABS: Alanine Aminotransferase 6 U/L (0-41); Albumin Level 3.2 g/dL (3.5-5.2); Alkaline Phosphatase 111 U/L (40-130); Anion Gap 12.1 (5-19); Aspartate Amino Transferase 14 U/L (0-40); Blood Urea Nitrogen 8 mg/dL (8-23); Calcium 9.7 mg/dL (8.5-10.5); Carbon Dioxide 37 mmol/L (22-29); Chloride 88 mmol/L (98-107); Creatinine Clr Calc Pharmacy 55.9113; Glomerular Filtration Rate 133.6 mL/min (90-130); Glucose 113 mg/dL (65-115); NT Pro B Type Natriuretic Pept 247 pg/mL (0-125); Osmolality Calculated 275 mOsm/kg (285-295); Potassium 4.1 mmol/L (3.5-5.1); Sodium 133 mmol/L (136-145); Total Bilirubin 0.7 mg/dL (0.15-1.2); Total Protein 7.2 g/dL (6.6-8.7)
== END 2023-07-23 19:48 | disposition home or self-care (01) ==
PROVIDERS: Emergency Provider Emergency Medicine; PCP Nurse Practitioner
DX: J44.1 Chronic obstructive pulmonary disease with (acute) exacerbation (principal); Z11.52 Encounter for screening for COVID-19; Z87.891 Personal history of nicotine dependence; I10 Essential (primary) hypertension; Z99.81 Dependence on supplemental oxygen; Z86.19 Personal history of other infectious and parasitic diseases
CPT/HCPCS: 36415; 36600; 71045; 80053; 82805; 83880; 84484; 85025; 87040; 87426; 87804; 93005; 94640; 96374; 99285; J2930

== ENCOUNTER 2023-08-14 13:16 | Inpatient (IN) | payer OTHER, SELFPAY ==
[2023-08-14] VITALS (107 sets, daily range): BP systolic 85–124; BP diastolic 49–88; PULSE 82–189; RESP 4–45; TEMP 36.8–37.1; O2SAT 69–100; BMI 15.7
--- NOTE | 2023-08-14 13:53 | PC.PHAR ---
[place]ed [place]
--- NOTE | 2023-08-14 13:53 | W.ED.SOB ---
HPI - SOB/Dyspnea General: Chief Complaint: Shortness of Breath/Dyspnea Stated Complaint: SOB Time Seen by Provider: 08/14/23 13:20 Source: patient and EMS Mode of arrival: EMS Limitations: no limitations History of Present Illness: HPI Narrative: 67-year-old very frail cachectic appearing male with a history of COPD is on 3 L at baseline states he had increasing shortness of breath for the last week patient to be placed on a nonrebreather here due to hypoxia he is in distress able to speak in 2-3 word sentences. Per EMS his living conditions were very poor. He denies any fever denies any new cough. [facility] ED PFSH: Medical History Muscle wasting Physical deconditioning Severe protein-calorie malnutrition End stage COPD Hemoptysis Cavitary lesion of lung 03/17/22: RUL cavitary lesion 2.7 x 3.7 x 3 cm. 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 Surgical History No pertinent past surgical history no surgical history Family History Other Adopted Social History Smoking and tobacco/nicotine status: former use of tobacco/nicotine Quit status (tobacco/nicotine): has quit using Year quit tobacco: 2021 Alcohol intake: current Alcohol intake frequency: 3 or more drinks per day Alcohol type: beer Course Vital Signs: Vital signs: Vital Signs Temperature 98.2 F 08/14/23 13:21 Pulse Rate 106 H 08/14/23 16:15 Respiratory Rate 26 H 08/14/23 16:15 Blood Pressure 102/67 08/14/23 16:15 Pulse Oximetry 88 L 08/14/23 16:10 Oxygen Delivery Me thod BiPAP 08/14/23 16:05 Oxygen Flow Rate 6 08/14/23 14:50 Fraction of Inspir ed Oxygen 50 08/14/23 14:50 MDM - SOB/Dyspnea Medical Decision Making Patient presents here with shortness of breath he does have a history of COPD looks like he has right-sided pneumonia as well patient was placed on BiPAP. Given IV antibiotics along with fluids. His blood pressure here is improved spoke to the hospitalist will admit to the ICU at this time. Medical Records I reviewed the patient's medical records. Lab Data I reviewed the patient's lab results. 08/14/23 15:19 08/14/23 15:19 Labs/Radiology: Laboratory Results WBC 23.73 10^3/uL (3.29-11.43) H 08/14/23 15:19 RBC 3.93 10^6/uL (3.85-5.65) 08/14/23 15:19 Hgb 11.10 g/dL (11.27-16.99) L 08/14/23 15:19 Hct 36.5 % (37-53) L 08/14/23 15:19 MCV 92.9 fl (82-101) 08/14/23 15:19 MCH 28.2 pg (27-33) 08/14/23 15:19 MCHC 30.4 g/dL (30-55) 08/14/23 15:19 RDW 12.7 % (12.1-15.1) 08/14/23 15:19 Plt Count 173 10^3/cmm (157-399) 08/14/23 15:19 MPV 9.4 fL (7.4-10.4) 08/14/23 15:19 Neut % (Auto) 89.9 % 08/14/23 15:19 Lymph % (Auto) 1.8 % 08/14/23 15:19 [place] % (Auto) 7.5 % 08/14/23 15:19 Eos % (Auto) 0.0 % 08/14/23 15:19 Baso % (Auto) 0.4 % 08/14/23 15:19 Neut # (Auto) 21.33 10^3/uL (1.8-7.7) H 08/14/23 15:19 Lymph # (Auto) 0.4 10^3/uL (0.8-4.8) L 08/14/23 15:19 [place] # (Auto) 1.8 10^3/uL (0.2-0.9) H 08/14/23 15:19 Eos # (Auto) 0.0 10^3/uL (0.0-0.8) 08/14/23 15:19 Baso # (Auto) 0.1 10^3/uL (0.0-0.1) 08/14/23 15:19 Nucleated RBC % (auto) 0 % 08/14/23 15:19 Nucleated RBCs # 0.0 /100WBC 08/14/23 15:19 Specimen Type Arterial 08/14/23 13:48 Sample Site Brachial, left 08/14/23 13:48 ABG pH 7.30 (7.35-7.45) L 08/14/23 13:48 ABG pCO2 86.6 mmHg (35-45) H* 08/14/23 13:48 ABG pO2 165.0 mmHg (80.0-100.0) H 08/14/23 13:48 ABG PO2/FiO2 Ratio 0 08/14/23 13:48 ABG HCO3 42.6 mmol/L (22-26) H 08/14/23 13:48 ABG Base Excess 12.7 mmol/L (-2.0-2.0) H 08/14/23 13:48 Tono Test Pos 08/14/23 13:48 Hematocrit 37.7 % (42-52) L 08/14/23 13:48 O2 Delivery Device Nrb 08/14/23 13:48 O2 Liters/Min 15.0 % 08/14/23 13:48 FiO2 100.0 % 08/14/23 13:48 Non Garment Sewing Machine Operator ID Cak 08/14/23 13:48 Sodium 133 mmol/L (136-145) L 08/14/23 15:19 Potassium 4.4 mmol/L (3.5-5.1) 08/14/23 15:19 Chloride 88 mmol/L (98-107) L 08/14/23 15:19 Carbon Dioxide 36 mmol/L (22-29) H 08/14/23 15:19 Anion Gap 13.4 (5-19) 08/14/23 15:19 BUN 16 mg/dL (8-23) 08/14/23 15:19 Creatinine 0.6 mg/dL (0.7-1.2) L 08/14/23 15:19 GFR Calculation 133.6 mL/min (90-130) H 08/14/23 15:19 Glucose 70 mg/dL (65-115) 08/14/23 15:19 Calculated Osmolality 276 mOsm/kg (285-295) L 08/14/23 15:19 Calcium 10.5 mg/dL (8.5-10.5) 08/14/23 15:19 Total Bilirubin 1.2 mg/dL (0.15-1.2) 08/14/23 15:19 AST 12 U/L (0-40) 08/14/23 15:19 ALT < 5 U/L (0-41) 08/14/23 15:19 Alkaline Phosphatase 85 U/L (40-130) 08/14/23 15:19 NT-Pro-B Natriuret Pep 873 pg/mL (0-125) H 08/14/23 15:19 Total Protein 6.7 g/dL (6.6-8.7) 08/14/23 15:19 Albumin 2.8 g/dL (3.5-5.2) L 08/14/23 15:19 Globulin 3.9 g/dL (1.3-4.6) 08/14/23 15:19 Influenza Type A Ag negative (Negative) 08/14/23 14:20 Influenza Type B Ag negative (Negative) 08/14/23 14:20 SARS-CoV-2 Ag (Rapid) negative (Negative) 08/14/23 14:20 All radiology interpretation(s) finalized by discharge Critical Care Time Critical Care Time: Critical Care Time: Yes Total Critical Care Time: 40 Attestation: The high probability of a clinically significant, sudden or life threatening deterioration of the patient's resp system(s) required my full and direct attention, intervention and personal management. The critical care time is as shown. This time is in addition to time spent performing any reported procedures but includes the following: [x] Data and vital sign review and interpretation [x] Patient assessment, examination and intervention [x] Documentation [x] Medication orders and management Discharge Plan Discharge Patient Disposition: Admitted As Inpatient Admit Provider: David Rae Clinical Impression: Community acquired pneumonia, Acute exacerbation of chronic obstructive airways disease, Acute respiratory failure with hypoxia and hypercapnia Condition: Stable Coding Level of Care Code ED Ballistics Expert for James Dia
[2023-08-14 13:59] LABS: Arterial Blood Gas Hematocrit 37.7 % (42-52); Base Excess ABG 12.7 mmol/L (-2.0-2.0); Blood Gas Allen Test Pos; Blood Gas Operator Identificat CAK; Blood Gas Sample Site Brachial, left; Blood Gas Sample Type Arterial; HCO3 ABG 42.6 mmol/L (22-26); Oxygen Device NRB; PO2 FiO2 Ratio Arterial Blood 0
[2023-08-14 14:00] LABS: ABG PCO2 86.6 mmHg (35-45)
[2023-08-14] MEDS: sodium chloride 0.9% 1,000 ML 999 ML IV ×2 (14:11→16:06)
[2023-08-14] MEDS: methylPREDNISolone sod succ 125 mg/2 mL INJ IVP (14:42)
[2023-08-14 14:49] LABS: Influenza A by IFA negative (Negative); Influenza B by IFA negative (Negative)
[2023-08-14 14:50] LABS: SARS Covid-2 Antigen negative (Negative)
--- NOTE | 2023-08-14 14:51 | XR_ITS ---
WS: [id number] Exam: XR chest 1V portable [id number] Date/Time of Exam: 08/14/2023 2:51 PM Reason For Exam: sob Exam: XR chest 1V portable [id number] Date/Time of Exam: 08/14/2023 2:51 PM Reason For Exam: sob Comparison 07/23/2023. Extensive changes of fibrosis, pulmonary parenchymal and pleural scarring in the RIGHT lung. This is most prevalent in the upper lobe region. There appears to be some superimposed infiltrate in the lowe r RIGHT lung with RIGHT basal pleural effusion. The LEFT lung is clear and hyperinflated with chronic changes. Heart size is normal. There is rightward retraction of the mediastinum. Bony structures are intact. IMPRESSION: 1. Infiltrate in the lower RIGHT lung with RIGHT basal pleural effusion. This is suspicious for pneum onia. There are extensive superimposed changes of fibrosis and pulmonary and pleural scarring on the RIGHT. LEFT lung is hyperinflated and clear with some chronic change.
[2023-08-14] MEDS: ipratropium-albuterol 3 mL Neb INHALATION ×2 (15:03→19:39)
[2023-08-14 15:26] LABS: Basophils # 0.1 10^3/uL (0.0-0.1); Basophils % 0.4 %; Hematocrit 36.5 % (37-53); Lymphocytes # 0.4 10^3/uL (0.8-4.8); Lymphocytes % 1.8 %; Mean Corpuscular HGB Conc 30.4 g/dL (30-55); Mean Corpuscular Hemoglobin 28.2 pg (27-33); Mean Corpuscular Volume 92.9 fl (82-101); Mean Platelet Volume 9.4 fL (7.4-10.4); Monocytes # 1.8 10^3/uL (0.2-0.9); Monocytes % 7.5 %; Neutrophils # 21.33 10^3/uL (1.8-7.7); Neutrophils % 89.9 %; Nucleated Red Blood Cells % 0 %; Platelet Count 173 10^3/cmm (157-399); Red Blood Count 3.93 10^6/uL (3.85-5.65); Red Cell Distribution Width 12.7 % (12.1-15.1); White Blood Count 23.73 10^3/uL (3.29-11.43)
--- NOTE | 2023-08-14 15:39 | PC.PHAR ---
Addendum entered by Alisa Paulino 08/14/23 15:43: aspirin [place] [facility] Original Note: pt states he takes care of his own medications-pt states he takes vit d one tab daily-a bp med one tab daily states he is unsure of the name-mag one tab once a week-aspirin one tab daily and has 2 inhalers-[facility] med [facility] mag ox 400mg one tab daily-both inhalers entered are what shows on the pts [facility] med list-medications entered are what the pt states he takes and what was on the pts [facility] med list-
[2023-08-14 16:00] LABS: Alanine Aminotransferase < 5 U/L (0-41); Albumin Level 2.8 g/dL (3.5-5.2); Alkaline Phosphatase 85 U/L (40-130); Anion Gap 13.4 (5-19); Aspartate Amino Transferase 12 U/L (0-40); Blood Urea Nitrogen 16 mg/dL (8-23); Calcium 10.5 mg/dL (8.5-10.5); Carbon Dioxide 36 mmol/L (22-29); Chloride 88 mmol/L (98-107); Creatinine Clr Calc Pharmacy 53.1156; Globulin 3.9 g/dL (1.3-4.6); Glomerular Filtration Rate 133.6 mL/min (90-130); Glucose 70 mg/dL (65-115); NT Pro B Type Natriuretic Pept 873 pg/mL (0-125); Osmolality Calculated 276 mOsm/kg (285-295); Potassium 4.4 mmol/L (3.5-5.1); Sodium 133 mmol/L (136-145); Total Bilirubin 1.2 mg/dL (0.15-1.2); Total Protein 6.7 g/dL (6.6-8.7)
[2023-08-14] MEDS: cefTRIAXone 1,000 MG in sodium chloride 0.9% (plus) 50 ML 100 MG IV (16:08)
--- NOTE | 2023-08-14 16:42 | P.HP_ITS ---
Providers/Chief Complaint 2 Admitting Physician: David Rae Primary Care Provider: Les St, NAOMI Chief Complaint: SOB History of Present Illness Pleasant 67-year-old gentleman with a COPD, former smoker, normally on 3 L of oxygen, at home also has a BiPAP which he wears intermittently, denies sleep apnea, has a nebulizer as well. Has been getting progressively more short of breath over the last week, has been having productive cough with purulent appearing sputum also with mixed in blood/hemoptysis. On assessment in ER he was found to be hypoxic, initially on nonrebreather, and he started on BiPAP, ABG with respiratory acidosis, pH 7.3, pCO2 86.6, afebrile, with leukocytosis 23.73, chest x-ray with infiltrate in right lower lung, right basilar pleural effusion suspicious for pneumonia. Extensive superimposed changes of fibrosis and pulmonary and pleural scarring in the right. Left lung hyperinflated and clear with some chronic change. In ER he was also initially hypotensive, received IV fluid bolus. Review of Systems 2 Const: Denies: fever(s), chills, body aches or malaise ENMT: Denies: throat pain Card: Denies: chest pain, edema, pre-syncope or dyspnea on exertion Resp: Reports: dyspnea, productive cough, change in phlegm color and hemoptysis GI: Denies: abdominal pain, nausea, vomiting, diarrhea, constipation, hematochezia or melena : Denies: flank pain, difficulty urinating, urinary frequency or hematuria Musc: Denies: back pain, joint swelling or joint redness Skin/Breast: Denies: rash or new lesions Neuro: Denies: headache(s) or confusion Medications/Allergies Home Medications Medication Instructions Recorded Confirmed Last Taken Type cholecalciferol (vitamin D3) 50 50 mcg PO DAILY 04/19/20 08/14/23 04/24/23 History mcg (2,000 unit) capsule fluticasone 250 mcg-salmeterol 50 1 inh inhalation Q12H 04/26/23 08/14/23 04/24/23 History mcg/dose blistr powdr for inhalation (Advair Diskus) magnesium oxide 400 mg PO Q7D 04/26/23 08/14/23 04/24/23 History lisinopril 10 mg tablet 10 mg PO DAILY 07/23/23 08/14/23 Unknown History aspirin 81 mg tablet,delayed 81 mg PO DAILY 08/14/23 08/14/23 Unknown History release tiotropium bromide 2.5 2 puff inhalation DAILY 08/14/23 08/14/23 Unknown History mcg/actuation mist for inhalation Allergies Allergy/AdvReac Type Severity Reaction Status Date / Time No Known Allergies Allergy Verified 08/14/23 15:39 PFSH Acute 2 PFSH: Medical History (Updated 08/14/23 @ 17:54 by David Rae MD) Hemoptysis Muscle wasting Physical deconditioning Severe protein-calorie malnutrition End stage COPD Cavitary lesion of lung 03/17/22: RUL cavitary lesion 2.7 x 3.7 x 3 cm. 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 Surgical History No pertinent past surgical history no surgical history Family History Other Adopted Social History Smoking and tobacco/nicotine status: former use of tobacco/nicotine Quit status (tobacco/nicotine): has quit using Year quit tobacco: 2021 Alcohol intake: current Alcohol intake frequency: 3 or more drinks per day Alcohol type: beer Vitals/I&O/Wt Last Vital Signs Temp 98.2 F 08/14/23 13:21 Pulse 101 H 08/14/23 16:35 Resp 31 H 08/14/23 16:35 BP 124/72 08/14/23 16:35 Pulse Ox 95 08/14/23 16:35 O2 Del Method BiPAP 08/14/23 16:35 O2 Flow Rate 6 08/14/23 14:50 FiO2 50 08/14/23 14:50 08/14/23 08/14/23 08/14/23 06:59 14:59 22:59 Intake Total 1000 / 1000 Balance 1000 / 1000 Weight last 48 hrs Weight 43.091 kg Physical Exam 2 Const: COMMON NORMALS: patient oriented x3 and alert GENERAL APPEARANCE: c ooperative ORIENTATION/CONSCIOUSNESS: Yes awake HENMT: COMMON NORMALS: oropharynx normal Neck/C-Spine: COMMON NORMALS: no JVD Resp: AUSCULTATION: wheezes and diminished lung sounds Cardio: COMMON NORMALS: no JVD, regular rhythm, S1 normal heart sound present, S2 normal heart sound present and No murmurs present (Cardio) RHYTHM: regular rhythm HEART SOUNDS: S1 normal heart sound present and S2 normal heart sound present GI: COMMON NORMALS: Normal to inspection, nondistended, normoactive bowel sounds present, Soft to palpation and non-tender PALPATION: Yes Soft to palpation Extremity: COMMON NORMALS: no joint enlargement and no pedal edema Neuro: COMMON NORMALS: moves all extremities SENSORIUM/ORIENTATION: Yes alert Sepsis: Is patient septic: Yes Focused sepsis exam: Doing better after resuscitation, maintaining blood pressure, no mottling or cyanosis. Data 08/14/23 15:19 08/14/23 15:19 Micro: Microbiology 08/14/23 15:59 Blood Culture - Preliminary Blood SPECIMEN COLLECTED 08/14/23 15:59 Blood Culture - Preliminary Blood SPECIMEN COLLECTED A&P Assessment and plan (1) Acute respiratory failure with hypoxia and hypercapnia: Acute respiratory failure with hypoxia and hypercapnia, hypercapnic respiratory acidosis, severe exacerbation of COPD, community-acquired pneumonia, reviewed vitals, CBC, D-dimer, ABG, CMP, NT-proBNP, lactic acid, rapid influenza, rapid COVID-19, chest x-ray, ED provider note, discussed with ED provider. Requiring BiPAP support with respiratory failure, respiratory acidosis, continue IV steroid, antibiotic coverage with ceftriaxone, azithromycin, DuoNebs, RT assessment and management, MRSA PCR, sputum culture, urine bacterial antigens. Follow-up blood culture. Oxygenation support, target 88-90%. Monitor for risk of hyperglycemia, hypertension with IV steroids. Assess EKG with azithromycin at risk of QT prolongation. Additionally discussed with him training D-dimer, additional assessment consideration by CTA. D-dimer is elevated, as per discussion will assess with CTA for possible PE with respiratory failure, hemoptysis. (2) Acute exacerbation of chronic obstructive airways disease: Severe exacerbation of COPD with dyspnea, productive cough, purulent appearing sputum. Hypoxic, hypercapnic respiratory failure with respiratory acidosis. As above. Has a BiPAP at home which she uses intermittently. Normally on 3 L of oxygen. Has a nebulizer. (3) Community acquired pneumonia: As above. Possible sepsis, status 23.73, respiratory rate 24, lactic acid 5.4, organ hypoperfusion, otherwise without endorgan injury, initially hypotensive, responded to fluid resuscitation.Repeat lactate. Follow-up blood culture. Antibiotic coverage as above. Additionally has right lower lobe possible pleural effusion. Initially requested ultrasound assessment tomorrow, with abnormal D-dimer will assess by CTA. (4) Hemoptysis: Additionally discussed with him training D-dimer, additional assessment consideration by CTA. D-dimer is elevated, as per discussion will assess with CTA for possible PE with respiratory failure, hemoptysis. Plan HTN: Blood pressure soft, hypotensive initially on presentation, received bolus. Reassess blood pressure. Hold antihypertensives for now. Attestations 2 Medical Necessity Statement*: Admission of over 2 midnights anticipated for assessment and management of respiratory failure. Coding Level of Care Code Critical Care >/= 30 minutes Critical care time (in minutes): 35 The high probability of a clinically significant, sudden or life threatening deterioration, as referenced in this documentation, required my full and direct attention, intervention and personal management. The critical care time shown is in addition to time spent performing any reported separately billable procedures and includes the following: [x] Data and vital sign review and interpretation [x ] Patient assessment, examination and intervention [x] Medication orders and management [x] Patient/Family updates as able [x] Care Coordination and Documentation. Diagnoses Acute respiratory failure with hypoxia and hypercapnia J96.01; J96.02 Acute exacerbation of chronic obstructive airways disease J44.1 Community acquired pneumonia J18.9 Hemoptysis R04.2
[2023-08-14 16:44] LABS: D Dimer 1.66 ug/mLFEU (0-0.59)
[2023-08-14] MEDS: azithromycin 500 MG in sodium chloride 0.9% 250 ML 250 MG IV (17:02)
[2023-08-14 17:03] LABS: Lactic Sepsis W/Reflex 5.4 mmol/L (0.5-2.2)
--- NOTE | 2023-08-14 17:53 | CTR_ITS ---
PROCEDURE INFORMATION: Exam: CTA Chest With Contrast Exam date and time: 08/14/2023 8:05 PM Age: 67 years old Clinical indication: Dyspnea and shortness of breath; Additional info: Assess for pe TECHNIQUE: Imaging protocol: Computed tomographic angiography of the chest with contrast. Exam focused on the arteries. 3D rendering (Not supervised by radiologist): MIP and/or 3D reconstructed images were created by the technologist. Radiation optimization: All CT scans at this facility use at least one of these dose optimization techniques: automated exposure control; mA and/or kV adjustment per patient size (includes targeted exams where dose is matched to clinical indication); or iterative reconstruction. Contrast material: OMNI 350; Contrast volume: 49 ml; Contrast route: INTRAVENOUS (IV); COMPARISON: CT angio chest PE protcl [id number] 04/26/2023 10:17 AM RADIATION DOSE METRICS: Total DLP (mGy-cm): 275.91 FINDINGS: Pulmonary arteries: No pulmonary embolus. Aorta: Unremarkable. No aortic aneurysm. No aortic dissection. Lungs: Severe emphysematous changes throughout both lungs with an upper lobe predominance. Diffuse cavitary and cystic changes in the right upper lobe with extensive intervening consolidation in the right upper lobe and large consolidation in the posterior aspect of the right lower lobe. Pleural spaces: Unremarkable. No pneumothorax. No pleural effusion. Heart: Unremarkable. No cardiomegaly. No pericardial effusion. Lymph nodes: Unremarkable. No enlarged lymph nodes. Gallbladder and bile ducts: Multiple tiny stones in the gallbladder with no gallbladder wall thickening.Multiple punctate calcifications in the spleen consistent with prior granulomatous infection. Bones/joints: Unremarkable. No acute fracture. Soft tissues: Unremarkable. Other findings: Upward retraction of the right hilum. CT/CT angio chest PE protcl [id number] IMPRESSION: 1. No pulmonary embolus. 2. Severe emphysematous changes throughout both lungs with an upper lobe predominance, similar to the prior examination. 3. Diffuse cavitary and cystic changes in the right upper lobe with extensive intervening consolidation in the right upper lobe, similar to the prior examination, and large consolidation in the posterior aspect of the right lower lobe, new from the prior examination. COMMENTS: The presence of pulmonary emphysema on CT is an independent risk factor for lung cancer. In the absence of a history or active diagnosis of lung cancer, it is recommended that this patient with emphysema be evaluated for enrollment in a low dose CT lung cancer screening program.
--- NOTE | 2023-08-14 17:55 | PC.NURSE ---
Patient arrived to ICU room 3 via stretcher with 1RN and 1RT, patient on biap Fio2 40, with RR the 30's, Patient is compliant with bipap at this time. See charted vitals, Fluid bolus and azithromycin running from ER. Lungs sound diminished with expiratory wheezing, Patient reports chronic lower back pain, relieved with medication at home and repositioning. Patient states all belongings are with his nephew, spoke with nephew and he confirms all belongings are going home with him. Patient is AOX4.
[2023-08-14 18:11] LABS: Reflex Lactate Order REFLEX LACTIC ORDERD
--- NOTE | 2023-08-14 18:50 | ECG_ITS ---
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 Measurements Intervals [place] Rate: 88 P: 77 ID: [id number] QRS: 71 QRSD: 71 T: 59 QT: 360 QTc: 437 Interpretive Statements SINUS RHYTHM WITH OCCASIONAL ECTOPIC PREMATURE COMPLEXES Compared to ECG 07/23/2023 14:52:40 Supraventricular rhythm no longer present Myocardial infarct finding no longer present Electronically Signed On 08-15-2023 0:07:51 CDT by Mayte Hanks M.D. [id number]
[2023-08-14] MEDS: pantoprazole 40 mg SDV IVP (18:51)
[2023-08-14 19:59] LABS: Lactic Acid level (Lactate) 2.5 mmol/L (0.5-2.2)
[2023-08-14] MEDS: iohexol 350 mg/mL 500 mL Btl (per mL) IV (20:11)
[2023-08-14] MEDS: methylPREDNISolone sod succ 40 mg/mL INJ IVP (21:28)
[2023-08-14] MEDS: acetaminophen 325 mg Tablet 650 MG PO (23:29)
[2023-08-15] VITALS (78 sets, daily range): BP systolic 76–157; BP diastolic 49–80; PULSE 80–157; RESP 8–36; TEMP 36.1–36.9; O2SAT 74–100; BMI 16.6
[2023-08-15] MEDS: ipratropium-albuterol 3 mL Neb INHALATION ×4 (02:44→20:06)
[2023-08-15] MEDS: methylPREDNISolone sod succ 40 mg/mL INJ IVP ×4 (03:09→21:04)
[2023-08-15 03:29] LABS: Basophils % 0.3 %; Eosinophils # 0.1 10^3/uL (0.0-0.8); Hematocrit 31.4 % (37-53); Lymphocytes # 0.4 10^3/uL (0.8-4.8); Lymphocytes % 3.1 %; Mean Corpuscular HGB Conc 30.3 g/dL (30-55); Mean Corpuscular Hemoglobin 27.9 pg (27-33); Mean Corpuscular Volume 92.4 fl (82-101); Mean Platelet Volume 9.8 fL (7.4-10.4); Monocytes # 0.4 10^3/uL (0.2-0.9); Neutrophils # 12.33 10^3/uL (1.8-7.7); Neutrophils % 92.2 %; Nucleated Red Blood Cells % 0 %; Platelet Count 120 10^3/cmm (157-399); White Blood Count 13.37 10^3/uL (3.29-11.43)
[2023-08-15 03:48] LABS: Anion Gap 9.5 (5-19); Blood Urea Nitrogen 19 mg/dL (8-23); Calcium 10.6 mg/dL (8.5-10.5); Carbon Dioxide 36 mmol/L (22-29); Chloride 93 mmol/L (98-107); Creatinine Clr Calc Pharmacy 53.1156; Glomerular Filtration Rate 111.8 mL/min (90-130); Glucose 115 mg/dL (65-115); Magnesium 1.6 mg/dL (1.7-2.3); Osmolality Calculated 281 mOsm/kg (285-295); Potassium 4.5 mmol/L (3.5-5.1); Sodium 134 mmol/L (136-145)
[2023-08-15] MEDS: pantoprazole 40 mg SDV IVP ×2 (05:58→17:48)
[2023-08-15] MEDS: cefTRIAXone 1,000 MG in sodium chloride 0.9% (plus) 50 ML 100 MG IV (08:28)
[2023-08-15] MEDS: azithromycin 500 MG in sodium chloride 0.9% 250 ML 250 MG IV (14:56)
[2023-08-15] MEDS: acetaminophen 325 mg Tablet 650 MG PO (21:03)
--- NOTE | 2023-08-15 22:53 | PM.PN ---
Subjective Subjective: He feels he is improving. Was able to wean off BiPAP for time. Denies chest pain or pressure. No nausea vomiting or diarrhea. Vitals/I&O/Wt Last Vital Signs Temp 97.9 F 08/15/23 20:00 Pulse 98 08/15/23 21:00 Resp 14 08/15/23 21:00 BP 121/77 08/15/23 21:00 Pulse Ox 88 L 08/15/23 21:00 O2 Del Method BiPAP 08/15/23 20:07 O2 Flow Rate 6 08/14/23 14:50 FiO2 30 08/15/23 20:07 08/15/23 08/15/23 08/15/23 06:59 14:59 22:59 Intake Total 50 / 50 250 / 300 Output Total 125 / 275 Balance -2024 50 / 50 250 / 300 Weight last 48 hrs Weight 45.359 kg Weight 43.091 kg Weight 43.091 kg Physical Exam Const: COMMON NORMALS: patient oriented x3 and alert GENERAL APPEARANCE: cooperative ORIENTATION/CONSCIOUSNESS: Yes awake HENMT: COMMON NORMALS: oropharynx normal Neck/C-Spine: COMMON NORMALS: no JVD Resp: AUSCULTATION: no wheezes and diminished lung sounds Cardio: COMMON NORMALS: no JVD, regular rhythm, S1 normal heart sound present, S2 normal heart sound present and No murmurs present (Cardio) RHYTHM: regular rhythm HEART SOUNDS: S1 normal heart sound present and S2 normal heart sound present GI: COMMON NORMALS: Normal to inspection, nondistended, normoactive bowel sounds present, Soft to palpation and non-tender PALPATION: Yes Soft to palpation Extremity: COMMON NORMALS: no joint enlargement and no pedal edema Neuro: COMMON NORMALS: patient oriented x3 and moves all extremities SENSORIUM/ORIENTATION: Yes alert Data 08/15/23 03:08 08/15/23 03:08 Micro: Microbiology 08/14/23 15:59 Blood Culture - Preliminary Blood NEGATIVE TO DATE 08/14/23 15:59 Blood Culture - Preliminary Blood Streptococcus pneumoniae 08/14/23 23:13 Bacterial Antigens - Final Urine,Voided 08/14/23 23:30 Gram Stain - Final Sputum - Expectorated Sputum 08/14/23 23:13 Legionella Urinary Antigen - Final Urine,Voided A&P Assessment and plan (1) Acute respiratory failure with hypoxia and hypercapnia: Improving respiratory failure, weaned off BiPAP for a while, but had to go back on it again. Reviewed vitals, CBC, BMP, CTA, noted severe edematous changes, diffuse cavitary cystic changes in the right upper lobe with extensive intervening consolidation in the right upper lobe similar to prior examination. Large consolidation in the posterior aspect of right lower lobe new from prior. Concern for possible aspiration, will assess with MBS. Continue treatment of pneumonia, severe COPD exacerbation. continue IV steroid, antibiotic coverage with ceftriaxone, azithromycin, DuoNebs, RT assessment and management, MRSA PCR, sputum culture, urine bacterial antigens. Follow-up blood culture. Oxygenation support, target 88-90%. Monitor for risk of hyperglycemia, hypertension with IV steroids. Assess EKG with azithromycin at risk of QT prolongation. Discussed with correctional casework specialist. Reassess kidney function following CTA with risk of kidney injury. (2) Acute exacerbation of chronic obstructive airways disease: As above. Severe exacerbation of COPD with dyspnea, productive cough, purulent appearing sputum. Hypoxic, hypercapnic respiratory failure with respiratory acidosis. As above. Has a BiPAP at home which she uses intermittently. Normally on 3 L of oxygen. Has a nebulizer. (3) Community acquired pneumonia: As above. Possible sepsis, status 23.73, respiratory rate 24, lactic acid 5.4, organ hypoperfusion, otherwise without endorgan injury, initially hypotensive, responded to fluid resuscitation.Repeat lactate. Follow-up blood culture. Antibiotic coverage as above. Additionally has right lower lobe possible pleural effusion. Initially requested ultrasound assessment tomorrow, with abnormal D-dimer will assess by CTA. (4) Hemoptysis: So far without additional hemoptysis. Monitor for symptom change. Platelets reviewed note 120. Continue to hold aspirin. No anticoagulation for VTE prophylaxis, CDs only. Continue to have pneumonia, severe COPD exacerbation. Additionally discussed with him training D-dimer, additional assessment consideration by CTA. D-dimer is elevated, as per discussion will assess with CTA for possible PE with respiratory failure, hemoptysis. Plan HTN: Blood pressure soft, hypotensive initially on presentation, received bolus. Reassess blood pressure. Hold antihypertensives for now. Attestations Medical Necessity Statement*: Continue admission for assessment management of respiratory failure, pneumonia, severe exacerbation of COPD. Diagnoses Acute respiratory failure with hypoxia and hypercapnia J96.01; J96.02 Acute exacerbation of chronic obstructive airways disease J44.1 Community acquired pneumonia J18.9 Hemoptysis R04.2
[2023-08-16] VITALS (16 sets, daily range): BP systolic 92–153; BP diastolic 54–90; PULSE 85–134; RESP 16–34; TEMP 36.1–36.7; O2SAT 86–97
--- NOTE | 2023-08-16 00:51 | PC.NURSE ---
Report called to med surg nurse Abraham ZUNIGA. Transferred patient via bed to room 272. Nurse at bedside.
[2023-08-16] MEDS: magnesium sulfate premix 2 GM/50 ML PIGGYBACK IV (01:24)
[2023-08-16] MEDS: methylPREDNISolone sod succ 40 mg/mL INJ IVP ×4 (02:42→20:24)
[2023-08-16] MEDS: ipratropium-albuterol 3 mL Neb INHALATION ×3 (03:13→20:54)
[2023-08-16 05:10] LABS: Basophils % 0.1 %; Hematocrit 31.9 % (37-53); Lymphocytes # 0.4 10^3/uL (0.8-4.8); Lymphocytes % 2.1 %; Mean Corpuscular HGB Conc 30.7 g/dL (30-55); Mean Corpuscular Hemoglobin 28.1 pg (27-33); Mean Corpuscular Volume 91.4 fl (82-101); Mean Platelet Volume 9.6 fL (7.4-10.4); Monocytes # 0.5 10^3/uL (0.2-0.9); Neutrophils # 16.45 10^3/uL (1.8-7.7); Neutrophils % 94.3 %; Nucleated Red Blood Cells % 0 %; Platelet Count 151 10^3/cmm (157-399); Red Blood Count 3.49 10^6/uL (3.85-5.65); Red Cell Distribution Width 13.4 % (12.1-15.1); White Blood Count 17.45 10^3/uL (3.29-11.43)
[2023-08-16 05:33] LABS: Anion Gap 12.1 (5-19); Blood Urea Nitrogen 23 mg/dL (8-23); Calcium 11.5 mg/dL (8.5-10.5); Carbon Dioxide 37 mmol/L (22-29); Chloride 95 mmol/L (98-107); Creatinine Clr Calc Pharmacy 55.0731; Glomerular Filtration Rate 164.9 mL/min (90-130); Glucose 95 mg/dL (65-115); Osmolality Calculated 293 mOsm/kg (285-295); Potassium 4.1 mmol/L (3.5-5.1); Sodium 140 mmol/L (136-145)
[2023-08-16 05:34] LABS: Magnesium 2.5 mg/dL (1.7-2.3)
[2023-08-16] MEDS: pantoprazole 40 mg SDV IVP ×2 (05:41→17:44)
--- NOTE | 2023-08-16 09:00 | FL_ITS ---
WS: [id number] Exam: FL barium swallow modifd 12610 Date/Time of Exam: 08/16/2023 2:05 PM Reason For Exam: Oropharyngeal dysphagia Fluoroscopy time: minutes # of spot films: Modified barium swallow was performed in conjunction with the speech therapy service. The patient experienced penetration and aspiration when swallowing thin liquid and nectar consistency barium mixture foodstuffs. The patient tolerated the remaining barium mixture foodstuffs relatively well. Some generalized swallowing sluggishness and dysfunction noted. The patient the swallowed a bar ium tablet without incident. IMPRESSION: 1. The patient experienced penetration into the laryngeal inlet as well as mild aspiration when swall owing thin liquid and nectar consistency barium mixture foodstuffs. A separate report and recommendations will follow from the speech therapy service.
[2023-08-16] MEDS: cefTRIAXone 1,000 MG in sodium chloride 0.9% (plus) 50 ML 100 MG IV (09:35)
--- NOTE | 2023-08-16 12:16 | PC.SOCIAL ---
IMM Update pg 2 of IMM updated and reviewed w/ patient. Copy provided and copy dated, initialed and placed in chart.
[2023-08-16 12:53] LABS: Methicillin-Resist S.aureu PCR NOT DETECTED (NOT DETECTED)
[2023-08-16] MEDS: azithromycin 500 MG in sodium chloride 0.9% 250 ML 250 MG IV (15:19)
--- NOTE | 2023-08-16 15:56 | P.PN_ITS ---
Subjective 2 Subjective: Subjectively he states he is not doing too badly, however, per discussion with RT and nursing has had difficult time weaning off BiPAP with worsening respiratory function, desaturation when he comes off BiPAP. Not much cough, denies phlegm production. Vitals/I&O/Wt Last Vital Signs Temp 97 F L 08/16/23 12:00 Pulse 106 H 08/16/23 12:00 Resp 18 08/16/23 12:00 BP 144/78 08/16/23 12:00 Pulse Ox 97 08/16/23 12:00 O2 Del Method Oxymask 08/16/23 11:08 O2 Flow Rate 4 08/16/23 11:08 FiO2 30 08/16/23 08:25 08/16/23 08/16/23 08/16/23 06:59 14:59 22:59 Intake Total 50 / 350 50 / 50 Balance 50 / 250 50 / 50 Weight last 48 hrs Weight 44.679 kg Weight 45.359 kg Weight 43.091 kg Physical Exam 2 Const: COMMON NORMALS: patient oriented x3 and alert GENERAL APPEARANCE: c ooperative NUTRITIONAL APPEARANCE: cachectic ORIENTATION/CONSCIOUSNESS: Y es awake HENMT: COMMON NORMALS: oropharynx normal Neck/C-Spine: COMMON NORMALS: no JVD Resp: AUSCULTATION: wheezes (R>L) Cardio: COMMON NORMALS: no JVD, regular rhythm, S1 normal heart sound present, S2 normal heart sound present and No murmurs present (Cardio) RHYTHM: regular rhythm HEART SOUNDS: S1 normal heart sound present and S2 normal heart sound present GI: COMMON NORMALS: Normal to inspection, nondistended, normoactive bowel sounds present, Soft to palpation and non-tender PALPATION: Yes Soft to palpation Extremity: COMMON NORMALS: no joint enlargement and no pedal edema OTHER: Sarcopenia. Neuro: COMMON NORMALS: patient oriented x3 and moves all extremities S ENSORIUM/ORIENTATION: Yes alert Data 08/16/23 04:46 08/16/23 04:46 Micro: Microbiology 08/14/23 23:30 Gram Stain - Final Sputum - Expectorated Sputum Sputum Culture - Preliminary Gram Negative Rods 08/14/23 15:59 Blood Culture - Preliminary Blood NEGATIVE TO DATE 08/14/23 15:59 Blood Culture - Preliminary Blood Streptococcus pneumoniae A&P Assessment and plan (1) Acute respiratory failure with hypoxia and hypercapnia: And improving, has been BiPAP dependent, difficult to wean down to try to get down for assessment by MBS. Persistent wheezing on exam. Continues n.p.o. for now due to concern for aspiration. So far no additional hemoptysis. Reviewed vitals, CBC, BMP, magnesium, noted worsening leukocytosis up to 17.45. Discussed with RT, nursing. Discussed with case packer and sealer. Attempt to wean off BiPAP so that he may be assessed by MBS. Continue oxygen support, avoid hyperoxia, target oxygen 88-92%. Sputum culture reviewed noted growing gram-negative rods. Continue treatment of pneumonia, severe COPD exacerbation. Discussed with case packer and sealer, not ready for discharge. Continue assessment and treatment. Reviewed MRSA, negative. Continue IV Solu-Medrol, antibiotic coverage with ceftriaxone, azithromycin, DuoNebs, RT assessment and management, Follow-up blood and sputum culture. Monitor for risk of hyperglycemia, hypertension with IV steroids. Reviewed EKG, no QT prolongation. Reviewed Accu-Cheks. Reassess kidney function, noted without worsening. (2) Acute exacerbation of chronic obstructive airways disease: As above. Severe exacerbation of COPD with dyspnea, productive cough, purulent appearing sputum. Hypoxic, hypercapnic respiratory failure with respiratory acidosis. As above. Has a BiPAP at home which she uses intermittently. Normally on 3 L of oxygen. Has a nebulizer. (3) Community acquired pneumonia: As above. Possible sepsis, WBC, respiratory rate 24, lactic acid 5.4, organ hypoperfusion, otherwise without endorgan injury, initially hypotensive, responded to fluid resuscitation.Repeat lactate. Follow-up blood culture. Antibiotic coverage as above. Reviewed CTA, no pleural effusion. (4) Hemoptysis: So far without additional hemoptysis. Monitor for symptom change. Platelets reviewed slightly better at 151. Continue to hold aspirin. Exact indication of aspirin is not clear, does not appear to have history of CAD or CVA. Possibly primary prophylaxis. Hold at current time due to risk of bleeding. Continue to have pneumonia, severe COPD exacerbation. Additionally discussed with him training D-dimer, additional assessment consideration by CTA. D-dimer is elevated, as per discussion will assess with CTA for possible PE with respiratory failure, hemoptysis. Plan Severe protein calorie malnutrition: Cachectic appearance, BMI 16.4, sarcopenia on exam, once able to resume oral diet obtain dietitian consultation, nutritional supplementation. HTN: Blood pressure soft, hypotensive initially on presentation, received bolus. Reassess blood pressure. Hold antihypertensives for now. Attestations 2 Medical Necessity Statement*: Continue admission for assessment management of acute on chronic respiratory failure, pneumonia. and High MDM includes amount and/or complexity of data reviewed/ordered [ resulted lab(s)/test(s), ordered lab(s)/test(s) and other healthcare professional discussion] and described risk of complication, morbidity or mortality of management as documented Diagnoses Acute respiratory failure with hypoxia and hypercapnia J96.01; J96.02 Acute exacerbation of chronic obstructive airways disease J44.1 Community acquired pneumonia J18.9 Hemoptysis R04.2
--- NOTE | 2023-08-16 17:46 | ECG_ITS ---
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 Measurements Intervals [place] Rate: 143 P: 0 [place]: 0 QRS: 83 QRSD: 82 T: 53 QT: 275 QTc: 425 Interpretive Statements ATRIAL FIBRILLATION WITH RAPID VENTRICULAR RESPONSE ANTEROSEPTAL MYOCARDIAL INFARCTION , PROBABLY OLD [40+ ms Q WAVE IN V1-V4] Compared to ECG 08/14/2023 18:50:51 Myocardial infarct finding now present Sinus rhythm no longer present Electronically Signed On 08-16-2023 22:51:56 CDT by Robert Sandoval M.D. [id number]
[2023-08-16] MEDS: dilTIAZem 5 mg/mL SDV 5 mL IVP (18:04)
[2023-08-16] MEDS: dilTIAZem 5 mg/mL SDV 5 mL 10 MG IVP ×2 (18:57→21:02)
[2023-08-16] MEDS: acetaminophen 325 mg Tablet 650 MG PO (20:24)
--- NOTE | 2023-08-16 21:44 | PC.NURSE ---
Informed Dr Zavala of patients history of ETOH. Received telephone order to placed on CIWA protocol. Performed assessment. Observed patient trembling and dry heaving. Provided education regarding CIWA to patient and RN at bedside. Both verbalized understanding.
[2023-08-16] MEDS: LORazepam 2 mg/mL INJ 1 mL IVP (21:45)
[2023-08-17] VITALS (31 sets, daily range): BP systolic 93–130; BP diastolic 61–91; PULSE 70–138; RESP 0–35; TEMP 36.2–36.6; O2SAT 84–98
[2023-08-17] MEDS: ipratropium-albuterol 3 mL Neb INHALATION ×4 (01:50→20:44)
[2023-08-17] MEDS: methylPREDNISolone sod succ 40 mg/mL INJ IVP ×4 (01:59→19:55)
[2023-08-17] MEDS: pantoprazole 40 mg SDV IVP ×2 (05:25→17:28)
[2023-08-17 08:46] LABS: Basophils % 0.1 %; Hematocrit 31.4 % (37-53); Lymphocytes # 0.3 10^3/uL (0.8-4.8); Lymphocytes % 3.1 %; Mean Corpuscular HGB Conc 29.6 g/dL (30-55); Mean Corpuscular Hemoglobin 27.8 pg (27-33); Mean Corpuscular Volume 93.7 fl (82-101); Mean Platelet Volume 9.3 fL (7.4-10.4); Monocytes # 0.5 10^3/uL (0.2-0.9); Monocytes % 4.6 %; Neutrophils # 9.61 10^3/uL (1.8-7.7); Neutrophils % 91.6 %; Nucleated Red Blood Cells % 0 %; Platelet Count 133 10^3/cmm (157-399); Red Blood Count 3.35 10^6/uL (3.85-5.65); Red Cell Distribution Width 13.5 % (12.1-15.1); White Blood Count 10.49 10^3/uL (3.29-11.43)
[2023-08-17] MEDS: cefTRIAXone 1,000 MG in sodium chloride 0.9% (plus) 50 ML 100 MG IV (08:52)
[2023-08-17 09:04] LABS: Anion Gap 11.6 (5-19); Blood Urea Nitrogen 29 mg/dL (8-23); Calcium 11.4 mg/dL (8.5-10.5); Carbon Dioxide 38 mmol/L (22-29); Chloride 98 mmol/L (98-107); Glomerular Filtration Rate 164.9 mL/min (90-130); Glucose 107 mg/dL (65-115); Osmolality Calculated 302 mOsm/kg (285-295); Potassium 4.6 mmol/L (3.5-5.1); Sodium 143 mmol/L (136-145)
[2023-08-17 09:05] LABS: Magnesium 2.1 mg/dL (1.7-2.3)
[2023-08-17 09:27] LABS: Creatinine Clr Calc Pharmacy 52.2774
[2023-08-17] MEDS: azithromycin 500 MG in sodium chloride 0.9% 250 ML 250 MG IV (14:41)
--- NOTE | 2023-08-17 15:13 | PC.NURSE ---
Hand off to EFRAIN Domínguez
--- NOTE | 2023-08-17 21:06 | PM.PN ---
Subjective Subjective: Minimally conscious this morning, could not wake him up, although was protecting airway. Vitals/I&O/Wt Last Vital Signs Temp 97.3 F L 08/17/23 19:47 Pulse 72 08/17/23 20:15 Resp 15 08/17/23 20:15 BP 120/73 08/17/23 19:47 Pulse Ox 93 08/17/23 20:15 O2 Del Method BiPAP 08/17/23 20:15 O2 Flow Rate 4 08/17/23 13:40 FiO2 28 08/17/23 20:15 08/17/23 08/17/23 08/17/23 06:59 14:59 22:59 Intake Total 233.043 / 233.043 435.593 / 668.636 Balance 233.043 / 233.043 435.593 / 668.636 Weight last 48 hrs Weight 42.411 kg Weight 44.679 kg Physical Exam Const: NUTRITIONAL APPEARANCE: cachectic ORIENTATION/CONSCIOUSNESS: Yes patient obtunded HENMT: COMMON NORMALS: oropharynx normal Neck/C-Spine: COMMON NORMALS: no JVD Resp: AUSCULTATION: wheezes (R>L) and diminished lung sounds Cardio: COMMON NORMALS: no JVD, regular rhythm, S1 normal heart sound present, S2 normal heart sound present and No murmurs present (Cardio) RHYTHM: regular rhythm HEART SOUNDS: S1 normal heart sound present and S2 normal heart sound present GI: COMMON NORMALS: Normal to inspection, nondistended, normoactive bowel sounds present, Soft to palpation and non-tender PALPATION: Yes Soft to palpation Extremity: COMMON NORMALS: no joint enlargement and no pedal edema OTHER: Sarcopenia. Neuro: COMMON NORMALS: moves all extremities Data 08/17/23 08:22 08/17/23 08:22 Micro: Microbiology 08/14/23 23:30 Gram Stain - Final Sputum - Expectorated Sputum Sputum Culture - Preliminary Gram Negative Rods Gram Negative Rods#2 A&P Assessment and plan (1) Acute respiratory failure with hypoxia and hypercapnia: Minimally conscious/unresponsive this morning, with acute metabolic/hypercapnic encephalopathy. Could not wake him up. On BiPAP, but noted hyperoxia, sats 100%. Decreased FiO2 from 40 to 30%, still saturating about 97%, decreased further to 25%, saturation 87-88%. Increased to 28%. Continue. Target sats 88-92%. Discussed with RT. Reviewed vitals, CBC, BMP, sputum culture. Sputum culture with noted gram-negative rods. Continue empiric antibiotic coverage with ceftriaxone, azithromycin. Follow-up sputum culture. Blood culture reviewed, noted 1/4 bottles positive for strep pneumonia. Possible pneumococcal pneumonia complicated with pneumococcal bacteremia. Continue ceftriaxone. No evidence of empyema on CTA. Urine bacterial antigens negative including for strep pneumo. Legionella antigen negative. Reassess later in the afternoon noted awake and more alert, interacting, denies pain or discomfort. Continue treatment of pneumonia, severe COPD exacerbation. Discussed with child support case officer, not ready for discharge. Continue assessment and treatment. Reviewed MRSA, negative. Continue IV Solu-Medrol, antibiotic coverage with ceftriaxone, azithromycin, DuoNebs, RT assessment and management, Follow-up blood and sputum culture. Monitor for risk of hyperglycemia, hypertension with IV steroids. Reviewed EKG, no QT prolongation. Reviewed Accu-Cheks. Reassess kidney function, noted without worsening. (2) Acute exacerbation of chronic obstructive airways disease: As above. Severe exacerbation of COPD with dyspnea, productive cough, purulent appearing sputum. Hypoxic, hypercapnic respiratory failure with respiratory acidosis. As above. Has a BiPAP at home which she uses intermittently. Normally on 3 L of oxygen. Has a nebulizer. (3) Community acquired pneumonia: As above. Possible sepsis, WBC, respiratory rate 24, lactic acid 5.4, organ hypoperfusion, otherwise without endorgan injury, initially hypotensive, responded to fluid resuscitation.Repeat lactate. Follow-up blood culture. Antibiotic coverage as above. Reviewed CTA, no pleural effusion. (4) Hemoptysis: So far without additional hemoptysis. Monitor for symptom change. Platelets reviewed slightly better at 151. Continue to hold aspirin. Exact indication of aspirin is not clear, does not appear to have history of CAD or CVA. Possibly primary prophylaxis. Hold at current time due to risk of bleeding. Continue to have pneumonia, severe COPD exacerbation. Additionally discussed with him training D-dimer, additional assessment consideration by CTA. D-dimer is elevated, as per discussion will assess with CTA for possible PE with respiratory failure, hemoptysis. Plan Severe protein calorie malnutrition: Cachectic appearance, BMI 16.4, sarcopenia on exam, once able to resume oral diet obtain dietitian consultation, nutritional supplementation. HTN: Blood pressure soft, hypotensive initially on presentation, received bolus. Reassess blood pressure. Hold antihypertensives for now. Attestations Medical Necessity Statement*: Continue admission for assessment management of respiratory failure, hypercapnic encephalopathy, streptococcal pneumonia complicated by strep pneumo bacteremia, possibly polymicrobial pneumonia with also gram-negative rods growing in the sputum. With COPD exacerbation. and High Time for a total of 60 minutes, includes reviewing past or interval history, examining/interviewing patient, placing orders, discussing plan of care with staff, communicating with other healthcare providers, documenting encounter and coordinating care Diagnoses Acute respiratory failure with hypoxia and hypercapnia J96.01; J96.02 Acute exacerbation of chronic obstructive airways disease J44.1 Community acquired pneumonia J18.9 Hemoptysis R04.2
[2023-08-18] VITALS (34 sets, daily range): BP systolic 102–165; BP diastolic 68–103; PULSE 74–99; RESP 13–39; TEMP 36.2–36.8; O2SAT 78–100
[2023-08-18] MEDS: ipratropium-albuterol 3 mL Neb INHALATION ×4 (01:46→19:47)
[2023-08-18] MEDS: methylPREDNISolone sod succ 40 mg/mL INJ IVP ×3 (02:19→15:37)
--- NOTE | 2023-08-18 02:59 | PC.NURSE ---
turned off amio drip according to protocol, pt was in sinus rhythm since beginning of shift and maintained rate between 70-80 30 minutes since shutting off amio drip, pt is still maintaining between 75-85 on heart rate
[2023-08-18 03:46] LABS: Hematocrit 32.8 % (37-53); Lymphocytes # 0.2 10^3/uL (0.8-4.8); Lymphocytes % 2.3 %; Mean Corpuscular HGB Conc 29.3 g/dL (30-55); Mean Corpuscular Hemoglobin 27.4 pg (27-33); Mean Corpuscular Volume 93.7 fl (82-101); Mean Platelet Volume 9.7 fL (7.4-10.4); Monocytes # 0.2 10^3/uL (0.2-0.9); Monocytes % 2.7 %; Neutrophils # 7.79 10^3/uL (1.8-7.7); Neutrophils % 94.4 %; Nucleated Red Blood Cells % 0 %; Platelet Count 129 10^3/cmm (157-399); Red Cell Distribution Width 13.4 % (12.1-15.1); White Blood Count 8.25 10^3/uL (3.29-11.43)
[2023-08-18 04:07] LABS: Anion Gap 7.2 (5-19); Blood Urea Nitrogen 31 mg/dL (8-23); Calcium 11.8 mg/dL (8.5-10.5); Chloride 99 mmol/L (98-107); Creatinine Clr Calc Pharmacy 52.2774; Glomerular Filtration Rate 164.9 mL/min (90-130); Glucose 126 mg/dL (65-115); Osmolality Calculated 308 mOsm/kg (285-295); Potassium 4.2 mmol/L (3.5-5.1); Sodium 145 mmol/L (136-145)
[2023-08-18 04:13] LABS: Carbon Dioxide 43 mmol/L (22-29)
[2023-08-18] MEDS: pantoprazole 40 mg SDV IVP ×2 (05:29→17:57)
[2023-08-18] MEDS: cefTRIAXone 1,000 MG in sodium chloride 0.9% (plus) 50 ML 100 MG IV (09:51)
[2023-08-18] MEDS: LORazepam 2 mg/mL INJ 1 mL IVP ×2 (12:16→21:14)
--- NOTE | 2023-08-18 12:29 | PC.NURSE ---
. Patient had bipap on a was satting at 91 but still complained of being unable to breathe. Patient given 2mg/1ml IVP of Lorazepam for anxiety and tachypnea
[2023-08-18] MEDS: azithromycin 500 MG in sodium chloride 0.9% 250 ML 250 MG IV (15:37)
--- NOTE | 2023-08-18 19:22 | P.PN_ITS ---
Subjective 2 Subjective: He states today he is feeling slightly better. He wants to try something by mouth. Feels thirsty. Discussed with him aspiration precautions. Vitals/I&O/Wt Last Vital Signs Temp 98.1 F 08/18/23 16:00 Pulse 83 08/18/23 16:00 Resp 14 08/18/23 16:00 BP 130/103 08/18/23 16:00 Pulse Ox 98 08/18/23 16:00 O2 Del Method BiPAP 08/18/23 16:00 O2 Flow Rate 6 08/18/23 11:33 FiO2 30 08/18/23 16:00 08/18/23 08/18/23 08/18/23 06:59 14:59 22:59 Intake Total 106.966 / 775.602 393.034 / 393.034 Balance 106.966 / 775.602 393.034 / 393.034 Weight last 48 hrs Weight 40.256 kg Weight 42.411 kg Physical Exam 2 Const: COMMON NORMALS: patient oriented x3 and alert GENERAL APPEARANCE: c ooperative and frail appearing NUTRITIONAL APPEARANCE: cachectic O RIENTATION/CONSCIOUSNESS: Yes awake and Yes patient obtunded HENMT: COMMON NORMALS: oropharynx normal Neck/C-Spine: COMMON NORMALS: no JVD Resp: AUSCULTATION: wheezes (milder) and diminished lung sounds Cardio: COMMON NORMALS: no JVD, regular rhythm, S1 normal heart sound present, S2 normal heart sound present and No murmurs present (Cardio) RHYTHM: regular rhythm HEART SOUNDS: S1 normal heart sound present and S2 normal heart sound present GI: COMMON NORMALS: Normal to inspection, nondistended, normoactive bowel sounds present, Soft to palpation and non-tender PALPATION: Yes Soft to palpation Extremity: COMMON NORMALS: no joint enlargement and no pedal edema OTHER: Sarcopenia. Neuro: COMMON NORMALS: patient oriented x3 and moves all extremities S ENSORIUM/ORIENTATION: Yes alert Data 08/18/23 03:20 08/18/23 03:20 Micro: Microbiology 08/18/23 13:18 Blood Culture - Preliminary Blood SPECIMEN COLLECTED 08/18/23 13:05 Blood Culture - Preliminary Blood SPECIMEN COLLECTED 08/14/23 23:30 Gram Stain - Final Sputum - Expectorated Sputum Sputum Culture - Final Enterobacter cloacae 03/27/24 15:59 Blood Culture - Preliminary Blood Streptococcus pneumoniae Gram Negative Rods A&P Assessment and plan (1) Acute respiratory failure with hypoxia and hypercapnia: Today he is awake and alert. He would like to try some oral intake. Reports he is thirsty. Discussed with him aspiration precautions. Will trial level 4 extremely thick pur?ed diet with nectar thick liquids, instructions added for spoon feeding, close supervision of aspiration precautions. Will decrease Solu-Medrol to 20 mg. BiPAP support as needed. Target sats 88-92%. Reviewed vitals, CBC, BMP, sputum culture. Sputum culture with noted gram- negative rods. Continue empiric antibiotic coverage with ceftriaxone, azithromycin. Follow-up sputum culture. Repeat blood culture. Wound culture reviewed, strep pneumo but also gram- negative chalo. Follow-up final culture. Reviewed blood culture, noted 1/4 bottles positive for strep pneumonia. Possible pneumococcal pneumonia complicated with pneumococcal bacteremia. Continue ceftriaxone. No evidence of empyema on CTA. Urine bacterial antigens negative including for strep pneumo. Legionella antigen negative. Continue treatment of pneumonia, severe COPD exacerbation. Discussed with medical case worker, not ready for discharge. Continue assessment and treatment. Reviewed MRSA, negative. Reduce IV Solu-Medrol, antibiotic coverage with ceftriaxone, azithromycin, DuoNebs, RT assessment and management, Follow-up blood and sputum culture. Monitor for risk of hyperglycemia, hypertension with IV steroids. Reviewed EKG, no QT prolongation. Reviewed Accu-Cheks. Reassess kidney function, noted without worsening. Reviewed speech therapy note. (2) Bacteremia due to Streptococcus pneumoniae: Ceftriaxone. Repeat blood culture. (3) Acute exacerbation of chronic obstructive airways disease: As above. Severe exacerbation of COPD with dyspnea, productive cough, purulent appearing sputum. Hypoxic, hypercapnic respiratory failure with respiratory acidosis. As above. Has a BiPAP at home which she uses intermittently. Normally on 3 L of oxygen. Has a nebulizer. (4) Community acquired pneumonia: As above. Possible sepsis, WBC, respiratory rate 24, lactic acid 5.4, organ hypoperfusion, otherwise without endorgan injury, initially hypotensive, responded to fluid resuscitation.Repeat lactate. Follow-up blood culture. Antibiotic coverage as above. Reviewed CTA, no pleural effusion. (5) Hemoptysis: So far without additional hemoptysis. Monitor for symptom change. Platelets reviewed slightly better at 151. Continue to hold aspirin. Exact indication of aspirin is not clear, does not appear to have history of CAD or CVA. Possibly primary prophylaxis. Hold at current time due to risk of bleeding. Continue to have pneumonia, severe COPD exacerbation. Additionally discussed with him training D-dimer, additional assessment consideration by CTA. D-dimer is elevated, as per discussion will assess with CTA for possible PE with respiratory failure, hemoptysis. Plan Severe protein calorie malnutrition: Cautious trial of resumption of oral diet with dysphagia diet with close supervision of aspiration precautions. Cachectic appearance, BMI 16.4, sarcopenia on exam, once able to resume oral diet obtain dietitian consultation, nutritional supplementation. HTN: Blood pressure soft, hypotensive initially on presentation, received bolus. Reassess blood pressure. Hold antihypertensives for now. Attestations 2 Medical Necessity Statement*: Continue admission for assessment management of respiratory failure, hypercapnic encephalopathy, streptococcal pneumonia complicated by strep pneumo bacteremia, possibly polymicrobial pneumonia with also gram-negative rods growing in the sputum. With COPD exacerbation. Diagnoses Acute respiratory failure with hypoxia and hypercapnia J96.01; J96.02 Bacteremia due to Streptococcus pneumoniae R78.81; B95.3 Acute exacerbation of chronic obstructive airways disease J44.1 Community acquired pneumonia J18.9 Hemoptysis R04.2
[2023-08-18] MEDS: amiodarone 200 mg Tablet PO (20:11)
[2023-08-18] MEDS: methylPREDNISolone sod succ 40 mg/mL INJ 20 MG IVP (21:08)
[2023-08-19] VITALS (29 sets, daily range): BP systolic 100–149; BP diastolic 71–96; PULSE 77–99; RESP 16–33; TEMP 36.5–36.6; O2SAT 79–100
[2023-08-19] MEDS: ipratropium-albuterol 3 mL Neb INHALATION ×4 (02:38→20:06)
[2023-08-19] MEDS: methylPREDNISolone sod succ 40 mg/mL INJ 20 MG IVP ×4 (03:45→22:20)
[2023-08-19] MEDS: LORazepam 2 mg/mL INJ 1 mL IVP (04:19)
[2023-08-19 04:55] LABS: Hematocrit 33.8 % (37-53); Lymphocytes # 0.2 10^3/uL (0.8-4.8); Lymphocytes % 2.8 %; Mean Corpuscular Hemoglobin 27.1 pg (27-33); Mean Corpuscular Volume 93.4 fl (82-101); Mean Platelet Volume 9.4 fL (7.4-10.4); Monocytes # 0.2 10^3/uL (0.2-0.9); Monocytes % 2.6 %; Neutrophils # 5.47 10^3/uL (1.8-7.7); Neutrophils % 94.1 %; Nucleated Red Blood Cells % 0 %; Platelet Count 120 10^3/cmm (157-399); Red Blood Count 3.62 10^6/uL (3.85-5.65); Red Cell Distribution Width 13.4 % (12.1-15.1); White Blood Count 5.81 10^3/uL (3.29-11.43)
[2023-08-19 05:17] LABS: Anion Gap 8.5 (5-19); Blood Urea Nitrogen 35 mg/dL (8-23); Calcium 11.7 mg/dL (8.5-10.5); Chloride 105 mmol/L (98-107); Creatinine Clr Calc Pharmacy 49.6211; Glomerular Filtration Rate 164.9 mL/min (90-130); Glucose 124 mg/dL (65-115); Osmolality Calculated 323 mOsm/kg (285-295); Potassium 4.5 mmol/L (3.5-5.1); Sodium 152 mmol/L (136-145)
[2023-08-19 05:28] LABS: Carbon Dioxide 43 mmol/L (22-29)
--- NOTE | 2023-08-19 09:33 | PC.CHAP ---
Pastoral Care Encounter/Spiritual Assessment Type of Contact [] Declined rehabilitation inspector visit [] Patient/Family/Request visit [] Outpatient visit [] Follow-up visit [] Physician referral [] Code/Alert [x] Routine visit [] Staff referral [] Actively dying [] Patient sleeping [] Family support [] [] Out of room [] Palliative care [] [] Receiving care in room [] Pre-surgical visit [] Trauma [] Long length of stay [] ICU visit [] Other: Relational/Emotional Strength [] Patient feels connected with others/family/visitors/staff [] Distress [] Loneliness/isolation [] Abandonment Spirituality of Patient [] Person of Kalli [] Attends Scientologist of their Kalli [] Believes in Prayer [] Reads Bible or Yazdanism materials [] There are Spiritual issues to be addressed Sports Manager Interventions [x] Prayer [] Active listening [] Non-anxious presence [] Spiritual/emotional support [] Crisis/trauma care [] Spiritual counseling [] Bereavement support [] Provided bereavement packet [] Provided Bible/devotional materials [] Provided toy/stuffed animal, coloring book to patient or family member [] Provided Communion [] Anointing/[place] [] Salvation [] Completed spiritual assessment [] Other: Impact on Illness or Injury [] Angry [] Fearful [] Anxious [] Often cries [] Exhaustion [] Unable to work [] Unable to attend yarsani [] Unable to walk/stand [] Unable to read [] Unable to drive [] Unable to eat/drink [] Unable to sleep [] Unable to be with family [] Patient intubated [] Other: Summary sleep Time spent with patient
[2023-08-19] MEDS: pantoprazole 40 mg SDV IVP ×2 (09:42→17:26)
[2023-08-19] MEDS: cefTRIAXone 1,000 MG in sodium chloride 0.9% (plus) 50 ML 100 MG IV (09:42)
[2023-08-19] MEDS: thiamine 100 mg Tablet PO (09:44)
[2023-08-19] MEDS: folic acid 1 mg Tablet PO (09:44)
[2023-08-19] MEDS: multivitamin therapeutic Tablet 1 TAB PO (09:44)
[2023-08-19] MEDS: amiodarone 200 mg Tablet PO ×2 (09:44→17:24)
--- NOTE | 2023-08-19 10:03 | PC.SOCIAL ---
IMM Update pg 2 of IMM updated and reviewed w/ patient. Copy provided and copy dated, initialed and placed in chart.
--- NOTE | 2023-08-19 13:21 | PM.CONSULT ---
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 I have known Narciso Olsen during his April 2022 hospital admission for persistent pneumothorax. In April 2022-he came to emergency room with worsening shortness of breath and found to have pneumothorax, 36 Portuguese chest tube was inserted on admission 05/14/2022 postprocedure chest x-ray showed reexpansion of leg with resolution of pneumothorax, patient was comfortable for next 24 hours, repeat chest x-ray did not show worsening of pneumothorax hence chest tube was clamped on subsequent day, repeat CT chest revealed extensive subcutaneous emphysema extending to subclavicular region and axillary tissue extensive left lung bullous disease left chest tube tip is in left dorsal lung apex. His chest tube has been connected back to suction to prevent worsening of subcutaneous emphysema and recommended transferred for higher level of care for VATS versus posterior flap intervention. He was transferred 05/16/2022-information from [facility] records suggest that he was followed up by CT surgery and chest tubes were removed 05/21/2021 and patient was discharged on the same day. He was supposed to follow-up with CT surgery as outpatient however he never followed up.[facility] bacterial cultures to AFB smears and QuantiFERON were negative For his COPD patient is on 3 L oxygen at home and uses BiPAP intermittently. He got progressively short of breath and increasing productive cough mixed with blood-came to emergency room 08/14/2023-found to be hypoxic started on BiPAP. ABG showed respiratory acidosis with pH 7.3 pCO2 86. Leukocytosis 23 K chest x-ray with infiltrate in right lung, right basilar pleural effusion suspicious for pneumonia. CTA during admission 08/14/2023 showed Diffuse cavitary and cystic changes in the right upper lobe with extensive intervening consolidation in the right upper lobe, similar to the prior examination, and large consolidation in the posterior aspect of the right lower lobe. He was admitted to stepdown unit-since then he has been mostly BiPAP dependent. His blood cultures grew strep pneumonia and sputum cultures grew Enterobacter cloacae-he has been on ceftriaxone-his leukocytosis improved. Pulmonary consulted for BiPAP dependent end-stage COPD Patient seen at bedside-he is tolerating 3 to 6 L on facemask intermittently and easily desaturates He appeared frail and not actively participating in conversations. Review of Systems General: Reports: 10 or more systems reviewed and unremarkable except in HPI and below Medications/Allergies Home Medications Medication Instructions Recorded Confirmed Last Taken Type cholecalciferol (vitamin D3) 50 50 mcg PO DAILY 04/19/20 08/14/23 04/24/23 History mcg (2,000 unit) capsule fluticasone 250 mcg-salmeterol 50 1 inh inhalation Q12H 04/26/23 08/14/23 04/24/23 History mcg/dose blistr powdr for inhalation (Advair Diskus) magnesium oxide 400 mg PO Q7D 04/26/23 08/14/23 04/24/23 History lisinopril 10 mg tablet 10 mg PO DAILY 07/23/23 08/14/23 Unknown History aspirin 81 mg tablet,delayed 81 mg PO DAILY 08/14/23 08/14/23 Unknown History release tiotropium bromide 2.5 2 puff inhalation DAILY 08/14/23 08/14/23 Unknown History mcg/actuation mist for inhalation Allergies Allergy/AdvReac Type Severity Reaction Status Date / Time No Known Allergies Allergy Verified 08/14/23 15:39 Current Medications Generic Name Dose Route Start Last Admin Trade Name Brandonq PRN Reason Stop Dose Admin Acetaminophen 650 mg 08/14/23 18:20 08/16/23 20:24 Acetaminophen 325 Mg Tablet PO 650 mg Q6H PRN Administration Mild/Mod Pain Or Temp >/= 101 Albuterol/Ipratropium 3 ml 08/14/23 20:00 08/19/23 13:04 Ipratropium-Albuterol 3 Ml Neb INHALATION 3 ml Q6H.RESP SHELLY Administration Amiodarone HCl 200 mg 08/18/23 21:00 08/19/23 09:44 Amiodarone 200 Mg Tablet PO 200 mg BID SHLELY Administration Folic Acid 1 mg 08/17/23 09:00 08/19/23 09:44 Folic Acid 1 Mg Tablet PO 1 mg DAILY SHELLY Administration Ceftriaxone Sodium 1,000 mg/ 50 mls @ 100 mls/hr 08/15/23 09:00 08/19/23 10:23 Sodium Chloride IV Infused DAILY SHELLY Infusion Protocol Azithromycin 500 mg/ Sodium 250 mls @ 250 mls/hr 08/15/23 15:30 08/18/23 19:10 Chloride IV Infused Q24H SHELLY Infusion Protocol Lorazepam 2 mg 08/16/23 21:34 08/19/23 04:19 Lorazepam 2 Mg/Ml Inj 1 Ml IVP 2 mg Q4H PRN Administration WITHDRAWAL Protocol Methylprednisolone Sodium Succinate 20 mg 08/18/23 22:00 08/19/23 09:42 Methylprednisolone Sod Succ 40 Mg/Ml Inj IVP 20 mg Q6H SHELLY Administration Multivitamins Therapeutic 1 tab 08/17/23 09:00 08/19/23 09:44 Multivitamin Therapeutic Tablet PO 1 tab DAILY SHELLY Administration Pantoprazole Sodium 40 mg 08/14/23 18:30 08/19/23 09:42 Pantoprazole 40 Mg Sdv IVP 40 mg Q12H SHELLY Administration Thiamine Mononitrate 100 mg 08/17/23 09:00 08/19/23 09:44 Thiamine 100 Mg Tablet PO 100 mg DAILY SHELLY Administration PFSH Acute PFSH: Medical History (Updated 08/20/23 @ 21:44 by Armando Oneal MD) End stage COPD Cavitary lesion of lung 03/17/22: RUL cavitary lesion 2.7 x 3.7 x 3 cm. Anterior subpleural cavitation 3.1 x 1 x2.7 cm Hemoptysis Muscle wasting Physical deconditioning Severe protein-calorie malnutrition Lactic acidosis Alcohol abuse, daily use Thrombocytopenia Weight loss Essential (primary) hypertension On home oxygen therapy Hepatitis C Has not completed treatment 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 Surgical History No pertinent past surgical history no surgical history Family History Other Adopted Social History Smoking and tobacco/nicotine status: former use of tobacco/nicotine Quit status (tobacco/nicotine): has quit using Year quit tobacco: 2021 Alcohol intake: current Alcohol intake frequency: 3 or more drinks per day Alcohol type: beer Vitals/I&O/Wt Last Vital Signs Temp 97.7 F 08/19/23 04:00 Pulse 87 08/19/23 13:03 Resp 16 08/19/23 13:03 BP 149/84 08/19/23 04:00 Pulse Ox 92 08/19/23 13:03 O2 Del Method BiPAP 08/19/23 13:03 O2 Flow Rate 2 08/19/23 02:38 FiO2 30 08/19/23 13:03 08/18/23 08/19/23 08/19/23 22:59 06:59 14:59 Intake Total 393.034 / 393.034 50 / 50 Output Total 0 / 0 0 / 0 Balance 393.034 / 393.034 0 / 393.034 50 / 50 Weight last 48 hrs Weight 85 lb Weight 81 lb 14.4 oz Weight 88 lb 12 oz Physical Exam Narrative: General: Appears drowsy, not in acute distress-extremely frail HEENT: conj clear, EOMI, PERRL, mmm, Neck: supple, no meningismus Heme: no cervical LAP Respiratory: Inspection: No visible deformity of the chest wall Palpation: Trachea is mildly deviated to the right, bilateral symmetric expansion Percussion: Bilateral tympanic percussion note both anterior and posteriorly Auscultation: Overall reduced air entry with mild crepitations Cardiovascular: rrr, nl s1s2, no mrg Abdomen: soft, nt, nd, no r/g, bs+ Extremities: pulses +, no edema, no c/c : no CVA tenderness Skin: intact, no rash MSK: no back or neck pain Neurologic: grossly intact Data 08/20/23 03:18 08/20/23 03:18 Other Labs: Radiology Impressions Chest CTA 08/14/23 17:53 IMPRESSION: 1. No pulmonary embolus. 2. Severe emphysematous changes throughout both lungs with an upper lobe predominance, similar to the prior examination. 3. Diffuse cavitary and cystic changes in the right upper lobe with extensive intervening consolidation in the right upper lobe, similar to the prior examination, and large consolidation in the posterior aspect of the right lower lobe, new from the prior examination. COMMENTS: The presence of pulmonary emphysema on CT is an independent risk factor for lung cancer. In the absence of a history or active diagnosis of lung cancer, it is recommended that this patient with emphysema be evaluated for enrollment in a low dose CT lung cancer screening program. Laboratory Results WBC 6.41 10^3/uL (3.29-11.43) 08/20/23 03:18 RBC 3.62 10^6/uL (3.85-5.65) L 08/20/23 03:18 Hgb 10.00 g/dL (11.27-16.99) L 08/20/23 03:18 Hct 34.8 % (37-53) L 08/20/23 03:18 MCV 96.1 fl (82-101) 08/20/23 03:18 MCH 27.6 pg (27-33) 08/20/23 03:18 MCHC 28.7 g/dL (30-55) L 08/20/23 03:18 RDW 13.6 % (12.1-15.1) 08/20/23 03:18 Plt Count 120 10^3/cmm (157-399) L 08/20/23 03:18 MPV 9.7 fL (7.4-10.4) 08/20/23 03:18 Neut % (Auto) 91.7 % 08/20/23 03:18 Lymph % (Auto) 3.0 % 08/20/23 03:18 Noble % (Auto) 4.8 % 08/20/23 03:18 Eos % (Auto) 0.0 % 08/20/23 03:18 Baso % (Auto) 0.2 % 08/20/23 03:18 Neut # (Auto) 5.88 10^3/uL (1.8-7.7) 08/20/23 03:18 Lymph # (Auto) 0.2 10^3/uL (0.8-4.8) L 08/20/23 03:18 Noble # (Auto) 0.3 10^3/uL (0.2-0.9) 08/20/23 03:18 Eos # (Auto) 0.0 10^3/uL (0.0-0.8) 08/20/23 03:18 Baso # (Auto) 0.0 10^3/uL (0.0-0.1) 08/20/23 03:18 Nucleated RBC % (auto) 0 % 08/20/23 03:18 Nucleated RBCs # 0.0 /100WBC 08/20/23 03:18 D-Dimer 1.66 ug/mLFEU (0-0.59) H 08/14/23 13:19 Specimen Type Arterial 08/20/23 04:35 Sample Site Brachial, right 08/20/23 04:35 ABG pH 7.48 (7.35-7.45) H 08/20/23 04:35 ABG pCO2 66.9 mmHg (35-45) H* 08/20/23 04:35 ABG pO2 83.8 mmHg (80.0-100.0) 08/20/23 04:35 ABG PO2/FiO2 Ratio 0 08/20/23 04:35 ABG HCO3 49.4 mmol/L (22-26) H 08/20/23 04:35 ABG O2 Saturation 97.7 08/20/23 04:35 ABG Base Excess 22.4 mmol/L (-2.0-2.0) H 08/20/23 04:35 Tono Test Pos 08/20/23 04:35 A-a O2 Gradient 15.1 mmHg (5-10) H 08/20/23 04:35 Hematocrit 33.1 % (42-52) L 08/20/23 04:35 Hgb O2 Saturation 95.5 % (95-100) 08/20/23 04:35 Carboxyhemoglobin 1.4 %THgb (0.4-20.1) 08/20/23 04:35 Methemoglobin 0.8 % (0.4-1.5) 08/20/23 04:35 Total Hemoglobin 10.8 g/dL (14-18) L 08/20/23 04:35 Sodium 155.0 mmol/L (131-143) H 08/20/23 04:35 Potassium 5.0 mmol/L (3.5-5.0) 08/20/23 04:35 Glucose 111.0 mg/dL (70-115) 08/20/23 04:35 Ionized Calcium 1.6 mmol/L (1.1-1.4) H 08/20/23 04:35 O2 Delivery Device Bipap 08/20/23 04:35 O2 Liters/Min 15.0 % 08/14/23 13:48 FiO2 40.0 % 08/20/23 04:35 PEEP 8.0 cmH20 08/20/23 04:35 Component Engineer ID [email or web address] 08/20/23 04:35 Sodium 154 mmol/L (136-145) H 08/20/23 03:18 Potassium 4.7 mmol/L (3.5-5.1) 08/20/23 03:18 Chloride 107 mmol/L (98-107) 08/20/23 03:18 Carbon Dioxide 44 mmol/L (22-29) H* 08/20/23 03:18 Anion Gap 7.7 (5-19) 08/20/23 03:18 BUN 38 mg/dL (8-23) H 08/20/23 03:18 Creatinine 0.6 mg/dL (0.7-1.2) L 08/20/23 03:18 GFR Calculation 133.6 mL/min (90-130) H 08/20/23 03:18 Glucose 113 mg/dL (65-115) 08/20/23 03:18 Calculated Osmolality 328 mOsm/kg (285-295) H 08/20/23 03:18 Lactic Acid 5.4 mmol/L (0.5-2.2) H* 08/14/23 15:59 Lactic Acid (Sepsis) 2.5 mmol/L (0.5-2.2) H 08/14/23 18:47 Calcium 11.8 mg/dL (8.5-10.5) H 08/20/23 03:18 Magnesium 2.0 mg/dL (1.7-2.3) 08/18/23 03:20 Total Bilirubin 0.5 mg/dL (0.15-1.2) 08/20/23 03:18 AST 14 U/L (0-40) 08/20/23 03:18 ALT 8 U/L (0-41) 08/20/23 03:18 Alkaline Phosphatase 65 U/L (40-130) 08/20/23 03:18 NT-Pro-B Natriuret Pep 873 pg/mL (0-125) H 08/14/23 15:19 Total Protein 6.2 g/dL (6.6-8.7) L 08/20/23 03:18 Albumin 2.9 g/dL (3.5-5.2) L 08/20/23 03:18 Globulin 3.3 g/dL (1.3-4.6) 08/20/23 03:18 Influenza Type A Ag negative (Negative) 08/14/23 14:20 Influenza Type B Ag negative (Negative) 08/14/23 14:20 SARS-CoV-2 Ag (Rapid) negative (Negative) 08/14/23 14:20 MRSA (PCR) Not detected (NOT DETECTED) 08/14/23 19:52 Micro: Microbiology 08/14/23 15:59 Blood Culture - Preliminary Blood Streptococcus pneumoniae Gram Negative Rods Micrococcus and related genera Streptococcus salivarius Staphylococcus hominis 08/18/23 13:18 Blood Culture - Preliminary Blood SPECIMEN COLLECTED 08/18/23 13:05 Blood Culture - Preliminary Blood SPECIMEN COLLECTED 08/14/23 23:30 Gram Stain - Final Sputum - Expectorated Sputum Sputum Culture - Final Enterobacter cloacae A&P Assessment and plan (1) End stage COPD: CT evidence of severe bullous emphysema Patient dependent on home oxygen 3 L -Currently requiring up to 6 L on facemask intermittently but largely BiPAP dependent -Multiple COPD admissions-due to poor compliance with outpatient management-never had outpatient PFTs to check for lung function -Given his low BMI 13-he is in obvious failure to thrive with barium swallow showing heber aspiration is a risk of recurrent aspiration events -Given his overall clinical condition with poor compliance-recommended to consider evaluation for hospice due to end-stage COPD/failure to thrive -Continue scheduled DuoNeb nebulization (2) Acute exacerbation of chronic obstructive airways disease: - COPD exacerbation secondary to underlying pneumonia - Sputum cultures with Enterobacter and suspected aspiration pneumonia as well -Patient is covered with ceftriaxone and Flagyl\ -Continue scheduled nebulizations -Currently on methylprednisone 20 Mg every 6 hours-taper based on clinical response (3) Bullous emphysema: CT evidence of severe emphysematous changes throughout both lungs with an upper lobe predominance, similar to the prior examination. Diffuse cavitary and cystic changes in the right upper lobe. Patient had a history of pneumothorax with persistent air leak s/p chest tube placement in April 2022 and was transferred to [facility]. He was discharged on May 21, 2022-was supposed to follow-up with CT surgery as outpatient but he failed to follow-up. (4) Cavitary lesion of lung: Chronic pleural thickening with fibrosis and cavitation the RIGHT lung apex. He had a 3 AFB smears and mycobacterial cultures which were negative previously at [facility] (5) Bacteremia: Blood cultures grew strep pneumonia Patient is currently on Rocephin (6) Community acquired pneumonia: Plan Continue oxygen support to keep saturations greater than 88%currently requiring 3 to 6 L supplemental oxygen Given hypercapnia-continue NIV support Establish goals of care and recommend hospice for end-stage COPD and failure to thrive Coding Level of Care Code Acute Code for [facility] Fwd Diagnoses End stage COPD J44.9 Acute exacerbation of chronic obstructive airways disease J44.1 Bullous emphysema J43.9 Cavitary lesion of lung J98.4 Bacteremia R78.81 Community acquired pneumonia J18.9 Time Spent (min) 57
[2023-08-19] MEDS: azithromycin 500 MG in sodium chloride 0.9% 250 ML 150 MG IV (17:25)
--- NOTE | 2023-08-19 18:27 | PM.PN ---
Subjective Subjective: Patient continues to be dependent on BiPAP. Assessed by pulmonology today. Appreciate recommendations. He is afebrile. Hemodynamically stable. Blood culture showing strep pneumo. Another gram-negative chalo is yet to be identified. Preliminarily appears to be lactose fermenting mucoid colonies. Suspected to be Enterobacter per discussion with micro lab. Will need further diagnostics. Medications: Reviewed: Yes Vitals/I&O/Wt Last Vital Signs Temp 97.7 F 08/19/23 04:00 Pulse 93 08/19/23 17:00 Resp 27 H 08/19/23 17:00 BP 136/77 08/19/23 17:00 Pulse Ox 98 08/19/23 17:00 O2 Del Method BiPAP 08/19/23 13:03 O2 Flow Rate 2 08/19/23 02:38 FiO2 30 08/19/23 13:03 08/19/23 08/19/23 08/19/23 06:59 14:59 22:59 Intake Total 50 / 50 Output Total 0 / 0 0 / 0 0 / 0 Balance 0 / 393.034 50 / 50 0 / 50 Weight last 48 hrs Weight 38.555 kg Weight 37.149 kg Weight 40.256 kg Physical Exam Narrative: General: Currently on BiPAP, AO x3 HEENT: PERRLA, pupils bilaterally equal and reactive, pallors not present Chest: Normal vesicular breath sounds, no added sounds, equal good air entry bilaterally CVS: S1-S2 regular, no murmurs, no tachycardia, no gallops, no rubs Abdomen: Soft, nontender, no organomegaly, bowel sounds present Neuro: No focal deficits, no facial deformity, AO x3, power 5/5 in all limbs Data 08/19/23 04:33 08/19/23 04:33 Micro: Microbiology 08/14/23 15:59 Blood Culture - Final Blood NO GROWTH AFTER 5 DAYS 08/18/23 13:18 Blood Culture - Preliminary Blood NEGATIVE TO DATE 08/18/23 13:05 Blood Culture - Preliminary Blood NEGATIVE TO DATE 08/14/23 15:59 Blood Culture - Preliminary Blood Streptococcus pneumoniae Gram Negative Rods Micrococcus and related genera Streptococcus salivarius Staphylococcus hominis A&P Assessment and plan (1) Acute respiratory failure with hypoxia and hypercapnia: Today he is awake and alert. He would like to try some oral intake. Reports he is thirsty. Discussed with him aspiration precautions. Will trial level 4 extremely thick pur?ed diet with nectar thick liquids, instructions added for spoon feeding, close supervision of aspiration precautions. Will decrease Solu-Medrol to 20 mg. BiPAP support as needed. Target sats 88-92%. Reviewed vitals, CBC, BMP, sputum culture. Sputum culture with noted gram-negative rods. Continue empiric antibiotic coverage with ceftriaxone, azithromycin. Follow-up sputum culture. Repeat blood culture. Wound culture reviewed, strep pneumo but also gram-negative chalo. Follow-up final culture. Reviewed blood culture, noted 1/4 bottles positive for strep pneumonia. Possible pneumococcal pneumonia complicated with pneumococcal bacteremia. Continue ceftriaxone. No evidence of empyema on CTA. Urine bacterial antigens negative including for strep pneumo. Legionella antigen negative. Continue treatment of pneumonia, severe COPD exacerbation. Discussed with employment evaluator/case manager, not ready for discharge. Continue assessment and treatment. Reviewed MRSA, negative. Reduce IV Solu-Medrol, antibiotic coverage with ceftriaxone, azithromycin, DuoNebs, RT assessment and management, Follow-up blood and sputum culture. Monitor for risk of hyperglycemia, hypertension with IV steroids. Reviewed EKG, no QT prolongation. Reviewed Accu-Cheks. Reassess kidney function, noted without worsening. Reviewed speech therapy note. (2) Bacteremia due to Streptococcus pneumoniae: Ceftriaxone. Repeat blood culture. (3) Acute exacerbation of chronic obstructive airways disease: As above. Severe exacerbation of COPD with dyspnea, productive cough, purulent appearing sputum. Hypoxic, hypercapnic respiratory failure with respiratory acidosis. As above. Has a BiPAP at home which she uses intermittently. Normally on 3 L of oxygen. Has a nebulizer. (4) Community acquired pneumonia: As above. Possible sepsis, WBC, respiratory rate 24, lactic acid 5.4, organ hypoperfusion, otherwise without endorgan injury, initially hypotensive, responded to fluid resuscitation.Repeat lactate. Follow-up blood culture. Antibiotic coverage as above. Reviewed CTA, no pleural effusion. (5) Hemoptysis: So far without additional hemoptysis. Monitor for symptom change. Platelets reviewed slightly better at 151. Continue to hold aspirin. Exact indication of aspirin is not clear, does not appear to have history of CAD or CVA. Possibly primary prophylaxis. Hold at current time due to risk of bleeding. Continue to have pneumonia, severe COPD exacerbation. Additionally discussed with him training D-dimer, additional assessment consideration by CTA. D-dimer is elevated, as per discussion will assess with CTA for possible PE with respiratory failure, hemoptysis. Plan Severe protein calorie malnutrition: Cautious trial of resumption of oral diet with dysphagia diet with close supervision of aspiration precautions. Cachectic appearance, BMI 16.4, sarcopenia on exam, once able to resume oral diet obtain dietitian consultation, nutritional supplementation. HTN: Blood pressure soft, hypotensive initially on presentation, received bolus. Reassess blood pressure. Hold antihypertensives for now. Today August 19, 2023. Leukocytosis is improving. Patient is afebrile hemodynamically stable, however continues to be BiPAP dependent. This is likely related to underlying severe COPD, currently made much worse by his superadded infection. Blood culture showing strep pneumo and gram-negative chalo which is yet to be identified. Swallow eval shows evidence of aspiration which would explain recurrence of pneumonia. Review of past sputum cultures have revealed various multiple isolates of gram-positive and gram-negative's, which appears to be consistent with aspiration episode. Continue with a dysphagia level 4 diet per recommendations. Discontinue azithromycin today. Continue ceftriaxone 1 g IV daily. Add metronidazole for additional anaerobic coverage. Anticipate at least 14 days of IV antibiotic treatment for strep pneumo recovered on blood cultures. Awaiting pulmonary recommendations on BiPAP dependence. Attestations Medical Necessity Statement*: contonued admission for iv abx, treatment of pneumonia and COPD exacerbation Coding Level of Care Code Acute Code for [facility] Fwd Diagnoses Acute respiratory failure with hypoxia and hypercapnia J96.01; J96.02 Bacteremia due to Streptococcus pneumoniae R78.81; B95.3 Acute exacerbation of chronic obstructive airways disease J44.1 Community acquired pneumonia J18.9 Hemoptysis R04.2
[2023-08-19] MEDS: metroNIDAZOLE 500 MG Tablet PO (20:11)
[2023-08-20] VITALS (32 sets, daily range): BP systolic 116–149; BP diastolic 66–87; PULSE 84–103; RESP 16–32; TEMP 36.5–37.1; O2SAT 93–100
[2023-08-20] MEDS: ipratropium-albuterol 3 mL Neb INHALATION ×4 (02:20→20:27)
[2023-08-20 03:55] LABS: Basophils % 0.2 %; Hematocrit 34.8 % (37-53); Lymphocytes # 0.2 10^3/uL (0.8-4.8); Mean Corpuscular HGB Conc 28.7 g/dL (30-55); Mean Corpuscular Hemoglobin 27.6 pg (27-33); Mean Corpuscular Volume 96.1 fl (82-101); Mean Platelet Volume 9.7 fL (7.4-10.4); Monocytes # 0.3 10^3/uL (0.2-0.9); Monocytes % 4.8 %; Neutrophils # 5.88 10^3/uL (1.8-7.7); Neutrophils % 91.7 %; Nucleated Red Blood Cells % 0 %; Platelet Count 120 10^3/cmm (157-399); Red Blood Count 3.62 10^6/uL (3.85-5.65); Red Cell Distribution Width 13.6 % (12.1-15.1); White Blood Count 6.41 10^3/uL (3.29-11.43)
[2023-08-20 04:18] LABS: Alanine Aminotransferase 8 U/L (0-41); Albumin Level 2.9 g/dL (3.5-5.2); Alkaline Phosphatase 65 U/L (40-130); Blood Urea Nitrogen 38 mg/dL (8-23); Calcium 11.8 mg/dL (8.5-10.5); Chloride 107 mmol/L (98-107); Creatinine Clr Calc Pharmacy 47.5244; Globulin 3.3 g/dL (1.3-4.6); Glomerular Filtration Rate 133.6 mL/min (90-130); Glucose 113 mg/dL (65-115); Osmolality Calculated 328 mOsm/kg (285-295); Sodium 154 mmol/L (136-145); Total Bilirubin 0.5 mg/dL (0.15-1.2); Total Protein 6.2 g/dL (6.6-8.7)
[2023-08-20 04:23] LABS: Anion Gap 7.7 (5-19); Aspartate Amino Transferase 14 U/L (0-40); Potassium 4.7 mmol/L (3.5-5.1)
[2023-08-20 04:24] LABS: Carbon Dioxide 44 mmol/L (22-29)
[2023-08-20 04:43] LABS: ABG PH Result 7.48 (7.35-7.45); Alveolar-Arterial Oxygen Gradi 15.1 mmHg (5-10); Arterial Blood Gas Hematocrit 33.1 % (42-52); Base Excess ABG 22.4 mmol/L (-2.0-2.0); Blood Gas Allen Test Pos; Blood Gas Sample Site Brachial, right; Blood Gas Sample Type Arterial; Carboxyhemoglobin 1.4 %THgb (0.4-20.1); HCO3 ABG 49.4 mmol/L (22-26); HGB O2 Sat 95.5 % (95-100); Ionized Calcium Level - ABG 1.6 mmol/L (1.1-1.4); Methemoglobin 0.8 % (0.4-1.5); Oxygen Device BIPAP; Oxygen Saturation ABG 97.7; PO2 ABG 83.8 mmHg (80.0-100.0); PO2 FiO2 Ratio Arterial Blood 0; Total Hemoglobin 10.8 g/dL (14-18)
[2023-08-20 04:44] LABS: ABG PCO2 66.9 mmHg (35-45)
[2023-08-20] MEDS: methylPREDNISolone sod succ 40 mg/mL INJ 20 MG IVP ×4 (05:03→22:27)
[2023-08-20] MEDS: pantoprazole 40 mg SDV IVP ×2 (06:31→17:26)
[2023-08-20] MEDS: amiodarone 200 mg Tablet PO (08:36)
[2023-08-20] MEDS: multivitamin therapeutic Tablet 1 TAB PO (08:36)
[2023-08-20] MEDS: metroNIDAZOLE 500 MG Tablet PO (08:36)
[2023-08-20] MEDS: cefTRIAXone 1,000 MG in sodium chloride 0.9% (plus) 50 ML 100 MG IV (08:36)
[2023-08-20] MEDS: folic acid 1 mg Tablet PO (08:36)
[2023-08-20] MEDS: thiamine 100 mg Tablet PO (08:36)
--- NOTE | 2023-08-20 09:45 | PC.CHAP ---
Pastoral Care Encounter/Spiritual Assessment Type of Contact [] Declined dry house attendant visit [] Patient/Family/Request visit [] Outpatient visit [] Follow-up visit [] Physician referral [] Code/Alert [] Routine visit [] Staff referral [] Actively dying [x] Patient sleeping [] Family support [] [] Out of room [] Palliative care [] [] Receiving care in room [] Pre-surgical visit [] Trauma [] Long length of stay [] ICU visit [] Other: Relational/Emotional Strength [] Patient feels connected with others/family/visitors/staff [] Distress [] Loneliness/isolation [] Abandonment Spirituality of Patient [] Person of Kalli [] Attends Catholic of their [place] [] Believes in Prayer [] Reads Bible or Anabaptism materials [] There are Spiritual issues to be addressed Optical Sales Associate Interventions [] Prayer [] Active listening [] Non-anxious presence [] Spiritual/emotional support [] Crisis/trauma care [] Spiritual counseling [] Bereavement support [] Provided bereavement packet [] Provided Bible/devotional materials [] Provided toy/stuffed animal, coloring book to patient or family member [] Provided Communion [] Anointing/[place] [] Salvation [] Completed spiritual assessment [] Other: Impact on Illness or Injury [] Angry [] Fearful [] Anxious [] Often cries [] Exhaustion [] Unable to work [] Unable to attend hoahaoism [] Unable to walk/stand [] Unable to read [] Unable to drive [] Unable to eat/drink [] Unable to sleep [] Unable to be with family [] Patient intubated [] Other: Summary Time spent with patient
--- NOTE | 2023-08-20 14:26 | P.PN_ITS ---
Subjective 2 Subjective: Patient was transition to supplemental O2 via oxime mask. Between 3 to 6 L/min. Becomes dyspneic in conversation easily. At bedside today, unable to complete full sentences. O2 sats dropped down to 84 to 85% with attempting to have a conversation. Additionally noted to have multiple choking episodes even while attempting to eat modified diet. Barium swallow suggestive of heber aspiration. Medications: Reviewed: Yes Vitals/I&O/Wt Last Vital Signs Temp 98.5 F 08/20/23 12:35 Pulse 97 08/20/23 13:46 Resp 18 08/20/23 13:36 BP 149/87 08/20/23 12:32 Pulse Ox 99 08/20/23 13:46 O2 Del Method Oxymask 08/20/23 13:36 O2 Flow Rate 6 08/20/23 13:36 FiO2 40 08/20/23 13:46 08/19/23 08/20/23 08/20/23 22:59 06:59 14:59 Intake Total 80 / 130 380 / 380 Output Total 0 / 0 Balance 80 / 130 380 / 380 Weight last 48 hrs Weight 37.875 kg Weight 38.555 kg Weight 37.149 kg Physical Exam 2 Narrative: General: Chronically ill-appearing frail male. HEENT: PERRLA, pupils bilaterally equal and reactive, pallors not present Chest: +Intercostal retractions +, develops respiratory distress CVS: S1-S2 regular, no murmurs, no tachycardia, no gallops, no rubs Abdomen: Soft, nontender, no organomegaly, bowel sounds present Neuro: No focal deficits, no facial deformity, AO x3, power 5/5 in all limbs Data 08/20/23 03:18 08/20/23 03:18 Micro: Microbiology 08/14/23 15:59 Blood Culture - Final Blood NO GROWTH AFTER 5 DAYS 08/18/23 13:18 Blood Culture - Preliminary Blood NEGATIVE TO DATE 08/18/23 13:05 Blood Culture - Preliminary Blood NEGATIVE TO DATE 08/14/23 15:59 Blood Culture - Preliminary Blood Streptococcus pneumoniae Gram Negative Rods Micrococcus and related genera Streptococcus salivarius Staphylococcus hominis [employer] [facility] [address] [place] [id number] BONITA MEEK, CHIEF ENGINEER PRODUCTION NAME: Narciso Olsen LOC: [facility] U #: [id number] AGE/SX: 67/M ROOM: 111 R E08/14/[address]: Catherine Fleming MD : [id number] BED: 2 D IS: FAX #: STATUS: ADM IN TLOC: Spec #: [id number] Bill: 08/14/23 Status: COMP Req #: [id number] Recd: 08/14/[address]: David Rae MD Src: Sputum SpDesc: Expec Sput Ordered: SPU Cult & GS Procedure Result Verified Site Gram Stain Final 08/15/23-923 Result MODERATE GRAM POSITIVE COCCI IN PAIRS IN CHAINS IN CLUSTERS FEW GRAM NEGATIVE COCCI FEW POLYMORPHONUCLEAR NEUTROPHILS MODERATE GRAM NEGATIVE RODS Sputum Culture Final 08/18/23-1228 Organism 1 Enterobacter cloacae Growth MODERATE HEAVY MIXED UPPER RESPIRATORY LACI ON DAY 3 E cloacae M.I.C. RX --------- ------ * Amikacin <=16 S * Amoxicillin/Clavulanate >16/8 R * Ampicillin >16 R * Ampicillin/Sulbactam 16/8 R * Aztreonam <=4 S * Cefepime <=8 S * Ceftriaxone <=1 S * Cefuroxime <=4 R * Ciprofloxacin <=1 S * Gentamicin <=2 S * Imipenem <=1 S * Levofloxacin <=2 S * Tetracycline >8 R * Trimethoprim/Sulfamethoxazole <=2/38 S * Piperacillin/Tazobactam <=16 S Sputum Culture Preliminary (changed) 08/17/23-1110 Organism 1 Gram Negative Rods Growth HEAVY Organism 2 Gram Negative Rods#2 Growth MODERATE HEAVY MIXED UPPER RESPIRATORY LACI ON DAY 2 RESULTS TO FOLLOW Sputum Culture Preliminary (changed) 08/16/23-1201 Organism 1 Gram Negative Rods Growth HEAVY HEAVY MIXED UPPER RESPIRATORY LACI ON DAY 1 A&P Assessment and plan (1) Acute respiratory failure with hypoxia and hypercapnia: Today he is awake and alert. He would like to try some oral intake. Reports he is thirsty. Discussed with him aspiration precautions. Will trial level 4 extremely thick pur?ed diet with nectar thick liquids, instructions added for spoon feeding, close supervision of aspiration precautions. Will decrease Solu-Medrol to 20 mg. BiPAP support as needed. Target sats 88-92%. Reviewed vitals, CBC, BMP, sputum culture. Sputum culture with noted gram- negative rods. Continue empiric antibiotic coverage with ceftriaxone, azithromycin. Follow-up sputum culture. Repeat blood culture. Wound culture reviewed, strep pneumo but also gram- negative chalo. Follow-up final culture. Reviewed blood culture, noted 1/4 bottles positive for strep pneumonia. Possible pneumococcal pneumonia complicated with pneumococcal bacteremia. Continue ceftriaxone. No evidence of empyema on CTA. Urine bacterial antigens negative including for strep pneumo. Legionella antigen negative. Continue treatment of pneumonia, severe COPD exacerbation. Discussed with correctional case manager, not ready for discharge. Continue assessment and treatment. Reviewed MRSA, negative. Reduce IV Solu-Medrol, antibiotic coverage with ceftriaxone, azithromycin, DuoNebs, RT assessment and management, Follow-up blood and sputum culture. Monitor for risk of hyperglycemia, hypertension with IV steroids. Reviewed EKG, no QT prolongation. Reviewed Accu-Cheks. Reassess kidney function, noted without worsening. Reviewed speech therapy note. (2) Bacteremia due to Streptococcus pneumoniae: Ceftriaxone. Repeat blood culture. (3) Acute exacerbation of chronic obstructive airways disease: As above. Severe exacerbation of COPD with dyspnea, productive cough, purulent appearing sputum. Hypoxic, hypercapnic respiratory failure with respiratory acidosis. As above. Has a BiPAP at home which she uses intermittently. Normally on 3 L of oxygen. Has a nebulizer. (4) Community acquired pneumonia: As above. Possible sepsis, WBC, respiratory rate 24, lactic acid 5.4, organ hypoperfusion, otherwise without endorgan injury, initially hypotensive, responded to fluid resuscitation.Repeat lactate. Follow-up blood culture. Antibiotic coverage as above. Reviewed CTA, no pleural effusion. (5) Hemoptysis: So far without additional hemoptysis. Monitor for symptom change. Platelets reviewed slightly better at 151. Continue to hold aspirin. Exact indication of aspirin is not clear, does not appear to have history of CAD or CVA. Possibly primary prophylaxis. Hold at current time due to risk of bleeding. Continue to have pneumonia, severe COPD exacerbation. Additionally discussed with him training D-dimer, additional assessment consideration by CTA. D-dimer is elevated, as per discussion will assess with CTA for possible PE with respiratory failure, hemoptysis. Plan Severe protein calorie malnutrition: Cautious trial of resumption of oral diet with dysphagia diet with close supervision of aspiration precautions. Cachectic appearance, BMI 16.4, sarcopenia on exam, once able to resume oral diet obtain dietitian consultation, nutritional supplementation. HTN: Blood pressure soft, hypotensive initially on presentation, received bolus. Reassess blood pressure. Hold antihypertensives for now. Today August 19, 2023. Leukocytosis is improving. Patient is afebrile hemodynamically stable, however continues to be BiPAP dependent. This is likely related to underlying severe COPD, currently made much worse by his superadded infection. Blood culture showing strep pneumo and gram-negative chalo which is yet to be identified. Swallow eval shows evidence of aspiration which would explain recurrence of pneumonia. Review of past sputum cultures have revealed various multiple isolates of gram-positive and gram-negative's, which appears to be consistent with aspiration episode. Continue with a dysphagia level 4 diet per recommendations. Discontinue azithromycin today. Continue ceftriaxone 1 g IV daily. Add metronidazole for additional anaerobic coverage. Anticipate at least 14 days of IV antibiotic treatment for strep pneumo recovered on blood cultures. Awaiting pulmonary recommendations on BiPAP dependence. Plan for today August 20, 2023. Afebrile, hemodynamically stable. Desats with minimal attempts at conversation and minimal exertion. Noted to have several choking episodes in spite of being on a modified dysphagia diet currently. Abnormal MBS as noted on August 15. Recommendation at this point is to consider alternate means of feeding, perhaps a PEG tube. Will have a goals of care discussion with patient when his family is at bedside this afternoon. His nephew Grayson is expected to come in this afternoon. With regards to his positive blood cultures, from August 14, 2023 blood culture has now been updated to reflect strep pneumo, micrococcus, strep saliva areas, Staph hominis and a gram-negative rods remains as yet unidentified, suspicion for Enterobacter cloacae which has additionally been isolated from his respiratory cultures. Currently on ceftriaxone since admission. Leukocytosis has resolved and he has shown clinical improvement with the same. With polymicrobial blood cultures suspect that apart from strep pneumo the other bacteria may represent contaminants, however cannot be certain of this as he does have evidence of heber aspiration. Truly may have a polymicrobial culture. Plan to treat patient with 14 days of IV ceftriaxone (08/17-08/30) plus oral metronidazole to treat for aspiration pneumonia and bacteremia. Picc line today for the same. Overall patient's prognosis is extremely poor. He weighs only 37 kg, his BMI is at 13.9. He is severely malnourished. Compared to his last admission in April 2023 he has had further failure to thrive. BMI has reduced from 16 to 13.9 currently. He has severe underlying COPD with bullous disease which has worsened over the years. He has been non compliant with several outpatient follow ups, has left AMA in the past. Currently he is unable to participate in PT due to hypoxia with minimal movements. Trial of OT. Patient not ready for hospice consideration yet. Attestations 2 Medical Necessity Statement*: continued admission for precarious respiratory status Coding Level of Care Code Acute Code for Chg Fwd High MDM includes number and complexity of problems actively addressed during encounter, amount and/or complexity of data reviewed/ordered and described risk of complication, morbidity or mortality of management as documented Diagnoses Acute respiratory failure with hypoxia and hypercapnia J96.01; J96.02 Bacteremia due to Streptococcus pneumoniae R78.81; B95.3 Acute exacerbation of chronic obstructive airways disease J44.1 Community acquired pneumonia J18.9 Hemoptysis R04.2
--- NOTE | 2023-08-20 16:14 | PC.NURSE ---
1530- Called Dr Saeed because I could not get the PICC to go down into the SVC. It kept going up the neck. Despite all efforts to get it to drop, I was unable to. Dr Saeed said ok to making it a midline.
[2023-08-21] VITALS (42 sets, daily range): BP systolic 117–146; BP diastolic 62–80; PULSE 78–98; RESP 18–35; TEMP 36.3; O2SAT 55–100; BMI 13.8
--- NOTE | 2023-08-21 01:17 | PC.NURSE ---
Patient has been choking on multiple incidents with modified diet and swabs with thickened liquid, patient has 2100 flagyl PO that was non administered due to chocking hazard. Dr Ashton was notified.
[2023-08-21] MEDS: ipratropium-albuterol 3 mL Neb INHALATION ×3 (02:40→15:35)
[2023-08-21] MEDS: methylPREDNISolone sod succ 40 mg/mL INJ 20 MG IVP ×3 (04:35→16:17)
[2023-08-21] MEDS: pantoprazole 40 mg SDV IVP ×2 (06:38→17:24)
[2023-08-21] MEDS: folic acid 1 mg Tablet PO (07:53)
[2023-08-21] MEDS: cefTRIAXone 1,000 MG in sodium chloride 0.9% (plus) 50 ML 100 MG IV (07:53)
[2023-08-21] MEDS: thiamine 100 mg Tablet PO (07:53)
[2023-08-21] MEDS: metroNIDAZOLE 500 MG Tablet PO ×2 (07:53→14:48)
[2023-08-21] MEDS: amiodarone 200 mg Tablet PO ×2 (07:53→17:24)
[2023-08-21] MEDS: multivitamin therapeutic Tablet 1 TAB PO (07:53)
[2023-08-21 09:14] LABS: Blood Urea Nitrogen 39 mg/dL (8-23); Calcium 11.4 mg/dL (8.5-10.5); Chloride 109 mmol/L (98-107); Creatinine Clr Calc Pharmacy 46.4064; Glomerular Filtration Rate 133.6 mL/min (90-130); Glucose 143 mg/dL (65-115); Osmolality Calculated 334 mOsm/kg (285-295); Sodium 156 mmol/L (136-145)
[2023-08-21 09:19] LABS: Anion Gap 9.2 (5-19); Carbon Dioxide 42 mmol/L (22-29); Potassium 4.2 mmol/L (3.5-5.1)
[2023-08-21] MEDS: dextrose 5% 1,000 ML 50 ML IV (11:39)
--- NOTE | 2023-08-21 12:15 | PC.SOCIAL ---
IMM Update pg 2 of IMM updated and reviewed w/ patient. Copy provided and copy dated, initialed and placed in chart.
--- NOTE | 2023-08-21 12:26 | PM.TDS ---
Transfer Summary Providers Date of Admission: 08/14/23 16:24 Date of Discharge/Transfer: 08/21/23 Attending Provider at Admission: David Rae Attending Provider at Transfer: Catherine Fleming MD Primary Care Provider: NAOMI Abdalla Transfer Plans: Anticipated date of transfer: 08/21/23. Receiving Facility: [facility] . Receiving Provider: Hospitalist . Diagnoses at Discharge Discharge Diagnosis (1) End stage COPD: Status: Acute (2) Acute exacerbation of chronic obstructive airways disease: Status: Acute (3) Bullous emphysema: Status: Acute (4) Cavitary lesion of lung: Status: Acute Permanent problem details: 03/17/22: RUL cavitary lesion 2.7 x 3.7 x 3 cm. Anterior subpleural cavitation 3.1 x 1 x2.7 cm (5) Bacteremia: Status: Acute (6) Community acquired pneumonia: Status: Acute (7) Aspiration pneumonia: Status: Acute Reason for Visit Reason for Visit SOB Brief History: Narciso Olsen is a 66-year male who carries history of alcohol abuse, active smoker, emphysematous COPD, chronically on 3 L/min, extensive bullous disease, chronic cavitary lung lesions. He is currently admitted since 08/14/23 after presenting with progressive shortness of breath, increased expectoration and intermittent hemoptysis. In the ER he was found to be hypoxic, initially on a nonrebreather and then started on a BiPAP. ABG showed evidence of respiratory acidosis pH 7.3, pCO2 86.6, afebrile, with leukocytosis 23.73, chest x-ray with infiltrate in right lower lung, right basilar pleural effusion suspicious for pneumonia. Extensive superimposed changes of fibrosis and pulmonary and pleural scarring in the right. CTA of his chest was negative for pulmonary embolism, showed known severe emphysematous changes and extensive intervening consolidation between chronic appearing cystic and cavitary changes. There was a large consolidation in the posterior aspect of the right lower lobe. He underwent a modified barium swallow on August 16, 2023 after failing swallow evaluations. This showed penetration into the laryngeal inlet as well as mild aspiration when swallowing thin liquids. Thereafter he was placed on a dysphagia diet, however exhibited severe coughing episodes with attempting to eat. He has declined a PEG tube placement for now. His blood culture was positive 1of 4 for multiple bacteria from August 14, 2023. These included Streptococcus pneumonia, micrococcus, Yersinia enterocolitis identified after 3 attempts ), strep saliva areas and Staph hominis. While polymicrobial culture may represent a contamination, given that patient does have evidence of aspiration pneumonia, cannot rule out the possibility of these being true pathogens especially the Streptococcus pneumonia. Patient is currently on treatment with ceftriaxone 1 g IV daily since admission. He has shown clinical improvement with regards to resolution of leukocytosis and slight improvement in his respiratory function. He was BiPAP dependent initially but was able to be weaned down to nonrebreather mask between 3 to 6 L/min 2 days ago. Follow-up blood culture from August 17 are negative to date. Plan to treat patient with total 14 days of IV ceftriaxone (08/17-08/30) and oral metronidazole 500 3 times daily for aspiration pneumonia. Staph hominis likely to be a colonizer. PICC line was attempted to be placed on August 20, 2023, however unable to be placed eventually as it was riding cephalic instead of extending into the subclavian (? anatomical variant) . A midline has been placed instead to complete abx course. Other significant abnormalities include increasing hyponatremia, sodium today up to 156. Currently started on a D5 infusion this morning. Most likely secondary to dehydration and poor caloric intake. Since patient declined PEG, planned to start patient on TPN, however if this is yet to start at the time of completing this transfer summary. Please reassess at LTAC. Overall patient's prognosis is extremely poor. He weighs only 37 kg, his BMI is at 13.9. He is severely malnourished. Compared to his last admission in April 2023 he has had further failure to thrive. BMI has reduced from 16 to 13.9 currently. He has severe underlying COPD with bullous disease which has worsened over the years. Physical Exam Narrative: General: cachexic, chronically ill appearing, frail man HEENT: PERRLA, pupils bilaterally equal and reactive, pallors not present Chest: coarse crackles B/L, intercostal retractions + CVS: S1-S2 regular, no murmurs, no tachycardia, no gallops, no rubs Abdomen: Soft, nontender, no organomegaly, bowel sounds present Neuro: No focal deficits, severe cachexia TS Data Studies Completed and Pending Pending at discharge Category Date Time Status Blood Culture Stat Lab 08/18/23 13:18 Results Completed Studies During Hospitalization Category Date Time Status CTA chest [CT angio chest PE protcl 28818] Routine Cat Scan 08/14/23 17:53 Completed CXRP [XR chest 1V portable 26007] Stat Exams 08/14/23 14:51 Completed MBS [FL barium swallow modifd 82537] Routine Exams 08/16/23 09:00 Completed Laboratory Last Values WBC 6.41 10^3/uL (3.29-11.43) 08/20/23 03:18 RBC 3.62 10^6/uL (3.85-5.65) L 08/20/23 03:18 Hgb 10.00 g/dL (11.27-16.99) L 08/20/23 03:18 Hct 34.8 % (37-53) L 08/20/23 03:18 MCV 96.1 fl (82-101) 08/20/23 03:18 MCH 27.6 pg (27-33) 08/20/23 03:18 MCHC 28.7 g/dL (30-55) L 08/20/23 03:18 RDW 13.6 % (12.1-15.1) 08/20/23 03:18 Plt Count 120 10^3/cmm (157-399) L 08/20/23 03:18 MPV 9.7 fL (7.4-10.4) 08/20/23 03:18 Neut % (Auto) 91.7 % 08/20/23 03:18 Lymph % (Auto) 3.0 % 08/20/23 03:18 Victoria % (Auto) 4.8 % 08/20/23 03:18 Eos % (Auto) 0.0 % 08/20/23 03:18 Baso % (Auto) 0.2 % 08/20/23 03:18 Neut # (Auto) 5.88 10^3/uL (1.8-7.7) 08/20/23 03:18 Lymph # (Auto) 0.2 10^3/uL (0.8-4.8) L 08/20/23 03:18 Victoria # (Auto) 0.3 10^3/uL (0.2-0.9) 08/20/23 03:18 Eos # (Auto) 0.0 10^3/uL (0.0-0.8) 08/20/23 03:18 Baso # (Auto) 0.0 10^3/uL (0.0-0.1) 08/20/23 03:18 Nucleated RBC % (auto) 0 % 08/20/23 03:18 Nucleated RBCs # 0.0 /100WBC 08/20/23 03:18 D-Dimer 1.66 ug/mLFEU (0-0.59) H 08/14/23 13:19 Specimen Type Arterial 08/20/23 04:35 Sample Site Brachial, right 08/20/23 04:35 ABG pH 7.48 (7.35-7.45) H 08/20/23 04:35 ABG pCO2 66.9 mmHg (35-45) H* 08/20/23 04:35 ABG pO2 83.8 mmHg (80.0-100.0) 08/20/23 04:35 ABG PO2/FiO2 Ratio 0 08/20/23 04:35 ABG HCO3 49.4 mmol/L (22-26) H 08/20/23 04:35 ABG O2 Saturation 97.7 08/20/23 04:35 ABG Base Excess 22.4 mmol/L (-2.0-2.0) H 08/20/23 04:35 Tono Test Pos 08/20/23 04:35 A-a O2 Gradient 15.1 mmHg (5-10) H 08/20/23 04:35 Hematocrit 33.1 % (42-52) L 08/20/23 04:35 Hgb O2 Saturation 95.5 % (95-100) 08/20/23 04:35 Carboxyhemoglobin 1.4 %THgb (0.4-20.1) 08/20/23 04:35 Methemoglobin 0.8 % (0.4-1.5) 08/20/23 04:35 Total Hemoglobin 10.8 g/dL (14-18) L 08/20/23 04:35 Sodium 155.0 mmol/L (131-143) H 08/20/23 04:35 Potassium 5.0 mmol/L (3.5-5.0) 08/20/23 04:35 Glucose 111.0 mg/dL (70-115) 08/20/23 04:35 Ionized Calcium 1.6 mmol/L (1.1-1.4) H 08/20/23 04:35 O2 Delivery Device Bipap 08/20/23 04:35 O2 Liters/Min 15.0 % 08/14/23 13:48 FiO2 40.0 % 08/20/23 04:35 PEEP 8.0 cmH20 08/20/23 04:35 Regional Ehs Manager ID [email or web address] 08/20/23 04:35 Sodium 156 mmol/L (136-145) H 08/21/23 08:26 Potassium 4.2 mmol/L (3.5-5.1) 08/21/23 08:26 Chloride 109 mmol/L (98-107) H 08/21/23 08:26 Carbon Dioxide 42 mmol/L (22-29) H* 08/21/23 08:26 Anion Gap 9.2 (5-19) 08/21/23 08:26 BUN 39 mg/dL (8-23) H 08/21/23 08:26 Creatinine 0.6 mg/dL (0.7-1.2) L 08/21/23 08:26 GFR Calculation 133.6 mL/min (90-130) H 08/21/23 08:26 Glucose 143 mg/dL (65-115) H 08/21/23 08:26 Calculated Osmolality 334 mOsm/kg (285-295) H 08/21/23 08:26 Lactic Acid 5.4 mmol/L (0.5-2.2) H* 08/14/23 15:59 Lactic Acid (Sepsis) 2.5 mmol/L (0.5-2.2) H 08/14/23 18:47 Calcium 11.4 mg/dL (8.5-10.5) H 08/21/23 08:26 Magnesium 2.0 mg/dL (1.7-2.3) 08/18/23 03:20 Total Bilirubin 0.5 mg/dL (0.15-1.2) 08/20/23 03:18 AST 14 U/L (0-40) 08/20/23 03:18 ALT 8 U/L (0-41) 08/20/23 03:18 Alkaline Phosphatase 65 U/L (40-130) 08/20/23 03:18 NT-Pro-B Natriuret Pep 873 pg/mL (0-125) H 08/14/23 15:19 Total Protein 6.2 g/dL (6.6-8.7) L 08/20/23 03:18 Albumin 2.9 g/dL (3.5-5.2) L 08/20/23 03:18 Globulin 3.3 g/dL (1.3-4.6) 08/20/23 03:18 Influenza Type A Ag negative (Negative) 08/14/23 14:20 Influenza Type B Ag negative (Negative) 08/14/23 14:20 SARS-CoV-2 Ag (Rapid) negative (Negative) 08/14/23 14:20 MRSA (PCR) Not detected (NOT DETECTED) 08/14/23 19:52 Radiology Impressions Chest CTA 08/14/23 17:53 IMPRESSION: 1. No pulmonary embolus. 2. Severe emphysematous changes throughout both lungs with an upper lobe predominance, similar to the prior examination. 3. Diffuse cavitary and cystic changes in the right upper lobe with extensive intervening consolidation in the right upper lobe, similar to the prior examination, and large consolidation in the posterior aspect of the right lower lobe, new from the prior examination. COMMENTS: The presence of pulmonary emphysema on CT is an independent risk factor for lung cancer. In the absence of a history or active diagnosis of lung cancer, it is recommended that this patient with emphysema be evaluated for enrollment in a low dose CT lung cancer screening program. Recent Clincial Data Last Vital Signs Temp 97.4 F L 08/21/23 04:00 Pulse 87 08/21/23 12:00 Resp 25 H 08/21/23 12:00 BP 128/78 08/21/23 12:00 Pulse Ox 100 08/21/23 12:00 O2 Del Method Nasal Cannula 08/21/23 07:50 O2 Flow Rate 2 08/21/23 07:50 FiO2 40 08/20/23 13:46 Vital Signs Temp Pulse Resp BP Pulse Ox O2 Del Method O2 Flow Rate 08/21/23 12:00 87 25 H 128/78 100 08/21/23 11:30 88 35 H 128/78 08/21/23 11:00 90 25 H 134/70 08/21/23 10:30 91 33 H 134/70 08/21/23 10:00 91 25 H 129/71 55 L 08/21/23 09:30 94 26 H 129/71 08/21/23 09:00 93 23 H 146/79 08/21/23 08:30 92 25 H 146/79 60 L 08/21/23 08:01 88 08/21/23 08:00 85 28 H 141/66 93 08/21/23 07:50 87 28 H 92 Nasal Cannula 2 08/21/23 07:30 83 23 H 141/66 100 08/21/23 07:00 81 26 H 122/80 97 08/21/23 06:30 89 31 H 122/80 93 08/21/23 06:00 82 27 H 131/73 99 08/21/23 05:51 82 08/21/23 05:30 84 27 H 131/73 95 08/21/23 05:00 82 27 H 130/70 100 08/21/23 04:30 84 25 H 130/70 98 08/21/23 04:00 83 23 H 140/72 08/21/23 04:00 97.4 F L 84 24 H 130/70 92 08/21/23 03:30 83 23 H 140/72 97 08/21/23 03:00 98 28 H 117/68 93 08/21/23 02:43 84 18 98 Oxymask 2 08/21/23 02:40 85 18 98 Oxymask 2 08/21/23 02:30 83 25 H 117/68 99 08/21/23 02:00 86 25 H 137/72 100 08/21/23 01:30 90 27 H 137/72 95 08/21/23 01:00 83 24 H 127/73 100 08/21/23 00:30 91 24 H 127/73 100 Intake & Output/Weight 08/19/23 08/20/23 08/21/23 08/22/23 06:59 06:59 06:59 06:59 Intake Total 393.034 / 393.034 130 / 130 380 / 380 Output Total 0 / 0 0 / 0 50 / 50 250 / 250 Balance 393.034 / 393.034 130 / 130 330 / 330 -250 / -250 Weight 38.555 kg 37.875 kg 37.648 kg Vitals Last Vital Signs Temp 97.4 F L 08/21/23 04:00 Pulse 87 08/21/23 12:00 Resp 25 H 08/21/23 12:00 BP 128/78 04/03/24 12:00 Pulse Ox 100 08/21/23 12:00 O2 Del Method Nasal Cannula 08/21/23 07:50 O2 Flow Rate 2 08/21/23 07:50 FiO2 40 08/20/23 13:46 TS Medications Medications Acetaminophen (Acetaminophen 325 Mg Tablet) 650 mg PO Q6H PRN PRN Reason: Mild/Mod Pain Or Temp >/= 101 Last Admin: 08/16/23 20:24 Dose: 650 mg Albuterol/Ipratropium (Ipratropium-Albuterol 3 Ml Neb) 3 ml INHALATION Q6H.RESP SHELLY Last Admin: 08/21/23 07:50 Dose: 3 ml Albuterol/Ipratropium (Ipratropium-Albuterol 3 Ml Neb) 3 ml INHALATION Q6H PRN PRN Reason: SHORTNESS OF BREATH Amiodarone HCl (Amiodarone 200 Mg Tablet) 200 mg PO BID [facility] Last Admin: 08/21/23 07:53 Dose: 200 mg Folic Acid (Folic Acid 1 Mg Tablet) 1 mg PO DAILY [facility] Last Admin: 08/21/23 07:53 Dose: 1 mg Ceftriaxone Sodium 1,000 mg/ (Sodium Chloride) 50 mls @ 100 mls/hr IV DAILY [facility]; Protocol Last Admin: 08/21/23 07:53 Dose: 100 mls/hr Dextrose (D5w) 1,000 mls @ 50 mls/hr IV .Q20H [facility] Last Admin: 08/21/23 11:39 Dose: 50 mls/hr Methylprednisolone Sodium Succinate (Methylprednisolone Sod Succ 40 Mg/Ml Inj) 20 mg IVP Q6H [facility] Last Admin: 08/21/23 10:09 Dose: 20 mg Metronidazole (Metronidazole 500 Mg Tablet) 500 mg PO TID [facility] Last Admin: 08/21/23 07:53 Dose: 500 mg Multivitamins Therapeutic (Multivitamin Therapeutic Tablet) 1 tab PO DAILY [facility] Last Admin: 08/21/23 07:53 Dose: 1 tab Ondansetron HCl (Ondansetron 2 Mg/Ml Sdv 2 Ml) 4 mg IVP Q8H PRN PRN Reason: vomiting, or N/V if npo Pantoprazole Sodium (Pantoprazole 40 Mg Sdv) 40 mg IVP Q12H [facility] Last Admin: 08/21/23 06:38 Dose: 40 mg Thiamine Mononitrate (Thiamine 100 Mg Tablet) 100 mg PO DAILY SHELLY Last Admin: 08/21/23 07:53 Dose: 100 mg Discontinued Medications Albuterol/Ipratropium (Ipratropium-Albuterol 3 Ml Neb) 3 ml INHALATION ONCE ONE Stop: 08/14/23 14:29 Last Admin: 08/14/23 15:03 Dose: 3 ml Diltiazem HCl (Diltiazem 5 Mg/Ml Sdv 5 Ml) 5 mg IVP ONCE ONE Stop: 08/16/23 18:02 Last Admin: 08/16/23 18:04 Dose: 5 mg Diltiazem HCl (Diltiazem 5 Mg/Ml Sdv 5 Ml) 10 mg IVP ONCE ONE Stop: 08/16/23 18:42 Last Admin: 08/16/23 18:57 Dose: 10 mg Diltiazem HCl (Diltiazem 5 Mg/Ml Sdv 5 Ml) 10 mg IVP ONCE ONE Stop: 08/16/23 20:47 Last Admin: 08/16/23 21:02 Dose: 10 mg Sodium Chloride (Sodium Chloride 0.9%) 1,000 mls @ 999 mls/hr IV .Q1H1M SHELLY Stop: 08/14/23 16:00 Last Infusion: 08/14/23 17:18 Dose: Infused Ceftriaxone Sodium 1,000 mg/ (Sodium Chloride) 50 mls @ 100 mls/hr IV ONCE ONE; Protocol Stop: 08/14/23 16:11 Last Infusion: 08/14/23 17:18 Dose: Infused Azithromycin 500 mg/ Sodium (Chloride) 250 mls @ 250 mls/hr IV ONCE ONE; Protocol Stop: 08/14/23 16:41 Last Infusion: 08/14/23 18:19 Dose: Infused Azithromycin 500 mg/ Sodium (Chloride) 250 mls @ 250 mls/hr IV Q24H [facility]; Protocol Last Infusion: 08/20/23 09:51 Dose: Infused Magnesium Sulfate (Magnesium Sulfate Premix) 2 gm in 50 mls @ 50 mls/hr IV ONCE ONE Stop: 08/16/23 01:54 Last Infusion: 08/16/23 02:41 Dose: Infused Amiodarone HCl/Dextrose (Nexterone) 360 mg in 200 mls @ 0 mls/hr IV .Q0M SHELLY; Protocol Last Titration: 08/18/23 19:11 Dose: Infused Iohexol (Iohexol 350 Mg/Ml 500 Ml Btl (Per Ml)) 0 ml IV ONCE ONE Stop: 08/14/23 20:10 Last Admin: 08/14/23 20:11 Dose: 49 ml Lorazepam (Lorazepam 2 Mg Tablet) 2 mg PO Q4H PRN; Protocol PRN Reason: WITHDRAWAL Lorazepam (Lorazepam 2 Mg/Ml Inj 10 Ml Mdv) 2 mg IM Q4H PRN; Protocol PRN Reason: ALCOHOL WITHDRAWAL Lorazepam (Lorazepam 2 Mg/Ml Inj 10 Ml Mdv) 2 mg IVP PRN PRN; Protocol PRN Reason: WITHDRAWAL Lorazepam (Lorazepam 2 Mg/Ml Inj 1 Ml) 2 mg IVP Q4H PRN; Protocol PRN Reason: WITHDRAWAL Last Admin: 08/19/23 04:19 Dose: 2 mg Lorazepam (Lorazepam 2 Mg/Ml Inj 1 Ml) 2 mg IM Q4H PRN; Protocol PRN Reason: ALCOHOL WITHDRAWAL Methylprednisolone Sodium Succinate (Methylprednisolone Sod Succ 125 Mg/2 Ml Inj) 125 mg IVP ONCE ONE Stop: 08/14/23 14:29 Last Admin: 08/14/23 14:42 Dose: 125 mg Methylprednisolone Sodium Succinate (Methylprednisolone Sod Succ 40 Mg/Ml Inj) 40 mg IVP Q6H [facility] Last Admin: 08/18/23 15:37 Dose: 40 mg Metoprolol Tartrate (Metoprolol Tartrate 1 Mg/1 Ml Sdv 5 Ml) 2.5 mg IVP ONCE ONE Stop: 08/16/23 18:01 Metoprolol Tartrate (Metoprolol Tartrate 25 Mg Tablet) 25 mg PO BID@0900,2100 [facility] Thiamine HCl (Thiamine 100 Mg/Ml Sdv) 100 mg IM ONCE ONE Stop: 08/16/23 21:30 Last Admin: 08/16/23 21:44 Dose: 100 mg Allergies No Known Allergies Allergy (Verified 08/14/23 15:39) Home Medications cholecalciferol (vitamin D3) 50 mcg (2,000 unit) capsule 50 mcg PO DAILY 04/19/20 [History Confirmed 08/14/23] fluticasone 250 mcg-salmeterol 50 mcg/dose blistr powdr for inhalation (Advair Diskus) 1 inh inhalation Q12H 04/26/23 [History Confirmed 08/14/23] magnesium oxide 400 mg PO Q7D 04/26/23 [History Confirmed 08/14/23] lisinopril 10 mg tablet 10 mg PO DAILY 07/23/23 [History Confirmed 08/14/23] aspirin 81 mg tablet,delayed release 81 mg PO DAILY 08/14/23 [History Confirmed 08/14/23] tiotropium bromide 2.5 mcg/actuation mist for inhalation 2 puff inhalation DAILY 08/14/23 [History Confirmed 08/14/23] Discharge Plan Discharge Patient Disposition: [facility] Condition: Stable Prescriptions: No Action cholecalciferol (vitamin D3) 50 mcg (2,000 unit) capsule 50 mcg PO DAILY magnesium oxide 400 mg magnesium Tablet 400 mg PO Q7D Rx Instructions: on fluticasone propion-salmeterol [Advair Diskus] 250-50 mcg/dose Blister With Device 1 inh INHALATION Q12H lisinopril 10 mg Tablet 10 mg PO DAILY Aspir-81 81 mg Tablet,Delayed Release (Dr/Ec) 81 mg PO DAILY tiotropium bromide 2.5 mcg/actuation Mist 2 puff INHALATION DAILY Discharge Orders: Transfer Out of Facility (Order); Ordered 08/21/23 Ordered By: Catherine Fleming Referrals: Les [facility], CHECKING DEPARTMENT SUPERVISOR-C [Primary Care Provider] - Transfer Attestations Time Spent in Transfer Care: greater than 30 min Quality Metrics Clinical Quality Measures [ No reported AMI, CVA or VTE this stay] Coding Level of Care Code 57138 Total time (in minutes) for Discharge: 60 Other Coding Information Prolonged care (total time indicated above or notated here) Diagnoses End stage COPD J44.9 Acute exacerbation of chronic obstructive airways disease J44.1 Bullous emphysema J43.9 Cavitary lesion of lung J98.4 Bacteremia R78.81 Community acquired pneumonia J18.9 Aspiration pneumonia J69.0
--- NOTE | 2023-08-21 17:43 | PC.NURSE ---
pt is occas incontinent..so accurate intake and output is impossible
== END 2023-08-21 19:56 | DRG 177 ==
LOC: ER 16:01 → ICU 16:25 → MEDSURG 08-16 00:34 → CSU 08-16 21:40
PROVIDERS: Internal Medicine Pulmonary Disease; Admitting Provider Internal Medicine; Emergency Provider Emergency Medicine; PCP Nurse Practitioner; Visit Provider Student in an Organized Health Care Education/Training Program
DX: J15.69 Pneumonia due to other Gram-negative bacteria (principal); E43 Unspecified severe protein-calorie malnutrition; J96.01 Acute respiratory failure with hypoxia; J96.02 Acute respiratory failure with hypercapnia; E87.1 Hypo-osmolality and hyponatremia; J44.0 Chronic obstructive pulmonary disease with (acute) lower respiratory infection; J44.1 Chronic obstructive pulmonary disease with (acute) exacerbation; R78.81 Bacteremia; Z68.1 Body mass index [BMI] 19.9 or less, adult; R04.2 Hemoptysis; J69.0 Pneumonitis due to inhalation of food and vomit; Z87.891 Personal history of nicotine dependence; J98.4 Other disorders of lung; B95.3 Streptococcus pneumoniae as the cause of diseases classified elsewhere; B95.7 Other staphylococcus as the cause of diseases classified elsewhere; F10.21 Alcohol dependence, in remission; I10 Essential (primary) hypertension; G62.1 Alcoholic polyneuropathy; R29.6 Repeated falls; Z99.81 Dependence on supplemental oxygen
CPT/HCPCS: 36415; 36569; 36573; 36600; 71045; 71275; 74230; 80048; 80051; 80053; 82330; 82803; 82805; 83605; 83735; 83880; 85025; 85378; 86403; 87040; 87070; 87077; 87186; 87205; 87426; 87449; 87641; 87804; 92611; 93005; 94640; 94660; 96365; 96367; 96372; 96375; 96376; 97166; 99291; A4222; C9113; J0283; J0456; J0696; J2060; J2920; J2930; J3411; J3475; J3490; J7030; J7050; J7070; Q9967